=== PATIENT | female | born 1935 | race Caucasian/White ===

== ENCOUNTER 2016-12-13 07:47 | Inpatient (IN) | payer MEDICARE, BC ==
--- NOTE | 2016-12-13 08:49 | EDM.PDOC ---
ED HPI GENERAL MEDICAL PROBLEM - General Chief Complaint: General Stated Complaint: SOB Time Seen by Provider: 12/13/16 07:47 Source of Information: Reports: Patient, EMS History Limitations: Reports: No Limitations - History of Present Illness INITIAL COMMENTS - FREE TEXT/NARRATIVE: 81 years old w f came by EMS, from a [place], to the ed due to of and on left sided arm numbness and gen weakness. Pt is on coumadin and has a pacemeker placed. She has SOB off and on as swell. Right now she is feeling fine. No Family is present. No N/V/D, no CP, no other acute medical issues at this time BP 147/57 pulse 74 PO2 98 RR 18 Temp 37.4 Onset: Unknown/Unsure Onset Date: 12/12/16 Onset Time: 07:00 Duration: Hour(s):, Day(s):, Intermittent Location: Reports: Chest (sob sometimes), Upper Extremity, Left (numbness off and on for some time, sera lower leg weakness), Generalized Quality: Reports: Dull, Same as Previous Episode Severity: Moderate Improves with: Reports: Rest Worsens with: Reports: Movement Context: Reports: Other (CAD, Obesity) Associated Symptoms: Reports: Loss of Appetite Middle Back Pain Score (Numeric/FACES): 4 - Related Data Allergies Allergy/AdvReac Type Severity Reaction Status Date / Time adhesive Allergy Other Verified 12/13/16 08:09 grass pollen Allergy Sneezing Verified 12/13/16 08:09 Penicillins Allergy Hives Verified 12/13/16 08:09 Sulfa (Sulfonamide Allergy Rash Verified 12/13/16 08:09 Antibiotics) Home Meds: Home Meds Budesonide/Formoterol [Symbicort 160-4.5 MCG] 2 puff INH BID 03/30/13 [History] Cholecalciferol (Vitamin D3) [Vitamin D3] 2,000 unit PO DAILY 03/30/13 [History] Ferrous Sulfate 325 tab PO TIDMEALS 03/30/13 [History] Potassium Chloride 10 meq PO DAILY 03/30/13 [History] Omeprazole 40 mg PO ACBREAKFAST 12/28/14 [History] .Calcium Citrate 600 mg PO BIDMEALS 09/29/15 [History] Albuterol Sulfate [Proair Hfa] 2 puff IH Q6H PRN 02/13/16 [History] Aspirin [Halfprin] 81 mg PO DAILY 02/13/16 [History] Cyanocobalamin (Vitamin B-12) [B-12] 1,000 mcg PO DAILY 02/13/16 [History] Docusate Sodium [Colace] 100 mg PO DAILY 02/13/16 [History] Furosemide 80 mg PO BID 02/13/16 [History] Hydrocodone/Acetaminophen [Hydrocodon-Acetaminophen 5-325] 1 each PO Q4H PRN [History] Lisinopril 5 mg PO DAILY 02/13/16 [History] Nystatin [Nystatin Crm] 1 applic TOP BID PRN 02/13/16 [History] Umeclidinium Monroe [Incruse Ellipta] 62.5 mcg IH DAILY 02/13/16 [History] metFORMIN [Glucophage] 250 mg PO BIDMEALS #30 tab 02/27/16 [Rx] Acetaminophen [Tylenol Extra Strength] 1,000 mg PO BID PRN 12/13/16 [History] Gabapentin [Neurontin] 100 mg PO TID 12/13/16 [History] Insulin Aspart [NovoLOG] 12 - 20 units SUBCUT TIDMEALS 12/13/16 [History] Insulin Detemir [Levemir] 44 units SUBCUT BEDTIME 12/13/16 [History] Multivitamin [Daily Kristin] 1 tab PO DAILY 12/13/16 [History] Warfarin [Coumadin] 5 mg PO MOWEFR 12/13/16 [History] Warfarin [Coumadin] 7.5 mg PO SUTUTHSA 12/13/16 [History] traMADol [Ultram] 50 mg PO TID PRN 12/13/16 [History] Past Medical History HEENT History: Reports: Cataract, Hard of Hearing, Other (See Below) Other HEENT History: Congenital hearing loss Cardiovascular History: Reports: Hypertension, Pacemaker, PVD, Other (See Below) Other Cardiovascular History: 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 Other Genitourinary History: PT VOICED THAT SHE PASTED A KIDNEY SSTONE ABOUT 60 YEARS AGO. Other OB/BYN History: PT VOICED NEVER BEEN Musculoskeletal History: Reports: Osteoarthritis Other Musculoskeletal History: knee replacements Endocrine/Metabolic History: Reports: Diabetes, Type II, Other (See Below) Other Endocrine/Metabolic History: insulin dependent Oncologic (Cancer) History: Reports: Colon, Uterine, Other (See Below) Other Oncologic History: Endometrial CA Other Dermatologic History: RAASH UNDERNEATH SERA. BREASTS AND BELLY FOLDS AT TIMES. CURRENTLY HAS TO BREAST AND BELLY FOLDS - Past Surgical History HEENT Surgical History: Reports: Cataract Surgery Cardiovascular Surgical History: Reports: Other (See Below) GI Surgical History: Reports: Cholecystectomy, Other (See Below) Female Surgical History: Reports: Hysterectomy, Other (See Below) Musculoskeletal Surgical History: Reports: Hip Replacement, ORIF, Other (See Below) Social & Family History - Family History Cardiac: Reports: CAD, Other (See Below) Other Cardiac Family History: father and mother Respiratory: Reports: Asthma Other Respiratory Family Hisory: sister Neurological: Reports: Dementia, Other (See Below) Other Neurological Family History: mother Oncologic: Reports: Breast, Skin Other Oncologic Family History: mother-breast. brother-skin - Tobacco Use Smoking Status *Q: Former Smoker Years of Tobacco use: 20 Used Tobacco, but Quit: Yes Month Tobacco Last Used: 20 years ago Second Hand Smoke Exposure: No - Caffeine Use Caffeine Use: Reports: Coffee Other Caffeine Use: 2 cups of coffee and 1 cup of tea in a day - Alcohol Use Days Per Week of Alcohol Use: 0 - Recreational Drug Use Recreational Drug Use: No ED ROS GENERAL - Review of Systems Review Of Systems: See Below Constitutional: Reports: Weakness HEENT: Reports: No Symptoms Respiratory: Reports: Shortness of Breath (occ) Cardiovascular: Reports: Dyspnea on Exertion Endocrine: Reports: No Symptoms GI/Abdominal: Reports: No Symptoms : Reports: No Symptoms Musculoskeletal: Reports: No Symptoms Skin: Reports: No Symptoms Neurological: Reports: Numbness (left arm, off and on, gone now) Psychiatric: Reports: No Symptoms Hematologic/Lymphatic: Reports: No Symptoms Immunologic: Reports: No Symptoms ED EXAM, GENERAL - Physical Exam Exam: See Below Exam Limited By: Physical Impairment General Appearance: Alert, WD/WN, Mild Distress Eye Exam: Bilateral Eye: Normal Inspection Ears: Normal External Exam Ear Exam: Bilateral Ear: Auricle Normal Nose: Normal Inspection, Normal Mucosa Throat/Mouth: Normal Inspection, Normal Lips Head: Atraumatic, Normocephalic Neck: Normal Inspection, Supple, Non-Tender, Full Range of Motion Respiratory/Chest: No Respiratory Distress, Decreased Breath Sounds (left lung) Cardiovascular: Normal Peripheral Pulses, Regular Rate, Rhythm, No Edema, No JVD Peripheral Pulses: 1+: Femoral (L), Femoral (R) GI/Abdominal: Normal Bowel Sounds, Soft, Non-Tender (Female) Exam: Deferred Rectal (Female) Exam: Deferred Back Exam: Normal Inspection, Full Range of Motion Extremities: Normal Inspection, Normal Range of Motion, Non-Tender Neurological: Alert, Oriented, CN II-XII Intact, Normal Cognition Psychiatric: Normal Affect, Normal Mood Skin Exam: Warm, Dry, Intact, Pallor Lymphatic: No Adenopathy EKG INTERPRETATION EKG Date: 12/13/16 Time: 08:25 Rhythm: NSR Rate (Beats/Min): 82 [place]: LAD-Left [place] Deviation P-Wave: Present QRS: Normal ST-T: Normal QT: Prolonged Comparison: NA - No Prior EKG Course - Vital Signs Text/Narrative:: 81 years old w f came by EMS, from a [place], to the ed due to of and on left sided arm numbness and gen weakness. Pt is on coumadin and has a pacemeker placed. She has SOB off and on as swell. Right now she is feeling fine. No Family is present. No N/V/D, no CP, no other acute medical issues at this time BP 147/57 pulse 74 PO2 98 RR 18 Temp 37.4, No blood in stool PE: Weak, pale obes 81 y.o. w f with gen weakness Labs: WBC 6.9 HGB 6.9 INTR 3.9 Na 131 Cr 1.1 BUN 22 Mg 1.9 BNP 354 Troponin 0.01 Imaging: CXE pleural effusion left lung Impression:Weakness, H/O CAD Hypertherapeutic INR (3.9, pt is on coumadine), Anemia (6.9) Left pleural effusion, Hyponatremia. Tx: T&C 2 units of blood, Transfuse 2 units of PRBC Plan: Admit to [facility],. Dr. Bartlett accepted the pt for admission Last Recorded V/S: Last Vital Signs Temp 36.7 C 12/13/16 14:54 Pulse 86 12/13/16 14:54 Resp 18 12/13/16 14:54 BP 132/69 12/13/16 14:54 Pulse Ox 98 12/13/16 12:13 - Orders/Labs/Meds Orders: Active Orders 24 hr Category Date Time Status RED BLOOD CELLS LP [BBK] Stat Lab 12/13/16 08:40 Results TYPE AND SCREEN [BBK] Stat Lab 12/13/16 08:40 Results Sodium Chloride 0.9% [Normal Saline] 250 ml Med 12/13/16 09:15 Active IV ASDIRECTED Sodium Chloride 0.9% [Normal Saline] 250 ml Med 12/13/16 09:30 Active IV ASDIRECTED Transfuse Red Blood Cells [COMM] Stat Oth 12/13/16 09:01 Ordered Transfuse Red Blood Cells [COMM] Stat Oth 12/13/16 09:29 Ordered EKG 12 Lead [EK] Routine Ther 12/13/16 08:24 Ordered Medication Orders Acetaminophen (Tylenol) 650 mg PO Q6H PRN PRN Reason: Pain (mild 1-3) Albuterol/Ipratropium (Duoneb 3.0-0.5 Mg/3 Ml) 3 ml NEB QIDRT [facility] Last Admin: 12/13/16 12:00 Dose: 3 ml Calcium Carbonate (Calcium Carbonate/Vitamin D 1250 Mg-200 Unit) 1 tab PO BIDMEALS [facility] Carbamide Perox/Anhydrous Glycerin (Debrox 6.5% Otic Soln) 0 ml EARLF TID [facility] Last Admin: 12/13/16 14:34 Dose: Not Given Cholecalciferol (Vitamin D3) 2,000 units PO DAILY [facility] Cyanocobalamin (Vitamin B12) 1,000 mcg PO DAILY [facility] Docusate Sodium (Colace) 100 mg PO DAILY [facility] Ferrous Sulfate (Ferrous Sulfate) 325 mg PO TIDMEALS [facility] Last Admin: 12/13/16 14:31 Dose: 325 mg Gabapentin (Neurontin) 100 mg PO TID [facility] Last Admin: 12/13/16 14:31 Dose: 100 mg Sodium Chloride (Normal Saline) 250 mls @ 100 mls/hr IV ASDIRECTED [facility] Sodium Chloride (Normal Saline) 250 mls @ 100 mls/hr IV ASDIRECTED [facility] Insulin Aspart (Novolog) 0 unit SUBCUT TIDMEALS [facility] PRN Reason: Protocol Last Admin: 12/13/16 14:28 Dose: Admin: 12/13/16 14:27 Dose: 4 units Insulin Detemir (Levemir) 35 unit SUBCUT BEDTIME [facility] Lisinopril (Prinivil) 5 mg PO DAILY [facility] Metformin HCl (Glucophage) 250 mg PO BIDMEALS [facility] Mometasone Furoate/Formoterol Fumar (Dulera 200-5 Mcg) 2 puff IH BID [facility] Morphine Sulfate (Morphine) 2 mg IVPUSH Q2H PRN PRN Reason: Pain (severe 7-10) Nystatin (Nystatin Crm) 0 gm TOP BID PRN PRN Reason: Rash Pantoprazole Sodium (Protonix) 40 mg PO DAILY@0600 [facility] Potassium Chloride (Klor-Con 10) 10 meq PO DAILY [facility] Tiotropium Monroe (Spiriva Handihaler) 18 mcg INH DAILY [facility] Tramadol HCl (Ultram) 50 mg PO QID PRN PRN Reason: Pain Labs: Laboratory Tests 12/13/16 12/13/16 12/13/16 Range/Units 08:40 08:40 08:40 WBC 6.9 (4.5-12.0) X10-3/uL RBC 3.27 (3.23-5.20) x10(6)uL Hgb 6.9 L* D (11.5-15.5) g/dL Hct 23.6 L D (30.0-51.3) % MCV 72.1 L (80-96) fL MCH 21.1 L (27.7-33.6) pg MCHC 29.3 L (32.2-35.4) g/dL RDW 17.1 H (11.5-15.5) % Plt Count 305 (125-369) X10(3)uL MPV 7.7 (7.4-10.4) fL Neut % (Auto) 79.7 (46-82) % Lymph % (Auto) 10.2 L (13-37) % [place] % (Auto) 7.7 (4-12) % Eos % (Auto) 2 (1.0-5.0) % Baso % (Auto) 1 (0-2) % Neut # (Auto) 5.5 (1.6-8.3) # Lymph # (Auto) 0.7 (0.6-5.0) # [place] # (Auto) 0.5 (0.0-1.3) # Eos # (Auto) 0.1 (0.0-0.8) # Baso # (Auto) 0.1 (0.0-0.2) # PT 41.3 H* (8.7-11.1) INR 3.98 H (0.89-1.13) Sodium 131 L (135-145) mmol/L Potassium 4.4 (3.5-5.3) mmol/L Chloride 92 L D (100-110) mmol/L Carbon Dioxide 31 H (23-29) mmol/L BUN 23 (8-23) mg/dL Creatinine 0.7 (0.6-1.3) mg/dL Est Cr Clr Drug Dosing 59.01 mL/min Estimated GFR (MDRD) > 60 (>60) BUN/Creatinine Ratio 32.9 H (9-20) Glucose 141 H (80-116) mg/dL Calcium 8.2 L (8.6-10.2) mg/dL Magnesium (1.8-2.5) mg/dL Troponin I (0.02-0.06) NG/ML NT-Pro-B Natriuret Pep (5-450) pg/mL Blood Type Gel Antibody Screen Crossmatch 12/13/16 12/13/16 12/13/16 Range/Units 08:40 08:40 08:40 WBC (4.5-12.0) X10-3/uL RBC (3.23-5.20) x10(6)uL Hgb (11.5-15.5) g/dL Hct (30.0-51.3) % MCV (80-96) fL MCH (27.7-33.6) pg MCHC (32.2-35.4) g/dL RDW (11.5-15.5) % Plt Count (125-369) X10(3)uL MPV (7.4-10.4) fL Neut % (Auto) (46-82) % Lymph % (Auto) (13-37) % [place] % (Auto) (4-12) % Eos % (Auto) (1.0-5.0) % Baso % (Auto) (0-2) % Neut # (Auto) (1.6-8.3) # Lymph # (Auto) (0.6-5.0) # [place] # (Auto) (0.0-1.3) # Eos # (Auto) (0.0-0.8) # Baso # (Auto) (0.0-0.2) # PT (8.7-11.1) INR (0.89-1.13) Sodium (135-145) mmol/L Potassium (3.5-5.3) mmol/L Chloride (100-110) mmol/L Carbon Dioxide (23-29) mmol/L BUN (8-23) mg/dL Creatinine (0.6-1.3) mg/dL Est Cr Clr Drug Dosing mL/min Estimated GFR (MDRD) (>60) BUN/Creatinine Ratio (9-20) Glucose (80-116) mg/dL Calcium (8.6-10.2) mg/dL Magnesium 1.9 (1.8-2.5) mg/dL Troponin I < 0.01 L (0.02-0.06) NG/ML NT-Pro-B Natriuret Pep (5-450) pg/mL Blood Type B POSITIVE Gel Antibody Screen Negative Crossmatch See Detail 12/13/16 Range/Units 08:40 WBC (4.5-12.0) X10-3/uL RBC (3.23-5.20) x10(6)uL Hgb (11.5-15.5) g/dL Hct (30.0-51.3) % MCV (80-96) fL MCH (27.7-33.6) pg MCHC (32.2-35.4) g/dL RDW (11.5-15.5) % Plt Count (125-369) X10(3)uL MPV (7.4-10.4) fL Neut % (Auto) (46-82) % Lymph % (Auto) (13-37) % [place] % (Auto) (4-12) % Eos % (Auto) (1.0-5.0) % Baso % (Auto) (0-2) % Neut # (Auto) (1.6-8.3) # Lymph # (Auto) (0.6-5.0) # [place] # (Auto) (0.0-1.3) # Eos # (Auto) (0.0-0.8) # Baso # (Auto) (0.0-0.2) # PT (8.7-11.1) INR (0.89-1.13) Sodium (135-145) mmol/L Potassium (3.5-5.3) mmol/L Chloride (100-110) mmol/L Carbon Dioxide (23-29) mmol/L BUN (8-23) mg/dL Creatinine (0.6-1.3) mg/dL Est Cr Clr Drug Dosing mL/min Estimated GFR (MDRD) (>60) BUN/Creatinine Ratio (9-20) Glucose (80-116) mg/dL Calcium (8.6-10.2) mg/dL Magnesium (1.8-2.5) mg/dL Troponin I (0.02-0.06) NG/ML NT-Pro-B Natriuret Pep 368 (5-450) pg/mL Blood Type Gel Antibody Screen Crossmatch Meds: Medications Generic Name Dose Route Start Last Admin Trade Name Freq PRN Reason Stop Dose Admin Acetaminophen 650 mg 12/13/16 10:18 Tylenol PO Q6H PRN Pain (mild 1-3) Albuterol/Ipratropium 3 ml 12/13/16 11:00 12/13/16 12:00 Duoneb 3.0-0.5 Mg/3 Ml NEB 3 ml QIDRT [facility] Administration Calcium Carbonate 1 tab 12/13/16 18:00 Calcium Carbonate/Vitamin D 1250 Mg-200 Unit PO BIDMEALS [facility] Carbamide Perox/Anhydrous Glycerin 0 ml 12/13/16 14:00 12/13/16 14:34 Debrox 6.5% Otic Soln EARLF Not Given TID [facility] Cholecalciferol 2,000 units 12/14/16 09:00 Vitamin D3 PO DAILY [facility] Cyanocobalamin 1,000 mcg 12/14/16 09:00 Vitamin B12 PO DAILY [facility] Docusate Sodium 100 mg 12/14/16 09:00 Colace PO DAILY [facility] Ferrous Sulfate 325 mg 12/13/16 12:00 12/13/16 14:31 Ferrous Sulfate PO 325 mg TIDMEALS [facility] Administration Gabapentin 100 mg 12/13/16 14:00 12/13/16 14:31 Neurontin PO 100 mg TID [facility] Administration Sodium Chloride 250 mls @ 100 mls/hr 12/13/16 09:15 Normal Saline IV ASDIRECTED [facility] Sodium Chloride 250 mls @ 100 mls/hr 12/13/16 09:30 Normal Saline IV ASDIRECTED [facility] Insulin Aspart 0 unit 12/13/16 10:30 12/13/16 14:28 Novolog SUBCUT Not Given TIDMEALS [facility] Protocol Insulin Detemir 35 unit 12/13/16 21:00 Levemir SUBCUT BEDTIME [facility] Lisinopril 5 mg 12/14/16 09:00 Prinivil PO DAILY [facility] Metformin HCl 250 mg 12/13/16 18:00 Glucophage PO BIDMEALS [facility] Mometasone Furoate/Formoterol Fumar 2 puff 12/13/16 21:00 Dulera 200-5 Mcg IH BID [facility] Morphine Sulfate 2 mg 12/13/16 10:13 Morphine IVPUSH Q2H PRN Pain (severe 7-10) Nystatin 0 gm 12/13/16 10:18 Nystatin Crm TOP BID PRN Rash Pantoprazole Sodium 40 mg 12/14/16 06:00 Protonix PO DAILY@0600 [facility] Potassium Chloride 10 meq 12/14/16 09:00 Klor-Con 10 PO DAILY [facility] Tiotropium [place] 18 mcg 12/14/16 09:00 Spiriva Handihaler INH DAILY [facility] Tramadol HCl 50 mg 12/13/16 10:18 Ultram PO QID PRN Pain Discontinued Medications Generic Name Dose Route Start Last Admin Trade Name Freq PRN Reason Stop Dose Admin Furosemide 20 mg 12/13/16 15:00 Lasix IVPUSH 12/13/16 15:01 ONETIME ONE Insulin Aspart 20 unit 12/13/16 12:00 Novolog SUBCUT TIDMEALS [facility] Departure - Departure Time of Disposition: 09:00 Disposition: Admitted As Inpatient 66 Condition: Fair Clinical Impression: Pleural effusion Anemia Qualifiers: Anemia type: iron deficiency Iron deficiency anemia type: unspecified iron deficiency Qualified Code(s): D50.9 - Iron deficiency anemia, unspecified CAD (coronary artery disease) Qualifiers: Coronary Disease-Associated Artery/Lesion type: bypass graft [place] vs. transplanted heart: [place] heart Associated angina: without angina Qualified Code(s): I25.810 - Atherosclerosis of coronary artery bypass graft(s) without angina pectoris - Discharge Information - My Orders Last 24 Hours: My Active Orders 12/13/16 08:24 EKG 12 Lead [EK] Routine 12/13/16 08:40 RED BLOOD CELLS LP [BBK] Stat TYPE AND SCREEN [BBK] Stat 12/13/16 09:01 Transfuse Red Blood Cells [COMM] Stat 12/13/16 09:15 Sodium Chloride 0.9% [Normal Saline] 250 ml IV ASDIRECTED 12/13/16 09:29 Transfuse Red Blood Cells [COMM] Stat 12/13/16 09:30 Sodium Chloride 0.9% [Normal Saline] 250 ml IV ASDIRECTED - Assessment/Plan Last 24 Hours: My Active Orders 12/13/16 08:24 EKG 12 Lead [EK] Routine 12/13/16 08:40 RED BLOOD CELLS LP [BBK] Stat TYPE AND SCREEN [BBK] Stat 12/13/16 09:01 Transfuse Red Blood Cells [COMM] Stat 12/13/16 09:15 Sodium Chloride 0.9% [Normal Saline] 250 ml IV ASDIRECTED 12/13/16 09:29 Transfuse Red Blood Cells [COMM] Stat 12/13/16 09:30 Sodium Chloride 0.9% [Normal Saline] 250 ml IV ASDIRECTED
[2016-12-13] MEDS ORDERED: Sodium Chloride 0.9% 250 ML IV SCH ×2 (09:15→09:30)
[2016-12-13] MEDS ORDERED: Morphine 2 MG/ML Syringe IVPUSH PRN (10:13)
[2016-12-13] MEDS ORDERED: Nystatin Crm 15 GM Tube TOP PRN (10:18)
[2016-12-13] MEDS ORDERED: Acetaminophen 325 MG Tab PO PRN (10:18)
--- NOTE | 2016-12-13 10:53 | PCM.HP ---
H&P History of Present Illness - General Date of Service: 12/13/16 Admit Problem/Dx: Admission Diagnosis/Problem Admission Diagnosis/Problem Anemia Source of Information: Patient, Family History Limitations: Reports: No Limitations - History of Present Illness Initial Comments - Free Text/Narative: 81-year-old female who presented with numbness of the arms. This has been going for a day or two. It is associated with shortness of breath as well, but no chest pain. She further feels numb in the legs and weak. She has a history of chronic iron deficiency anemia, and had a recent Lower GI endoscopy that revealed a polyp. her hgb a month agao was 8.1 g/dl.She also has a history of type 2 diabetes is well controlled, obesity that stable chronic back pain due to sciatica. She was seen Friday started on Neurontin which made her dizzy and confused she stopped. Middle Back Pain Score (Numeric/FACES): 4 - Related Data Allergies/Adverse Reactions: Allergies Allergy/AdvReac Type Severity Reaction Status Date / Time adhesive Allergy Other Verified 12/13/16 08:09 grass pollen Allergy Sneezing Verified 12/13/16 08:09 Penicillins Allergy Hives Verified 12/13/16 08:09 Sulfa (Sulfonamide Allergy Rash Verified 12/13/16 08:09 Antibiotics) Home Medications: Home Meds Budesonide/Formoterol [Symbicort 160-4.5 MCG] 2 puff INH BID 03/30/13 [History] Cholecalciferol (Vitamin D3) [Vitamin D3] 2,000 unit PO DAILY 03/30/13 [History] Ferrous Sulfate 325 tab PO TIDMEALS 03/30/13 [History] Potassium Chloride 10 meq PO DAILY 03/30/13 [History] Omeprazole 40 mg PO ACBREAKFAST 12/28/14 [History] .Calcium Citrate 600 mg PO BIDMEALS 09/29/15 [History] Albuterol Sulfate [Proair Hfa] 2 puff IH Q6H PRN 02/13/16 [History] Aspirin [Halfprin] 81 mg PO DAILY 02/13/16 [History] Cyanocobalamin (Vitamin B-12) [B-12] 1,000 mcg PO DAILY 02/13/16 [History] Docusate Sodium [Colace] 100 mg PO DAILY 02/13/16 [History] Furosemide 80 mg PO BID 02/13/16 [History] Hydrocodone/Acetaminophen [Hydrocodon-Acetaminophen 5-325] 1 each PO Q4H PRN [History] Lisinopril 5 mg PO DAILY 02/13/16 [History] Nystatin [Nystatin Crm] 1 applic TOP BID PRN 02/13/16 [History] Umeclidinium [place] [Incruse Ellipta] 62.5 mcg IH DAILY 02/13/16 [History] metFORMIN [Glucophage] 250 mg PO BIDMEALS #30 tab 02/27/16 [Rx] Acetaminophen [Tylenol Extra Strength] 1,000 mg PO BID PRN 12/13/16 [History] Gabapentin [Neurontin] 100 mg PO TID 12/13/16 [History] Insulin Aspart [NovoLOG] 12 - 20 units SUBCUT TIDMEALS 12/13/16 [History] Insulin Detemir [Levemir] 44 units SUBCUT BEDTIME 12/13/16 [History] Multivitamin [Daily Kristin] 1 tab PO DAILY 12/13/16 [History] Warfarin [Coumadin] 5 mg PO MOWEFR 12/13/16 [History] Warfarin [Coumadin] 7.5 mg PO SUTUTHSA 12/13/16 [History] traMADol [Ultram] 50 mg PO TID PRN 12/13/16 [History] Past Medical History HEENT History: Reports: Cataract, Hard of Hearing, Other (See Below) Other HEENT History: Congenital hearing loss Cardiovascular History: Reports: Hypertension, Pacemaker, PVD, Other (See Below) Other Cardiovascular History: 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 Other Genitourinary History: PT VOICED THAT SHE PASTED A KIDNEY SSTONE ABOUT 60 YEARS AGO. Other OB/BYN History: PT VOICED NEVER BEEN Musculoskeletal History: Reports: Osteoarthritis Other Musculoskeletal History: knee replacements Endocrine/Metabolic History: Reports: Diabetes, Type II, Other (See Below) Other Endocrine/Metabolic History: insulin dependent Oncologic (Cancer) History: Reports: Colon, Uterine, Other (See Below) Other Oncologic History: Endometrial CA Other Dermatologic History: RAASH UNDERNEATH SERA. BREASTS AND BELLY FOLDS AT TIMES. CURRENTLY HAS TO BREAST AND BELLY FOLDS - Past Surgical History HEENT Surgical History: Reports: Cataract Surgery Cardiovascular Surgical History: Reports: Other (See Below) GI Surgical History: Reports: Cholecystectomy, Other (See Below) Female Surgical History: Reports: Hysterectomy, Other (See Below) Musculoskeletal Surgical History: Reports: Hip Replacement, ORIF, Other (See Below) Social & Family History - Family History Cardiac: Reports: CAD, Other (See Below) Other Cardiac Family History: father and mother Respiratory: Reports: Asthma Other Respiratory Family Hisory: sister Neurological: Reports: Dementia, Other (See Below) Other Neurological Family History: mother Oncologic: Reports: Breast, Skin Other Oncologic Family History: mother-breast. brother-skin - Tobacco Use Smoking Status *Q: Former Smoker Years of Tobacco use: 20 Used Tobacco, but Quit: Yes Month Tobacco Last Used: 20 years ago Second Hand Smoke Exposure: No - Caffeine Use Caffeine Use: Reports: Coffee Other Caffeine Use: 2 cups of coffee and 1 cup of tea in a day - Alcohol Use Days Per Week of Alcohol Use: 0 - Recreational Drug Use Recreational Drug Use: No H&P Review of Systems - Review of Systems: Review Of Systems: ROS reveals no pertinent complaints other than HPI. Exam - Exam Exam: See Below - Vital Signs Vital Signs: Last Vital Signs Temp 97.9 F 12/13/16 07:47 Pulse 86 12/13/16 07:47 Resp 16 12/13/16 07:47 BP 139/71 12/13/16 07:47 Pulse Ox Weight: 115.411 kg - Exam Quality Assessment: Supplemental Oxygen General: Alert, Oriented, 4 HEENT: PERRLA, Hearing Intact, Mucosa Moist & [place], Nares Patent, Normal Nasal Septum, Posterior Pharynx Clear, Conjunctiva Clear, EOMI, EACs Clear, TMs Clear Neck: Supple. No: +2 Carotid Pulse wo Bruit, JVD Lungs: Clear to Auscultation Cardiovascular: Regular Rate, Regular Rhythm GI/Abdominal Exam: Normal Bowel Sounds, Soft, Non-Tender, No Organomegaly, No Distention, No Abnormal Bruit, No Mass, Pelvis Stable (Female) Exam: Deferred Rectal (Female) Exam: Deferred Extremities: Pedal Edema Skin: Warm Neurological: Cranial Nerves Intact, Reflexes Equal Bilateral Neuro Extensive - Mental Status: Alert, Oriented x3, Normal Mood/Affect, Normal Cognition Neuro Extensive - Motor, Sensory, Reflexes: CN II-XII Intact, Normal Gait, Normal Reflexes Psychiatric: Alert, Normal Affect, Normal Mood - Patient Data Result Diagrams: 12/13/16 08:40 12/13/16 08:40 EKG INTERPRETATION Rhythm: NSR *Q Meaningful Use (ADM) - VTE *Q VTE Criteria *Q: - Stroke *Q Stroke Criteria *Q: - AMI *Q AMI Criteria *Q: - Problem List (1) Anemia SNOMED Code(s): 643218708 ICD Code: D64.9 - ANEMIA, UNSPECIFIED Status: Acute Current Visit: Yes Qualifiers: Anemia type: iron deficiency Iron deficiency anemia type: unspecified iron deficiency Qualified Code(s): D50.9 - Iron deficiency anemia, unspecified (2) [facility] current use of anticoagulant SNOMED Code(s): 180302024 ICD Code: Z79.01 - CV TECH (CURRENT) USE OF ANTICOAGULANTS Status: Acute Current Visit: Yes (3) Status post biventricular cardiac pacemaker insertion SNOMED Code(s): 413407958 ICD Code: Z95.0 - PRESENCE OF CARDIAC PACEMAKER Status: Acute Priority: High Current Visit: No (4) Asthma SNOMED Code(s): 600233754 ICD Code: J45.909 - UNSPECIFIED ASTHMA, UNCOMPLICATED Status: Chronic Current Visit: No Qualifiers: Asthma complication type: uncomplicated (5) Chronic GERD SNOMED Code(s): 187117815 ICD Code: K21.9 - GASTRO-ESOPHAGEAL REFLUX DISEASE WITHOUT ESOPHAGITIS Status: Chronic Current Visit: No (6) Chronic anticoagulation SNOMED Code(s): 619836343 ICD Code: Z79.01 - SNF (CURRENT) USE OF ANTICOAGULANTS Status: Chronic Priority: High Current Visit: No (7) Obesity (BMI 30-39.9) SNOMED Code(s): 425290398 ICD Code: E66.9 - OBESITY, UNSPECIFIED Status: Chronic Current Visit: No (8) Type 2 diabetes mellitus SNOMED Code(s): 30189695 ICD Code: E11.9 - TYPE 2 DIABETES MELLITUS WITHOUT COMPLICATIONS Status: Chronic Current Visit: No Qualifiers: Diabetes mellitus complication status: without complication (9) Complaint of debility and malaise SNOMED Code(s): 238406954 ICD Code: R53.81 - OTHER MALAISE Status: Resolved Priority: High Current Visit: No (10) SOB (shortness of breath) SNOMED Code(s): 999048328 ICD Code: R06.02 - SHORTNESS OF BREATH Status: Acute Current Visit: Yes Problem List Initiated/Reviewed/Updated: Yes Orders Last 24hrs: Active Orders 24 hr Category Date Time Status Patient Status Manage Transfer [TRANSFER] Routine ADT 12/13/16 10:21 Active Blood Glucose Check, Bedside [RC] TIDMEALS Care 12/13/16 10:20 Active Consistent Carbohydrate Diet [DIET] Diet 12/13/16 Lunch Ordered Acetaminophen [Tylenol] Med 12/13/16 10:18 Active 650 mg PO Q6H PRN Calcium Carbonate/Vitamin D3 [Calcium Carbonate/Vitamin Med 12/13/16 18:00 Active D 1250 MG-200 Unit] 1 tab PO BIDMEALS Carbamide Peroxide [Debrox 6.5% Otic Soln] Med 12/13/16 14:00 Active 0 ml EARLF TID Cholecalciferol (Vitamin D3) [Vitamin D3] Med 12/14/16 09:00 Active 2,000 units PO DAILY Cyanocobalamin (Vitamin B12) [Vitamin B12] Med 12/14/16 09:00 Active 1,000 mcg PO DAILY Docusate Sodium [Colace] Med 12/14/16 09:00 Active 100 mg PO DAILY Ferrous Sulfate Med 12/13/16 12:00 Active 325 mg PO TIDMEALS Gabapentin [Neurontin] Med 12/13/16 14:00 Active 100 mg PO TID Insulin Aspart [NovoLOG] Med 12/13/16 10:30 Active See Protocol SUBCUT TIDMEALS Insulin Detemir [Levemir] Med 12/13/16 21:00 Active 35 unit SUBCUT BEDTIME Lisinopril [Prinivil] Med 12/14/16 09:00 Active 5 mg PO DAILY Mometasone/Formoterol [Dulera 200-5 MCG] Med 12/13/16 21:00 Active 2 puff IH BID Nystatin [Nystatin Crm] Med 12/13/16 10:18 Active 0 gm TOP BID PRN Pantoprazole [ProTONIX] Med 12/14/16 06:00 Active 40 mg PO DAILY@0600 Potassium Chloride [Klor-Con 10] Med 12/14/16 09:00 Active 10 meq PO DAILY Umeclidinium [place] [Incruse Ellipta] Med 12/14/16 09:00 Active 62.5 mcg IH DAILY metFORMIN [Glucophage] Med 12/13/16 18:00 Active 250 mg PO BIDMEALS traMADol [Ultram] Med 12/13/16 10:18 Active 50 mg PO QID PRN Medication Orders Acetaminophen (Tylenol) 650 mg PO Q6H PRN PRN Reason: Pain (mild 1-3) Albuterol/Ipratropium (Duoneb 3.0-0.5 Mg/3 Ml) 3 ml NEB QIDRT RUBEN Calcium Carbonate (Calcium Carbonate/Vitamin D 1250 Mg-200 Unit) 1 tab PO BIDMEALS RUBEN Carbamide Perox/Anhydrous Glycerin (Debrox 6.5% Otic Soln) 0 ml EARLF TID RUBEN Cholecalciferol (Vitamin D3) 2,000 units PO DAILY RUBEN Cyanocobalamin (Vitamin B12) 1,000 mcg PO DAILY RUBEN Docusate Sodium (Colace) 100 mg PO DAILY RUBEN Ferrous Sulfate (Ferrous Sulfate) 325 mg PO TIDMEALS RUBEN Furosemide (Lasix) 20 mg IVPUSH ONETIME ONE Stop: 12/13/16 15:01 Gabapentin (Neurontin) 100 mg PO TID RUBEN Sodium Chloride (Normal Saline) 250 mls @ 100 mls/hr IV ASDIRECTED RUBEN Sodium Chloride (Normal Saline) 250 mls @ 100 mls/hr IV ASDIRECTED RUBEN Insulin Aspart (Novolog) 0 unit SUBCUT TIDMEALS RUBEN PRN Reason: Protocol Insulin Detemir (Levemir) 35 unit SUBCUT BEDTIME [facility] Lisinopril (Prinivil) 5 mg PO DAILY [facility] Metformin HCl (Glucophage) 250 mg PO BIDMEALS [facility]1983 Mometasone Furoate/Formoterol Fumar (Dulera 200-5 Mcg) 2 puff IH BID RUBEN Morphine Sulfate (Morphine) 2 mg IVPUSH Q2H PRN PRN Reason: Pain (severe 7-10) Non-Formulary Medication (Umeclidinium [place] [Incruse Ellipta]) 62.5 mcg IH DAILY [facility] Nystatin (Nystatin Crm) 0 gm TOP BID PRN PRN Reason: Rash Pantoprazole Sodium (Protonix) 40 mg PO DAILY@0600 [facility] Potassium Chloride (Klor-Con 10) 10 meq PO DAILY RUBEN Tramadol HCl (Ultram) 50 mg PO QID PRN PRN Reason: Pain Assessment/Plan Comment:: I will transfuse her 2 units of blood.Watch for Fluid overload. Daily weight, q8V. Consult Dr Hatch for an upper GI study,possibly once INR is better..We'll continue the rest of the home medications including insulin. I'll plan to repeat a CBC and CMP in the morning. Held off Coumadin because of high INR.Repeat daily. I've also recommended physical patient therapy for rehabilitation.
--- NOTE | 2016-12-13 11:26 | CR ---
INDICATION: Short of breath. CHEST: Two AP upright views of the chest were obtained and revealed bipolar pacemaker leads in place. The study is obtained 12/13/2016. No comparisons were available. The heart appears enlarged. The aorta is calcified in the arch area. Upper lung field pulmonary vasculature may be slightly prominent. Interstitial changes are minimal, suggesting the possibility of interstitial lung edema with CHF. No gross consolidating pneumonia or definite effusion was seen. There is elevation of the right hemidiaphragm leaf, which may simply be anatomic. Subpulmonic fluid cannot be entirely excluded, however. This should be correlated clinically. If old films are available for comparison, they should be of further diagnostic benefit. An elevated right hemidiaphragm was also noted on a CT of the chest dated 2013. IMPRESSION: Cannot exclude a mild degree of CHF and interstitial lung edema, with probable cardiomegaly, bipolar pacemaker leads, and calcified aorta. MTDD
[2016-12-13] MEDS: Albuterol/Ipratropium 3.0-0.5 MG/3 ML Neb Soln NEB SCH ×3 (12:00→20:22)
[2016-12-13] MEDS ORDERED: Insulin Aspart 100 Units/ML 3 ML Pen SUBCUT SCH (12:00)
[2016-12-13] MEDS ORDERED: Carbamide Peroxide 6.5% Otic Soln 15 ML Bottle EARLF SCH (14:00)
[2016-12-13] MEDS: Insulin Aspart 100 Units/ML 3 ML Pen SUBCUT SCH ×3 (14:27→17:09)
[2016-12-13] MEDS: Gabapentin 100 MG Cap PO SCH ×2 (14:31→20:24)
[2016-12-13] MEDS: Ferrous Sulfate 325 MG Tab PO SCH ×2 (14:31→17:08)
[2016-12-13] MEDS ORDERED: Furosemide 20 MG/2 ML VIAL IVPUSH ONE (15:00)
--- NOTE | 2016-12-13 17:02 | PCM.SN ---
- Free Text/Narrative Note: Pt examined and chart reviewed. Consult dictated. would like to wait on EGD as she is a little short of breath. will reassess in the am.
[2016-12-13] MEDS: Calcium Carbonate/Vitamin D3 1250 MG-200 Unit Tab PO SCH (17:07)
[2016-12-13] MEDS: metFORMIN 500 MG Tab PO SCH (17:08)
[2016-12-13] MEDS: Formoterol/Mometasone 200-5 MCG 8.8 GM Inhaler IH SCH (20:23)
[2016-12-13] MEDS: Insulin Detemir 100 Units/ML 3 ML Pen SUBCUT SCH (20:31)
[2016-12-14] MEDS: traMADol 50 MG Tab PO PRN (01:12)
[2016-12-14] MEDS: Pantoprazole 40 MG Tab.CR PO SCH (06:29)
[2016-12-14] MEDS: Albuterol/Ipratropium 3.0-0.5 MG/3 ML Neb Soln NEB SCH ×4 (07:06→20:21)
[2016-12-14] MEDS: Ferrous Sulfate 325 MG Tab PO SCH ×3 (07:54→17:52)
[2016-12-14] MEDS: Calcium Carbonate/Vitamin D3 1250 MG-200 Unit Tab PO SCH ×2 (07:54→17:52)
[2016-12-14] MEDS: metFORMIN 500 MG Tab PO SCH ×2 (07:54→17:52)
[2016-12-14] MEDS: Insulin Aspart 100 Units/ML 3 ML Pen SUBCUT SCH ×3 (07:57→17:46)
[2016-12-14] MEDS: Potassium Chloride 10 MEQ Tab.ER PO SCH (07:59)
[2016-12-14] MEDS: Docusate Sodium 100 MG Cap PO SCH (07:59)
[2016-12-14] MEDS: Lisinopril 5 MG Tab PO SCH (07:59)
[2016-12-14] MEDS: Gabapentin 100 MG Cap PO SCH ×3 (07:59→20:20)
[2016-12-14] MEDS: Tiotropium Inhaler 18 MCG Inhalation Powder Cap Kit of 5 INH SCH (08:00)
[2016-12-14] MEDS: Cholecalciferol (Vitamin D3) 1,000 Unit Tab PO SCH (08:01)
[2016-12-14] MEDS: Cyanocobalamin (Vitamin B12) 1,000 MCG Tab PO SCH (08:01)
[2016-12-14] MEDS: Formoterol/Mometasone 200-5 MCG 8.8 GM Inhaler IH SCH ×2 (08:02→20:21)
[2016-12-14] MEDS ORDERED: Metolazone 5 MG Tab PO ONE (08:17)
--- NOTE | 2016-12-14 08:25 | PCM.PN ---
- General Info Date of Service: 12/14/16 Admission Dx/Problem (Free Text): Admission Diagnosis/Problem Admission Diagnosis/Problem Anemia Subjective Update: Patient received 2 units of PRBCs yesterday. Subsequently a hemoglobin has been up to 9.6 however, she's had problems with breathing. She's been noted wheezing and short of breath, and has had visibly swollen extremities. He denies chest pain fever or chills or cough Functional Status: Reports: Pain Controlled, New Symptoms - Review of Systems HEENT: Reports: No Symptoms Pulmonary: Reports: Shortness of Breath Cardiovascular: Reports: Dyspnea on Exertion, Orthopnea Gastrointestinal: Reports: No Symptoms Genitourinary: Reports: No Symptoms - Patient Data Vitals - Most Recent: Last Vital Signs Temp 97.8 F 12/14/16 01:00 Pulse 88 12/14/16 07:47 Resp 20 12/14/16 01:00 BP 134/66 12/14/16 07:59 Pulse Ox 93 L 12/14/16 07:47 Weight - Most Recent: 113.489 kg I&O - Last 24 Hours: Intake & Output 12/13/16 12/14/16 12/14/16 22:59 06:59 14:59 Intake Total 952 Output Total 250 Balance 702 Lab Results Last 24 Hours: Laboratory Results - last 24 hr 12/13/16 12/13/16 12/14/16 Range/Units 14:04 17:05 06:42 WBC 8.6 (4.5-12.0) X10-3/uL RBC 4.25 (3.23-5.20) x10(6)uL Hgb 9.6 L (11.5-15.5) g/dL Hct 32.4 (30.0-51.3) % MCV 76.1 L (80-96) fL MCH 22.5 L (27.7-33.6) pg MCHC 29.6 L (32.2-35.4) g/dL RDW 18.2 H (11.5-15.5) % Plt Count 313 (125-369) X10(3)uL MPV 8.0 (7.4-10.4) fL Neut % (Auto) 83.1 H (46-82) % Lymph % (Auto) 8.2 L (13-37) % Clark % (Auto) 7.6 (4-12) % Eos % (Auto) 1 (1.0-5.0) % Baso % (Auto) 1 (0-2) % Neut # (Auto) 7.1 (1.6-8.3) # Lymph # (Auto) 0.7 (0.6-5.0) # Clark # (Auto) 0.7 (0.0-1.3) # Eos # (Auto) 0.1 (0.0-0.8) # Baso # (Auto) 0.0 (0.0-0.2) # PT (8.7-11.1) INR (0.89-1.13) Sodium (135-145) mmol/L Potassium (3.5-5.3) mmol/L Chloride (100-110) mmol/L Carbon Dioxide (23-29) mmol/L BUN (8-23) mg/dL Creatinine (0.6-1.3) mg/dL Est Cr Clr Drug Dosing mL/min Estimated GFR (MDRD) (>60) BUN/Creatinine Ratio (9-20) Glucose (80-116) mg/dL POC Glucose 238 H D 209 H (80-116) mg/dL Calcium (8.6-10.2) mg/dL Total Bilirubin (0.1-1.3) mg/dL AST (5-27) IU/L ALT (14-26) IU/L Alkaline Phosphatase (56-112) IU/L Troponin I (0.02-0.06) NG/ML Total Protein (6.0-8.0) g/dL Albumin (3.2-4.6) g/dL Globulin g/dL Albumin/Globulin Ratio 12/14/16 12/14/16 12/14/16 Range/Units 06:42 06:42 06:42 WBC (4.5-12.0) X10-3/uL RBC (3.23-5.20) x10(6)uL Hgb (11.5-15.5) g/dL Hct (30.0-51.3) % MCV (80-96) fL MCH (27.7-33.6) pg MCHC (32.2-35.4) g/dL RDW (11.5-15.5) % Plt Count (125-369) X10(3)uL MPV (7.4-10.4) fL Neut % (Auto) (46-82) % Lymph % (Auto) (13-37) % Clark % (Auto) (4-12) % Eos % (Auto) (1.0-5.0) % Baso % (Auto) (0-2) % Neut # (Auto) (1.6-8.3) # Lymph # (Auto) (0.6-5.0) # Clark # (Auto) (0.0-1.3) # Eos # (Auto) (0.0-0.8) # Baso # (Auto) (0.0-0.2) # PT 22.4 H (8.7-11.1) INR 2.18 H (0.89-1.13) Sodium 131 L (135-145) mmol/L Potassium 4.4 (3.5-5.3) mmol/L Chloride 93 L (100-110) mmol/L Carbon Dioxide 30 H (23-29) mmol/L BUN 19 (8-23) mg/dL Creatinine 0.7 (0.6-1.3) mg/dL Est Cr Clr Drug Dosing 59.01 mL/min Estimated GFR (MDRD) > 60 (>60) BUN/Creatinine Ratio 27.1 H (9-20) Glucose 213 H (80-116) mg/dL POC Glucose (80-116) mg/dL Calcium 8.5 L (8.6-10.2) mg/dL Total Bilirubin 0.8 (0.1-1.3) mg/dL AST 17 D (5-27) IU/L ALT 19 D (14-26) IU/L Alkaline Phosphatase 100 (56-112) IU/L Troponin I < 0.01 L (0.02-0.06) NG/ML Total Protein 6.2 (6.0-8.0) g/dL Albumin 3.2 (3.2-4.6) g/dL Globulin 3.0 g/dL Albumin/Globulin Ratio 1.1 Med Orders - Current: Current Medications Acetaminophen (Tylenol) 650 mg PO Q6H PRN PRN Reason: Pain (mild 1-3) Albuterol/Ipratropium (Duoneb 3.0-0.5 Mg/3 Ml) 3 ml NEB QIDRT [facility] Last Admin: 12/14/16 07:06 Dose: 3 ml Calcium Carbonate (Calcium Carbonate/Vitamin D 1250 Mg-200 Unit) 1 tab PO BIDMEALS [facility] Last Admin: 12/14/16 07:54 Dose: 1 tab Cholecalciferol (Vitamin D3) 2,000 units PO DAILY [facility] Last Admin: 12/14/16 08:01 Dose: 2,000 units Cyanocobalamin (Vitamin B12) 1,000 mcg PO DAILY [facility] Last Admin: 12/14/16 08:01 Dose: 1,000 mcg Docusate Sodium (Colace) 100 mg PO DAILY [facility] Last Admin: 12/14/16 07:59 Dose: 100 mg Ferrous Sulfate (Ferrous Sulfate) 325 mg PO TIDMEALS [facility] Last Admin: 12/14/16 07:54 Dose: 325 mg Furosemide (Lasix) 80 mg IVPUSH NOW ONE Stop: 12/14/16 08:21 Furosemide (Lasix) 80 mg PO BID [facility] Gabapentin (Neurontin) 100 mg PO TID [facility] Last Admin: 12/14/16 07:59 Dose: 100 mg Sodium Chloride (Normal Saline) 250 mls @ 100 mls/hr IV ASDIRECTED RUBEN Sodium Chloride (Normal Saline) 250 mls @ 100 mls/hr IV ASDIRECTED [facility] Insulin Aspart (Novolog) 0 unit SUBCUT TIDMEALS [facility] PRN Reason: Protocol Last Admin: 12/14/16 07:57 Dose: 4 units Insulin Detemir (Levemir) 35 unit SUBCUT BEDTIME [facility] Last Admin: 12/13/16 20:31 Dose: 35 units Insulin Detemir (Levemir) 44 unit SUBCUT BEDTIME [facility] Lisinopril (Prinivil) 5 mg PO DAILY [facility] Last Admin: 12/14/16 07:59 Dose: 5 mg Metformin HCl (Glucophage) 250 mg PO BIDMEALS [facility] Last Admin: 12/14/16 07:54 Dose: 250 mg Metolazone (Zaroxolyn) 5 mg PO ONETIME ONE Stop: 12/14/16 08:18 Mometasone Furoate/Formoterol Fumar (Dulera 200-5 Mcg) 2 puff IH BID [facility] Last Admin: 12/14/16 08:02 Dose: 2 puff Morphine Sulfate (Morphine) 2 mg IVPUSH Q2H PRN PRN Reason: Pain (severe 7-10) Multivitamins/Minerals/Vitamin C (Tab-A-Kristin) 1 tab PO DAILY [facility] Nystatin (Nystatin Crm) 0 gm TOP BID PRN PRN Reason: Rash Pantoprazole Sodium (Protonix) 40 mg PO DAILY@0600 [facility] Last Admin: 12/14/16 06:29 Dose: 40 mg Potassium Chloride (Klor-Con 10) 10 meq PO DAILY [facility] Last Admin: 12/14/16 07:59 Dose: 10 meq Tiotropium [place] (Spiriva Handihaler) 18 mcg INH DAILY [facility] Last Admin: 12/14/16 08:00 Dose: 1 inhalation Tramadol HCl (Ultram) 50 mg PO QID PRN PRN Reason: Pain Last Admin: 12/14/16 01:12 Dose: 50 mg Discontinued Medications Carbamide Perox/Anhydrous Glycerin (Debrox 6.5% Otic Soln) 0 ml EARLF TID [facility] Last Admin: 12/13/16 14:34 Dose: Not Given Furosemide (Lasix) 20 mg IVPUSH ONETIME ONE Stop: 12/13/16 15:01 Last Admin: 12/13/16 15:20 Dose: 20 mg Furosemide (Lasix) 20 mg IVPUSH BID [facility] Insulin Aspart (Novolog) 20 unit SUBCUT TIDMEALS [facility] - Exam Quality Assessment: Supplemental Oxygen General: Alert, Oriented HEENT: Pupils Equal, Pupils Reactive, EOMI, Mucous Membr. Moist/[place] Neck: Supple Lungs: Crackles, Rhonchi Cardiovascular: Regular Rate, Regular Rhythm Extremities: Pedal Edema. No: No Pedal Edema Skin: Warm, Dry, Intact Neurological: No New Focal Deficit Psy/Mental Status: Alert, Normal Affect, Normal Mood - Problem List & Annotations (1) Anemia SNOMED Code(s): 149422302 Code(s): D64.9 - ANEMIA, UNSPECIFIED Status: Acute Current Visit: Yes Qualifiers: Anemia type: iron deficiency Iron deficiency anemia type: unspecified iron deficiency Qualified Code(s): D50.9 - Iron deficiency anemia, unspecified (2) shelter current use of anticoagulant SNOMED Code(s): 672321920 Code(s): Z79.01 - DETENTION (CURRENT) USE OF ANTICOAGULANTS Status: Acute Current Visit: Yes (3) Status post biventricular cardiac pacemaker insertion SNOMED Code(s): 723407177 Code(s): Z95.0 - PRESENCE OF CARDIAC PACEMAKER Status: Acute Priority: High Current Visit: No (4) Asthma SNOMED Code(s): 628157549 Code(s): J45.909 - UNSPECIFIED ASTHMA, UNCOMPLICATED Status: Chronic Current Visit: No Qualifiers: Asthma complication type: uncomplicated (5) Chronic GERD SNOMED Code(s): 119385095 Code(s): K21.9 - GASTRO-ESOPHAGEAL REFLUX DISEASE WITHOUT ESOPHAGITIS Status: Chronic Current Visit: No (6) Chronic anticoagulation SNOMED Code(s): 830344217 Code(s): Z79.01 - COMPLETION ENGINEER (CURRENT) USE OF ANTICOAGULANTS Status: Chronic Priority: High Current Visit: No (7) Obesity (BMI 30-39.9) SNOMED Code(s): 019798002 Code(s): E66.9 - OBESITY, UNSPECIFIED Status: Chronic Current Visit: No (8) Type 2 diabetes mellitus SNOMED Code(s): 29765748 Code(s): E11.9 - TYPE 2 DIABETES MELLITUS WITHOUT COMPLICATIONS Status: Chronic Current Visit: No Qualifiers: Diabetes mellitus complication status: without complication (9) Complaint of debility and malaise SNOMED Code(s): 023293681 Code(s): R53.81 - OTHER MALAISE Status: Resolved Priority: High Current Visit: No (10) SOB (shortness of breath) SNOMED Code(s): 439468331 Code(s): R06.02 - SHORTNESS OF BREATH Status: Acute Current Visit: Yes - Problem List Review Problem List Initiated/Reviewed/Updated: Yes - My Orders Last 24 Hours: My Active Orders 12/13/16 10:18 Acetaminophen [Tylenol] 650 mg PO Q6H PRN Nystatin [Nystatin Crm] 0 gm TOP BID PRN traMADol [Ultram] 50 mg PO QID PRN 12/13/16 10:20 Blood Glucose Check, Bedside [RC] TIDMEALS 12/13/16 10:30 Insulin Aspart [NovoLOG] See Protocol SUBCUT TIDMEALS 12/13/16 12:00 Ferrous Sulfate 325 mg PO TIDMEALS 12/13/16 14:00 Gabapentin [Neurontin] 100 mg PO TID 12/13/16 18:00 Calcium Carbonate/Vitamin D3 [Calcium Carbonate/Vitamin D 1250 MG-200 Unit] 1 tab PO BIDMEALS metFORMIN [Glucophage] 250 mg PO BIDMEALS 12/13/16 21:00 Insulin Detemir [Levemir] 35 unit SUBCUT BEDTIME Mometasone/Formoterol [Dulera 200-5 MCG] 2 puff IH BID 12/13/16 Lunch Consistent Carbohydrate Diet [DIET] 12/14/16 06:00 Pantoprazole [ProTONIX] 40 mg PO DAILY@0600 12/14/16 08:17 Metolazone [Zaroxolyn] 5 mg PO ONETIME ONE 12/14/16 08:20 Furosemide [Lasix] 80 mg IVPUSH NOW ONE 12/14/16 09:00 Cholecalciferol (Vitamin D3) [Vitamin D3] 2,000 units PO DAILY Cyanocobalamin (Vitamin B12) [Vitamin B12] 1,000 mcg PO DAILY Docusate Sodium [Colace] 100 mg PO DAILY Lisinopril [Prinivil] 5 mg PO DAILY Multivitamins [Tab-A-Kristin] 1 tab PO DAILY Potassium Chloride [Klor-Con 10] 10 meq PO DAILY Tiotropium [Spiriva HandiHaler] 18 mcg INH DAILY 12/14/16 17:00 Furosemide [Lasix] 80 mg PO BID 12/14/16 21:00 Insulin Detemir [Levemir] 44 unit SUBCUT BEDTIME 12/15/16 05:11 B-TYPE NATRIURETIC PEPTIDE,BNP [CHEM] AM BASIC METABOLIC PANEL,BMP [CHEM] AM CBC WITH AUTO DIFF [HEME] AM - Plan Plan:: I will restart her Lasix, after initial 80 mg IV 1 time. I also given a one- time dose of Zaroxolyn and 2 g of IV morphine. I will repeat CBC basic profile and BNP in the morning. I talked to Dr. Hatch about doing an upper GI endoscopy , because of chronic iron deficiency anemia. I will hold off on Coumadin until we decide the time for the upper GI.
[2016-12-14] MEDS ORDERED: Furosemide 100 MG/10 ML SDV IVPUSH ONE (08:45)
[2016-12-14] MEDS ORDERED: Furosemide 40 MG/4 ML VIAL IVPUSH SCH (09:00)
[2016-12-14] MEDS: Multivitamin Tab PO SCH (09:17)
--- NOTE | 2016-12-14 09:25 | PCM.SURGPN ---
- General Info Date of Service: 12/14/16 - Review of Systems Pulmonary: Reports: Wheezing Cardiovascular: Reports: No Symptoms Gastrointestinal: Reports: No Symptoms - Patient Data Vitals - Most Recent: Last Vital Signs Temp 36.6 C 12/14/16 07:45 Pulse 88 12/14/16 07:47 Resp 22 H 12/14/16 07:45 BP 134/66 12/14/16 07:59 Pulse Ox 93 L 12/14/16 07:47 Weight - Most Recent: 113.489 kg I&O - Last 24 Hours: Intake & Output 12/13/16 12/14/16 12/14/16 22:59 06:59 14:59 Intake Total 952 Output Total 250 Balance 702 Lab Results Last 24 Hrs: Laboratory Results - last 24 hr 12/13/16 12/13/16 12/14/16 Range/Units 14:04 17:05 06:42 WBC 8.6 (4.5-12.0) X10-3/uL RBC 4.25 (3.23-5.20) x10(6)uL Hgb 9.6 L (11.5-15.5) g/dL Hct 32.4 (30.0-51.3) % MCV 76.1 L (80-96) fL MCH 22.5 L (27.7-33.6) pg MCHC 29.6 L (32.2-35.4) g/dL RDW 18.2 H (11.5-15.5) % Plt Count 313 (125-369) X10(3)uL MPV 8.0 (7.4-10.4) fL Neut % (Auto) 83.1 H (46-82) % Lymph % (Auto) 8.2 L (13-37) % [place] % (Auto) 7.6 (4-12) % Eos % (Auto) 1 (1.0-5.0) % Baso % (Auto) 1 (0-2) % Neut # (Auto) 7.1 (1.6-8.3) # Lymph # (Auto) 0.7 (0.6-5.0) # [place] # (Auto) 0.7 (0.0-1.3) # Eos # (Auto) 0.1 (0.0-0.8) # Baso # (Auto) 0.0 (0.0-0.2) # PT (8.7-11.1) INR (0.89-1.13) Sodium (135-145) mmol/L Potassium (3.5-5.3) mmol/L Chloride (100-110) mmol/L Carbon Dioxide (23-29) mmol/L BUN (8-23) mg/dL Creatinine (0.6-1.3) mg/dL Est Cr Clr Drug Dosing mL/min Estimated GFR (MDRD) (>60) BUN/Creatinine Ratio (9-20) Glucose (80-116) mg/dL POC Glucose 238 H D 209 H (80-116) mg/dL Calcium (8.6-10.2) mg/dL Total Bilirubin (0.1-1.3) mg/dL AST (5-27) IU/L ALT (14-26) IU/L Alkaline Phosphatase (56-112) IU/L Troponin I (0.02-0.06) NG/ML Total Protein (6.0-8.0) g/dL Albumin (3.2-4.6) g/dL Globulin g/dL Albumin/Globulin Ratio 12/14/16 12/14/16 12/14/16 Range/Units 06:42 06:42 06:42 WBC (4.5-12.0) X10-3/uL RBC (3.23-5.20) x10(6)uL Hgb (11.5-15.5) g/dL Hct (30.0-51.3) % MCV (80-96) fL MCH (27.7-33.6) pg MCHC (32.2-35.4) g/dL RDW (11.5-15.5) % Plt Count (125-369) X10(3)uL MPV (7.4-10.4) fL Neut % (Auto) (46-82) % Lymph % (Auto) (13-37) % [place] % (Auto) (4-12) % Eos % (Auto) (1.0-5.0) % Baso % (Auto) (0-2) % Neut # (Auto) (1.6-8.3) # Lymph # (Auto) (0.6-5.0) # [place] # (Auto) (0.0-1.3) # Eos # (Auto) (0.0-0.8) # Baso # (Auto) (0.0-0.2) # PT 22.4 H (8.7-11.1) INR 2.18 H (0.89-1.13) Sodium 131 L (135-145) mmol/L Potassium 4.4 (3.5-5.3) mmol/L Chloride 93 L (100-110) mmol/L Carbon Dioxide 30 H (23-29) mmol/L BUN 19 (8-23) mg/dL Creatinine 0.7 (0.6-1.3) mg/dL Est Cr Clr Drug Dosing 59.01 mL/min Estimated GFR (MDRD) > 60 (>60) BUN/Creatinine Ratio 27.1 H (9-20) Glucose 213 H (80-116) mg/dL POC Glucose (80-116) mg/dL Calcium 8.5 L (8.6-10.2) mg/dL Total Bilirubin 0.8 (0.1-1.3) mg/dL AST 17 D (5-27) IU/L ALT 19 D (14-26) IU/L Alkaline Phosphatase 100 (56-112) IU/L Troponin I < 0.01 L (0.02-0.06) NG/ML Total Protein 6.2 (6.0-8.0) g/dL Albumin 3.2 (3.2-4.6) g/dL Globulin 3.0 g/dL Albumin/Globulin Ratio 1.1 Med Orders - Current: Current Medications Acetaminophen (Tylenol) 650 mg PO Q6H PRN PRN Reason: Pain (mild 1-3) Albuterol/Ipratropium (Duoneb 3.0-0.5 Mg/3 Ml) 3 ml NEB QIDRT [facility] Last Admin: 12/14/16 07:06 Dose: 3 ml Calcium Carbonate (Calcium Carbonate/Vitamin D 1250 Mg-200 Unit) 1 tab PO BIDMEALS [facility] Last Admin: 12/14/16 07:54 Dose: 1 tab Cholecalciferol (Vitamin D3) 2,000 units PO DAILY [facility] Last Admin: 12/14/16 08:01 Dose: 2,000 units Cyanocobalamin (Vitamin B12) 1,000 mcg PO DAILY [facility] Last Admin: 12/14/16 08:01 Dose: 1,000 mcg Docusate Sodium (Colace) 100 mg PO DAILY [facility] Last Admin: 12/14/16 07:59 Dose: 100 mg Ferrous Sulfate (Ferrous Sulfate) 325 mg PO TIDMEALS [facility] Last Admin: 12/14/16 07:54 Dose: 325 mg Furosemide (Lasix) 80 mg PO BIDDIURETIC [facility] Gabapentin (Neurontin) 100 mg PO TID [facility] Last Admin: 12/14/16 07:59 Dose: 100 mg Sodium Chloride (Normal Saline) 250 mls @ 100 mls/hr IV ASDIRECTED RUBEN Sodium Chloride (Normal Saline) 250 mls @ 100 mls/hr IV ASDIRECTED [facility] Insulin Aspart (Novolog) 0 unit SUBCUT TIDMEALS [facility] PRN Reason: Protocol Last Admin: 12/14/16 07:57 Dose: 4 units Insulin Detemir (Levemir) 35 unit SUBCUT BEDTIME [facility] Last Admin: 12/13/16 20:31 Dose: 35 units Insulin Detemir (Levemir) 44 unit SUBCUT BEDTIME [facility] Lisinopril (Prinivil) 5 mg PO DAILY [facility] Last Admin: 12/14/16 07:59 Dose: 5 mg Metformin HCl (Glucophage) 250 mg PO BIDMEALS [facility] Last Admin: 12/14/16 07:54 Dose: 250 mg Mometasone Furoate/Formoterol Fumar (Dulera 200-5 Mcg) 2 puff IH BID [facility] Last Admin: 12/14/16 08:02 Dose: 2 puff Morphine Sulfate (Morphine) 2 mg IVPUSH Q2H PRN PRN Reason: Pain (severe 7-10) Multivitamins/Minerals/Vitamin C (Tab-A-Kristin) 1 tab PO DAILY [facility] Last Admin: 12/14/16 09:17 Dose: 1 tab Nystatin (Nystatin Crm) 0 gm TOP BID PRN PRN Reason: Rash Pantoprazole Sodium (Protonix) 40 mg PO DAILY@0600 [facility] Last Admin: 12/14/16 06:29 Dose: 40 mg Potassium Chloride (Klor-Con 10) 10 meq PO DAILY [facility] Last Admin: 12/14/16 07:59 Dose: 10 meq Tiotropium [place] (Spiriva Handihaler) 18 mcg INH DAILY [facility] Last Admin: 12/14/16 08:00 Dose: 1 inhalation Tramadol HCl (Ultram) 50 mg PO QID PRN PRN Reason: Pain Last Admin: 12/14/16 01:12 Dose: 50 mg Discontinued Medications Carbamide Perox/Anhydrous Glycerin (Debrox 6.5% Otic Soln) 0 ml EARLF TID [facility] Last Admin: 12/13/16 14:34 Dose: Not Given Furosemide (Lasix) 20 mg IVPUSH ONETIME ONE Stop: 12/13/16 15:01 Last Admin: 12/13/16 15:20 Dose: 20 mg Furosemide (Lasix) 20 mg IVPUSH BID [facility] Furosemide (Lasix) 80 mg IVPUSH NOW ONE Stop: 12/14/16 08:46 Last Admin: 12/14/16 09:16 Dose: 80 mg Insulin Aspart (Novolog) 20 unit SUBCUT TIDMEALS [facility] Metolazone (Zaroxolyn) 5 mg PO ONETIME ONE Stop: 12/14/16 08:18 Last Admin: 12/14/16 09:16 Dose: 5 mg - Exam General: Alert, Oriented, Mild Distress Lungs: Wheezing Cardiovascular: Regular Rate GI/Abdominal Exam: Normal Bowel Sounds, Soft, Non-Tender - Problem List & Annotations (1) Anemia SNOMED Code(s): 846055756 Code(s): D64.9 - ANEMIA, UNSPECIFIED Status: Acute Current Visit: Yes Qualifiers: Anemia type: iron deficiency Iron deficiency anemia type: unspecified iron deficiency Qualified Code(s): D50.9 - Iron deficiency anemia, unspecified - Problem List Review Problem List Initiated/Reviewed/Updated: Yes - My Orders Last 24 Hours: Active Orders 24 hr Category Date Time Status Blood Glucose Check, Bedside [RC] TIDMEALS Care 12/13/16 10:20 Active Consistent Carbohydrate Diet [DIET] Diet 12/13/16 Lunch Ordered B-TYPE NATRIURETIC PEPTIDE,BNP [CHEM] AM Lab 12/15/16 05:11 Ordered BASIC METABOLIC PANEL,BMP [CHEM] AM Lab 12/15/16 05:11 Ordered CBC WITH AUTO DIFF [HEME] AM Lab 12/15/16 05:11 Ordered Acetaminophen [Tylenol] Med 12/13/16 10:18 Active 650 mg PO Q6H PRN Calcium Carbonate/Vitamin D3 [Calcium Carbonate/Vitamin Med 12/13/16 18:00 Active D 1250 MG-200 Unit] 1 tab PO BIDMEALS Cholecalciferol (Vitamin D3) [Vitamin D3] Med 12/14/16 09:00 Active 2,000 units PO DAILY Cyanocobalamin (Vitamin B12) [Vitamin B12] Med 12/14/16 09:00 Active 1,000 mcg PO DAILY Docusate Sodium [Colace] Med 12/14/16 09:00 Active 100 mg PO DAILY Ferrous Sulfate Med 12/13/16 12:00 Active 325 mg PO TIDMEALS Furosemide [Lasix] Med 12/14/16 17:00 Active 80 mg PO BIDDIURETIC Gabapentin [Neurontin] Med 12/13/16 14:00 Active 100 mg PO TID Insulin Aspart [NovoLOG] Med 12/13/16 10:30 Active See Protocol SUBCUT TIDMEALS Insulin Detemir [Levemir] Med 12/13/16 21:00 Active 35 unit SUBCUT BEDTIME Insulin Detemir [Levemir] Med 12/14/16 21:00 Ordered 44 unit SUBCUT BEDTIME Lisinopril [Prinivil] Med 12/14/16 09:00 Active 5 mg PO DAILY Mometasone/Formoterol [Dulera 200-5 MCG] Med 12/13/16 21:00 Active 2 puff IH BID Multivitamins [Tab-A-Kristin] Med 12/14/16 09:00 Active 1 tab PO DAILY Nystatin [Nystatin Crm] Med 12/13/16 10:18 Active 0 gm TOP BID PRN Pantoprazole [ProTONIX] Med 12/14/16 06:00 Active 40 mg PO DAILY@0600 Potassium Chloride [Klor-Con 10] Med 12/14/16 09:00 Active 10 meq PO DAILY Tiotropium [Spiriva HandiHaler] Med 12/14/16 09:00 Active 18 mcg INH DAILY metFORMIN [Glucophage] Med 12/13/16 18:00 Active 250 mg PO BIDMEALS traMADol [Ultram] Med 12/13/16 10:18 Active 50 mg PO QID PRN Medication Orders Acetaminophen (Tylenol) 650 mg PO Q6H PRN PRN Reason: Pain (mild 1-3) Albuterol/Ipratropium (Duoneb 3.0-0.5 Mg/3 Ml) 3 ml NEB QIDRT [facility] Last Admin: 12/14/16 07:06 Dose: 3 ml Admin: 12/13/16 20:22 Dose: 3 ml Admin: 12/13/16 15:38 Dose: 3 ml Admin: 12/13/16 12:00 Dose: 3 ml Calcium Carbonate (Calcium Carbonate/Vitamin D 1250 Mg-200 Unit) 1 tab PO BIDMEALS [facility] Last Admin: 12/14/16 07:54 Dose: 1 tab Admin: 12/13/16 17:07 Dose: 1 tab Cholecalciferol (Vitamin D3) 2,000 units PO DAILY [facility] Last Admin: 12/14/16 08:01 Dose: 2,000 units Cyanocobalamin (Vitamin B12) 1,000 mcg PO DAILY [facility] Last Admin: 12/14/16 08:01 Dose: 1,000 mcg Docusate Sodium (Colace) 100 mg PO DAILY [facility] Last Admin: 12/14/16 07:59 Dose: 100 mg Ferrous Sulfate (Ferrous Sulfate) 325 mg PO TIDMEALS [facility] Last Admin: 12/14/16 07:54 Dose: 325 mg Admin: 12/13/16 17:08 Dose: 325 mg Admin: 12/13/16 14:31 Dose: 325 mg Furosemide (Lasix) 80 mg PO BIDDIURETIC [facility] Gabapentin (Neurontin) 100 mg PO TID [facility] Last Admin: 12/14/16 07:59 Dose: 100 mg Admin: 12/13/16 20:24 Dose: 100 mg Admin: 12/13/16 14:31 Dose: 100 mg Sodium Chloride (Normal Saline) 250 mls @ 100 mls/hr IV ASDIRECTED [facility]UB[facility] Sodium Chloride (Normal Saline) 250 mls @ 100 mls/hr IV ASDIRECTED [facility] Insulin Aspart (Novolog) 0 unit SUBCUT TIDMEALS [facility] PRN Reason: Protocol Last Admin: 12/14/16 07:57 Dose: 4 units Admin: 12/13/16 17:09 Dose: 4 units Admin: 12/13/16 14:28 Dose: Admin: 12/13/16 14:27 Dose: 4 units Insulin Detemir (Levemir) 35 unit SUBCUT BEDTIME [facility] Last Admin: 12/13/16 20:31 Dose: 35 units Insulin Detemir (Levemir) 44 unit SUBCUT BEDTIME [facility] Lisinopril (Prinivil) 5 mg PO DAILY [facility] Last Admin: 12/14/16 07:59 Dose: 5 mg Metformin HCl (Glucophage) 250 mg PO BIDMEALS [facility] Last Admin: 12/14/16 07:54 Dose: 250 mg Admin: 12/13/16 17:08 Dose: 250 mg Mometasone Furoate/Formoterol Fumar (Dulera 200-5 Mcg) 2 puff IH BID [facility] Last Admin: 12/14/16 08:02 Dose: 2 puff Admin: 12/13/16 20:23 Dose: 2 puff Morphine Sulfate (Morphine) 2 mg IVPUSH Q2H PRN PRN Reason: Pain (severe 7-10) Multivitamins/Minerals/Vitamin C (Tab-A-Kristin) 1 tab PO DAILY [facility] Last Admin: 12/14/16 09:17 Dose: 1 tab Nystatin (Nystatin Crm) 0 gm TOP BID PRN PRN Reason: Rash Pantoprazole Sodium (Protonix) 40 mg PO DAILY@0600 [facility] Last Admin: 12/14/16 06:29 Dose: 40 mg Potassium Chloride (Klor-Con 10) 10 meq PO DAILY [facility] Last Admin: 12/14/16 07:59 Dose: 10 meq Tiotropium [place] (Spiriva Handihaler) 18 mcg INH DAILY [facility] Last Admin: 12/14/16 08:00 Dose: 1 inhalation Tramadol HCl (Ultram) 50 mg PO QID PRN PRN Reason: Pain Last Admin: 12/14/16 01:12 Dose: 50 mg - Assessment Assessment (Free Text/Narrative):: Per hospitalist in [place]F will hold off for now to upper endoscopy.
[2016-12-14] MEDS: Enoxaparin 100 MG/1 ML Syringe SUBCUT SCH ×2 (11:11→20:21)
[2016-12-14] MEDS: Furosemide 80 MG Tab PO SCH (16:49)
[2016-12-14] MEDS: Insulin Detemir 100 Units/ML 3 ML Pen SUBCUT SCH (20:26)
[2016-12-14] MEDS ORDERED: Insulin Detemir 100 Units/ML 3 ML Pen SUBCUT SCH (21:00)
[2016-12-15] MEDS: traMADol 50 MG Tab PO PRN (00:50)
[2016-12-15] MEDS: Pantoprazole 40 MG Tab.CR PO SCH (05:15)
[2016-12-15] MEDS: Albuterol/Ipratropium 3.0-0.5 MG/3 ML Neb Soln NEB SCH ×4 (07:06→20:13)
[2016-12-15] MEDS: Calcium Carbonate/Vitamin D3 1250 MG-200 Unit Tab PO SCH ×2 (08:02→17:31)
[2016-12-15] MEDS: metFORMIN 500 MG Tab PO SCH ×2 (08:02→17:32)
[2016-12-15] MEDS: Ferrous Sulfate 325 MG Tab PO SCH ×3 (08:02→17:32)
[2016-12-15] MEDS: Formoterol/Mometasone 200-5 MCG 8.8 GM Inhaler IH SCH ×2 (08:03→20:15)
[2016-12-15] MEDS: Docusate Sodium 100 MG Cap PO SCH (08:03)
[2016-12-15] MEDS: Potassium Chloride 10 MEQ Tab.ER PO SCH (08:04)
[2016-12-15] MEDS: Enoxaparin 100 MG/1 ML Syringe SUBCUT SCH ×2 (08:04→20:23)
[2016-12-15] MEDS: Gabapentin 100 MG Cap PO SCH ×3 (08:05→20:17)
[2016-12-15] MEDS: Tiotropium Inhaler 18 MCG Inhalation Powder Cap Kit of 5 INH SCH (08:05)
[2016-12-15] MEDS: Lisinopril 5 MG Tab PO SCH (08:05)
[2016-12-15] MEDS: Insulin Aspart 100 Units/ML 3 ML Pen SUBCUT SCH ×3 (08:07→17:32)
[2016-12-15] MEDS: Multivitamin Tab PO SCH (08:07)
[2016-12-15] MEDS: Cyanocobalamin (Vitamin B12) 1,000 MCG Tab PO SCH (08:07)
[2016-12-15] MEDS: Cholecalciferol (Vitamin D3) 1,000 Unit Tab PO SCH (08:07)
--- NOTE | 2016-12-15 08:20 | PCM.PN ---
- General Info Date of Service: 12/15/16 Subjective Update: Patient received 2 units of PRBCs on Friday. Subsequently a hemoglobin has been up to 9.6 however, she's had problems with breathing. She's been noted wheezing and short of breath, and has had visibly swollen extremities. He denies chest pain fever or chills or cough. These symptoms have slightly improved since yesterday. She's lost only 3 pounds. Functional Status: Reports: Pain Controlled - Review of Systems General: Reports: Weakness HEENT: Reports: No Symptoms Pulmonary: Reports: Shortness of Breath, Wheezing. Denies: Pleuritic Chest Pain , Cough, Sputum Cardiovascular: Reports: Orthopnea, Edema - Patient Data Vitals - Most Recent: Last Vital Signs Temp 98.2 F 12/15/16 01:00 Pulse 88 12/15/16 07:58 Resp 20 12/15/16 01:00 BP 127/63 12/15/16 08:05 Pulse Ox 87 L 12/15/16 07:58 Weight - Most Recent: 112.309 kg I&O - Last 24 Hours: Intake & Output 12/14/16 12/15/16 12/15/16 22:59 06:59 14:59 Intake Total 1200 Output Total 400 Balance 800 Lab Results Last 24 Hours: Laboratory Results - last 24 hr 12/14/16 12/14/16 12/15/16 Range/Units 11:09 17:14 06:05 WBC (4.5-12.0) X10-3/uL RBC (3.23-5.20) x10(6)uL Hgb (11.5-15.5) g/dL Hct (30.0-51.3) % MCV (80-96) fL MCH (27.7-33.6) pg MCHC (32.2-35.4) g/dL RDW (11.5-15.5) % Plt Count (125-369) X10(3)uL MPV (7.4-10.4) fL Neut % (Auto) (46-82) % Lymph % (Auto) (13-37) % [place] % (Auto) (4-12) % Eos % (Auto) (1.0-5.0) % Baso % (Auto) (0-2) % Neut # (Auto) (1.6-8.3) # Lymph # (Auto) (0.6-5.0) # [place] # (Auto) (0.0-1.3) # Eos # (Auto) (0.0-0.8) # Baso # (Auto) (0.0-0.2) # PT 16.4 H (8.7-11.1) INR 1.60 H (0.89-1.13) Sodium (135-145) mmol/L Potassium (3.5-5.3) mmol/L Chloride (100-110) mmol/L Carbon Dioxide (23-29) mmol/L BUN (8-23) mg/dL Creatinine (0.6-1.3) mg/dL Est Cr Clr Drug Dosing mL/min Estimated GFR (MDRD) (>60) BUN/Creatinine Ratio (9-20) Glucose (80-116) mg/dL POC Glucose 269 H 203 H (80-116) mg/dL Calcium (8.6-10.2) mg/dL NT-Pro-B Natriuret Pep (5-450) pg/mL 12/15/16 12/15/16 Range/Units 06:05 06:05 WBC 9.2 (4.5-12.0) X10-3/uL RBC 3.97 (3.23-5.20) x10(6)uL Hgb 9.0 L (11.5-15.5) g/dL Hct 29.9 L (30.0-51.3) % MCV 75.3 L (80-96) fL MCH 22.8 L (27.7-33.6) pg MCHC 30.3 L (32.2-35.4) g/dL RDW 19.0 H (11.5-15.5) % Plt Count 262 (125-369) X10(3)uL MPV 7.9 (7.4-10.4) fL Neut % (Auto) 80.7 (46-82) % Lymph % (Auto) 7.9 L (13-37) % [place] % (Auto) 8.6 (4-12) % Eos % (Auto) 2 (1.0-5.0) % Baso % (Auto) 1 (0-2) % Neut # (Auto) 7.4 (1.6-8.3) # Lymph # (Auto) 0.7 (0.6-5.0) # [place] # (Auto) 0.8 (0.0-1.3) # Eos # (Auto) 0.2 (0.0-0.8) # Baso # (Auto) 0.1 (0.0-0.2) # PT (8.7-11.1) INR (0.89-1.13) Sodium 128 L (135-145) mmol/L Potassium 3.8 (3.5-5.3) mmol/L Chloride 89 L* (100-110) mmol/L Carbon Dioxide 32 H (23-29) mmol/L BUN 21 (8-23) mg/dL Creatinine 0.8 (0.6-1.3) mg/dL Est Cr Clr Drug Dosing 51.63 mL/min Estimated GFR (MDRD) > 60 (>60) BUN/Creatinine Ratio 26.3 H (9-20) Glucose 133 H D (80-116) mg/dL POC Glucose (80-116) mg/dL Calcium 8.2 L (8.6-10.2) mg/dL NT-Pro-B Natriuret Pep 959 H (5-450) pg/mL Med Orders - Current: Current Medications Acetaminophen (Tylenol) 650 mg PO Q6H PRN PRN Reason: Pain (mild 1-3) Last Admin: 12/14/16 16:43 Dose: 650 mg Albuterol/Ipratropium (Duoneb 3.0-0.5 Mg/3 Ml) 3 ml NEB QIDRT [facility] Last Admin: 12/15/16 07:06 Dose: 3 ml Calcium Carbonate (Calcium Carbonate/Vitamin D 1250 Mg-200 Unit) 1 tab PO BIDMEALS [facility] Last Admin: 12/15/16 08:02 Dose: 1 tab Cholecalciferol (Vitamin D3) 2,000 units PO DAILY [facility] Last Admin: 12/15/16 08:07 Dose: 2,000 units Cyanocobalamin (Vitamin B12) 1,000 mcg PO DAILY [facility] Last Admin: 12/15/16 08:07 Dose: 1,000 mcg Docusate Sodium (Colace) 100 mg PO DAILY [facility] Last Admin: 12/15/16 08:03 Dose: 100 mg Enoxaparin Sodium (Lovenox) 100 mg SUBCUT BID [facility] Last Admin: 12/15/16 08:04 Dose: 100 mg Ferrous Sulfate (Ferrous Sulfate) 325 mg PO TIDMEALS [facility] Last Admin: 12/15/16 08:02 Dose: 325 mg Furosemide (Lasix) 80 mg PO BIDDIURETIC [facility] Last Admin: 12/14/16 16:49 Dose: 80 mg Gabapentin (Neurontin) 100 mg PO TID [facility] Last Admin: 12/15/16 08:05 Dose: 100 mg Sodium Chloride (Normal Saline) 250 mls @ 100 mls/hr IV ASDIRECTED [facility] Sodium Chloride (Normal Saline) 250 mls @ 100 mls/hr IV ASDIRECTED [facility] Insulin Aspart (Novolog) 0 unit SUBCUT TIDMEALS [facility] PRN Reason: Protocol Last Admin: 12/15/16 08:07 Dose: Not Given Insulin Detemir (Levemir) 35 unit SUBCUT BEDTIME [facility] Last Admin: 12/14/16 20:26 Dose: 35 units Lisinopril (Prinivil) 5 mg PO DAILY [facility] Last Admin: 12/15/16 08:05 Dose: 5 mg Metformin HCl (Glucophage) 250 mg PO BIDMEALS [facility] Last Admin: 12/15/16 08:02 Dose: 250 mg Metolazone (Zaroxolyn) 5 mg PO DAILY [facility] Mometasone Furoate/Formoterol Fumar (Dulera 200-5 Mcg) 2 puff IH BID [facility] Last Admin: 12/15/16 08:03 Dose: 2 puff Morphine Sulfate (Morphine) 2 mg IVPUSH Q2H PRN PRN Reason: Pain (severe 7-10) Multivitamins/Minerals/Vitamin C (Tab-A-Kristin) 1 tab PO DAILY [facility] Last Admin: 12/15/16 08:07 Dose: 1 tab Nystatin (Nystatin Crm) 0 gm TOP BID PRN PRN Reason: Rash Pantoprazole Sodium (Protonix) 40 mg PO DAILY@0600 [facility] Last Admin: 12/15/16 05:15 Dose: 40 mg Potassium Chloride (Klor-Con 10) 10 meq PO DAILY [facility] Last Admin: 12/15/16 08:04 Dose: 10 meq Tiotropium [place] (Spiriva Handihaler) 18 mcg INH DAILY [facility] Last Admin: 12/15/16 08:05 Dose: 1 inhalation Tramadol HCl (Ultram) 50 mg PO QID PRN PRN Reason: Pain Last Admin: 12/15/16 00:50 Dose: 50 mg Discontinued Medications Carbamide Perox/Anhydrous Glycerin (Debrox 6.5% Otic Soln) 0 ml EARLF TID [facility] Last Admin: 12/13/16 14:34 Dose: Not Given Furosemide (Lasix) 20 mg IVPUSH ONETIME ONE Stop: 12/13/16 15:01 Last Admin: 12/13/16 15:20 Dose: 20 mg Furosemide (Lasix) 20 mg IVPUSH BID [facility] Furosemide (Lasix) 80 mg IVPUSH NOW ONE Stop: 12/14/16 08:46 Last Admin: 12/14/16 09:16 Dose: 80 mg Insulin Aspart (Novolog) 20 unit SUBCUT TIDMEALS [facility] Metolazone (Zaroxolyn) 5 mg PO ONETIME ONE Stop: 12/14/16 08:18 Last Admin: 12/14/16 09:16 Dose: 5 mg - Exam Quality Assessment: Supplemental Oxygen General: Alert HEENT: Pupils Equal Neck: Supple Lungs: Rales, Rhonchi Cardiovascular: Regular Rate Skin: Warm, Dry, Intact Psy/Mental Status: Alert, Normal Affect, Normal Mood - Problem List & Annotations (1) Asthma SNOMED Code(s): 875583663 Code(s): J45.909 - UNSPECIFIED ASTHMA, UNCOMPLICATED Status: Chronic Current Visit: No Qualifiers: Asthma complication type: uncomplicated (2) Anemia SNOMED Code(s): 907385448 Code(s): D64.9 - ANEMIA, UNSPECIFIED Status: Acute Current Visit: Yes Qualifiers: Anemia type: iron deficiency Iron deficiency anemia type: unspecified iron deficiency Qualified Code(s): D50.9 - Iron deficiency anemia, unspecified (3) senior living current use of anticoagulant SNOMED Code(s): 347166987 Code(s): 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 Status: Acute Current Visit: Yes (4) Status post biventricular cardiac pacemaker insertion SNOMED Code(s): 049527964 Code(s): Z95.0 - PRESENCE OF CARDIAC PACEMAKER Status: Acute Priority: High Current Visit: No (5) Chronic GERD SNOMED Code(s): 286229029 Code(s): K21.9 - GASTRO-ESOPHAGEAL REFLUX DISEASE WITHOUT ESOPHAGITIS Status: Chronic Current Visit: No (6) Chronic anticoagulation SNOMED Code(s): 767633681 Code(s): 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 Status: Chronic Priority: High Current Visit: No (7) Obesity (BMI 30-39.9) SNOMED Code(s): 299504504 Code(s): E66.9 - OBESITY, UNSPECIFIED Status: Chronic Current Visit: No (8) Type 2 diabetes mellitus SNOMED Code(s): 53410065 Code(s): E11.9 - TYPE 2 DIABETES MELLITUS WITHOUT COMPLICATIONS Status: Chronic Current Visit: No Qualifiers: Diabetes mellitus complication status: without complication (9) Complaint of debility and malaise SNOMED Code(s): 775409863 Code(s): R53.81 - OTHER MALAISE Status: Resolved Priority: High Current Visit: No (10) SOB (shortness of breath) SNOMED Code(s): 420284123 Code(s): R06.02 - SHORTNESS OF BREATH Status: Acute Current Visit: Yes - Problem List Review Problem List Initiated/Reviewed/Updated: Yes - My Orders Last 24 Hours: My Active Orders 12/14/16 09:00 Cholecalciferol (Vitamin D3) [Vitamin D3] 2,000 units PO DAILY Cyanocobalamin (Vitamin B12) [Vitamin B12] 1,000 mcg PO DAILY Docusate Sodium [Colace] 100 mg PO DAILY Lisinopril [Prinivil] 5 mg PO DAILY Multivitamins [Tab-A-Kristin] 1 tab PO DAILY Potassium Chloride [Klor-Con 10] 10 meq PO DAILY Tiotropium [Spiriva HandiHaler] 18 mcg INH DAILY 12/14/16 11:00 Enoxaparin [Lovenox] 100 mg SUBCUT BID 12/14/16 17:00 Furosemide [Lasix] 80 mg PO BIDDIURETIC 12/15/16 08:30 Metolazone [Zaroxolyn] 5 mg PO DAILY 12/15/16 09:00 predniSONE 20 mg PO BID 12/16/16 05:11 B-TYPE NATRIURETIC PEPTIDE,BNP [CHEM] AM BASIC METABOLIC PANEL,BMP [CHEM] AM CBC WITH AUTO DIFF [HEME] AM - Plan Plan:: I I believe her shortness of breath is multifactorial, including congestive heart failure, and asthma exacerbation. I will add prednisone 10 mg twice a day for asthma exacerbation, and include Zaroxolyn 5 mg a day half an hour before the Lasix daily. Will continue the strict input and output, as well as daily weights.
[2016-12-15] MEDS ORDERED: Metolazone 5 MG Tab PO SCH (08:30)
[2016-12-15] MEDS ORDERED: Metolazone 2.5 MG Tab PO SCH ×3 (09:00→09:45)
[2016-12-15] MEDS: predniSONE 20 MG Tab PO SCH ×2 (09:34→20:24)
[2016-12-15] MEDS: Furosemide 80 MG Tab PO SCH ×2 (10:13→13:32)
[2016-12-15] MEDS: Insulin Detemir 100 Units/ML 3 ML Pen SUBCUT SCH (20:24)
[2016-12-16] MEDS: Pantoprazole 40 MG Tab.CR PO SCH (07:00)
[2016-12-16] MEDS: Albuterol/Ipratropium 3.0-0.5 MG/3 ML Neb Soln NEB SCH ×3 (07:11→16:04)
[2016-12-16] MEDS: Formoterol/Mometasone 200-5 MCG 8.8 GM Inhaler IH SCH (07:59)
[2016-12-16] MEDS: traMADol 50 MG Tab PO PRN (07:59)
[2016-12-16] MEDS: metFORMIN 500 MG Tab PO SCH (08:00)
[2016-12-16] MEDS: Gabapentin 100 MG Cap PO SCH ×2 (08:00→14:08)
[2016-12-16] MEDS: Docusate Sodium 100 MG Cap PO SCH (08:00)
[2016-12-16] MEDS: Potassium Chloride 10 MEQ Tab.ER PO SCH (08:01)
[2016-12-16] MEDS: Lisinopril 5 MG Tab PO SCH (08:01)
[2016-12-16] MEDS: Furosemide 80 MG Tab PO SCH ×2 (08:01→14:08)
[2016-12-16] MEDS: Tiotropium Inhaler 18 MCG Inhalation Powder Cap Kit of 5 INH SCH (08:01)
[2016-12-16] MEDS: Calcium Carbonate/Vitamin D3 1250 MG-200 Unit Tab PO SCH (08:01)
[2016-12-16] MEDS: Cyanocobalamin (Vitamin B12) 1,000 MCG Tab PO SCH (08:01)
[2016-12-16] MEDS: Enoxaparin 100 MG/1 ML Syringe SUBCUT SCH (08:02)
[2016-12-16] MEDS: Multivitamin Tab PO SCH (08:02)
[2016-12-16] MEDS: Insulin Aspart 100 Units/ML 3 ML Pen SUBCUT SCH ×2 (08:02→11:12)
[2016-12-16] MEDS: Ferrous Sulfate 325 MG Tab PO SCH ×2 (08:02→11:16)
[2016-12-16 08:05] VITALS: BP 125/79
--- NOTE | 2016-12-16 08:33 | CONS ---
DATE OF CONSULTATION: 12/13/2016 REASON FOR CONSULTATION: Anemia. HISTORY OF PRESENT ILLNESS: Ms. Turpin is an 81-year-old white female, who has a history of multiple medical problems. She does have a history of chronic anemia, having been running with a hemoglobin in the 8s. However, today she presented with a history of some numbness in her arms, as well as some dyspnea and some weakness, noted to have a hemoglobin of 6.9 and was admitted for further workup. She is currently receiving 2 units of packed RBCs, and I was asked to evaluate for possible upper endoscopy. She does have a history of a previous colonoscopy by Dr. Woods at [facility] in [place], and this was essentially negative, except for a small polyp, which was a serrated adenoma. ALLERGIES: Include penicillin, sulfa, and tape. PAST MEDICAL HISTORY: Significant for peripheral vascular disease, hypertension, insulin-dependent diabetes, history of gastroesophageal reflux disease, edema, thrombosis of the left subclavian vein, osteoarthritis, congenital hearing loss, history of colon cancer, peripheral neuropathy, irregular heartbeat, dyspnea, history of endometrial cancer, and complete heart block. She is a former smoker, having stopped in 2004. She does not drink. Her other medical problems include COPD, right hip fracture, subtrochanteric fracture of the left femur. She has a history of azotemia, chronic renal disease. MEDICATIONS: On her outpatient status include: 1. Glucophage 500 mg twice a day. 2. Neurontin 100 mg 3 times a day. 3. Klor-Con 10 mEq once daily. 4. Prilosec 40 mg once a day. 5. Ultram 50 mg 4 times a day as needed for pain. 6. Lasix 80 mg twice a day. 7. Symbicort inhaler 2 puffs b.i.d. 8. Coumadin 5 mg once a day. 9. Incruse Ellipta inhaler 1 puff once daily. 10.DuoNeb inhaler 4 hours as needed. 11.Ferrous sulfate 65 mg per 325 mg tablet 3 times a day. 12.NovoLog Pen 10 to 20 units subcutaneous 3 times a day with meals. 13.Lisinopril 5 mg once a day. 14.Levemir FlexTouch as needed at bedtime. 15.Albuterol 2 puffs orally q.4 hours as needed. 16.Tylenol 325 mg as needed for pain. 17.Aspirin 81 mg a day. 18.Vitamin B12 of 1000 mcg daily. 19.Colace 100 mg daily. 20.Calcium citrate 200 mg twice a day with meals. PAST SURGICAL HISTORY: Significant for right hip replacement, left total knee, hysterectomy, epigastric hernia repair, cholecystectomy, colon resection, cataract surgery, left hemicolectomy, multiple colonoscopies, IM nailing and open reduction of the right total hip, as well as colonoscopy. REVIEW OF SYSTEMS: Notable for the following: General: Weakness. HEENT: Essentially unremarkable. PULMONARY: Shortness of breath and tachypnea. Denies any chest pain. ABDOMEN: Denies any significant abdominal pain, black or bloody stools. MUSCULOSKELETAL: Has low back pain, which is chronic. She does have some peripheral edema, especially in the left upper extremity and bilateral lower extremities. NEUROLOGIC: She notes some numbness. PHYSICAL EXAMINATION: GENERAL: This is a well-developed, obese female, appearing in mild distress. VITAL SIGNS: Reviewed. Pulse rate is currently 80, blood pressure is 133/67, respiratory rate of 16. She is 99% saturated on 2 L of O2. HEENT: Grossly within normal limits. LUNGS: Clear to auscultation. HEART: Had a regular rate and rhythm. ABDOMEN: Soft and nontender. ASSESSMENT: Anemia. RECOMMENDATIONS: Upper endoscopy certainly would be an indicated workup. Next, I am going to work up for anemia, although it does appear to be a chronic condition. I have discussed possible upper endoscopy with the patient, right now she would like to hold off as she is having a little tachypnea and a little trouble breathing and certainly it is reasonable. She is getting 2 units of blood. I will reassess in the morning. /[id number] /MODL
--- NOTE | 2016-12-16 08:54 | PCM.PN ---
- General Info Date of Service: 12/16/16 Subjective Update: Patient received 2 units of PRBCs on Friday. Subsequently a hemoglobin has been up to 9.6 however, she's had problems with breathing. She's been noted wheezing and short of breath, and has had visibly swollen extremities. She denies chest pain fever or chills or cough. These symptoms have slightly improved since yesterday. She's lost only 3 or so pounds.She is still weak,but now on only 1 L by nasal canula Functional Status: Reports: Pain Controlled - Review of Systems General: Reports: Weakness, Fatigue HEENT: Reports: No Symptoms Pulmonary: Reports: Shortness of Breath Cardiovascular: Reports: Dyspnea on Exertion. Denies: No Symptoms Psychiatric: Reports: No Symptoms - Patient Data Vitals - Most Recent: Last Vital Signs Temp 97.9 F 12/16/16 00:00 Pulse 82 12/16/16 07:20 Resp 20 12/16/16 00:00 BP 125/79 12/16/16 08:01 Pulse Ox 95 12/16/16 07:16 Weight - Most Recent: 111.13 kg Lab Results Last 24 Hours: Laboratory Results - last 24 hr 12/15/16 12/15/16 12/16/16 Range/Units 11:02 16:56 06:35 WBC (4.5-12.0) X10-3/uL RBC (3.23-5.20) x10(6)uL Hgb (11.5-15.5) g/dL Hct (30.0-51.3) % MCV (80-96) fL MCH (27.7-33.6) pg MCHC (32.2-35.4) g/dL RDW (11.5-15.5) % Plt Count (125-369) X10(3)uL MPV (7.4-10.4) fL Neut % (Auto) (46-82) % Lymph % (Auto) (13-37) % Stanley % (Auto) (4-12) % Eos % (Auto) (1.0-5.0) % Baso % (Auto) (0-2) % Neut # (Auto) (1.6-8.3) # Lymph # (Auto) (0.6-5.0) # Stanley # (Auto) (0.0-1.3) # Eos # (Auto) (0.0-0.8) # Baso # (Auto) (0.0-0.2) # PT 12.1 H (8.7-11.1) INR 1.20 H (0.89-1.13) Sodium (135-145) mmol/L Potassium (3.5-5.3) mmol/L Chloride (100-110) mmol/L Carbon Dioxide (23-29) mmol/L BUN (8-23) mg/dL Creatinine (0.6-1.3) mg/dL Est Cr Clr Drug Dosing mL/min Estimated GFR (MDRD) (>60) BUN/Creatinine Ratio (9-20) Glucose (80-116) mg/dL POC Glucose 254 H 272 H (80-116) mg/dL Calcium (8.6-10.2) mg/dL NT-Pro-B Natriuret Pep (5-450) pg/mL 12/16/16 12/16/16 Range/Units 06:35 06:35 WBC 8.9 (4.5-12.0) X10-3/uL RBC 4.08 (3.23-5.20) x10(6)uL Hgb 9.3 L (11.5-15.5) g/dL Hct 30.4 (30.0-51.3) % MCV 74.6 L (80-96) fL MCH 22.7 L (27.7-33.6) pg MCHC 30.5 L (32.2-35.4) g/dL RDW 19.0 H (11.5-15.5) % Plt Count 241 (125-369) X10(3)uL MPV 7.9 (7.4-10.4) fL Neut % (Auto) 85.7 H (46-82) % Lymph % (Auto) 7.8 L (13-37) % Stanley % (Auto) 6.1 (4-12) % Eos % (Auto) 0 L (1.0-5.0) % Baso % (Auto) 0 (0-2) % Neut # (Auto) 7.7 (1.6-8.3) # Lymph # (Auto) 0.7 (0.6-5.0) # Stanley # (Auto) 0.5 (0.0-1.3) # Eos # (Auto) 0.0 (0.0-0.8) # Baso # (Auto) 0.0 (0.0-0.2) # PT (8.7-11.1) INR (0.89-1.13) Sodium 126 L (135-145) mmol/L Potassium 4.5 (3.5-5.3) mmol/L Chloride 82 L* D (100-110) mmol/L Carbon Dioxide 35 H (23-29) mmol/L BUN 24 H (8-23) mg/dL Creatinine 0.7 (0.6-1.3) mg/dL Est Cr Clr Drug Dosing 59.01 mL/min Estimated GFR (MDRD) > 60 (>60) BUN/Creatinine Ratio 34.3 H (9-20) Glucose 259 H D (80-116) mg/dL POC Glucose (80-116) mg/dL Calcium 8.8 (8.6-10.2) mg/dL NT-Pro-B Natriuret Pep 581 H (5-450) pg/mL Med Orders - Current: Current Medications Acetaminophen (Tylenol) 650 mg PO Q6H PRN PRN Reason: Pain (mild 1-3) Last Admin: 12/14/16 16:43 Dose: 650 mg Albuterol/Ipratropium (Duoneb 3.0-0.5 Mg/3 Ml) 3 ml NEB QIDRT [facility] Last Admin: 12/16/16 07:11 Dose: 3 ml Calcium Carbonate (Calcium Carbonate/Vitamin D 1250 Mg-200 Unit) 1 tab PO BIDMEALS [facility] Last Admin: 12/16/16 08:01 Dose: 1 tab Cholecalciferol (Vitamin D3) 2,000 units PO DAILY [facility] Last Admin: 12/15/16 08:07 Dose: 2,000 units Cyanocobalamin (Vitamin B12) 1,000 mcg PO DAILY [facility] Last Admin: 12/16/16 08:01 Dose: 1,000 mcg Docusate Sodium (Colace) 100 mg PO DAILY [facility] Last Admin: 12/16/16 08:00 Dose: 100 mg Enoxaparin Sodium (Lovenox) 100 mg SUBCUT BID [facility] Last Admin: 12/16/16 08:02 Dose: 100 mg Ferrous Sulfate (Ferrous Sulfate) 325 mg PO TIDMEALS [facility] Last Admin: 12/16/16 08:02 Dose: 325 mg Furosemide (Lasix) 80 mg PO BIDDIURETIC [facility] Last Admin: 12/16/16 08:01 Dose: 80 mg Gabapentin (Neurontin) 100 mg PO TID [facility] Last Admin: 12/16/16 08:00 Dose: 100 mg Sodium Chloride (Normal Saline) 250 mls @ 100 mls/hr IV ASDIRECTED [facility] Insulin Aspart (Novolog) 0 unit SUBCUT TIDMEALS [facility] PRN Reason: Protocol Last Admin: 12/16/16 08:02 Dose: 6 units Insulin Detemir (Levemir) 35 unit SUBCUT BEDTIME [facility] Last Admin: 12/15/16 20:24 Dose: 35 units Lisinopril (Prinivil) 5 mg PO DAILY [facility] Last Admin: 12/16/16 08:01 Dose: 5 mg Metformin HCl (Glucophage) 250 mg PO BIDMEALS [facility] Last Admin: 12/16/16 08:00 Dose: 250 mg Metolazone (Zaroxolyn) 5 mg PO DAILY@0730 [facility] Mometasone Furoate/Formoterol Fumar (Dulera 200-5 Mcg) 2 puff IH BID [facility] Last Admin: 12/16/16 07:59 Dose: 2 puff Morphine Sulfate (Morphine) 2 mg IVPUSH Q2H PRN PRN Reason: Pain (severe 7-10) Multivitamins/Minerals/Vitamin C (Tab-A-Kristin) 1 tab PO DAILY [facility] Last Admin: 12/16/16 08:02 Dose: 1 tab Nystatin (Nystatin Crm) 0 gm TOP BID PRN PRN Reason: Rash Pantoprazole Sodium (Protonix) 40 mg PO DAILY@0600 [facility] Last Admin: 12/16/16 07:00 Dose: 40 mg Potassium Chloride (Klor-Con 10) 10 meq PO DAILY [facility] Last Admin: 12/16/16 08:01 Dose: 10 meq Prednisone (Prednisone) 20 mg PO BID [facility] Stop: 12/19/16 23:59 Last Admin: 12/15/16 20:24 Dose: 20 mg Tiotropium Cambria (Spiriva Handihaler) 18 mcg INH DAILY [facility] Last Admin: 12/16/16 08:01 Dose: 1 inhalation Tramadol HCl (Ultram) 50 mg PO QID PRN PRN Reason: Pain Last Admin: 12/16/16 07:59 Dose: 50 mg Warfarin Sodium (Coumadin) 5 mg PO DAILY@1600 [facility] Discontinued Medications Carbamide Perox/Anhydrous Glycerin (Debrox 6.5% Otic Soln) 0 ml EARLF TID [facility] Last Admin: 12/13/16 14:34 Dose: Not Given Furosemide (Lasix) 20 mg IVPUSH ONETIME ONE Stop: 12/13/16 15:01 Last Admin: 12/13/16 15:20 Dose: 20 mg Furosemide (Lasix) 20 mg IVPUSH BID [facility] Furosemide (Lasix) 80 mg IVPUSH NOW ONE Stop: 12/14/16 08:46 Last Admin: 12/14/16 09:16 Dose: 80 mg Sodium Chloride (Normal Saline) 250 mls @ 100 mls/hr IV ASDIRECTED [facility] Insulin Aspart (Novolog) 20 unit SUBCUT TIDMEALS [facility] Metolazone (Zaroxolyn) 5 mg PO ONETIME ONE Stop: 12/14/16 08:18 Last Admin: 12/14/16 09:16 Dose: 5 mg Metolazone (Zaroxolyn) 5 mg PO DAILY [facility] Last Admin: 12/15/16 10:37 Dose: Not Given Metolazone (Zaroxolyn) 2.5 mg PO DAILY [facility] Last Admin: 12/15/16 09:34 Dose: 2.5 mg Metolazone (Zaroxolyn) 5 mg PO DAILY [facility] Metolazone (Zaroxolyn) 2.5 mg PO DAILY [facility] Stop: 12/15/16 09:46 Last Admin: 12/15/16 10:36 Dose: 2.5 mg - Exam Quality Assessment: Supplemental Oxygen General: Alert, Oriented HEENT: Pupils Equal, Pupils Reactive, EOMI, Mucous Membr. 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 SNOMED Code(s): 747966821 Code(s): Z79.01 - ANNEALING OVEN OPERATOR (CURRENT) USE OF ANTICOAGULANTS Status: Acute Current Visit: Yes (4) Status post biventricular cardiac pacemaker insertion SNOMED Code(s): 245893683 Code(s): Z95.0 - PRESENCE OF CARDIAC PACEMAKER Status: Acute Priority: High Current Visit: No (5) Chronic GERD SNOMED Code(s): 156985610 Code(s): K21.9 - GASTRO-ESOPHAGEAL REFLUX DISEASE WITHOUT ESOPHAGITIS Status: Chronic Current Visit: No (6) Chronic anticoagulation SNOMED Code(s): 321794475 Code(s): Z79.01 - ALF (CURRENT) USE OF ANTICOAGULANTS Status: Chronic Priority: High Current Visit: No (7) Obesity (BMI 30-39.9) SNOMED Code(s): 485414020 Code(s): E66.9 - OBESITY, UNSPECIFIED Status: Chronic Current Visit: No (8) Type 2 diabetes mellitus SNOMED Code(s): 05096444 Code(s): E11.9 - TYPE 2 DIABETES MELLITUS WITHOUT COMPLICATIONS Status: Chronic Current Visit: No Qualifiers: Diabetes mellitus complication status: without complication (9) Complaint of debility and malaise SNOMED Code(s): 387972869 Code(s): R53.81 - OTHER MALAISE Status: Resolved Priority: High Current Visit: No (10) SOB (shortness of breath) SNOMED Code(s): 144942107 Code(s): R06.02 - SHORTNESS OF BREATH Status: Acute Current Visit: Yes (11) Hyponatremia SNOMED Code(s): 50148040 Code(s): E87.1 - HYPO-OSMOLALITY AND HYPONATREMIA Status: Acute Current Visit: Yes - Problem List Review Problem List Initiated/Reviewed/Updated: Yes - My Orders Last 24 Hours: My Active Orders 12/15/16 09:00 predniSONE 20 mg PO BID 12/16/16 09:00 Metolazone [Zaroxolyn] 5 mg PO DAILY@0730 12/16/16 16:00 Warfarin [Coumadin] 5 mg PO DAILY@1600 12/17/16 05:11 B-TYPE NATRIURETIC PEPTIDE,BNP [CHEM] AM BASIC METABOLIC PANEL,BMP [CHEM] AM 12/17/16 08:32 Echo Comp wo Cont [US] Timed - Plan Plan:: I I have ordered for an echocardiogram to determine the ejection fraction of the heart; to see if indeed she has congestive heart failure. However continue Lasix and metolazone. We'll repeat blood work in the morning. PT and OT has been consulted as well. Her hyponatremia is likely due to fluid overload.
[2016-12-16] MEDS ORDERED: Metolazone 5 MG Tab PO SCH (09:00)
[2016-12-16] MEDS ORDERED: Warfarin Sliding Scale PO SCH (10:00)
[2016-12-16] MEDS: Cholecalciferol (Vitamin D3) 1,000 Unit Tab PO SCH (11:16)
[2016-12-16] MEDS: predniSONE 20 MG Tab PO SCH (11:16)
[2016-12-16] MEDS ORDERED: Warfarin 5 MG Tab PO SCH (16:00)
--- NOTE | 2016-12-17 02:03 | DISCH ---
DISCHARGE DATE: 12/16/2016 REASON FOR ADMISSION: 1. Anemia, iron deficiency. 2. Shortness of breath. 3. Type 2 diabetes. 4. Obesity. 5. Chronic back pain. 6. Status post cardiac pacemaker insertion. 7. Long-term current use of anticoagulant. 8. Gastroesophageal reflux disease. 9. Debility and malaise. DISCHARGE DIAGNOSES: 1. Anemia, iron deficiency. 2. Shortness of breath. 3. Type 2 diabetes. 4. Obesity. 5. Chronic back pain. 6. Status post cardiac pacemaker insertion. 7. Long-term current use of anticoagulant. 8. Gastroesophageal reflux disease. 9. Debility and malaise. PROCEDURES: Transfusion, 2 units. CONSULTATION: Dr. Hatch. BRIEF HISTORY AND HOSPITAL COURSE: This is an 81-year-old female who was brought to the ER with shortness of breath and weakness from [facility]. She was found to have a hemoglobin of 6.9, chronically about 8.1. She was given 2 units. She went into fluid overload, possibly CHF and needed diuresis aggressively. She was on oral medications the day before discharge, on 1 L of oxygenation, but she was too weak to go back to the [facility]. Decision was made to discharge her to swing bed for rehab and transition of care according to Physical and Occupational Therapy. DISCHARGE MEDICATIONS: 1. Albuterol q.i.d. p.r.n. 2. Calcium carbonate. 3. Vitamin D3. 4. Docusate. 5. Lovenox. 6. Ferrous sulfate. 7. Lasix 80 mg b.i.d. 8. Gabapentin was discontinued. 9. She will go home on insulin as previously scheduled 35 units subcutaneously at bedtime, long-acting. 10.Lisinopril. 11.Metformin. 12.Metolazone, will be discharged on 2.5 daily. 13.Dulera. 14.Prednisone 20 mg b.i.d. 15.Protonix. 16.Potassium chloride 10 mEq daily. 17.Tramadol q.i.d. p.r.n. 18.Coumadin 5 mg daily. Pharmacy will continue to dose the Coumadin. Please note that I spent more than 35 minutes on the discharge of the patient. /[id number] MELISSA/JIMIL
== END 2016-12-16 16:33 | disposition swing bed (61) | DRG 812 ==
LOC: FB.ED 07:47 → FB.MS 10:13 → UNDOADMIN 10:28 → FB.MS 10:28
PROVIDERS: ADMIT Family Medicine; ATTEND Family Medicine
PROC: 30233N1 Transfusion of Nonautologous Red Blood Cells into Peripheral Vein, Percutaneous Approach (ICD-10-PCS; principal; 2016-12-13)
DX: D50.8 Other iron deficiency anemias (principal); E87.1 Hypo-osmolality and hyponatremia; D68.9 Coagulation defect, unspecified; Z68.41 Body mass index [BMI] 40.0-44.9, adult; E11.42 Type 2 diabetes mellitus with diabetic polyneuropathy; I12.9 Hypertensive chronic kidney disease with stage 1 through stage 4 chronic kidney disease, or unspecified chronic kidney disease; N18.9 Chronic kidney disease, unspecified; E11.22 Type 2 diabetes mellitus with diabetic chronic kidney disease; Z95.0 Presence of cardiac pacemaker; Z86.718 Personal history of other venous thrombosis and embolism; Z87.891 Personal history of nicotine dependence; Z79.01 Long term (current) use of anticoagulants; R53.81 Other malaise; R53.1 Weakness; R06.02 Shortness of breath; R20.0 Anesthesia of skin; Z79.4 Long term (current) use of insulin; Z79.82 Long term (current) use of aspirin; I73.9 Peripheral vascular disease, unspecified; E66.9 Obesity, unspecified; M54.9 Dorsalgia, unspecified; G89.29 Other chronic pain; J45.909 Unspecified asthma, uncomplicated; Z85.038 Personal history of other malignant neoplasm of large intestine; Z85.42 Personal history of malignant neoplasm of other parts of uterus; M19.90 Unspecified osteoarthritis, unspecified site; K21.9 Gastro-esophageal reflux disease without esophagitis; H91.90 Unspecified hearing loss, unspecified ear; Z91.09 Other allergy status, other than to drugs and biological substances; Z88.0 Allergy status to penicillin; Z88.2 Allergy status to sulfonamides; Z96.652 Presence of left artificial knee joint; Z96.641 Presence of right artificial hip joint; I50.9 Heart failure, unspecified
CPT/HCPCS: 36415; 36430; 71010; 80048; 80053; 82962; 83735; 83880; 84484; 85025; 85610; 86850; 86900; 86901; 86920; 86922; 93005; 94640; 97161-GP; 97166-GO; 99285; A9270-GY; J1650; J1940; J7620; P9016

== ENCOUNTER 2016-12-16 16:34 | Inpatient (IN) | payer MEDICARE, BC ==
[2016-12-16] MEDS ORDERED: Nystatin Crm 15 GM Tube TOP PRN (16:54)
[2016-12-16] MEDS ORDERED: Albuterol 8 GM Inhaler INH PRN (16:54)
[2016-12-16] MEDS: Insulin Aspart 100 Units/ML 3 ML Pen SUBCUT SCH (17:44)
[2016-12-16] MEDS: Ferrous Sulfate 325 MG Tab PO SCH (17:44)
[2016-12-16] MEDS: metFORMIN 500 MG Tab PO SCH (17:45)
[2016-12-16] MEDS ORDERED: Warfarin 5 MG Tab PO SCH (21:00)
[2016-12-16] MEDS ORDERED: Furosemide 80 MG Tab PO SCH (21:00)
[2016-12-16] MEDS ORDERED: Formoterol/Mometasone 200-5 MCG 8.8 GM Inhaler IH SCH (21:00)
[2016-12-16] MEDS: Insulin Detemir 100 Units/ML 3 ML Pen SUBCUT SCH (21:10)
[2016-12-16] MEDS: Enoxaparin 100 MG/1 ML Syringe SUBCUT SCH (21:11)
[2016-12-17] MEDS ORDERED: Warfarin Sliding Scale PO SCH (08:00)
[2016-12-17] MEDS: Pantoprazole 40 MG Tab.CR PO SCH (08:17)
[2016-12-17] MEDS: Metolazone 2.5 MG Tab PO SCH (08:17)
[2016-12-17] MEDS: Ferrous Sulfate 325 MG Tab PO SCH ×3 (08:18→18:01)
[2016-12-17] MEDS: metFORMIN 500 MG Tab PO SCH ×2 (08:18→18:01)
[2016-12-17] MEDS: Furosemide 80 MG Tab PO SCH ×2 (08:20→14:23)
[2016-12-17] MEDS: Docusate Sodium 100 MG Cap PO SCH (08:21)
[2016-12-17] MEDS: Insulin Aspart 100 Units/ML 3 ML Pen SUBCUT SCH ×3 (08:21→18:02)
[2016-12-17] MEDS: Potassium Chloride 10 MEQ Tab.ER PO SCH (08:22)
[2016-12-17] MEDS: Formoterol/Mometasone 200-5 MCG 8.8 GM Inhaler IH SCH ×2 (08:22→20:14)
[2016-12-17] MEDS: Aspirin 81 MG Tab.EC PO SCH (08:22)
[2016-12-17] MEDS: Enoxaparin 100 MG/1 ML Syringe SUBCUT SCH ×2 (08:23→20:14)
[2016-12-17] MEDS: Lisinopril 5 MG Tab PO SCH (08:24)
[2016-12-17] MEDS: Tiotropium Inhaler 18 MCG Inhalation Powder Cap Kit of 5 INH SCH (08:24)
[2016-12-17] MEDS: Multivitamin Tab PO SCH (08:26)
[2016-12-17] MEDS: Cyanocobalamin (Vitamin B12) 1,000 MCG Tab PO SCH (08:26)
[2016-12-17] MEDS: Cholecalciferol (Vitamin D3) 1,000 Unit Tab PO SCH (08:26)
[2016-12-17] MEDS: Acetaminophen 500 MG Tab PO PRN (15:01)
[2016-12-17] MEDS ORDERED: Warfarin 2.5 MG, Warfarin 5 MG PO SCH ×2 (16:00)
[2016-12-17] MEDS ORDERED: Warfarin 5 MG Tab PO SCH (16:00)
[2016-12-17] MEDS: Insulin Detemir 100 Units/ML 3 ML Pen SUBCUT SCH (20:14)
[2016-12-18] MEDS: Acetaminophen 500 MG Tab PO PRN (01:42)
[2016-12-18] MEDS: Metolazone 2.5 MG Tab PO SCH (08:07)
[2016-12-18] MEDS: metFORMIN 500 MG Tab PO SCH ×2 (08:07→17:51)
[2016-12-18] MEDS: Ferrous Sulfate 325 MG Tab PO SCH ×3 (08:07→19:43)
[2016-12-18] MEDS: Pantoprazole 40 MG Tab.CR PO SCH (08:07)
[2016-12-18] MEDS: Furosemide 80 MG Tab PO SCH ×2 (08:08→14:10)
[2016-12-18] MEDS: Docusate Sodium 100 MG Cap PO SCH (08:08)
[2016-12-18] MEDS: Potassium Chloride 10 MEQ Tab.ER PO SCH (08:08)
[2016-12-18] MEDS: Aspirin 81 MG Tab.EC PO SCH (08:08)
[2016-12-18] MEDS: Multivitamin Tab PO SCH (08:09)
[2016-12-18] MEDS: Cholecalciferol (Vitamin D3) 1,000 Unit Tab PO SCH (08:09)
[2016-12-18] MEDS: Cyanocobalamin (Vitamin B12) 1,000 MCG Tab PO SCH (08:09)
[2016-12-18] MEDS: Enoxaparin 100 MG/1 ML Syringe SUBCUT SCH ×2 (08:09→20:49)
[2016-12-18] MEDS: Tiotropium Inhaler 18 MCG Inhalation Powder Cap Kit of 5 INH SCH (08:09)
[2016-12-18] MEDS: Formoterol/Mometasone 200-5 MCG 8.8 GM Inhaler IH SCH ×2 (08:09→20:50)
[2016-12-18] MEDS: Insulin Aspart 100 Units/ML 3 ML Pen SUBCUT SCH ×3 (08:10→17:15)
[2016-12-18] MEDS: Lisinopril 5 MG Tab PO SCH (08:12)
[2016-12-18] MEDS: Acetaminophen/HYDROcodone 325-5 MG Tab PO PRN (08:57)
[2016-12-18] MEDS ORDERED: Warfarin 5 MG, Warfarin 2.5 MG PO SCH ×2 (16:00)
[2016-12-18] MEDS: Insulin Detemir 100 Units/ML 3 ML Pen SUBCUT SCH (20:50)
[2016-12-19] MEDS: Acetaminophen/HYDROcodone 325-5 MG Tab PO PRN ×2 (05:02→12:52)
[2016-12-19] MEDS: Metolazone 2.5 MG Tab PO SCH (07:56)
[2016-12-19] MEDS: Pantoprazole 40 MG Tab.CR PO SCH (07:56)
[2016-12-19] MEDS: Ferrous Sulfate 325 MG Tab PO SCH ×3 (07:57→17:48)
[2016-12-19] MEDS: metFORMIN 500 MG Tab PO SCH ×2 (07:57→17:48)
[2016-12-19] MEDS: Insulin Aspart 100 Units/ML 3 ML Pen SUBCUT SCH ×3 (07:58→17:49)
[2016-12-19] MEDS: Multivitamin Tab PO SCH (08:03)
[2016-12-19] MEDS: Cholecalciferol (Vitamin D3) 1,000 Unit Tab PO SCH (08:03)
[2016-12-19] MEDS: Cyanocobalamin (Vitamin B12) 1,000 MCG Tab PO SCH (08:04)
[2016-12-19] MEDS: Lisinopril 5 MG Tab PO SCH (08:04)
[2016-12-19] MEDS: Formoterol/Mometasone 200-5 MCG 8.8 GM Inhaler IH SCH ×2 (08:05→20:36)
[2016-12-19] MEDS: Potassium Chloride 10 MEQ Tab.ER PO SCH (08:05)
[2016-12-19] MEDS: Docusate Sodium 100 MG Cap PO SCH (08:05)
[2016-12-19] MEDS: Aspirin 81 MG Tab.EC PO SCH (08:05)
[2016-12-19] MEDS: Enoxaparin 100 MG/1 ML Syringe SUBCUT SCH ×2 (08:07→20:36)
[2016-12-19] MEDS: Furosemide 80 MG Tab PO SCH ×2 (08:41→14:28)
[2016-12-19] MEDS: Tiotropium Inhaler 18 MCG Inhalation Powder Cap Kit of 5 INH SCH (08:41)
[2016-12-19] MEDS: Carbamide Peroxide 6.5% Otic Soln 15 ML Bottle EARBOTH SCH ×2 (14:26→20:35)
[2016-12-19] MEDS ORDERED: Warfarin 10 MG Tab PO SCH (16:00)
[2016-12-19] MEDS ORDERED: Warfarin 5 MG, Warfarin 2.5 MG PO SCH ×2 (16:00)
[2016-12-19] MEDS: Insulin Detemir 100 Units/ML 3 ML Pen SUBCUT SCH (20:37)
[2016-12-20] MEDS: Acetaminophen 500 MG Tab PO PRN (04:07)
[2016-12-20] MEDS: Pantoprazole 40 MG Tab.CR PO SCH (06:32)
[2016-12-20] MEDS: Metolazone 2.5 MG Tab PO SCH (06:32)
[2016-12-20] MEDS: Acetaminophen/HYDROcodone 325-5 MG Tab PO PRN (08:18)
[2016-12-20] MEDS: Ferrous Sulfate 325 MG Tab PO SCH ×3 (08:20→17:47)
[2016-12-20] MEDS: Furosemide 80 MG Tab PO SCH ×2 (08:21→14:37)
[2016-12-20] MEDS: Docusate Sodium 100 MG Cap PO SCH (08:21)
[2016-12-20] MEDS: Carbamide Peroxide 6.5% Otic Soln 15 ML Bottle EARBOTH SCH ×2 (08:22→20:34)
[2016-12-20] MEDS: Formoterol/Mometasone 200-5 MCG 8.8 GM Inhaler IH SCH ×2 (08:22→20:35)
[2016-12-20] MEDS: Aspirin 81 MG Tab.EC PO SCH (08:22)
[2016-12-20] MEDS: Lisinopril 5 MG Tab PO SCH (08:22)
[2016-12-20] MEDS: Tiotropium Inhaler 18 MCG Inhalation Powder Cap Kit of 5 INH SCH (08:23)
[2016-12-20] MEDS: Cholecalciferol (Vitamin D3) 1,000 Unit Tab PO SCH (08:24)
[2016-12-20] MEDS: Multivitamin Tab PO SCH (08:24)
[2016-12-20] MEDS: Potassium Chloride 10 MEQ Tab.ER PO SCH (08:24)
[2016-12-20] MEDS: Cyanocobalamin (Vitamin B12) 1,000 MCG Tab PO SCH (08:24)
[2016-12-20] MEDS: Insulin Aspart 100 Units/ML 3 ML Pen SUBCUT SCH ×3 (08:25→17:46)
[2016-12-20] MEDS: Enoxaparin 100 MG/1 ML Syringe SUBCUT SCH ×2 (08:27→20:41)
[2016-12-20] MEDS: metFORMIN 500 MG Tab PO SCH ×2 (08:41→17:47)
[2016-12-20] MEDS ORDERED: Warfarin 2.5 MG, Warfarin 5 MG PO SCH ×2 (16:00)
[2016-12-20] MEDS: Insulin Detemir 100 Units/ML 3 ML Pen SUBCUT SCH (20:36)
[2016-12-21] MEDS: Acetaminophen/HYDROcodone 325-5 MG Tab PO PRN ×3 (03:55→18:38)
[2016-12-21] MEDS: Metolazone 2.5 MG Tab PO SCH (06:53)
[2016-12-21] MEDS: Pantoprazole 40 MG Tab.CR PO SCH (06:53)
[2016-12-21] MEDS: Furosemide 80 MG Tab PO SCH ×2 (08:28→15:32)
[2016-12-21] MEDS: Multivitamin Tab PO SCH (08:28)
[2016-12-21] MEDS: metFORMIN 500 MG Tab PO SCH ×2 (08:28→17:58)
[2016-12-21] MEDS: Ferrous Sulfate 325 MG Tab PO SCH ×3 (08:28→17:58)
[2016-12-21] MEDS: Cyanocobalamin (Vitamin B12) 1,000 MCG Tab PO SCH (08:29)
[2016-12-21] MEDS: Aspirin 81 MG Tab.EC PO SCH (08:29)
[2016-12-21] MEDS: Formoterol/Mometasone 200-5 MCG 8.8 GM Inhaler IH SCH ×2 (08:30→20:50)
[2016-12-21] MEDS: Lisinopril 5 MG Tab PO SCH (08:30)
[2016-12-21] MEDS: Docusate Sodium 100 MG Cap PO SCH (08:31)
[2016-12-21] MEDS: Enoxaparin 100 MG/1 ML Syringe SUBCUT SCH ×2 (08:32→20:52)
[2016-12-21] MEDS: Potassium Chloride 10 MEQ Tab.ER PO SCH (08:32)
[2016-12-21] MEDS: Carbamide Peroxide 6.5% Otic Soln 15 ML Bottle EARBOTH SCH ×2 (08:32→20:50)
[2016-12-21] MEDS: Cholecalciferol (Vitamin D3) 1,000 Unit Tab PO SCH (08:33)
[2016-12-21] MEDS: Insulin Aspart 100 Units/ML 3 ML Pen SUBCUT SCH ×3 (08:34→17:59)
[2016-12-21] MEDS: Tiotropium Inhaler 18 MCG Inhalation Powder Cap Kit of 5 INH SCH (08:35)
[2016-12-21] MEDS ORDERED: Warfarin 5 MG, Warfarin 2.5 MG PO SCH ×2 (16:00)
[2016-12-21] MEDS ORDERED: Warfarin 5 MG Tab PO SCH (16:00)
--- NOTE | 2016-12-21 16:54 | PCM.PN ---
- General Info Date of Service: 12/21/16 Subjective Update: Patient is an 81-year-old female who has a history of iron deficiency anemia secondary to occult blood loss from the GI system due to her warfarin therapy for DVT/thrombosis of the left subclavian vein. Patient was hospitalized here with profound anemia with a hemoglobin of 6.9 transfused 2 units packed red blood cells and had congestive heart failure with need for IV Lasix. After all this was completed was quite weak and really not ready to go back to 20 pounds below where she lives independently. She was then referred for swing bed status for physical therapy and occupational therapy. She is actually feeling quite a bit better. She still gets very winded with exertion and requires standby assist. She is unable to transfer in and out of the bed on her own. However, she 's had no chest pain or shortness of breath at rest. She's had no nausea or vomiting. No GI complaints. No diarrhea. No zeyad blood per rectum. INR is therapeutic at 2.3. Patient has a history of a colonoscopy in September 2016 where they found a bleeding polyp which was biopsied and found to be a serrated adenoma. She has a history of colon cancer she thinks 3 or 4 years ago she was originally diagnosed. She doesn't think she's ever had a workup for hypercoagulation. She' s been having trouble with her left ear being impacted with wax. She wears hearing aids and had been using [employer] but started to noticed today when she touched the tragus she had some tenderness there. Wanted me to look at this today. On exam this is an obese female in no acute distress. She struggles with ambulation and repositioning even in bed. On exam of the left ear she has a large wax impaction which is soft and was manually disimpacted with a curette. I was able to remove most of the wax but there was still a small amount back to close to the eardrum for comfort and we will wash this out. Pupils were equally round and reactive. Lungs were clear to auscultation. Heart sounds are regular with normal rate and rhythm, no murmurs. Abdomen soft, obese, nontender, nondistended. Trace pedal edema with support hose on. Functional Status: Reports: Tolerating Diet, Ambulating, Urinating - Patient Data Vitals - Most Recent: Last Vital Signs Temp 36.6 C 12/21/16 08:25 Pulse 71 12/21/16 08:25 Resp 18 12/21/16 08:25 BP 108/57 L 12/21/16 08:30 Pulse Ox 97 12/21/16 10:00 Weight - Most Recent: 105.687 kg Lab Results Last 24 Hours: Laboratory Results - last 24 hr 12/20/16 12/21/16 12/21/16 Range/Units 17:01 06:23 06:35 PT 24.2 H (8.7-11.1) INR 2.36 H (0.89-1.13) POC Glucose 245 H 131 H D (80-116) mg/dL 12/21/16 Range/Units 11:39 PT (8.7-11.1) INR (0.89-1.13) POC Glucose 175 H (80-116) mg/dL Med Orders - Current: Current Medications Acetaminophen (Tylenol Extra Strength) 1,000 mg PO BID PRN PRN Reason: Pain Last Admin: 12/20/16 04:07 Dose: 1,000 mg Hydrocodone Bitart/Acetaminophen ([place] 325-5 Mg) 1 tab PO Q4H PRN PRN Reason: Pain (severe 7-10) Last Admin: 12/21/16 11:43 Dose: 1 tab Albuterol (Ventolin Hfa) 0 gm INH Q6H PRN PRN Reason: Shortness of Breath Aspirin (Halfprin) 81 mg PO DAILY [facility] Last Admin: 12/21/16 08:29 Dose: 81 mg Carbamide Perox/Anhydrous Glycerin (Debrox 6.5% Otic Soln) 0 ml EARBOTH BID [facility] Last Admin: 12/21/16 08:32 Dose: 5 drop Cholecalciferol (Vitamin D3) 2,000 units PO DAILY [facility] Last Admin: 12/21/16 08:33 Dose: 2,000 units Cyanocobalamin (Vitamin B12) 1,000 mcg PO DAILY [facility] Last Admin: 12/21/16 08:29 Dose: 1,000 mcg Docusate Sodium (Colace) 100 mg PO DAILY [facility] Last Admin: 12/21/16 08:31 Dose: 100 mg Enoxaparin Sodium (Lovenox) 100 mg SUBCUT BID [facility] Last Admin: 12/21/16 08:32 Dose: 100 mg Ferrous Sulfate (Ferrous Sulfate) 325 mg PO TIDMEALS [facility] Last Admin: 12/21/16 11:49 Dose: 325 mg Furosemide (Lasix) 80 mg PO BIDDIURETIC [facility] Last Admin: 12/21/16 15:32 Dose: 80 mg Insulin Aspart (Novolog) 0 unit SUBCUT TIDMEALS [facility] PRN Reason: Protocol Last Admin: 12/21/16 11:45 Dose: 2 units Insulin Detemir (Levemir) 44 unit SUBCUT BEDTIME [facility] Last Admin: 12/20/16 20:36 Dose: 44 units Lisinopril (Prinivil) 5 mg PO DAILY [facility] Last Admin: 12/21/16 08:30 Dose: 5 mg Metformin HCl (Glucophage) 250 mg PO BIDMEALS [facility] Last Admin: 12/21/16 08:28 Dose: 250 mg Metolazone (Zaroxolyn) 2.5 mg PO DAILY@0730 [facility] Last Admin: 12/21/16 06:53 Dose: 2.5 mg Mometasone Furoate/Formoterol Fumar (Dulera 200-5 Mcg) 2 puff IH BID [facility] Last Admin: 12/21/16 08:30 Dose: 2 puff Multivitamins/Minerals/Vitamin C (Tab-A-Kristin) 1 tab PO DAILY [facility] Last Admin: 12/21/16 08:28 Dose: 1 tab Nystatin (Nystatin Crm) 0 gm TOP BID PRN PRN Reason: Rash Pantoprazole Sodium (Protonix) 40 mg PO ACBREAKFAST [facility] Last Admin: 12/21/16 06:53 Dose: 40 mg Potassium Chloride (Klor-Con 10) 10 meq PO DAILY [facility] Last Admin: 12/21/16 08:32 Dose: 10 meq Tiotropium [place] (Spiriva Handihaler) 18 mcg INH DAILY [facility] Last Admin: 12/21/16 08:35 Dose: 18 mcg Warfarin Sodium (Coumadin Sliding Scale) 1 each PO ASDIRECTED [facility] Warfarin Sodium 5 mg/ Warfarin (Sodium 2.5 mg) 7.5 mg PO 1600 [facility] Stop: 12/21/16 18:00 Last Admin: 12/21/16 15:33 Dose: 7.5 mg Discontinued Medications Furosemide (Lasix) 80 mg PO BID [facility] Last Admin: 12/16/16 21:09 Dose: 80 mg Mometasone Furoate/Formoterol Fumar (Dulera 200-5 Mcg) 2 puff IH BID [facility] Last Admin: 12/16/16 21:09 Dose: 2 puff Warfarin Sodium (Coumadin) 5 mg PO MoWeFr@1600 [facility] Last Admin: 12/16/16 21:09 Dose: 5 mg Warfarin Sodium (Coumadin) 7.5 mg PO SuTuThSa@1600 [facility] Warfarin Sodium 2.5 mg/ (Warfarin Sodium 5 mg) 7.5 mg PO SuTuThSa@1600 [facility] Last Admin: 12/17/16 16:27 Dose: 7.5 mg Warfarin Sodium 5 mg/ Warfarin (Sodium 2.5 mg) 7.5 mg PO 1600 [facility] Stop: 12/18/16 18:00 Last Admin: 12/18/16 17:07 Dose: 7.5 mg Warfarin Sodium (Coumadin) 10 mg PO 1600 [facility] Stop: 12/19/16 16:01 Last Admin: 12/19/16 16:01 Dose: 10 mg Warfarin Sodium 2.5 mg/ (Warfarin Sodium 5 mg) 7.5 mg PO 1600 [facility] Stop: 12/20/16 16:01 Last Admin: 12/20/16 16:11 Dose: 7.5 mg - Problem List & Annotations (1) Anemia SNOMED Code(s): 242057200 Code(s): D64.9 - ANEMIA, UNSPECIFIED Status: Acute Current Visit: No Qualifiers: Anemia type: iron deficiency Iron deficiency anemia type: chronic blood loss Qualified Code(s): D50.0 - Iron deficiency anemia secondary to blood loss (chronic) Annotation/Comment:: Patient has ongoing need for anticoagulation. Her subclavian vein thrombosis was in March 2016. Her DVT was in 2014. I don't see that the subclavian vein thrombosis was rechecked that she saw interventional radiology. This may be something to address in the future but at this point the patient is too debilitated. She also did not have upper GI endoscopy done during her hospital stay because of debility and she declined. This is also something to consider as an outpatient. We will recheck labs at this time. (2) CAD (coronary artery disease) SNOMED Code(s): 17624521 Code(s): I25.10 - ATHSCL HEART DISEASE OF [place] CORONARY ARTERY W/O ANG PCTRS Status: Acute Current Visit: No Annotation/Comment:: History of congestive heart failure currently appears stable. Continue to monitor fluid status. 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 Continue pharmacy to dose. (4) Personal history of DVT (deep vein thrombosis) SNOMED Code(s): 311720112 Code(s): Z86.718 - PERSONAL HISTORY OF OTHER VENOUS THROMBOSIS AND EMBOLISM Status: Chronic Priority: High Current Visit: No Annotation/Comment:: As above. (5) Type 2 diabetes mellitus SNOMED Code(s): 92892180 Code(s): E11.9 - TYPE 2 DIABETES MELLITUS WITHOUT COMPLICATIONS Status: Chronic Current Visit: No Annotation/Comment:: Blood sugars are marginal but at this time I think given the fact that the patient is still recovering will tolerate a little higher sugar. Goal is to keep blood sugars under 200 while hospitalized. - Problem List Review Problem List Initiated/Reviewed/Updated: Yes - My Orders Last 24 Hours: My Active Orders 12/21/16 14:29 Resuscitation Status Routine 12/22/16 05:11 CBC WITH AUTO DIFF [HEME] AM COMPREHENSIVE METABOLIC PN,CMP [CHEM] AM - Plan Plan:: In reviewing the patient's previous records I saw that she had previously been a DNR/DNI. Reviewed this with the patient and she indeed does not want resuscitation if she were to stop breathing worse have her heart started beating and would not want to be put on a ventilator. Thus she is a DNR/DNI. Orders were changed to reflect this.
[2016-12-21] MEDS: Insulin Detemir 100 Units/ML 3 ML Pen SUBCUT SCH (20:52)
[2016-12-22] MEDS: Acetaminophen 500 MG Tab PO PRN ×3 (01:06→14:29)
[2016-12-22] MEDS: Metolazone 2.5 MG Tab PO SCH (06:31)
[2016-12-22] MEDS: Pantoprazole 40 MG Tab.CR PO SCH (06:31)
[2016-12-22] MEDS: Tiotropium Inhaler 18 MCG Inhalation Powder Cap Kit of 5 INH SCH (08:16)
[2016-12-22] MEDS: Formoterol/Mometasone 200-5 MCG 8.8 GM Inhaler IH SCH ×2 (08:17→20:49)
[2016-12-22] MEDS: Cyanocobalamin (Vitamin B12) 1,000 MCG Tab PO SCH (08:18)
[2016-12-22] MEDS: Multivitamin Tab PO SCH (08:18)
[2016-12-22] MEDS: Cholecalciferol (Vitamin D3) 1,000 Unit Tab PO SCH (08:18)
[2016-12-22] MEDS: Docusate Sodium 100 MG Cap PO SCH (08:18)
[2016-12-22] MEDS: Lisinopril 5 MG Tab PO SCH (08:18)
[2016-12-22] MEDS: Furosemide 80 MG Tab PO SCH (08:18)
[2016-12-22] MEDS: Potassium Chloride 10 MEQ Tab.ER PO SCH (08:18)
[2016-12-22] MEDS: Ferrous Sulfate 325 MG Tab PO SCH ×3 (08:19→17:54)
[2016-12-22] MEDS: Aspirin 81 MG Tab.EC PO SCH (08:19)
[2016-12-22] MEDS: metFORMIN 500 MG Tab PO SCH ×2 (08:19→17:54)
[2016-12-22] MEDS: Enoxaparin 100 MG/1 ML Syringe SUBCUT SCH (08:20)
[2016-12-22] MEDS: Carbamide Peroxide 6.5% Otic Soln 15 ML Bottle EARBOTH SCH ×2 (08:20→20:49)
[2016-12-22] MEDS: Insulin Aspart 100 Units/ML 3 ML Pen SUBCUT SCH ×3 (08:21→18:02)
[2016-12-22] MEDS: Furosemide 40 MG Tab PO SCH (14:29)
--- NOTE | 2016-12-22 15:18 | PCM.PN ---
- General Info Date of Service: 12/22/16 Subjective Update: Patient is doing fair today. Still very weak and fatigued. Labs came back this morning showing a mild hypokalemia at 3.4 and a moderate hyponatremia with a sodium of 123. She was started on metolazone this hospitalization. She also had an increased BUN/creatinine ratio with ratio 50-1. She's had no chest pain. She is very short of breath with walking. Hemoglobin was stable at 9.5. INR is now 2.6. Blood sugar 176 this morning. She has pain in her legs bilaterally with just tenderness throughout from the knees down which is chronic. She has pain in her right back and hip which makes it difficult for her to get in and out of a chair or in and out of bed. This is also chronic. Ears feel fine today. Continues with debrox. - Patient Data Vitals - Most Recent: Last Vital Signs Temp 36.7 C 12/22/16 08:00 Pulse 63 12/22/16 08:00 Resp 18 12/22/16 08:00 BP 112/61 12/22/16 08:18 Pulse Ox 93 L 12/22/16 08:00 Weight - Most Recent: 105.404 kg Lab Results Last 24 Hours: Laboratory Results - last 24 hr 12/21/16 12/22/16 12/22/16 Range/Units 17:55 05:40 05:40 WBC 6.4 (4.5-12.0) X10-3/uL RBC 4.26 (3.23-5.20) x10(6)uL Hgb 9.5 L (11.5-15.5) g/dL Hct 30.9 (30.0-51.3) % MCV 72.6 L (80-96) fL MCH 22.3 L (27.7-33.6) pg MCHC 30.7 L (32.2-35.4) g/dL RDW 17.9 H (11.5-15.5) % Plt Count 235 (125-369) X10(3)uL MPV 8.2 (7.4-10.4) fL Neut % (Auto) 73.2 (46-82) % Lymph % (Auto) 13.0 (13-37) % [place] % (Auto) 10.9 (4-12) % Eos % (Auto) 2 (1.0-5.0) % Baso % (Auto) 1 (0-2) % Neut # (Auto) 4.7 (1.6-8.3) # Lymph # (Auto) 0.8 (0.6-5.0) # [place] # (Auto) 0.7 (0.0-1.3) # Eos # (Auto) 0.1 (0.0-0.8) # Baso # (Auto) 0.1 (0.0-0.2) # PT 27.0 H (8.7-11.1) INR 2.62 H (0.89-1.13) Sodium (135-145) mmol/L Potassium (3.5-5.3) mmol/L Chloride (100-110) mmol/L Carbon Dioxide (23-29) mmol/L BUN (8-23) mg/dL Creatinine (0.6-1.3) mg/dL Est Cr Clr Drug Dosing mL/min Estimated GFR (MDRD) (>60) BUN/Creatinine Ratio (9-20) Glucose (80-116) mg/dL POC Glucose 240 H (80-116) mg/dL Calcium (8.6-10.2) mg/dL Total Bilirubin (0.1-1.3) mg/dL AST (5-27) IU/L ALT (14-26) IU/L Alkaline Phosphatase (56-112) IU/L Total Protein (6.0-8.0) g/dL Albumin (3.2-4.6) g/dL Globulin g/dL Albumin/Globulin Ratio 12/22/16 12/22/16 12/22/16 Range/Units 05:40 07:31 12:59 WBC (4.5-12.0) X10-3/uL RBC (3.23-5.20) x10(6)uL Hgb (11.5-15.5) g/dL Hct (30.0-51.3) % MCV (80-96) fL MCH (27.7-33.6) pg MCHC (32.2-35.4) g/dL RDW (11.5-15.5) % Plt Count (125-369) X10(3)uL MPV (7.4-10.4) fL Neut % (Auto) (46-82) % Lymph % (Auto) (13-37) % [place] % (Auto) (4-12) % Eos % (Auto) (1.0-5.0) % Baso % (Auto) (0-2) % Neut # (Auto) (1.6-8.3) # Lymph # (Auto) (0.6-5.0) # [place] # (Auto) (0.0-1.3) # Eos # (Auto) (0.0-0.8) # Baso # (Auto) (0.0-0.2) # PT (8.7-11.1) INR (0.89-1.13) Sodium 123 L (135-145) mmol/L Potassium 3.6 (3.5-5.3) mmol/L Chloride 85 L* (100-110) mmol/L Carbon Dioxide 28 (23-29) mmol/L BUN 37 H D (8-23) mg/dL Creatinine 0.7 (0.6-1.3) mg/dL Est Cr Clr Drug Dosing 59.01 mL/min Estimated GFR (MDRD) > 60 (>60) BUN/Creatinine Ratio 52.9 H (9-20) Glucose 176 H D (80-116) mg/dL POC Glucose 181 H 202 H (80-116) mg/dL Calcium 8.2 L (8.6-10.2) mg/dL Total Bilirubin 0.5 (0.1-1.3) mg/dL AST 23 D (5-27) IU/L ALT 25 D (14-26) IU/L Alkaline Phosphatase 85 (56-112) IU/L Total Protein 5.8 L (6.0-8.0) g/dL Albumin 3.2 (3.2-4.6) g/dL Globulin 2.6 g/dL Albumin/Globulin Ratio 1.2 Med Orders - Current: Current Medications Acetaminophen (Tylenol Extra Strength) 1,000 mg PO BID PRN PRN Reason: Pain Last Admin: 12/22/16 14:29 Dose: 1,000 mg Hydrocodone Bitart/Acetaminophen ([place] 325-5 Mg) 1 tab PO Q4H PRN PRN Reason: Pain (severe 7-10) Last Admin: 12/21/16 18:38 Dose: 1 tab Albuterol (Ventolin Hfa) 0 gm INH Q6H PRN PRN Reason: Shortness of Breath Aspirin (Halfprin) 81 mg PO DAILY [facility] Last Admin: 12/22/16 08:19 Dose: 81 mg Carbamide Perox/Anhydrous Glycerin (Debrox 6.5% Otic Soln) 0 ml EARBOTH BID [facility] Last Admin: 12/22/16 08:20 Dose: 5 drop Cholecalciferol (Vitamin D3) 2,000 units PO DAILY [facility] Last Admin: 12/22/16 08:18 Dose: 2,000 units Cyanocobalamin (Vitamin B12) 1,000 mcg PO DAILY [facility] Last Admin: 12/22/16 08:18 Dose: 1,000 mcg Docusate Sodium (Colace) 100 mg PO DAILY [facility] Last Admin: 12/22/16 08:18 Dose: 100 mg Ferrous Sulfate (Ferrous Sulfate) 325 mg PO TIDMEALS [facility] Last Admin: 12/22/16 12:42 Dose: 325 mg Furosemide (Lasix) 40 mg PO BIDDIURETIC [facility] Last Admin: 12/22/16 14:29 Dose: 40 mg Insulin Aspart (Novolog) 0 unit SUBCUT TIDMEALS [facility] PRN Reason: Protocol Last Admin: 12/22/16 12:42 Dose: 4 units Insulin Detemir (Levemir) 44 unit SUBCUT BEDTIME [facility] Last Admin: 12/21/16 20:52 Dose: 44 units Lisinopril (Prinivil) 5 mg PO DAILY [facility] Last Admin: 12/22/16 08:18 Dose: 5 mg Metformin HCl (Glucophage) 250 mg PO BIDMEALS [facility] Last Admin: 12/22/16 08:19 Dose: 250 mg Mometasone Furoate/Formoterol Fumar (Dulera 200-5 Mcg) 2 puff IH BID [facility] Last Admin: 12/22/16 08:17 Dose: 2 puff Multivitamins/Minerals/Vitamin C (Tab-A-Kristin) 1 tab PO DAILY [facility] Last Admin: 12/22/16 08:18 Dose: 1 tab Nystatin (Nystatin Crm) 0 gm TOP BID PRN PRN Reason: Rash Pantoprazole Sodium (Protonix) 40 mg PO ACBREAKFAST [facility] Last Admin: 12/22/16 06:31 Dose: 40 mg Potassium Chloride (Klor-Con 10) 10 meq PO DAILY [facility] Last Admin: 12/22/16 08:18 Dose: 10 meq Tiotropium [place] (Spiriva Handihaler) 18 mcg INH DAILY [facility] Last Admin: 12/22/16 08:16 Dose: 18 mcg Warfarin Sodium (Coumadin Sliding Scale) 1 each PO ASDIRECTED [facility] Warfarin Sodium 5 mg/ Warfarin (Sodium 2.5 mg) 7.5 mg PO 1600 [facility] Stop: 12/22/16 16:01 Discontinued Medications Enoxaparin Sodium (Lovenox) 100 mg SUBCUT BID [facility] Last Admin: 12/22/16 08:20 Dose: 100 mg Furosemide (Lasix) 80 mg PO BID [facility] Last Admin: 12/16/16 21:09 Dose: 80 mg Furosemide (Lasix) 80 mg PO BIDDIURETIC [facility] Last Admin: 12/22/16 08:18 Dose: 80 mg Metolazone (Zaroxolyn) 2.5 mg PO DAILY@0730 [facility] Last Admin: 12/22/16 06:31 Dose: 2.5 mg Mometasone Furoate/Formoterol Fumar (Dulera 200-5 Mcg) 2 puff IH BID [facility] Last Admin: 12/16/16 21:09 Dose: 2 puff Warfarin Sodium (Coumadin) 5 mg PO MoWeFr@1600 [facility] Last Admin: 12/16/16 21:09 Dose: 5 mg Warfarin Sodium (Coumadin) 7.5 mg PO SuTuThSa@1600 [facility] Warfarin Sodium 2.5 mg/ (Warfarin Sodium 5 mg) 7.5 mg PO SuTuThSa@1600 [facility] Last Admin: 12/17/16 16:27 Dose: 7.5 mg Warfarin Sodium 5 mg/ Warfarin (Sodium 2.5 mg) 7.5 mg PO 1600 [facility] Stop: 12/18/16 18:00 Last Admin: 12/18/16 17:07 Dose: 7.5 mg Warfarin Sodium (Coumadin) 10 mg PO 1600 [facility] Stop: 12/19/16 16:01 Last Admin: 12/19/16 16:01 Dose: 10 mg Warfarin Sodium 2.5 mg/ (Warfarin Sodium 5 mg) 7.5 mg PO 1600 [facility] Stop: 12/20/16 16:01 Last Admin: 12/20/16 16:11 Dose: 7.5 mg Warfarin Sodium 5 mg/ Warfarin (Sodium 2.5 mg) 7.5 mg PO 1600 [facility] Stop: 12/21/16 18:00 Last Admin: 12/21/16 15:33 Dose: 7.5 mg - Exam General: Alert, Oriented, Cooperative HEENT: Pupils Equal, Pupils Reactive Neck: Supple Lungs: Clear to Auscultation, Normal Respiratory Effort Cardiovascular: Regular Rate, Regular Rhythm, No Murmurs Extremities: No Pedal Edema (CHU hose in place.) - Problem List & Annotations (1) Anemia SNOMED Code(s): 437298743 Code(s): D64.9 - ANEMIA, UNSPECIFIED Status: Acute Current Visit: No Qualifiers: Anemia type: iron deficiency Iron deficiency anemia type: chronic blood loss Qualified Code(s): D50.0 - Iron deficiency anemia secondary to blood loss (chronic) Annotation/Comment:: Discussed again with the patient getting that upper GI endoscopy done while she is here. I don't think she is ready for discharge as she is too weak and requiring too much assistance. She just isn't sure she wants to go that route. She continues to take by mouth iron without difficulty. Recent transfusion also gave her significant iron load. Long-term, however, the patient will continue to have ongoing blood losses and require recurrent transfusions unless we can find the source of her bleeding and stop it. (2) CAD (coronary artery disease) SNOMED Code(s): 93078953 Code(s): I25.10 - ATHSCL HEART DISEASE OF [place] CORONARY ARTERY W/O ANG PCTRS Status: Acute Current Visit: No Annotation/Comment:: Patient's BUN/ creatinine ratio was increasing and I'm going to discontinue her metolazone today and cut her Lasix in half to 40 mg twice a day. This will need to be increased again. She normally is on 80 twice a day at home. (3) detention current use of anticoagulant SNOMED Code(s): 195347127 Code(s): Z79.01 - CARE HOME (CURRENT) USE OF ANTICOAGULANTS Status: Acute Current Visit: No Annotation/Comment:: Therapeutic today at 2.6. Continue pharmacy to dose. 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 (5) Type 2 diabetes mellitus SNOMED Code(s): 12588544 Code(s): E11.9 - TYPE 2 DIABETES MELLITUS WITHOUT COMPLICATIONS Status: Chronic Current Visit: No Annotation/Comment:: Blood sugars are marginal but at this time I think given the fact that the patient is still recovering will tolerate a little higher sugar. Goal is to keep blood sugars under 200 while hospitalized. (6) Hyponatremia SNOMED Code(s): 64030320 Code(s): E87.1 - HYPO-OSMOLALITY AND HYPONATREMIA Status: Acute Current Visit: No Annotation/Comment:: Patient has baseline mild hyponatremia and over the last year has drifted down from 134 year ago to the high 120s. However today she is at 123. I suspect this is secondary to metolazone. Will discontinue that at this time. - Problem List Review Problem List Initiated/Reviewed/Updated: Yes - My Orders Last 24 Hours: My Active Orders 12/22/16 09:32 Furosemide [Lasix] 40 mg PO BIDDIURETIC 12/23/16 05:11 BASIC METABOLIC PANEL,BMP [CHEM] AM - Plan Plan:: Code status: discussed with the patient on 12/21/16 and she indeed does not want resuscitation if she were to stop breathing or if her heart stopped beating and would not want to be put on a ventilator. Thus she is a DNR/DNI. Orders were changed to reflect this.
[2016-12-22] MEDS ORDERED: Warfarin 5 MG, Warfarin 2.5 MG PO SCH ×2 (16:00)
[2016-12-22] MEDS: Insulin Detemir 100 Units/ML 3 ML Pen SUBCUT SCH (20:50)
[2016-12-23] MEDS: Pantoprazole 40 MG Tab.CR PO SCH (06:31)
[2016-12-23] MEDS: metFORMIN 500 MG Tab PO SCH ×2 (07:48→18:05)
[2016-12-23] MEDS: Ferrous Sulfate 325 MG Tab PO SCH ×3 (07:48→18:06)
[2016-12-23] MEDS: Insulin Aspart 100 Units/ML 3 ML Pen SUBCUT SCH ×3 (07:48→18:05)
[2016-12-23] MEDS: Furosemide 40 MG Tab PO SCH ×2 (09:07→13:49)
[2016-12-23] MEDS: Docusate Sodium 100 MG Cap PO SCH (09:07)
[2016-12-23] MEDS: Carbamide Peroxide 6.5% Otic Soln 15 ML Bottle EARBOTH SCH ×2 (09:08→20:32)
[2016-12-23] MEDS: Formoterol/Mometasone 200-5 MCG 8.8 GM Inhaler IH SCH ×2 (09:08→20:32)
[2016-12-23] MEDS: Potassium Chloride 10 MEQ Tab.ER PO SCH (09:09)
[2016-12-23] MEDS: Tiotropium Inhaler 18 MCG Inhalation Powder Cap Kit of 5 INH SCH (09:09)
[2016-12-23] MEDS: Lisinopril 5 MG Tab PO SCH (09:09)
[2016-12-23] MEDS: Aspirin 81 MG Tab.EC PO SCH (09:09)
[2016-12-23] MEDS: Multivitamin Tab PO SCH (09:10)
[2016-12-23] MEDS: Cholecalciferol (Vitamin D3) 1,000 Unit Tab PO SCH (09:10)
[2016-12-23] MEDS: Cyanocobalamin (Vitamin B12) 1,000 MCG Tab PO SCH (09:10)
[2016-12-23] MEDS: Acetaminophen 500 MG Tab PO PRN (09:11)
--- NOTE | 2016-12-23 15:50 | PCM.PN ---
- General Info Date of Service: 12/23/16 Subjective Update: Patient continues to feel stronger. She is walking better. She has had no nausea , no vomiting, no diarrhea. She is having no chest pain or shortness of breath. She did decide to go ahead and have her EGD done if she can here before she leaves which I think is a good idea. I talked with Dr. Hatch and he is going to visit with the patient later today about having that scheduled tomorrow. Stopping metolazone unfortunately did not raise the patient's sodium. It did however improve her BUN/creatinine ratio. She overall feels like she is improving. Blood sugars have still been high and I adjusted her insulin today ( see below). Met with her friend, Aminata, and discussed plan of care with Daly and her together. Functional Status: Reports: Pain Controlled (Does have some pain the right hip which is worse since she used an exercise bike with therapy.), Tolerating Diet, Ambulating, Urinating - Patient Data Vitals - Most Recent: Last Vital Signs Temp 36.3 C 12/23/16 08:00 Pulse 84 12/23/16 08:00 Resp 18 12/23/16 08:00 BP 147/74 H 12/23/16 08:00 Pulse Ox 97 12/23/16 08:00 Weight - Most Recent: 105.715 kg Lab Results Last 24 Hours: Laboratory Results - last 24 hr 12/22/16 12/23/16 12/23/16 Range/Units 18:06 06:35 06:35 PT 24.6 H (8.7-11.1) INR 2.40 H (0.89-1.13) Sodium 121 L (135-145) mmol/L Potassium 4.0 (3.5-5.3) mmol/L Chloride 82 L* (100-110) mmol/L Carbon Dioxide 32 H (23-29) mmol/L BUN 32 H (8-23) mg/dL Creatinine 0.8 (0.6-1.3) mg/dL Est Cr Clr Drug Dosing 51.63 mL/min Estimated GFR (MDRD) > 60 (>60) BUN/Creatinine Ratio 40.0 H (9-20) Glucose 202 H (80-116) mg/dL POC Glucose 273 H (80-116) mg/dL Calcium 8.6 (8.6-10.2) mg/dL 12/23/16 12/23/16 Range/Units 06:50 12:28 PT (8.7-11.1) INR (0.89-1.13) Sodium (135-145) mmol/L Potassium (3.5-5.3) mmol/L Chloride (100-110) mmol/L Carbon Dioxide (23-29) mmol/L BUN (8-23) mg/dL Creatinine (0.6-1.3) mg/dL Est Cr Clr Drug Dosing mL/min Estimated GFR (MDRD) (>60) BUN/Creatinine Ratio (9-20) Glucose (80-116) mg/dL POC Glucose 186 H D 248 H (80-116) mg/dL Calcium (8.6-10.2) mg/dL Med Orders - Current: Current Medications Acetaminophen (Tylenol Extra Strength) 1,000 mg PO BID PRN PRN Reason: Pain Last Admin: 12/23/16 09:11 Dose: 1,000 mg Hydrocodone Bitart/Acetaminophen ([place] 325-5 Mg) 1 tab PO Q4H PRN PRN Reason: Pain (severe 7-10) Last Admin: 12/21/16 18:38 Dose: 1 tab Albuterol (Ventolin Hfa) 0 gm INH Q6H PRN PRN Reason: Shortness of Breath Aspirin (Halfprin) 81 mg PO DAILY [facility] Last Admin: 12/23/16 09:09 Dose: 81 mg Carbamide Perox/Anhydrous Glycerin (Debrox 6.5% Otic Soln) 0 ml EARBOTH BID [facility] Last Admin: 12/23/16 09:08 Dose: 5 drop Cholecalciferol (Vitamin D3) 2,000 units PO DAILY [facility] Last Admin: 12/23/16 09:10 Dose: 2,000 units Cyanocobalamin (Vitamin B12) 1,000 mcg PO DAILY [facility] Last Admin: 12/23/16 09:10 Dose: 1,000 mcg Docusate Sodium (Colace) 100 mg PO DAILY [facility] Last Admin: 12/23/16 09:07 Dose: 100 mg Ferrous Sulfate (Ferrous Sulfate) 325 mg PO TIDMEALS [facility] Last Admin: 12/23/16 12:48 Dose: 325 mg Furosemide (Lasix) 80 mg PO BIDDIURETIC [facility] Insulin Aspart (Novolog) 0 unit SUBCUT TIDMEALS [facility] PRN Reason: Protocol Last Admin: 12/23/16 12:48 Dose: 4 units Insulin Detemir (Levemir) 44 unit SUBCUT BEDTIME [facility] Last Admin: 12/22/16 20:50 Dose: 44 units Lisinopril (Prinivil) 5 mg PO DAILY [facility] Last Admin: 12/23/16 09:09 Dose: 5 mg Metformin HCl (Glucophage) 250 mg PO BIDMEALS [facility] Last Admin: 12/23/16 07:48 Dose: 250 mg Mometasone Furoate/Formoterol Fumar (Dulera 200-5 Mcg) 2 puff IH BID [facility] Last Admin: 12/23/16 09:08 Dose: 2 puff Multivitamins/Minerals/Vitamin C (Tab-A-Kristin) 1 tab PO DAILY [facility] Last Admin: 12/23/16 09:10 Dose: 1 tab Nystatin (Nystatin Crm) 0 gm TOP BID PRN PRN Reason: Rash Pantoprazole Sodium (Protonix) 40 mg PO ACBREAKFAST [facility] Last Admin: 12/23/16 06:31 Dose: 40 mg Potassium Chloride (Klor-Con 10) 10 meq PO DAILY [facility] Last Admin: 12/23/16 09:09 Dose: 10 meq Tiotropium [place] (Spiriva Handihaler) 18 mcg INH DAILY [facility] Last Admin: 12/23/16 09:09 Dose: 18 mcg Warfarin Sodium (Coumadin Sliding Scale) 1 each PO ASDIRECTED [facility] Warfarin Sodium (Coumadin) 10 mg PO 1600 [facility] Stop: 12/23/16 16:01 Last Admin: 12/23/16 15:40 Dose: 10 mg Discontinued Medications Enoxaparin Sodium (Lovenox) 100 mg SUBCUT BID [facility] Last Admin: 12/22/16 08:20 Dose: 100 mg Furosemide (Lasix) 80 mg PO BID [facility] Last Admin: 12/16/16 21:09 Dose: 80 mg Furosemide (Lasix) 80 mg PO BIDDIURETIC [facility] Last Admin: 12/22/16 08:18 Dose: 80 mg Furosemide (Lasix) 40 mg PO BIDDIURETIC [facility] Last Admin: 12/23/16 13:49 Dose: 40 mg Metolazone (Zaroxolyn) 2.5 mg PO DAILY@0730 [facility] Last Admin: 12/22/16 06:31 Dose: 2.5 mg Mometasone Furoate/Formoterol Fumar (Dulera 200-5 Mcg) 2 puff IH BID [facility] Last Admin: 12/16/16 21:09 Dose: 2 puff Warfarin Sodium (Coumadin) 5 mg PO MoWeFr@1600 [facility] Last Admin: 12/16/16 21:09 Dose: 5 mg Warfarin Sodium (Coumadin) 7.5 mg PO SuTuThSa@1600 [facility] Warfarin Sodium 2.5 mg/ (Warfarin Sodium 5 mg) 7.5 mg PO SuTuThSa@1600 [facility] Last Admin: 12/17/16 16:27 Dose: 7.5 mg Warfarin Sodium 5 mg/ Warfarin (Sodium 2.5 mg) 7.5 mg PO 1600 [facility] Stop: 12/18/16 18:00 Last Admin: 12/18/16 17:07 Dose: 7.5 mg Warfarin Sodium (Coumadin) 10 mg PO 1600 [facility] Stop: 12/19/16 16:01 Last Admin: 12/19/16 16:01 Dose: 10 mg Warfarin Sodium 2.5 mg/ (Warfarin Sodium 5 mg) 7.5 mg PO 1600 [facility] Stop: 12/20/16 16:01 Last Admin: 12/20/16 16:11 Dose: 7.5 mg Warfarin Sodium 5 mg/ Warfarin (Sodium 2.5 mg) 7.5 mg PO 1600 [facility] Stop: 12/21/16 18:00 Last Admin: 12/21/16 15:33 Dose: 7.5 mg Warfarin Sodium 5 mg/ Warfarin (Sodium 2.5 mg) 7.5 mg PO 1600 [facility] Stop: 12/22/16 16:01 Last Admin: 12/22/16 16:30 Dose: 7.5 mg - Exam General: Alert, Oriented, Cooperative, No Acute Distress HEENT: Pupils Equal, Pupils Reactive Neck: Supple Lungs: Clear to Auscultation, Normal Respiratory Effort Cardiovascular: Regular Rate, Regular Rhythm, No Murmurs GI/Abdominal Exam: Normal Bowel Sounds, Soft, Non-Tender, No Distention Extremities: Pedal Edema (diann socks in place, edema mild and better than yesterday.) Skin: Warm, Dry Psy/Mental Status: Alert, Normal Affect, Normal Mood - Problem List & Annotations (1) Anemia SNOMED Code(s): 041147766 Code(s): D64.9 - ANEMIA, UNSPECIFIED Status: Acute Current Visit: No Qualifiers: Anemia type: iron deficiency Iron deficiency anemia type: chronic blood loss Qualified Code(s): D50.0 - Iron deficiency anemia secondary to blood loss (chronic) Annotation/Comment:: Patient decided to go ahead with upper GI endoscopy. Discussed with Dr. Hatch and he will see if he can schedule her for tomorrow. Continue by mouth iron indefinitely. (2) CAD (coronary artery disease) SNOMED Code(s): 08171314 Code(s): I25.10 - ATHSCL HEART DISEASE OF [place] CORONARY ARTERY W/O ANG PCTRS Status: Acute Current Visit: No Annotation/Comment:: Increase Lasix back to 80 mg twice a day today. 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 Continue pharmacy to dose. 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 Today I discovered her range is set at 2.5-3.5. I recommend we lower that back down to 2-3 because she is at high risk of bleeding and is > 6 months out from her previous clot. (5) Type 2 diabetes mellitus SNOMED Code(s): 83466599 Code(s): E11.9 - TYPE 2 DIABETES MELLITUS WITHOUT COMPLICATIONS Status: Acute Current Visit: No Annotation/Comment:: Patient's sugars staying above 200. Goal is to keep blood sugars under 200 while hospitalized. Discussed with patient and at home her actual novolog system is to take 12 units with meals if BS < 140 and 20 units with meals if > 140. I changed her orders to reflect this. (6) Hyponatremia SNOMED Code(s): 67136385 Code(s): E87.1 - HYPO-OSMOLALITY AND HYPONATREMIA Status: Acute Current Visit: No Annotation/Comment:: Sodium 121 today. Increase lasix back to previous dose. Ordered serum and urine osmolality, random urine sodium and an AM cortisol to rule out adrenal insufficiency, TSH to rule out occult hypothyroidism. - Problem List Review Problem List Initiated/Reviewed/Updated: Yes - My Orders Last 24 Hours: My Active Orders 12/23/16 14:22 OSMOLALITY,URINE RANDOM [REF] Routine SODIUM,URINE RANDOM [URCHEM] Routine 12/23/16 15:05 OSMOLALITY [REF] Routine 12/23/16 15:42 Furosemide [Lasix] 80 mg PO BIDDIURETIC 12/23/16 16:00 Warfarin [Coumadin] 10 mg PO 1600 12/24/16 06:00 CORTISOL,AM [REF] Routine 12/24/16 15:23 BASIC METABOLIC PANEL,BMP [CHEM] DAILY 12/25/16 15:23 BASIC METABOLIC PANEL,BMP [CHEM] DAILY 12/26/16 15:23 BASIC METABOLIC PANEL,BMP [CHEM] DAILY 12/27/16 05:00 HGB [HEMOGLOBIN] [HEME] Timed 01/03/17 05:05 HGB [HEMOGLOBIN] [HEME] Routine - Plan Plan:: Code status: discussed with the patient on 12/21/16 and she indeed does not want resuscitation if she were to stop breathing or if her heart stopped beating and would not want to be put on a ventilator. Thus she is a DNR/DNI. Orders were changed to reflect this.
[2016-12-23] MEDS ORDERED: Warfarin 10 MG Tab PO SCH (16:00)
[2016-12-23] MEDS: Furosemide 80 MG Tab PO SCH (16:07)
--- NOTE | 2016-12-23 17:33 | PCM.SN ---
- Free Text/Narrative Note: For egd in am if Na is okay. will only be able to scope and not bx due to INR. Pt is okay with this. procedure and risks explained to the pt. she expressed understanding and asks us to proceed.
[2016-12-23] MEDS: Insulin Detemir 100 Units/ML 3 ML Pen SUBCUT SCH (20:33)
[2016-12-24] MEDS: Pantoprazole 40 MG Tab.CR PO SCH ×2 (06:48→16:28)
[2016-12-24] MEDS: Insulin Aspart 100 Units/ML 3 ML Pen SUBCUT SCH ×3 (08:00→18:33)
[2016-12-24] MEDS ORDERED: Lidocaine 4% 5 ML Amp TOP ONE (09:20)
[2016-12-24] MEDS ORDERED: Propofol 200 MG/20 ML SDV IV ONE (09:20)
[2016-12-24] MEDS ORDERED: Lactated Ringers 1,000 ML IV ONE (09:20)
--- NOTE | 2016-12-24 09:51 | PCM.OPNOTE ---
- General Post-Op/Procedure Note Date of Surgery/Procedure: 12/24/16 Operative Procedure(s): egd Findings: gastritis Pre Op Diagnosis: chronic anemia Post-Op Diagnosis: gastritis Anesthesia Technique: MAC Primary Surgeon: Rafy Hatch Anesthesia Provider: Dana Coffman Pathology: none due to inr Complications: None Condition: Good Free Text/Narrative:: see dictation
[2016-12-24] MEDS ORDERED: Warfarin Sliding Scale PO SCH (10:00)
[2016-12-24] MEDS: Docusate Sodium 100 MG Cap PO SCH (10:30)
[2016-12-24] MEDS: Potassium Chloride 10 MEQ Tab.ER PO SCH (10:30)
[2016-12-24] MEDS: metFORMIN 500 MG Tab PO SCH ×2 (10:30→18:32)
[2016-12-24] MEDS: Formoterol/Mometasone 200-5 MCG 8.8 GM Inhaler IH SCH ×2 (10:30→20:59)
[2016-12-24] MEDS: Lisinopril 5 MG Tab PO SCH (10:30)
[2016-12-24] MEDS: Multivitamin Tab PO SCH (10:30)
[2016-12-24] MEDS: Ferrous Sulfate 325 MG Tab PO SCH ×3 (10:30→18:32)
[2016-12-24] MEDS: Cyanocobalamin (Vitamin B12) 1,000 MCG Tab PO SCH (10:30)
[2016-12-24] MEDS: Aspirin 81 MG Tab.EC PO SCH (10:32)
[2016-12-24] MEDS: Cholecalciferol (Vitamin D3) 1,000 Unit Tab PO SCH (10:33)
[2016-12-24] MEDS: Furosemide 80 MG Tab PO SCH ×2 (10:33→13:37)
[2016-12-24] MEDS: Carbamide Peroxide 6.5% Otic Soln 15 ML Bottle EARBOTH SCH ×2 (10:53→20:59)
[2016-12-24] MEDS: Tiotropium Inhaler 18 MCG Inhalation Powder Cap Kit of 5 INH SCH (11:30)
--- NOTE | 2016-12-24 14:18 | OR ---
DATE OF OPERATION: 12/24/2016 SURGEON: Rafy Hatch MD PROCEDURE PERFORMED: Esophagogastroduodenoscopy. PREOPERATIVE DIAGNOSIS: Chronic anemia. POSTOPERATIVE DIAGNOSIS: Gastritis. INDICATIONS FOR PROCEDURE: This is an 81-year-old white female, who has asked to perform an upper endoscopy. She has a history of chronic anemia. Her most recent colonoscopy was normal and I was asked to perform an upper endoscopy to look for upper GI source. DESCRIPTION OF OPERATION: After an excellent IV sedation and topical anesthetic was administered, bite block was inserted and the flexible endoscope was passed without difficulty down the patient's esophagus into the stomach. The stomach was insufflated. The scope was passed through the pylorus to the second portion of the duodenum and then slowly withdrawn. The following findings were noted. The duodenum was unremarkable. Stomach demonstrated some diffuse gastritis as well as a raised area of inflammation in the area of the antrum just before the pylorus. Careful inspection did not reveal any evidence of an ulceration, but just appeared to be an inflammatory process and along the main body of the stomach there was an inflammation as well. Biopsies were not obtained due to the patient being hypercoagulated. The esophagus was unremarkable. Stomach was deflated. Scope was removed. RECOMMENDATIONS: Test for Helicobacter pylori and Protonix with a repeat upper endoscopy in 3 months. /[id number] 1409 /MODL
--- NOTE | 2016-12-24 15:23 | PCM.PN ---
- General Info Date of Service: 12/24/16 Subjective Update: Patient doing well this morning. Sodium is up to 125. TSH and a.m. cortisol are still pending. Her urine random sodium was 62. She is well. No chest pain, no shortness of breath, no nausea, no vomiting. Nothing to eat this morning because she is going to be having GI endoscopy later today. Functional Status: Reports: Pain Controlled, Tolerating Diet, Ambulating, Urinating - Patient Data Vitals - Most Recent: Last Vital Signs Temp 36.1 C 12/24/16 08:00 Pulse 62 12/24/16 08:00 Resp 19 12/24/16 08:00 BP 124/57 L 12/24/16 10:30 Pulse Ox 95 12/24/16 08:00 Weight - Most Recent: 105.29 kg I&O - Last 24 Hours: Intake & Output 12/24/16 12/24/16 12/24/16 06:59 14:59 22:59 Output Total 500 Balance -500 Lab Results Last 24 Hours: Laboratory Results - last 24 hr 12/23/16 12/23/16 12/24/16 Range/Units 16:13 18:10 06:40 PT (8.7-11.1) INR (0.89-1.13) Sodium 125 L (135-145) mmol/L Potassium 4.3 (3.5-5.3) mmol/L Chloride 85 L* (100-110) mmol/L Carbon Dioxide 30 H (23-29) mmol/L BUN 29 H (8-23) mg/dL Creatinine 0.8 (0.6-1.3) mg/dL Est Cr Clr Drug Dosing 51.63 mL/min Estimated GFR (MDRD) > 60 (>60) BUN/Creatinine Ratio 36.3 H (9-20) Glucose 149 H (80-116) mg/dL POC Glucose 201 H (80-116) mg/dL Calcium 8.3 L (8.6-10.2) mg/dL TSH, Ultra Sensitive (0.4-5.5) nlU/mL Ur Random Sodium 62 mmol/L 12/24/16 12/24/16 12/24/16 Range/Units 06:40 07:48 07:55 PT 27.3 H (8.7-11.1) INR 2.65 H (0.89-1.13) Sodium (135-145) mmol/L Potassium (3.5-5.3) mmol/L Chloride (100-110) mmol/L Carbon Dioxide (23-29) mmol/L BUN (8-23) mg/dL Creatinine (0.6-1.3) mg/dL Est Cr Clr Drug Dosing mL/min Estimated GFR (MDRD) (>60) BUN/Creatinine Ratio (9-20) Glucose (80-116) mg/dL POC Glucose 148 H (80-116) mg/dL Calcium (8.6-10.2) mg/dL TSH, Ultra Sensitive 2.79 (0.4-5.5) nlU/mL Ur Random Sodium mmol/L 12/24/16 Range/Units 12:59 PT (8.7-11.1) INR (0.89-1.13) Sodium (135-145) mmol/L Potassium (3.5-5.3) mmol/L Chloride (100-110) mmol/L Carbon Dioxide (23-29) mmol/L BUN (8-23) mg/dL Creatinine (0.6-1.3) mg/dL Est Cr Clr Drug Dosing mL/min Estimated GFR (MDRD) (>60) BUN/Creatinine Ratio (9-20) Glucose (80-116) mg/dL POC Glucose 158 H (80-116) mg/dL Calcium (8.6-10.2) mg/dL TSH, Ultra Sensitive (0.4-5.5) nlU/mL Ur Random Sodium mmol/L Med Orders - Current: Current Medications Acetaminophen (Tylenol) 650 mg PO Q6H PRN PRN Reason: Pain Albuterol (Ventolin Hfa) 0 gm INH Q6H PRN PRN Reason: Shortness of Breath Aspirin (Halfprin) 81 mg PO DAILY [facility] Last Admin: 12/24/16 10:32 Dose: 81 mg Carbamide Perox/Anhydrous Glycerin (Debrox 6.5% Otic Soln) 0 ml EARBOTH BID [facility] Last Admin: 12/24/16 10:53 Dose: 5 drop Cholecalciferol (Vitamin D3) 2,000 units PO DAILY [facility] Last Admin: 12/24/16 10:33 Dose: 2,000 units Cyanocobalamin (Vitamin B12) 1,000 mcg PO DAILY [facility] Last Admin: 12/24/16 10:30 Dose: 1,000 mcg Docusate Sodium (Colace) 100 mg PO DAILY [facility] Last Admin: 12/24/16 10:30 Dose: 100 mg Ferrous Sulfate (Ferrous Sulfate) 325 mg PO TIDMEALS [facility] Last Admin: 12/24/16 13:37 Dose: 325 mg Furosemide (Lasix) 80 mg PO BIDDIURETIC [facility] Last Admin: 12/24/16 13:37 Dose: 80 mg Insulin Aspart (Novolog) 0 unit SUBCUT TIDMEALS [facility] PRN Reason: Protocol Last Admin: 12/24/16 12:01 Dose: 20 units Insulin Detemir (Levemir) 44 unit SUBCUT BEDTIME [facility] Last Admin: 12/23/16 20:33 Dose: 44 units Lisinopril (Prinivil) 5 mg PO DAILY [facility] Last Admin: 12/24/16 10:30 Dose: 5 mg Metformin HCl (Glucophage) 250 mg PO BIDMEALS [facility] Last Admin: 12/24/16 10:30 Dose: 250 mg Mometasone Furoate/Formoterol Fumar (Dulera 200-5 Mcg) 2 puff IH BID [facility] Last Admin: 12/24/16 10:30 Dose: 2 puff Multivitamins/Minerals/Vitamin C (Tab-A-Kristin) 1 tab PO DAILY [facility] Last Admin: 12/24/16 10:30 Dose: 1 tab Nystatin (Nystatin Crm) 0 gm TOP BID PRN PRN Reason: Rash Pantoprazole Sodium (Protonix) 40 mg PO ACBREAKFAST [facility] Last Admin: 12/24/16 06:48 Dose: Not Given Potassium Chloride (Klor-Con 10) 10 meq PO DAILY [facility] Last Admin: 12/24/16 10:30 Dose: 10 meq Tiotropium [place] (Spiriva Handihaler) 18 mcg INH DAILY [facility] Last Admin: 12/24/16 11:30 Dose: 18 mcg Warfarin Sodium (Coumadin Sliding Scale) 1 each PO ASDIRECTED [facility] Warfarin Sodium 2.5 mg/ (Warfarin Sodium 5 mg) 7.5 mg PO 1600 [facility] Stop: 12/24/16 16:01 Discontinued Medications Acetaminophen (Tylenol Extra Strength) 1,000 mg PO BID PRN PRN Reason: Pain Last Admin: 12/23/16 09:11 Dose: 1,000 mg Hydrocodone Bitart/Acetaminophen ([place] 325-5 Mg) 1 tab PO Q4H PRN PRN Reason: Pain (severe 7-10) Last Admin: 12/21/16 18:38 Dose: 1 tab Enoxaparin Sodium (Lovenox) 100 mg SUBCUT BID [facility] Last Admin: 12/22/16 08:20 Dose: 100 mg Furosemide (Lasix) 80 mg PO BID [facility] Last Admin: 12/16/16 21:09 Dose: 80 mg Furosemide (Lasix) 80 mg PO BIDDIURETIC [facility] Last Admin: 12/22/16 08:18 Dose: 80 mg Furosemide (Lasix) 40 mg PO BIDDIURETIC [facility] Last Admin: 12/23/16 13:49 Dose: 40 mg Metolazone (Zaroxolyn) 2.5 mg PO DAILY@0730 [facility] Last Admin: 12/22/16 06:31 Dose: 2.5 mg Mometasone Furoate/Formoterol Fumar (Dulera 200-5 Mcg) 2 puff IH BID [facility] Last Admin: 12/16/16 21:09 Dose: 2 puff Warfarin Sodium (Coumadin) 5 mg PO MoWeFr@1600 [facility] Last Admin: 12/16/16 21:09 Dose: 5 mg Warfarin Sodium (Coumadin) 7.5 mg PO SuTuThSa@1600 [facility] Warfarin Sodium 2.5 mg/ (Warfarin Sodium 5 mg) 7.5 mg PO SuTuThSa@1600 [facility] Last Admin: 12/17/16 16:27 Dose: 7.5 mg Warfarin Sodium 5 mg/ Warfarin (Sodium 2.5 mg) 7.5 mg PO 1600 [facility] Stop: 12/18/16 18:00 Last Admin: 12/18/16 17:07 Dose: 7.5 mg Warfarin Sodium (Coumadin) 10 mg PO 1600 [facility] Stop: 12/19/16 16:01 Last Admin: 12/19/16 16:01 Dose: 10 mg Warfarin Sodium 2.5 mg/ (Warfarin Sodium 5 mg) 7.5 mg PO 1600 [facility] Stop: 12/20/16 16:01 Last Admin: 12/20/16 16:11 Dose: 7.5 mg Warfarin Sodium 5 mg/ Warfarin (Sodium 2.5 mg) 7.5 mg PO 1600 [facility] Stop: 12/21/16 18:00 Last Admin: 12/21/16 15:33 Dose: 7.5 mg Warfarin Sodium 5 mg/ Warfarin (Sodium 2.5 mg) 7.5 mg PO 1600 [facility] Stop: 12/22/16 16:01 Last Admin: 12/22/16 16:30 Dose: 7.5 mg Warfarin Sodium (Coumadin) 10 mg PO 1600 [facility] Stop: 12/23/16 16:01 Last Admin: 12/23/16 15:40 Dose: 10 mg - Exam General: Alert, Oriented, Cooperative, No Acute Distress HEENT: Pupils Equal, Pupils Reactive Neck: Supple Lungs: Clear to Auscultation, Normal Respiratory Effort Cardiovascular: Regular Rate, Regular Rhythm, No Murmurs GI/Abdominal Exam: Normal Bowel Sounds, Soft, Non-Tender, No Distention Extremities: Pedal Edema (trace without support hose.) - Problem List & Annotations (1) Anemia SNOMED Code(s): 247299963 Code(s): D64.9 - ANEMIA, UNSPECIFIED Status: Acute Current Visit: No Qualifiers: Anemia type: iron deficiency Iron deficiency anemia type: chronic blood loss Qualified Code(s): D50.0 - Iron deficiency anemia secondary to blood loss (chronic) Annotation/Comment:: Patient had EGD today. Showed acute gastritis, no bleeding. Recommended repeat in 3 months. Will start high dose PPI and carafate therapy. (2) CAD (coronary artery disease) SNOMED Code(s): 39266564 Code(s): I25.10 - ATHSCL HEART DISEASE OF [place] CORONARY ARTERY W/O ANG PCTRS Status: Acute Current Visit: No Annotation/Comment:: Tolerating lasix 80 mg twice a day. (3) custodial current use of anticoagulant SNOMED Code(s): 043397948 Code(s): Z79.01 - CUSTODIAL (CURRENT) USE OF ANTICOAGULANTS Status: Acute Current Visit: No Annotation/Comment:: Therapeutic. Continue pharmacy to dose. 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 Decreased goal down to 2-3 because she is at high risk of bleeding and is > 6 months out from her previous clot. However, question if her clots have both been provoked, if she may not be a candidate for stopping warfarin. After discharge, may benefit from Hematology consult re: clotting versus bleeding risk. (5) Type 2 diabetes mellitus SNOMED Code(s): 08603109 Code(s): E11.9 - TYPE 2 DIABETES MELLITUS WITHOUT COMPLICATIONS Status: Acute Current Visit: No Annotation/Comment:: Sugars < 200 with return to home insulin regimen. Continue monitoring. (6) Hyponatremia SNOMED Code(s): 20282580 Code(s): E87.1 - HYPO-OSMOLALITY AND HYPONATREMIA Status: Acute Current Visit: No Annotation/Comment:: Sodium 125 today. osmolalities still pending. Am cortisol pending. TSH WNL at 2.79. - Problem List Review Problem List Initiated/Reviewed/Updated: Yes - My Orders Last 24 Hours: My Active Orders 12/23/16 15:05 OSMOLALITY [REF] Routine 12/23/16 15:53 Communication Order [RC] STAT 12/23/16 16:00 Furosemide [Lasix] 80 mg PO BIDDIURETIC 12/23/16 16:13 OSMOLALITY,URINE RANDOM [REF] Routine 12/23/16 17:05 Acetaminophen [Tylenol] 650 mg PO Q6H PRN 12/24/16 06:40 CORTISOL,AM [REF] Routine 12/24/16 10:00 Warfarin Sliding Scale [Coumadin Sliding Scale] 1 each PO ASDIRECTED 12/24/16 16:00 Warfarin [Coumadin] 7.5 mg PO 1600 12/25/16 07:41 INR,PT,PROTHROMBIN TIME [COAG] DAILY 12/25/16 15:23 BASIC METABOLIC PANEL,BMP [CHEM] DAILY 12/26/16 07:41 INR,PT,PROTHROMBIN TIME [COAG] DAILY 12/26/16 15:23 BASIC METABOLIC PANEL,BMP [CHEM] DAILY 12/27/16 05:00 HGB [HEMOGLOBIN] [HEME] Timed 12/27/16 07:41 INR,PT,PROTHROMBIN TIME [COAG] DAILY 12/28/16 07:41 INR,PT,PROTHROMBIN TIME [COAG] DAILY 12/29/16 07:41 INR,PT,PROTHROMBIN TIME [COAG] DAILY 12/30/16 07:41 INR,PT,PROTHROMBIN TIME [COAG] DAILY 01/03/17 05:05 HGB [HEMOGLOBIN] [HEME] Routine - Plan Plan:: Code status: discussed with the patient on 12/21/16 and she indeed does not want resuscitation if she were to stop breathing or if her heart stopped beating and would not want to be put on a ventilator. Thus she is a DNR/DNI. Orders were changed to reflect this.
[2016-12-24] MEDS ORDERED: Warfarin 2.5 MG, Warfarin 5 MG PO SCH ×2 (16:00)
[2016-12-24] MEDS: Sucralfate 1 GM Tab PO SCH ×2 (16:28→20:58)
[2016-12-24] MEDS: Insulin Detemir 100 Units/ML 3 ML Pen SUBCUT SCH (21:07)
[2016-12-25] MEDS: Pantoprazole 40 MG Tab.CR PO SCH ×2 (05:59→17:00)
[2016-12-25] MEDS: Sucralfate 1 GM Tab PO SCH ×4 (07:41→20:13)
[2016-12-25] MEDS: Formoterol/Mometasone 200-5 MCG 8.8 GM Inhaler IH SCH ×2 (08:09→20:13)
[2016-12-25] MEDS: Carbamide Peroxide 6.5% Otic Soln 15 ML Bottle EARBOTH SCH ×2 (08:09→20:13)
[2016-12-25] MEDS: Tiotropium Inhaler 18 MCG Inhalation Powder Cap Kit of 5 INH SCH (08:10)
[2016-12-25] MEDS: Ferrous Sulfate 325 MG Tab PO SCH ×3 (08:13→17:22)
[2016-12-25] MEDS: Lisinopril 5 MG Tab PO SCH (08:14)
[2016-12-25] MEDS: Potassium Chloride 10 MEQ Tab.ER PO SCH (08:14)
[2016-12-25] MEDS: metFORMIN 500 MG Tab PO SCH ×2 (08:14→17:22)
[2016-12-25] MEDS: Docusate Sodium 100 MG Cap PO SCH (08:14)
[2016-12-25] MEDS: Multivitamin Tab PO SCH (08:14)
[2016-12-25] MEDS: Cyanocobalamin (Vitamin B12) 1,000 MCG Tab PO SCH (08:15)
[2016-12-25] MEDS: Insulin Aspart 100 Units/ML 3 ML Pen SUBCUT SCH ×3 (08:15→17:22)
[2016-12-25] MEDS: Cholecalciferol (Vitamin D3) 1,000 Unit Tab PO SCH (08:15)
[2016-12-25] MEDS: Acetaminophen 325 MG Tab PO PRN ×2 (09:18→16:01)
[2016-12-25] MEDS: Furosemide 80 MG Tab PO SCH ×2 (09:18→14:36)
[2016-12-25] MEDS ORDERED: Warfarin 2.5 MG, Warfarin 5 MG PO SCH ×2 (16:00)
--- NOTE | 2016-12-25 19:30 | PCM.PN ---
- General Info Date of Service: 12/25/16 Subjective Update: Doing well today. Feels ready for discharge tomorrow. No chest pain, no shortness of breath, no nausea, no vomiting, no abdominal pain. Transferring independently well. Tolerating new medications for gastritis treatment well. Functional Status: Reports: Tolerating Diet, Ambulating, Urinating - Patient Data Vitals - Most Recent: Last Vital Signs Temp 36.4 C 12/25/16 08:00 Pulse 64 12/25/16 08:00 Resp 20 12/25/16 08:00 BP 113/67 12/25/16 08:14 Pulse Ox 0 L 12/25/16 08:00 Weight - Most Recent: 106.685 kg Lab Results Last 24 Hours: Laboratory Results - last 24 hr 12/23/16 12/24/16 12/24/16 Range/Units 16:13 17:34 21:07 PT (8.7-11.1) INR (0.89-1.13) Sodium (135-145) mmol/L Potassium (3.5-5.3) mmol/L Chloride (100-110) mmol/L Carbon Dioxide (23-29) mmol/L BUN (8-23) mg/dL Creatinine (0.6-1.3) mg/dL Est Cr Clr Drug Dosing mL/min Estimated GFR (MDRD) (>60) BUN/Creatinine Ratio (9-20) Glucose (80-116) mg/dL POC Glucose 83 222 H D (80-116) mg/dL Calcium (8.6-10.2) mg/dL Ur Random Osmolality 285 (50-1200) mOsm/kg 12/25/16 12/25/16 12/25/16 Range/Units 05:59 06:45 06:45 PT 28.5 H (8.7-11.1) INR 2.76 H (0.89-1.13) Sodium 125 L (135-145) mmol/L Potassium 4.2 (3.5-5.3) mmol/L Chloride 88 L* (100-110) mmol/L Carbon Dioxide 30 H (23-29) mmol/L BUN 26 H (8-23) mg/dL Creatinine 0.7 (0.6-1.3) mg/dL Est Cr Clr Drug Dosing 59.01 mL/min Estimated GFR (MDRD) > 60 (>60) BUN/Creatinine Ratio 37.1 H (9-20) Glucose 156 H (80-116) mg/dL POC Glucose 120 H D (80-116) mg/dL Calcium 8.0 L (8.6-10.2) mg/dL Ur Random Osmolality (50-1200) mOsm/kg 12/25/16 12/25/16 Range/Units 12:16 17:58 PT (8.7-11.1) INR (0.89-1.13) Sodium (135-145) mmol/L Potassium (3.5-5.3) mmol/L Chloride (100-110) mmol/L Carbon Dioxide (23-29) mmol/L BUN (8-23) mg/dL Creatinine (0.6-1.3) mg/dL Est Cr Clr Drug Dosing mL/min Estimated GFR (MDRD) (>60) BUN/Creatinine Ratio (9-20) Glucose (80-116) mg/dL POC Glucose 150 H 118 H (80-116) mg/dL Calcium (8.6-10.2) mg/dL Ur Random Osmolality (50-1200) mOsm/kg Med Orders - Current: Current Medications Acetaminophen (Tylenol) 650 mg PO Q6H PRN PRN Reason: Pain Last Admin: 12/25/16 16:01 Dose: 650 mg Albuterol (Ventolin Hfa) 0 gm INH Q6H PRN PRN Reason: Shortness of Breath Carbamide Perox/Anhydrous Glycerin (Debrox 6.5% Otic Soln) 0 ml EARBOTH BID [facility] Last Admin: 12/25/16 08:09 Dose: 1 drop Cholecalciferol (Vitamin D3) 2,000 units PO DAILY [facility] Last Admin: 12/25/16 08:15 Dose: 2,000 units Cyanocobalamin (Vitamin B12) 1,000 mcg PO DAILY [facility] Last Admin: 12/25/16 08:15 Dose: 1,000 mcg Docusate Sodium (Colace) 100 mg PO DAILY [facility] Last Admin: 12/25/16 08:14 Dose: 100 mg Ferrous Sulfate (Ferrous Sulfate) 325 mg PO TIDMEALS [facility] Last Admin: 12/25/16 17:22 Dose: 325 mg Furosemide (Lasix) 80 mg PO 0930,1430 [facility] Last Admin: 12/25/16 14:36 Dose: 80 mg Insulin Aspart (Novolog) 0 unit SUBCUT TIDMEALS [facility] PRN Reason: Protocol Last Admin: 12/25/16 17:22 Dose: 12 units Insulin Detemir (Levemir) 44 unit SUBCUT BEDTIME [facility] Last Admin: 12/24/16 21:07 Dose: 44 units Lisinopril (Prinivil) 5 mg PO DAILY [facility] Last Admin: 12/25/16 08:14 Dose: 5 mg Metformin HCl (Glucophage) 250 mg PO BIDMEALS [facility] Last Admin: 12/25/16 17:22 Dose: 250 mg Mometasone Furoate/Formoterol Fumar (Dulera 200-5 Mcg) 2 puff IH BID [facility] Last Admin: 12/25/16 08:09 Dose: 2 puff Multivitamins/Minerals/Vitamin C (Tab-A-Kristin) 1 tab PO DAILY [facility] Last Admin: 12/25/16 08:14 Dose: 1 tab Nystatin (Nystatin Crm) 0 gm TOP BID PRN PRN Reason: Rash Pantoprazole Sodium (Protonix) 40 mg PO 0700,1700 [facility] Last Admin: 12/25/16 17:00 Dose: 40 mg Potassium Chloride (Klor-Con 10) 10 meq PO DAILY [facility] Last Admin: 12/25/16 08:14 Dose: 10 meq Sucralfate (Carafate) 1 gm PO QIDACANDBED [facility] Last Admin: 12/25/16 17:00 Dose: 1 gm Tiotropium [place] (Spiriva Handihaler) 18 mcg INH DAILY [facility] Last Admin: 12/25/16 08:10 Dose: 18 mcg Warfarin Sodium (Coumadin Sliding Scale) 1 each PO ASDIRECTED [facility] Discontinued Medications Acetaminophen (Tylenol Extra Strength) 1,000 mg PO BID PRN PRN Reason: Pain Last Admin: 12/23/16 09:11 Dose: 1,000 mg Hydrocodone Bitart/Acetaminophen ([place] 325-5 Mg) 1 tab PO Q4H PRN PRN Reason: Pain (severe 7-10) Last Admin: 12/21/16 18:38 Dose: 1 tab Aspirin (Halfprin) 81 mg PO DAILY [facility] Last Admin: 12/24/16 10:32 Dose: 81 mg Enoxaparin Sodium (Lovenox) 100 mg SUBCUT BID [facility] Last Admin: 12/22/16 08:20 Dose: 100 mg Furosemide (Lasix) 80 mg PO BID [facility] Last Admin: 12/16/16 21:09 Dose: 80 mg Furosemide (Lasix) 80 mg PO BIDDIURETIC [facility] Last Admin: 12/22/16 08:18 Dose: 80 mg Furosemide (Lasix) 40 mg PO BIDDIURETIC [facility] Last Admin: 12/23/16 13:49 Dose: 40 mg Furosemide (Lasix) 80 mg PO BIDDIURETIC [facility] Last Admin: 12/24/16 13:37 Dose: 80 mg Lactated Ringer's (Ringers, Lactated) 1,000 mls @ as directed IV .STK-MED ONE Stop: 12/24/16 09:21 Lidocaine HCl (Xylocaine-Mpf 4%) 5 ml TOP .STK-MED ONE Stop: 12/24/16 09:21 Metolazone (Zaroxolyn) 2.5 mg PO DAILY@0730 [facility] Last Admin: 12/22/16 06:31 Dose: 2.5 mg Mometasone Furoate/Formoterol Fumar (Dulera 200-5 Mcg) 2 puff IH BID [facility] Last Admin: 12/16/16 21:09 Dose: 2 puff Pantoprazole Sodium (Protonix) 40 mg PO ACBREAKFAST [facility] Last Admin: 12/24/16 06:48 Dose: Not Given Propofol (Diprivan 20 Ml) 80 mg IV .STK-MED ONE Stop: 12/24/16 09:21 Warfarin Sodium (Coumadin) 5 mg PO MoWeFr@1600 [facility] Last Admin: 12/16/16 21:09 Dose: 5 mg Warfarin Sodium (Coumadin) 7.5 mg PO SuTuThSa@1600 [facility] Warfarin Sodium 2.5 mg/ (Warfarin Sodium 5 mg) 7.5 mg PO SuTuThSa@1600 [facility] Last Admin: 12/17/16 16:27 Dose: 7.5 mg Warfarin Sodium 5 mg/ Warfarin (Sodium 2.5 mg) 7.5 mg PO 1600 [facility] Stop: 12/18/16 18:00 Last Admin: 12/18/16 17:07 Dose: 7.5 mg Warfarin Sodium (Coumadin) 10 mg PO 1600 [facility] Stop: 12/19/16 16:01 Last Admin: 12/19/16 16:01 Dose: 10 mg Warfarin Sodium 2.5 mg/ (Warfarin Sodium 5 mg) 7.5 mg PO 1600 [facility] Stop: 12/20/16 16:01 Last Admin: 12/20/16 16:11 Dose: 7.5 mg Warfarin Sodium 5 mg/ Warfarin (Sodium 2.5 mg) 7.5 mg PO 1600 [facility] Stop: 12/21/16 18:00 Last Admin: 12/21/16 15:33 Dose: 7.5 mg Warfarin Sodium 5 mg/ Warfarin (Sodium 2.5 mg) 7.5 mg PO 1600 [facility] Stop: 12/22/16 16:01 Last Admin: 12/22/16 16:30 Dose: 7.5 mg Warfarin Sodium (Coumadin) 10 mg PO 1600 [facility] Stop: 12/23/16 16:01 Last Admin: 12/23/16 15:40 Dose: 10 mg Warfarin Sodium 2.5 mg/ (Warfarin Sodium 5 mg) 7.5 mg PO 1600 [facility] Stop: 12/24/16 16:01 Last Admin: 12/24/16 16:28 Dose: 7.5 mg Warfarin Sodium 2.5 mg/ (Warfarin Sodium 5 mg) 7.5 mg PO 1600 [facility] Stop: 12/25/16 16:01 Last Admin: 12/25/16 16:00 Dose: 7.5 mg - Exam General: Alert, Oriented, Cooperative HEENT: Pupils Equal, Pupils Reactive Neck: Supple Lungs: Clear to Auscultation, Normal Respiratory Effort Cardiovascular: Regular Rate, Regular Rhythm, No Murmurs Extremities: Normal Inspection, Pedal Edema (trace) - Problem List & Annotations (1) Anemia SNOMED Code(s): 882936251 Code(s): D64.9 - ANEMIA, UNSPECIFIED Status: Acute Current Visit: No Qualifiers: Anemia type: iron deficiency Iron deficiency anemia type: chronic blood loss Qualified Code(s): D50.0 - Iron deficiency anemia secondary to blood loss (chronic) Annotation/Comment:: Likely secondary to gastritis. High dose PPI and carafate therapy. (2) CAD (coronary artery disease) SNOMED Code(s): 68136960 Code(s): I25.10 - ATHSCL HEART DISEASE OF [place] CORONARY ARTERY W/O ANG PCTRS Status: Acute Current Visit: No Annotation/Comment:: Tolerating lasix 80 mg twice a day. 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 Continue pharmacy to dose. 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 Decreased goal down to 2-3 because she is at high risk of bleeding and is > 6 months out from her previous clot. However, question if her clots have both been provoked, if she may not be a candidate for stopping warfarin. After discharge, may benefit from Hematology consult re: clotting versus bleeding risk. (5) Type 2 diabetes mellitus SNOMED Code(s): 19934159 Code(s): E11.9 - TYPE 2 DIABETES MELLITUS WITHOUT COMPLICATIONS Status: Acute Current Visit: No Annotation/Comment:: Sugars < 200 with return to home insulin regimen. Continue monitoring. (6) Hyponatremia SNOMED Code(s): 87853100 Code(s): E87.1 - HYPO-OSMOLALITY AND HYPONATREMIA Status: Acute Current Visit: No Annotation/Comment:: Sodium again 125 today. Osmolalities still pending. Am cortisol pending. TSH WNL at 2.79. - Problem List Review Problem List Initiated/Reviewed/Updated: Yes - My Orders Last 24 Hours: My Active Orders 12/25/16 09:30 Furosemide [Lasix] 80 mg PO 0930,1430 12/26/16 05:11 CBC WITH AUTO DIFF [HEME] AM COMPREHENSIVE METABOLIC PN,CMP [CHEM] AM 12/26/16 07:41 INR,PT,PROTHROMBIN TIME [COAG] DAILY 12/26/16 15:23 BASIC METABOLIC PANEL,BMP [CHEM] DAILY 12/27/16 05:00 HGB [HEMOGLOBIN] [HEME] Timed 12/27/16 07:41 INR,PT,PROTHROMBIN TIME [COAG] DAILY 12/28/16 07:41 INR,PT,PROTHROMBIN TIME [COAG] DAILY 12/29/16 07:41 INR,PT,PROTHROMBIN TIME [COAG] DAILY 12/30/16 07:41 INR,PT,PROTHROMBIN TIME [COAG] DAILY 01/03/17 05:05 HGB [HEMOGLOBIN] [HEME] Routine - Plan Plan:: Code status: discussed with the patient on 12/21/16 and she indeed does not want resuscitation if she were to stop breathing or if her heart stopped beating and would not want to be put on a ventilator. Thus she is a DNR/DNI. Orders were changed to reflect this. Spoke with patient's PCP today about her hospital course. Reviewed problem addressed and recommendations and discussed at length the issue of anticoagulation.
[2016-12-25] MEDS: Insulin Detemir 100 Units/ML 3 ML Pen SUBCUT SCH (20:14)
[2016-12-26] MEDS: Pantoprazole 40 MG Tab.CR PO SCH (07:12)
[2016-12-26] MEDS: Tiotropium Inhaler 18 MCG Inhalation Powder Cap Kit of 5 INH SCH (08:18)
[2016-12-26] MEDS: Formoterol/Mometasone 200-5 MCG 8.8 GM Inhaler IH SCH (08:18)
[2016-12-26] MEDS: Carbamide Peroxide 6.5% Otic Soln 15 ML Bottle EARBOTH SCH ×2 (08:18→08:25)
[2016-12-26] MEDS: Ferrous Sulfate 325 MG Tab PO SCH ×2 (08:19→11:14)
[2016-12-26] MEDS: Sucralfate 1 GM Tab PO SCH ×2 (08:19→11:14)
[2016-12-26] MEDS: Cholecalciferol (Vitamin D3) 1,000 Unit Tab PO SCH (08:20)
[2016-12-26] MEDS: Potassium Chloride 10 MEQ Tab.ER PO SCH (08:20)
[2016-12-26] MEDS: Docusate Sodium 100 MG Cap PO SCH (08:20)
[2016-12-26] MEDS: Cyanocobalamin (Vitamin B12) 1,000 MCG Tab PO SCH (08:20)
[2016-12-26] MEDS: Lisinopril 5 MG Tab PO SCH (08:20)
[2016-12-26] MEDS: metFORMIN 500 MG Tab PO SCH (08:20)
[2016-12-26] MEDS: Multivitamin Tab PO SCH (08:21)
[2016-12-26] MEDS: Insulin Aspart 100 Units/ML 3 ML Pen SUBCUT SCH ×2 (08:21→11:46)
[2016-12-26 08:24] VITALS: BP 113/64
[2016-12-26] MEDS: Furosemide 80 MG Tab PO SCH (09:47)
--- NOTE | 2016-12-26 11:41 | PCM.DCSUM1 ---
Discharge Summary - Hospital Course Free Text/Narrative:: Date of admission: 12/16/16 Date of discharge: 12/26/2016 Admission diagnosis: Debility, weakness after acute hospitalization for severe iron deficiency anemia. Discharge diagnosis: #1. Iron deficiency anemia. Patient's hemoglobin was 6.9 on her initial admission to the hospital inpatient. Hemoglobin was 9.5 on 12/22 and 9.5 on discharge. Patient continues on iron supplementation and is tolerating it well. #2. Congestive heart failure, with acute pulmonary edema after transfusion. Patient was started on metolazone and this was continued until the patient developed severe hyponatremia (see below) and when this was stopped her sodium rebounded well. She tolerated Lasix 80 mg twice a day without any evidence of heart failure. #3. Chronic anticoagulation. Indication is a DVT in November 2013 in the lower extremity when patient was on chemotherapy for colon cancer. 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 As these were both provoked events, and the patient is having severe complications from her anticoagulation, we did discuss the pros and cons of being anticoagulated with warfarin. She had been at 2.5-3.5 and this was decreased for a range of 2-3. However, I would question whether or not the patient would benefit from being just on aspirin, on Plavix, on aspirin plus Plavix, or on Eliquis 2.5 mg twice a day which would be more stable and less likely to cause bleeding. Discussed with Dr. Wills and he'll review this with the patient and make recommendations based on his better knowledge of her. #4. Diabetes mellitus type 2. Patient did well on her home insulin regimen. I was concerned about blood sugars in the 80s in the morning. I told her with meals, if her blood sugar is lower than she feels comfortable taking insulin, she should decrease her NovoLog to 6 units. #5. Hyponatremia. Likely secondary to metolazone treatment. Patient's sodium has been gradually drifting down over the last year and I suspect this is a result of her chronic congestive heart failure and her overall heart failure worsening. Lasix is good treatment for this but would avoid any thiazide diuretics if at all possible. ANNALISE inhibitors and ARBs seem to improve serum sodium concentration in patients with heart failure and the patient's lisinopril could certainly be titrated. However, unless the sodium goes below 120 and patient has neurologic symptoms associated with that, it may not need to be treated if due to heart failure. For lab workup, see below. #6. Acute gastritis with EGD done 2 days prior to discharge. This was treated with Protonix and Carafate. I have recommended Protonix twice a day but insurance would not cover so she'll just take this daily. H. pylori stool still pending. #7. Patient complained of ear wax impaction during hospital stay. Was treated with Debrox. Left ear had a couple of washes. Recommended continued Debrox until seen again in the clinic for ear wash on the left only. Consults: Gen. surgery, Dr. Hatch for EGD. Procedures: EGD done on 12/24. Showed gastritis and inflammation. Question of a potential healing ulcer. No biopsies done. Brief History: The patient was seen on 12/26/16 for debility and anemia. This is the reason for her home care services. She will need continued physical therapy , occupational therapy, and disease teaching. The fluid restriction of 1500 mL is new for the patient and was discussed with her in the hospital. She will need continued teaching on that and careful monitoring to see if her diuretics might need adjusted when she is on a more stringent fluid status restriction. Anticipate she will need home health services indefinitely as her heart failure is a chronic illness and likely to worsen over time. Patient is homebound. - Discharge Data Discharge Date: 12/26/16 Discharge Disposition: Home, W Home Health Agency 06 Condition: Good - Discharge Diagnosis/Problem(s) (1) Anemia SNOMED Code(s): 269174649 ICD Code: D64.9 - ANEMIA, UNSPECIFIED Status: Acute Current Visit: No Problem Details: Likely secondary to gastritis. High dose PPI and carafate therapy. Hgb 9.5 at discharge. Follow up in one week with recheck. Qualifiers: Anemia type: iron deficiency Iron deficiency anemia type: chronic blood loss Qualified Code(s): D50.0 - Iron deficiency anemia secondary to blood loss (chronic) (2) CAD (coronary artery disease) SNOMED Code(s): 88017403 ICD Code: I25.10 - ATHSCL HEART DISEASE OF [place] CORONARY ARTERY W/O ANG PCTRS Status: Acute Current Visit: No Problem Details: Tolerating lasix 80 mg twice a day. Monitor, recheck BMP in 1 week. (3) [facility] current use of anticoagulant SNOMED Code(s): 474566251 ICD Code: Z79.01 - PENITENTIARY (CURRENT) USE OF ANTICOAGULANTS Status: Acute Current Visit: No Problem Details: Therapeutic at discharge. 2.96. New goal 2-3, discussed with PCP options for decreasing anticoagulation, considering two provoked DVTs if she could stop anticoagulation. They will continue dialog in outpatient setting. (4) Personal history of DVT (deep vein thrombosis) SNOMED Code(s): 500588682 ICD Code: Z86.718 - PERSONAL HISTORY OF OTHER VENOUS THROMBOSIS AND EMBOLISM Status: Chronic Priority: High Current Visit: No Problem Details: After discharge, may benefit from Hematology consult re: clotting versus bleeding risk. (5) Type 2 diabetes mellitus SNOMED Code(s): 06985616 ICD Code: E11.9 - TYPE 2 DIABETES MELLITUS WITHOUT COMPLICATIONS Status: Acute Current Visit: No Problem Details: Sugars < 200 with return to home insulin regimen. Recommended if sugar < 80 at home, she can cut the 12 units in half with meals. (6) Hyponatremia SNOMED Code(s): 36933991 ICD Code: E87.1 - HYPO-OSMOLALITY AND HYPONATREMIA Status: Acute Current Visit: No Problem Details: Sodium 127 at discharge. Osmolalities 285 urine, 273 serum. Random urine Na 62. TSH 2.79. Am cortisol normal at 17.1. I suspect the patient's low sodium is caused by heart failure worsening over time , possibly due to anemia, and acutely worsened by the addition of metolazone. Now has improved dramatically. Would suggest monitoring, and only treating if continuing to worsen. - Patient Summary/Data Operative Procedure(s) Performed: egd Consults: Consultations 12/16/16 16:52 OT Evaluation and Treatment [CONS] Routine Please Evaluate and Treat. OT Reason for Consult: ADL's This query below is only for informational purposes and is not editable. PT Evaluation and Treatment [CONS] Routine Please Evaluate and Treat. PT Reason for Consult: Ambulation This query below is only for informational purposes and is not editable. - Patient Instructions Diet: Heart Healthy Diet, Low Sodium, Diabetic Diet Fluid Restriction: 1500 mL Activity: Cough & Deep Breathe Other/Special Instructions: Follow-up with your primary care provider in 7-10 days. Warfarin dosing as per pharmacy and follow up with the Coumadin clinic. CBC and BMP at follow-up visit. - Discharge Plan Prescriptions/Med Rec: Carbamide Peroxide [Debrox 6.5% Otic Soln] 1 ml EARBOTH BID 7 Days #1 bottle Sucralfate [Carafate] 1 gm PO QIDACANDBED 30 Days #120 tablet Home Medications: Home Meds Budesonide/Formoterol [Symbicort 160-4.5 MCG] 2 puff INH BID 03/30/13 [History] Cholecalciferol (Vitamin D3) [Vitamin D3] 2,000 unit PO DAILY 03/30/13 [History] Ferrous Sulfate 325 tab PO TIDMEALS 03/30/13 [History] Potassium Chloride 10 meq PO DAILY 03/30/13 [History] Omeprazole 40 mg PO ACBREAKFAST 12/28/14 [History] .Calcium Citrate 600 mg PO BIDMEALS 09/29/15 [History] Albuterol Sulfate [Proair Hfa] 2 puff IH Q6H PRN 02/13/16 [History] Cyanocobalamin (Vitamin B-12) [B-12] 1,000 mcg PO DAILY 02/13/16 [History] Docusate Sodium [Colace] 100 mg PO DAILY 02/13/16 [History] Furosemide 80 mg PO BID 02/13/16 [History] Lisinopril 5 mg PO DAILY 02/13/16 [History] Nystatin [Nystatin Crm] 1 applic TOP BID PRN 02/13/16 [History] Umeclidinium [place] [Incruse Ellipta] 62.5 mcg IH DAILY 02/13/16 [History] metFORMIN [Glucophage] 250 mg PO BIDMEALS #30 tab 02/27/16 [Rx] Acetaminophen [Tylenol Extra Strength] 1,000 mg PO BID PRN 12/13/16 [History] Insulin Aspart [NovoLOG] 12 - 20 units SUBCUT TIDMEALS 12/13/16 [History] Insulin Detemir [Levemir] 44 units SUBCUT BEDTIME 12/13/16 [History] Multivitamin [Daily Kristin] 1 tab PO DAILY 12/13/16 [History] Carbamide Peroxide [Debrox 6.5% Otic Soln] 1 ml EARBOTH BID 7 Days #1 bottle 11/03 [Rx] Pantoprazole Sodium [Protonix] 40 mg PO DAILY 12/26/16 [History] Sucralfate [Carafate] 1 gm PO QIDACANDBED 30 Days #120 tablet 12/26/16 [Rx] Warfarin Sliding Scale [Coumadin Sliding Scale] 1 each PO ASDIRECTED tablet 11/03 [Rx] Warfarin [Coumadin] 7.5 mg PO 1600 tablet 12/26/16 [Rx] Warfarin [Coumadin] 7.5 mg PO 1600 tablet 12/26/16 [Rx] - Discharge Summary/Plan Comment DC Time >30 min.: Yes - General Info Date of Service: 12/26/16 Subjective Update: On the day of discharge, patient was feeling well. No nausea, no vomiting, no diarrhea, no chest pain, no shortness of breath. Still weak but able to do her activities without assist. Safe for discharge. - Patient Data Vitals - Most Recent: Last Vital Signs Temp 36.6 C 12/26/16 07:45 Pulse 66 12/26/16 07:45 Resp 20 12/26/16 07:45 BP 113/64 12/26/16 08:20 Pulse Ox 94 L 12/26/16 07:45 Weight - Most Recent: 107.048 kg Lab Results - Last 24 hrs: Laboratory Results - last 24 hr 12/24/16 12/25/16 12/25/16 Range/Units 06:40 12:16 17:58 WBC (4.5-12.0) X10-3/uL RBC (3.23-5.20) x10(6)uL Hgb (11.5-15.5) g/dL Hct (30.0-51.3) % MCV (80-96) fL MCH (27.7-33.6) pg MCHC (32.2-35.4) g/dL RDW (11.5-15.5) % Plt Count (125-369) X10(3)uL MPV (7.4-10.4) fL Neut % (Auto) (46-82) % Lymph % (Auto) (13-37) % [place] % (Auto) (4-12) % Eos % (Auto) (1.0-5.0) % Baso % (Auto) (0-2) % Neut # (Auto) (1.6-8.3) # Lymph # (Auto) (0.6-5.0) # [place] # (Auto) (0.0-1.3) # Eos # (Auto) (0.0-0.8) # Baso # (Auto) (0.0-0.2) # PT (8.7-11.1) INR (0.89-1.13) Sodium (135-145) mmol/L Potassium (3.5-5.3) mmol/L Chloride (100-110) mmol/L Carbon Dioxide (23-29) mmol/L BUN (8-23) mg/dL Creatinine (0.6-1.3) mg/dL Est Cr Clr Drug Dosing mL/min Estimated GFR (MDRD) (>60) BUN/Creatinine Ratio (9-20) Glucose (80-116) mg/dL POC Glucose 150 H 118 H (80-116) mg/dL Calcium (8.6-10.2) mg/dL Total Bilirubin (0.1-1.3) mg/dL AST (5-27) IU/L ALT (14-26) IU/L Alkaline Phosphatase (56-112) IU/L Total Protein (6.0-8.0) g/dL Albumin (3.2-4.6) g/dL Globulin g/dL Albumin/Globulin Ratio Cortisol Baseline AM 17.1 (6.0-18.4) ug/dL 12/26/16 12/26/16 12/26/16 Range/Units 06:30 06:30 06:30 WBC 6.8 (4.5-12.0) X10-3/uL RBC 4.17 (3.23-5.20) x10(6)uL Hgb 9.5 L (11.5-15.5) g/dL Hct 30.7 (30.0-51.3) % MCV 73.6 L (80-96) fL MCH 22.8 L (27.7-33.6) pg MCHC 31.0 L (32.2-35.4) g/dL RDW 17.6 H (11.5-15.5) % Plt Count 323 (125-369) X10(3)uL MPV 8.3 (7.4-10.4) fL Neut % (Auto) 74.7 (46-82) % Lymph % (Auto) 13.5 (13-37) % [place] % (Auto) 9.4 (4-12) % Eos % (Auto) 1 (1.0-5.0) % Baso % (Auto) 1 (0-2) % Neut # (Auto) 5.1 (1.6-8.3) # Lymph # (Auto) 0.9 (0.6-5.0) # [place] # (Auto) 0.6 (0.0-1.3) # Eos # (Auto) 0.1 (0.0-0.8) # Baso # (Auto) 0.1 (0.0-0.2) # PT 30.6 H (8.7-11.1) INR 2.96 H (0.89-1.13) Sodium 127 L (135-145) mmol/L Potassium 3.7 (3.5-5.3) mmol/L Chloride 91 L (100-110) mmol/L Carbon Dioxide 28 (23-29) mmol/L BUN 23 (8-23) mg/dL Creatinine 0.7 (0.6-1.3) mg/dL Est Cr Clr Drug Dosing 59.01 mL/min Estimated GFR (MDRD) > 60 (>60) BUN/Creatinine Ratio 32.9 H (9-20) Glucose 96 (80-116) mg/dL POC Glucose (80-116) mg/dL Calcium 8.2 L (8.6-10.2) mg/dL Total Bilirubin 0.3 (0.1-1.3) mg/dL AST 19 D (5-27) IU/L ALT 23 (14-26) IU/L Alkaline Phosphatase 79 (56-112) IU/L Total Protein 5.0 L (6.0-8.0) g/dL Albumin 3.1 L (3.2-4.6) g/dL Globulin 1.9 g/dL Albumin/Globulin Ratio 1.6 Cortisol Baseline AM (6.0-18.4) ug/dL 12/26/16 12/26/16 Range/Units 07:31 12:05 WBC (4.5-12.0) X10-3/uL RBC (3.23-5.20) x10(6)uL Hgb (11.5-15.5) g/dL Hct (30.0-51.3) % MCV (80-96) fL MCH (27.7-33.6) pg MCHC (32.2-35.4) g/dL RDW (11.5-15.5) % Plt Count (125-369) X10(3)uL MPV (7.4-10.4) fL Neut % (Auto) (46-82) % Lymph % (Auto) (13-37) % [place] % (Auto) (4-12) % Eos % (Auto) (1.0-5.0) % Baso % (Auto) (0-2) % Neut # (Auto) (1.6-8.3) # Lymph # (Auto) (0.6-5.0) # [place] # (Auto) (0.0-1.3) # Eos # (Auto) (0.0-0.8) # Baso # (Auto) (0.0-0.2) # PT (8.7-11.1) INR (0.89-1.13) Sodium (135-145) mmol/L Potassium (3.5-5.3) mmol/L Chloride (100-110) mmol/L Carbon Dioxide (23-29) mmol/L BUN (8-23) mg/dL Creatinine (0.6-1.3) mg/dL Est Cr Clr Drug Dosing mL/min Estimated GFR (MDRD) (>60) BUN/Creatinine Ratio (9-20) Glucose (80-116) mg/dL POC Glucose 97 141 H (80-116) mg/dL Calcium (8.6-10.2) mg/dL Total Bilirubin (0.1-1.3) mg/dL AST (5-27) IU/L ALT (14-26) IU/L Alkaline Phosphatase (56-112) IU/L Total Protein (6.0-8.0) g/dL Albumin (3.2-4.6) g/dL Globulin g/dL Albumin/Globulin Ratio Cortisol Baseline AM (6.0-18.4) ug/dL Med Orders - Current: Current Medications Acetaminophen (Tylenol) 650 mg PO Q6H PRN PRN Reason: Pain Last Admin: 12/25/16 16:01 Dose: 650 mg Albuterol (Ventolin Hfa) 0 gm INH Q6H PRN PRN Reason: Shortness of Breath Carbamide Perox/Anhydrous Glycerin (Debrox 6.5% Otic Soln) 0 ml EARBOTH BID [facility] Last Admin: 12/26/16 08:25 Dose: Not Given Cholecalciferol (Vitamin D3) 2,000 units PO DAILY [facility] Last Admin: 12/26/16 08:20 Dose: 2,000 units Cyanocobalamin (Vitamin B12) 1,000 mcg PO DAILY [facility] Last Admin: 12/26/16 08:20 Dose: 1,000 mcg Docusate Sodium (Colace) 100 mg PO DAILY [facility] Last Admin: 12/26/16 08:20 Dose: 100 mg Ferrous Sulfate (Ferrous Sulfate) 325 mg PO TIDMEALS [facility] Last Admin: 12/26/16 11:14 Dose: 325 mg Furosemide (Lasix) 80 mg PO 0930,1430 [facility] Last Admin: 12/26/16 09:47 Dose: 80 mg Insulin Aspart (Novolog) 0 unit SUBCUT TIDMEALS [facility] PRN Reason: Protocol Last Admin: 12/26/16 08:21 Dose: 12 units Insulin Detemir (Levemir) 44 unit SUBCUT BEDTIME [facility] Last Admin: 12/25/16 20:14 Dose: 44 units Lisinopril (Prinivil) 5 mg PO DAILY [facility] Last Admin: 12/26/16 08:20 Dose: 5 mg Metformin HCl (Glucophage) 250 mg PO BIDMEALS [facility] Last Admin: 12/26/16 08:20 Dose: 250 mg Mometasone Furoate/Formoterol Fumar (Dulera 200-5 Mcg) 2 puff IH BID [facility] Last Admin: 12/26/16 08:18 Dose: 2 puff Multivitamins/Minerals/Vitamin C (Tab-A-Kristin) 1 tab PO DAILY [facility] Last Admin: 12/26/16 08:21 Dose: 1 tab Nystatin (Nystatin Crm) 0 gm TOP BID PRN PRN Reason: Rash Pantoprazole Sodium (Protonix) 40 mg PO 0700,1700 [facility] Last Admin: 12/26/16 07:12 Dose: 40 mg Potassium Chloride (Klor-Con 10) 10 meq PO DAILY [facility] Last Admin: 12/26/16 08:20 Dose: 10 meq Sucralfate (Carafate) 1 gm PO QIDACANDBED [facility] Last Admin: 12/26/16 11:14 Dose: 1 gm Tiotropium [place] (Spiriva Handihaler) 18 mcg INH DAILY [facility] Last Admin: 12/26/16 08:18 Dose: 18 mcg Warfarin Sodium (Coumadin Sliding Scale) 1 each PO ASDIRECTED [facility] Warfarin Sodium 2.5 mg/ (Warfarin Sodium 5 mg) 7.5 mg PO 1600 [facility] Discontinued Medications Acetaminophen (Tylenol Extra Strength) 1,000 mg PO BID PRN PRN Reason: Pain Last Admin: 12/23/16 09:11 Dose: 1,000 mg Hydrocodone Bitart/Acetaminophen ([place] 325-5 Mg) 1 tab PO Q4H PRN PRN Reason: Pain (severe 7-10) Last Admin: 12/21/16 18:38 Dose: 1 tab Aspirin (Halfprin) 81 mg PO DAILY [facility] Last Admin: 12/24/16 10:32 Dose: 81 mg Enoxaparin Sodium (Lovenox) 100 mg SUBCUT BID [facility] Last Admin: 12/22/16 08:20 Dose: 100 mg Furosemide (Lasix) 80 mg PO BID [facility] Last Admin: 12/16/16 21:09 Dose: 80 mg Furosemide (Lasix) 80 mg PO BIDDIURETIC [facility] Last Admin: 12/22/16 08:18 Dose: 80 mg Furosemide (Lasix) 40 mg PO BIDDIURETIC [facility] Last Admin: 12/23/16 13:49 Dose: 40 mg Furosemide (Lasix) 80 mg PO BIDDIURETIC [facility] Last Admin: 12/24/16 13:37 Dose: 80 mg Lactated Ringer's (Ringers, Lactated) 1,000 mls @ as directed IV .STK-MED ONE Stop: 12/24/16 09:21 Lidocaine HCl (Xylocaine-Mpf 4%) 5 ml TOP .STK-MED ONE Stop: 12/24/16 09:21 Metolazone (Zaroxolyn) 2.5 mg PO DAILY@0730 [facility] Last Admin: 12/22/16 06:31 Dose: 2.5 mg Mometasone Furoate/Formoterol Fumar (Dulera 200-5 Mcg) 2 puff IH BID [facility] Last Admin: 12/16/16 21:09 Dose: 2 puff Pantoprazole Sodium (Protonix) 40 mg PO ACBREAKFAST [facility] Last Admin: 12/24/16 06:48 Dose: Not Given Propofol (Diprivan 20 Ml) 80 mg IV .STK-MED ONE Stop: 12/24/16 09:21 Warfarin Sodium (Coumadin) 5 mg PO MoWeFr@1600 [facility] Last Admin: 12/16/16 21:09 Dose: 5 mg Warfarin Sodium (Coumadin) 7.5 mg PO SuTuThSa@1600 [facility] Warfarin Sodium 2.5 mg/ (Warfarin Sodium 5 mg) 7.5 mg PO SuTuThSa@1600 [facility] Last Admin: 12/17/16 16:27 Dose: 7.5 mg Warfarin Sodium 5 mg/ Warfarin (Sodium 2.5 mg) 7.5 mg PO 1600 [facility] Stop: 12/18/16 18:00 Last Admin: 12/18/16 17:07 Dose: 7.5 mg Warfarin Sodium (Coumadin) 10 mg PO 1600 [facility] Stop: 12/19/16 16:01 Last Admin: 12/19/16 16:01 Dose: 10 mg Warfarin Sodium 2.5 mg/ (Warfarin Sodium 5 mg) 7.5 mg PO 1600 [facility] Stop: 12/20/16 16:01 Last Admin: 12/20/16 16:11 Dose: 7.5 mg Warfarin Sodium 5 mg/ Warfarin (Sodium 2.5 mg) 7.5 mg PO 1600 [facility] Stop: 12/21/16 18:00 Last Admin: 12/21/16 15:33 Dose: 7.5 mg Warfarin Sodium 5 mg/ Warfarin (Sodium 2.5 mg) 7.5 mg PO 1600 [facility] Stop: 12/22/16 16:01 Last Admin: 12/22/16 16:30 Dose: 7.5 mg Warfarin Sodium (Coumadin) 10 mg PO 1600 [facility] Stop: 12/23/16 16:01 Last Admin: 12/23/16 15:40 Dose: 10 mg Warfarin Sodium 2.5 mg/ (Warfarin Sodium 5 mg) 7.5 mg PO 1600 [facility] Stop: 12/24/16 16:01 Last Admin: 12/24/16 16:28 Dose: 7.5 mg Warfarin Sodium 2.5 mg/ (Warfarin Sodium 5 mg) 7.5 mg PO 1600 [facility] Stop: 12/25/16 16:01 Last Admin: 12/25/16 16:00 Dose: 7.5 mg - Exam General: Reports: Alert, Oriented, Cooperative, No Acute Distress HEENT: Reports: Pupils Equal, Pupils Reactive, Other (Tympanic membrane on the right was clear. The left still had some soft and hard wax present. Recommended continuing ear drops in the left ear until seen next week.) Neck: Reports: Supple Lungs: Reports: Clear to Auscultation, Normal Respiratory Effort Cardiovascular: Reports: Regular Rate, Regular Rhythm, Murmurs (Soft systolic ejection murmur heard best at the left sternal border.) GI/Abdominal Exam: Normal Bowel Sounds, Soft, Non-Tender, No Distention Extremities: Pedal Edema (unchanged.) Skin: Reports: Warm, Dry, Intact *Q Meaningful Use (DIS) - VTE *Q VTE Criteria *Q: - Stroke *Q Stroke Criteria *Q: - AMI *Q AMI Criteria *Q:
[2016-12-26] MEDS ORDERED: Warfarin 2.5 MG, Warfarin 5 MG PO SCH ×2 (16:00)
== END 2016-12-26 13:15 | disposition home health service (06) | DRG 948 ==
LOC: FB.MS 16:34
PROVIDERS: ADMIT Family Medicine; ATTEND Family Medicine
PROC: 0DJ08ZZ Inspection of Upper Intestinal Tract, Via Natural or Artificial Opening Endoscopic (ICD-10-PCS; principal; 2016-12-24)
DX: R53.1 Weakness (principal); E87.1 Hypo-osmolality and hyponatremia; D50.9 Iron deficiency anemia, unspecified; E11.9 Type 2 diabetes mellitus without complications; M66.9 Spontaneous rupture of unspecified tendon; G89.29 Other chronic pain; M54.9 Dorsalgia, unspecified; Z95.0 Presence of cardiac pacemaker; K21.9 Gastro-esophageal reflux disease without esophagitis; Z79.01 Long term (current) use of anticoagulants; Z79.84 Long term (current) use of oral hypoglycemic drugs; Z79.899 Other long term (current) drug therapy; Z88.0 Allergy status to penicillin; Z88.2 Allergy status to sulfonamides; Z91.09 Other allergy status, other than to drugs and biological substances; Z79.4 Long term (current) use of insulin; H91.90 Unspecified hearing loss, unspecified ear; I73.9 Peripheral vascular disease, unspecified; M19.90 Unspecified osteoarthritis, unspecified site; Z96.659 Presence of unspecified artificial knee joint; Z87.891 Personal history of nicotine dependence; K29.00 Acute gastritis without bleeding; I25.10 Atherosclerotic heart disease of native coronary artery without angina pectoris; Z86.718 Personal history of other venous thrombosis and embolism; Z66 Do not resuscitate; I11.0 Hypertensive heart disease with heart failure; I50.9 Heart failure, unspecified; H61.22 Impacted cerumen, left ear
CPT/HCPCS: 36415; 80048; 80053; 82533; 82962; 83930; 83935; 84300; 84443; 85025; 85610; 87338; 93306; 97110-GO; 97116-GP; 97530-GO; 97530-GO-KX; 97535-GO; A9270-GY; J1650; J2704; J7120

== ENCOUNTER 2017-03-18 15:33 | Emergency (ER) | payer MEDICARE, BC ==
[2017-03-18] MEDS ORDERED: Albuterol/Ipratropium 3.0-0.5 MG/3 ML Neb Soln NEB ONE (15:44)
[2017-03-18] MEDS ORDERED: Ibuprofen 600 MG Tab PO ONE (18:07)
--- NOTE | 2017-03-18 18:38 | EDM.PDOC ---
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 BP 137/78 Puls 87 RR 18 Temp 36.7 Onset Date: 03/18/17 Onset Time: 08:00 Duration: Hour(s):, Intermittent Location: Reports: Upper Extremity, Left Quality: Reports: Ache Severity: Mild Improves with: Reports: Rest Worsens with: Reports: Movement Context: Reports: Other (H/O Arthitis) Associated Symptoms: Reports: No Other Symptoms right wrist and thumb Pain Score (Numeric/FACES): 3 - Related Data Allergies Allergy/AdvReac Type Severity Reaction Status Date / Time adhesive Allergy Other Verified 12/17/16 10:32 grass pollen Allergy Sneezing Verified 12/17/16 10:32 Penicillins Allergy Hives Verified 12/17/16 10:32 Sulfa (Sulfonamide Allergy Rash Verified 12/17/16 10:32 Antibiotics) Home Meds: Home Meds Budesonide/Formoterol [Symbicort 160-4.5 MCG] 2 puff INH BID 03/30/13 [History] Cholecalciferol (Vitamin D3) [Vitamin D3] 2,000 unit PO DAILY 03/30/13 [History] Ferrous Sulfate 325 tab PO TIDMEALS 03/30/13 [History] Potassium Chloride 10 meq PO DAILY 03/30/13 [History] .Calcium Citrate 600 mg PO BIDMEALS 09/29/15 [History] Albuterol Sulfate [Proair Hfa] 2 puff IH Q6H PRN 02/13/16 [History] Cyanocobalamin (Vitamin B-12) [B-12] 1,000 mcg PO DAILY 02/13/16 [History] Docusate Sodium [Colace] 100 mg PO DAILY 02/13/16 [History] Furosemide 80 mg PO BID 02/13/16 [History] Lisinopril 5 mg PO DAILY 02/13/16 [History] Nystatin [Nystatin Crm] 1 applic TOP BID PRN 02/13/16 [History] Umeclidinium [place] [Incruse Ellipta] 62.5 mcg IH DAILY 02/13/16 [History] metFORMIN [Glucophage] 250 mg PO BIDMEALS #30 tab 02/27/16 [Rx] Acetaminophen [Tylenol Extra Strength] 1,000 mg PO BID PRN 12/13/16 [History] Insulin Aspart [NovoLOG] 12 - 20 units SUBCUT TIDMEALS 12/13/16 [History] Insulin Detemir [Levemir] 44 units SUBCUT BEDTIME 12/13/16 [History] Multivitamin [Daily Kristin] 1 tab PO DAILY 12/13/16 [History] Carbamide Peroxide [Debrox 6.5% Otic Soln] 1 ml EARBOTH BID 7 Days #1 bottle 11/03 [Rx] Pantoprazole Sodium [Protonix] 40 mg PO DAILY 12/26/16 [History] Sucralfate [Carafate] 1 gm PO QIDACANDBED 30 Days #120 tablet 12/26/16 [Rx] Warfarin Sliding Scale [Coumadin Sliding Scale] 1 each PO ASDIRECTED tablet 11/03 [Rx] Warfarin [Coumadin] 7.5 mg PO 1600 tablet 12/26/16 [Rx] Warfarin [Coumadin] 7.5 mg PO 1600 tablet 12/26/16 [Rx] Past Medical History HEENT History: Reports: Cataract, Hard of Hearing, Other (See Below) Other HEENT History: Congenital hearing loss Cardiovascular History: Reports: Hypertension, Pacemaker, PVD, Other (See Below) Other Cardiovascular History: 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 Genitourinary History: Reports: Urinary Incontinence Other Genitourinary History: PT VOICED THAT SHE PASTED A KIDNEY SSTONE ABOUT 60 YEARS AGO. Other OB/BYN History: PT VOICED NEVER BEEN Musculoskeletal History: Reports: Back Pain, Chronic, Osteoarthritis Other Musculoskeletal History: knee replacements Endocrine/Metabolic History: Reports: Diabetes, Type II, Other (See Below) Other Endocrine/Metabolic History: insulin dependent Hematologic History: Reports: B12 Deficiency, Blood Transfusion(s), Iron Deficiency Other Hematologic History: Prior surgeries. Oncologic (Cancer) History: Reports: Colon, Uterine, Other (See Below) Other Oncologic History: Endometrial CA Other Dermatologic History: RAASH UNDERNEATH SERA. BREASTS AND BELLY FOLDS AT TIMES. CURRENTLY HAS TO BREAST AND BELLY FOLDS - Infectious Disease History Infectious Disease History: Reports: Chicken Pox, Influenza - Past Surgical History HEENT Surgical History: Reports: Cataract Surgery Cardiovascular Surgical History: Reports: Other (See Below) GI Surgical History: Reports: Cholecystectomy, Colonoscopy, EGD, Other (See Below) Female Surgical History: Reports: Hysterectomy Musculoskeletal Surgical History: Reports: Hip Replacement, ORIF, Other (See Below) Oncologic Surgical History: Reports: None Social & Family History - Family History Family Medical History: Unobtainable Cardiac: Reports: CAD, Other (See Below) Other Cardiac Family History: father and mother Respiratory: Reports: Asthma Other Respiratory Family Hisory: sister : Reports: Renal Disease/Insufficiency Other Family History: Nephew at age 5 Neurological: Reports: Dementia, Other (See Below) Other Neurological Family History: mother Immunologic: Reports: None Oncologic: Reports: Breast, Skin Other Oncologic Family History: mother-breast. brother-skin - Tobacco Use Smoking Status *Q: Former Smoker Years of Tobacco use: 20 Used Tobacco, but Quit: No Month Tobacco Last Used: 20 years ago Second Hand Smoke Exposure: No - Caffeine Use Caffeine Use: Reports: Coffee Other Caffeine Use: 2 cups of coffee and 1 cup of tea in a day - Alcohol Use Days Per Week of Alcohol Use: 0 - Recreational Drug Use Recreational Drug Use: No Review of Systems - Review of Systems Review Of Systems: See Below Constitutional: Reports: No Symptoms Eyes: Reports: No Symptoms Ears: Reports: No Symptoms Nose: Reports: No Symptoms Mouth/Throat: Reports: No Symptoms Respiratory: Reports: No Symptoms Cardiovascular: Reports: No Symptoms GI/Abdominal: Reports: No Symptoms Genitourinary: Reports: No Symptoms Musculoskeletal: Reports: No Symptoms, Other (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, 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) Skin: Reports: No Symptoms Neurological: Reports: No Symptoms Psychiatric: Reports: No Symptoms ED EXAM, GENERAL - Physical Exam Exam: See Below Exam Limited By: Physical Impairment General Appearance: Alert, WD/WN, Obese (morbid) Eye Exam: Bilateral Eye: Normal Inspection Ears: Normal External Exam Ear Exam: Bilateral Ear: Auricle Normal Nose: Normal Inspection, Normal Mucosa, No Blood Throat/Mouth: Normal Inspection, Normal Lips Head: Atraumatic, Normocephalic Neck: Normal Inspection, Supple, Non-Tender, Full Range of Motion Respiratory/Chest: No Respiratory Distress, Lungs Clear, Normal Breath Sounds Cardiovascular: Normal Peripheral Pulses Peripheral Pulses: 1+: Radial (L) GI/Abdominal: Normal Bowel Sounds, Soft, Non-Tender, No Organomegaly, No Distention, No Abnormal Bruit, No Mass, Pelvis Stable (Female) Exam: Deferred Rectal (Female) Exam: Deferred Back Exam: Normal Inspection, Full Range of Motion Extremities: Normal Inspection, Normal Range of Motion, Non-Tender, No Pedal Edema, Normal Capillary Refill Neurological: Alert, Oriented, CN II-XII Intact, Normal Cognition, Abnormal Gait (obesity) Psychiatric: Normal Affect, Normal Mood Skin Exam: Warm, Dry, Intact, Normal Color, No Rash Lymphatic: No Adenopathy Course - Vital Signs Text/Narrative:: 81 y.o.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 BP 137/78 Puls 87 RR 18 Temp 36.7 PE: Morbid obese, left wrist pain off/on at rest Impression: Left wrist pain Tx: Motrin, ICE Reexam: Improved Plan: D/C with instructions Last Recorded V/S: Last Vital Signs Temp 36.6 C 03/18/17 15:49 Pulse 98 03/18/17 15:49 Resp 20 03/18/17 15:49 BP 139/77 03/18/17 15:49 Pulse Ox 94 L 03/18/17 15:49 - Orders/Labs/Meds Orders: Active Orders 24 hr Category Date Time Status RT Aerosol Therapy [RC] ASDIRECTED Care 03/18/17 15:45 Active Chest 1V Frontal [CR] Stat Exams 03/18/17 15:44 Taken Labs: Laboratory Tests 03/18/17 03/18/17 03/18/17 Range/Units 15:50 15:50 15:50 WBC 7.6 (4.5-12.0) X10-3/uL RBC 4.80 (3.23-5.20) x10(6)uL Hgb 11.8 (11.5-15.5) g/dL Hct 36.8 (30.0-51.3) % MCV 76.7 L (80-96) fL MCH 24.5 L (27.7-33.6) pg MCHC 31.9 L (32.2-35.4) g/dL RDW 17.4 H (11.5-15.5) % Plt Count 303 (125-369) X10(3)uL MPV 7.2 L (7.4-10.4) fL Neut % (Auto) 78.9 (46-82) % Lymph % (Auto) 12.0 L (13-37) % [place] % (Auto) 7.6 (4-12) % Eos % (Auto) 1 (1.0-5.0) % Baso % (Auto) 1 (0-2) % Neut # (Auto) 6.0 (1.6-8.3) # Lymph # (Auto) 0.9 (0.6-5.0) # [place] # (Auto) 0.6 (0.0-1.3) # Eos # (Auto) 0.1 (0.0-0.8) # Baso # (Auto) 0.0 (0.0-0.2) # Sodium 133 L (135-145) mmol/L Potassium 3.9 (3.5-5.3) mmol/L Chloride 91 L (100-110) mmol/L Carbon Dioxide 35 H (21-32) mmol/L BUN 22 H (7-18) mg/dL Creatinine 1.0 (0.55-1.02) mg/dL Est Cr Clr Drug Dosing 41.30 mL/min Estimated GFR (MDRD) 53 L (>60) BUN/Creatinine Ratio 22.0 H (9-20) Glucose 108 (80-116) mg/dL Calcium 9.2 (8.6-10.2) mg/dL NT-Pro-B Natriuret Pep 194 (<=450) pg/mL Meds: Medications Discontinued Medications Generic Name Dose Route Start Last Admin Trade Name Brandanq PRN Reason Stop Dose Admin Albuterol/Ipratropium 3 ml 03/18/17 15:44 03/18/17 16:35 Duoneb 3.0-0.5 Mg/3 Ml NEB 03/18/17 15:45 3 ml ONETIME ONE Administration Ibuprofen 600 mg 03/18/17 18:07 03/18/17 18:14 Motrin PO 03/18/17 18:08 600 mg ONETIME ONE Administration Departure - Departure Time of Disposition: 18:34 Disposition: Home, Self-Care 01 Condition: Good Clinical Impression: Left wrist sprain - Discharge Information Referrals: Hunter Wills MD [Primary Care Provider] - Forms: ED Department Discharge Additional Instructions: Please take Motrin for pain, apply ICE to left wrist, please f/u, come back if your symptoms get worse acutely - My Orders Last 24 Hours: My Active Orders 03/18/17 15:44 Chest 1V Frontal [CR] Stat 03/18/17 15:45 RT Aerosol Therapy [RC] ASDIRECTED - Assessment/Plan Last 24 Hours: My Active Orders 03/18/17 15:44 Chest 1V Frontal [CR] Stat 03/18/17 15:45 RT Aerosol Therapy [RC] ASDIRECTED
[2017-03-18 21:56] VITALS: BP 129/71
--- NOTE | 2017-03-19 11:36 | CR ---
INDICATION: Short of breath. CHEST: Two AP upright views of the chest were obtained 03/18/2017 and compared with 12/13/2016, again revealing what appears to be a relatively poor inspiration. The heart appeared enlarged. Pulmonary vasculature is prominent in the upper lung lr, compatible with CHF. The aorta is tortuous and calcified in the arch. Bipolar pacemaker leads are noted and appear unchanged in position. A consolidating pneumonia or effusion was not identified. IMPRESSION: 1. Findings are compatible with CHF of mild degree. 2. ASHD with cardiomegaly. 3. Exogenous obesity. MTDD
== END 2017-03-18 19:00 | disposition home or self-care (01) ==
LOC: FB.ED 15:33
DX: S63.502A Unspecified sprain of left wrist, initial encounter (principal); I10 Essential (primary) hypertension; E11.9 Type 2 diabetes mellitus without complications; Z88.0 Allergy status to penicillin; Z88.2 Allergy status to sulfonamides; Z91.048 Other nonmedicinal substance allergy status; Z79.84 Long term (current) use of oral hypoglycemic drugs; Z79.01 Long term (current) use of anticoagulants; Z79.899 Other long term (current) drug therapy; Z95.0 Presence of cardiac pacemaker; Z87.891 Personal history of nicotine dependence; X58.XXXA Exposure to other specified factors, initial encounter
CPT/HCPCS: 36415; 71045; 80048; 83880; 85025; 94640; 99284; A9270; J7620; 99283

== ENCOUNTER 2017-09-26 12:21 | Observation (INO) | payer MEDICARE, BC ==
[2017-09-26] MEDS ORDERED: Sodium Chloride 0.9% 10 ML Syringe FLUSH PRN (13:02)
[2017-09-26] MEDS ORDERED: Ketorolac 30 MG/ML SDV IVPUSH ONE (13:03)
--- NOTE | 2017-09-26 13:09 | EDM.PDOC ---
ED HPI GENERAL MEDICAL PROBLEM - General Chief Complaint: Neuro Symptoms/Deficits Stated Complaint: LEFT ARM TINGLING Time Seen by Provider: 09/26/17 13:04 Source of Information: Reports: Patient History Limitations: Reports: No Limitations - History of Present Illness INITIAL COMMENTS - FREE TEXT/NARRATIVE: Presents with pain and tingling (described as "pins and needles") to left forearm and hand upon awakening at 0230 this morning, last known well 2300 last night. Now radiating to left upper arm. States she is also having some posterior neck pain. Denies injury, chest pain or weakness. Onset: Today Onset Date: 09/26/17 Onset Time: 02:30 Location: Reports: Upper Extremity, Left Quality: Reports: Other (tingling, pain) Severity: Moderate Improves with: Reports: None Worsens with: Reports: None Associated Symptoms: Reports: No Other Symptoms L upper arm Pain Score (Numeric/FACES): 4 - Related Data Allergies Allergy/AdvReac Type Severity Reaction Status Date / Time adhesive Allergy Other Verified 09/26/17 12:33 grass pollen Allergy Sneezing Verified 09/26/17 12:33 Penicillins Allergy Hives Verified 09/26/17 12:33 Sulfa (Sulfonamide Allergy Rash Verified 09/26/17 12:33 Antibiotics) Home Meds: Home Meds Budesonide/Formoterol [Symbicort 160-4.5 MCG] 2 puff INH BID 03/30/13 [History] Cholecalciferol (Vitamin D3) [Vitamin D3] 2,000 unit PO DAILY 03/30/13 [History] Ferrous Sulfate 325 tab PO TIDMEALS 03/30/13 [History] Potassium Chloride 10 meq PO DAILY 03/30/13 [History] .Calcium Citrate 600 mg PO BIDMEALS 09/29/15 [History] Albuterol Sulfate [Proair Hfa] 2 puff IH Q6H PRN 02/13/16 [History] Cyanocobalamin (Vitamin B-12) [B-12] 1,000 mcg PO DAILY 02/13/16 [History] Docusate Sodium [Colace] 100 mg PO DAILY 02/13/16 [History] Furosemide 80 mg PO BID 02/13/16 [History] Lisinopril 5 mg PO DAILY 02/13/16 [History] Nystatin [Nystatin Crm] 1 applic TOP BID PRN 02/13/16 [History] Umeclidinium [place] [Incruse Ellipta] 62.5 mcg IH DAILY 02/13/16 [History] metFORMIN [Glucophage] 250 mg PO BIDMEALS #30 tab 02/27/16 [Rx] Acetaminophen [Tylenol Extra Strength] 1,000 mg PO BID PRN 12/13/16 [History] Insulin Aspart [NovoLOG] 10 - 15 units SUBCUT TIDMEALS 12/13/16 [History] Insulin Detemir [Levemir] 44 units SUBCUT BEDTIME 12/13/16 [History] Multivitamin [Daily Kristin] 1 tab PO DAILY 12/13/16 [History] Allopurinol [Zyloprim] 300 mg PO DAILY 09/26/17 [History] Nabumetone [Relafen] 500 mg PO BID 09/26/17 [History] Omeprazole/Sodium Bicarbonate [[place]meppi 40 mg-1,100 mg Capsule] 40 mg DAILY [History] Warfarin [Coumadin] 2.5 mg PO MO 09/26/17 [History] Warfarin [Coumadin] 5 mg PO SUTUWETHFRSA 09/26/17 [History] metOLazone [Zaroxolyn] 2.5 mg PO BID 09/26/17 [History] traMADol [Ultram] 50 mg PO QID PRN 09/26/17 [History] Past Medical History HEENT History: Reports: Cataract, Hard of Hearing, Other (See Below) Other HEENT History: Congenital hearing loss Cardiovascular History: Reports: Arrhythmia, Blood Clots/VTE/DVT, Heart Murmur, Hypertension, Pacemaker, PVD, Other (See Below) Other Cardiovascular History: 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 Oncologic (Cancer) History: Reports: Colon, Uterine, Other (See Below) Other Oncologic History: Endometrial CA Dermatologic History: Reports: Other (See Below) Other Dermatologic History: RASH UNDERNEATH SERA. BREASTS AND BELLY FOLDS AT TIMES. - Infectious Disease History Infectious Disease History: Reports: Chicken Pox, Influenza, Measles - Past Surgical History HEENT Surgical History: Reports: Cataract Surgery Other HEENT Surgeries/Procedures: Bilat cataract surgery. Cardiovascular Surgical History: Reports: Pacer, Other (See Below) GI Surgical History: Reports: Cholecystectomy, Colon, Colonoscopy, EGD, Hernia Repair/Other Female Surgical History: Reports: Hysterectomy, Salpingo-Oophorectomy Other Female Surgeries/Procedures: total hyst Musculoskeletal Surgical History: Reports: Hip Replacement, ORIF, Other (See Below) Other Musculoskeletal Surgeries/Procedures:: bilat knee replacement, R hip replacement Oncologic Surgical History: Reports: None Dermatological Surgical History: Reports: None Social & Family History - Family History Family Medical History: Noncontributory Cardiac: Reports: CAD, Other (See Below) Other Cardiac Family History: father and mother Respiratory: Reports: Asthma Other Respiratory Family Hisory: sister : Reports: Renal Disease/Insufficiency Other Family History: Nephew at age 5 Neurological: Reports: Dementia, Other (See Below) Other Neurological Family History: mother Immunologic: Reports: None Oncologic: Reports: Breast, Skin Other Oncologic Family History: mother-breast. brother-skin - Tobacco Use Smoking Status *Q: Former Smoker Years of Tobacco use: 15 Used Tobacco, but Quit: Yes Month/Year Tobacco Last Used: feb - Caffeine Use Caffeine Use: Reports: Coffee, Soda, Tea Other Caffeine Use: 2 cups of coffee and 1 cup of tea in a day - Recreational Drug Use Recreational Drug Use: No Review of Systems - Review of Systems Review Of Systems: ROS reveals no pertinent complaints other than HPI. ED EXAM, GENERAL - Physical Exam Exam: See Below Exam Limited By: No Limitations General Appearance: Alert, WD/WN, No Apparent Distress Ears: Normal External Exam Nose: Normal Inspection Throat/Mouth: No Airway Compromise Head: Atraumatic, Normocephalic Neck: Other (left posterior neck tenderness) Respiratory/Chest: No Respiratory Distress, Lungs Clear, Normal Breath Sounds Cardiovascular: Regular Rate, Rhythm, No Murmur Peripheral Pulses: 2+: Radial (L) Extremities: Normal Inspection, Normal Range of Motion, Non-Tender, Normal Capillary Refill Neurological: Alert, Oriented, CN II-XII Intact, No Motor/Sensory Deficits, Other (NIHSS score = 0) Psychiatric: Normal Affect Skin Exam: Warm, Dry, Intact EKG INTERPRETATION EKG Date: 09/26/17 Time: 12:36 Rhythm: NSR Rate (Beats/Min): 91 Comparison: No Change (12/13/16) Course - Vital Signs Last Recorded V/S: Last Vital Signs Temp 36.4 C 09/26/17 12:23 Pulse 97 09/26/17 12:23 Resp 20 09/26/17 14:15 BP 140/64 09/26/17 14:15 Pulse Ox 97 09/26/17 14:15 - Orders/Labs/Meds Orders: Active Orders 24 hr Category Date Time Status Admission Status [Patient Status] [ADT] Routine ADT 09/26/17 15:17 Active EKG Documentation Completion [RC] ASDIRECTED Care 09/26/17 13:02 Inactive C-Spine [Cervical Spine wo Cont] [CT] Stat Exams 09/26/17 14:16 Taken UA W/MICROSCOPIC [URIN] Stat Lab 09/26/17 14:02 Ordered Sodium Chloride 0.9% [Saline Flush] Med 09/26/17 13:02 Active 10 ml FLUSH ASDIRECTED PRN Saline Lock Insert [OM.PC] Routine Oth 09/26/17 13:02 Ordered EKG 12 Lead [EK] Routine Ther 09/26/17 12:41 Ordered EKG 12 Lead [EK] Stat Ther 09/26/17 13:02 Stop Req Medication Orders Sodium Chloride (Saline Flush) 10 ml FLUSH ASDIRECTED PRN PRN Reason: Keep Vein Open Last Admin: 09/26/17 13:28 Dose: 10 ml Labs: Laboratory Tests 09/26/17 09/26/17 09/26/17 Range/Units 13:10 13:10 13:10 WBC 7.8 (4.5-12.0) X10-3/uL RBC 4.02 (3.23-5.20) x10(6)uL Hgb 12.0 (11.5-15.5) g/dL Hct 35.8 (30.0-51.3) % MCV 89.2 (80-96) fL MCH 29.8 (27.7-33.6) pg MCHC 33.4 (32.2-35.4) g/dL RDW 14.8 (11.5-15.5) % Plt Count 269 (125-369) X10(3)uL MPV 7.2 L (7.4-10.4) fL Neut % (Auto) 80.1 (46-82) % Lymph % (Auto) 10.0 L (13-37) % [place] % (Auto) 7.3 (4-12) % Eos % (Auto) 1 (1.0-5.0) % Baso % (Auto) 2 (0-2) % Neut # (Auto) 6.1 (1.6-8.3) # Lymph # (Auto) 0.8 (0.6-5.0) # [place] # (Auto) 0.6 (0.0-1.3) # Eos # (Auto) 0.1 (0.0-0.8) # Baso # (Auto) 0.1 (0.0-0.2) # PT 25.9 H (8.7-11.1) INR 2.70 H (0.89-1.13) Sodium 133 L (135-145) mmol/L Potassium 4.1 (3.5-5.3) mmol/L Chloride 93 L (100-110) mmol/L Carbon Dioxide 38 H (21-32) mmol/L BUN 26 H (7-18) mg/dL Creatinine 0.9 (0.55-1.02) mg/dL Est Cr Clr Drug Dosing 45.12 mL/min Estimated GFR (MDRD) 60 (>60) BUN/Creatinine Ratio 28.9 H (9-20) Glucose 104 (80-116) mg/dL Calcium 8.7 (8.6-10.2) mg/dL Total Bilirubin 0.4 (0.1-1.3) mg/dL AST 27 H (5-25) IU/L ALT 46 H (12-36) U/L Alkaline Phosphatase 115 H (56-112) IU/L Troponin I (<0.017-0.056) ng/mL Total Protein 6.6 (6.0-8.0) g/dL Albumin 2.9 L (3.2-4.6) g/dL Globulin 3.7 g/dL Albumin/Globulin Ratio 0.8 Urine Color (YELLOW) Urine Appearance (CLEAR) Urine pH (5.0-6.5) Ur Specific [place] (1.010-1.025) Urine Protein (NEGATIVE) mg/dL Urine Glucose (UA) (NEGATIVE) mg/dL Urine Ketones (NEGATIVE) mg/dL Urine Occult Blood (NEGATIVE) Urine Nitrite (NEGATIVE) Urine Bilirubin (NEGATIVE) Urine Urobilinogen (NEGATIVE) mg/dL Ur Leukocyte Esterase (NEGATIVE) Urine RBC (0) Urine WBC (0) Ur Squamous Epith Cells (NS,R,O) Urine Bacteria (NS) 09/26/17 09/26/17 Range/Units 13:10 14:02 WBC (4.5-12.0) X10-3/uL RBC (3.23-5.20) x10(6)uL Hgb (11.5-15.5) g/dL Hct (30.0-51.3) % MCV (80-96) fL MCH (27.7-33.6) pg MCHC (32.2-35.4) g/dL RDW (11.5-15.5) % Plt Count (125-369) X10(3)uL MPV (7.4-10.4) fL Neut % (Auto) (46-82) % Lymph % (Auto) (13-37) % [place] % (Auto) (4-12) % Eos % (Auto) (1.0-5.0) % Baso % (Auto) (0-2) % Neut # (Auto) (1.6-8.3) # Lymph # (Auto) (0.6-5.0) # [place] # (Auto) (0.0-1.3) # Eos # (Auto) (0.0-0.8) # Baso # (Auto) (0.0-0.2) # PT (8.7-11.1) INR (0.89-1.13) Sodium (135-145) mmol/L Potassium (3.5-5.3) mmol/L Chloride (100-110) mmol/L Carbon Dioxide (21-32) mmol/L BUN (7-18) mg/dL Creatinine (0.55-1.02) mg/dL Est Cr Clr Drug Dosing mL/min Estimated GFR (MDRD) (>60) BUN/Creatinine Ratio (9-20) Glucose (80-116) mg/dL Calcium (8.6-10.2) mg/dL Total Bilirubin (0.1-1.3) mg/dL AST (5-25) IU/L ALT (12-36) U/L Alkaline Phosphatase (56-112) IU/L Troponin I < 0.017 L (<0.017-0.056) ng/mL Total Protein (6.0-8.0) g/dL Albumin (3.2-4.6) g/dL Globulin g/dL Albumin/Globulin Ratio Urine Color Yellow (YELLOW) Urine Appearance Clear (CLEAR) Urine pH 7.0 H (5.0-6.5) Ur Specific [place] 1.005 L (1.010-1.025) Urine Protein Negative (NEGATIVE) mg/dL Urine Glucose (UA) Normal (NEGATIVE) mg/dL Urine Ketones Negative (NEGATIVE) mg/dL Urine Occult Blood Negative (NEGATIVE) Urine Nitrite Negative (NEGATIVE) Urine Bilirubin Negative (NEGATIVE) Urine Urobilinogen Normal (NEGATIVE) mg/dL Ur Leukocyte Esterase Negative (NEGATIVE) Urine RBC 0-5 (0) Urine WBC 0-5 (0) Ur Squamous Epith Cells Rare (NS,R,O) Urine Bacteria Not seen (NS) Meds: Medications Generic Name Dose Route Start Last Admin Trade Name Freq PRN Reason Stop Dose Admin Sodium Chloride 10 ml 09/26/17 13:02 09/26/17 13:28 Saline Flush FLUSH 10 ml ASDIRECTED PRN Administration Keep Vein Open Discontinued Medications Generic Name Dose Route Start Last Admin Trade Name Freq PRN Reason Stop Dose Admin Ketorolac Tromethamine 15 mg 09/26/17 13:03 09/26/17 13:27 Toradol IVPUSH 09/26/17 13:04 15 mg ONETIME ONE Administration - Radiology Interpretation Free Text/Narrative:: CXR: NAD CT Head: New area of decreased density in the frontal white matter in the right frontal area which may represent an evolving thrombotic CVA or possibly interval microvascular disease in that area. (per Dr. Campuzano) CT C-spine: Grade 2 anterolithiasis of C6/C7 with narrowing of the left neuroforamen. Diffuse degenerative disc disease. (per Dr. Campuzano) CT Results Date: 09/26/17 - Re-Assessments/Exams Free Text/Narrative Re-Assessment/Exam: 09/26/17 15:01 Minimal improvement of symptoms after Toradol 15mg IV. 09/26/17 15:21 Dr. Smith agreed to accept patient for observation to [facility]. Departure - Departure Time of Disposition: 15:20 Disposition: Refer to Observation Condition: Fair Clinical Impression: Paresthesia and pain of left extremity - Discharge Information *PRESCRIPTION DRUG MONITORING PROGRAM REVIEWED*: No *COPY OF PRESCRIPTION DRUG MONITORING REPORT IN PATIENT [place]: Not Applicable Referrals: Hunter Wills MD [Primary Care Provider] - Forms: ED Department Discharge - My Orders Last 24 Hours: My Active Orders 09/26/17 12:41 EKG 12 Lead [EK] Routine 09/26/17 13:02 EKG Documentation Completion [RC] ASDIRECTED Sodium Chloride 0.9% [Saline Flush] 10 ml FLUSH ASDIRECTED PRN Saline Lock Insert [OM.PC] Routine EKG 12 Lead [EK] Stat 09/26/17 14:02 UA W/MICROSCOPIC [URIN] Stat 09/26/17 14:16 C-Spine [Cervical Spine wo Cont] [CT] Stat 09/26/17 15:17 Admission Status [Patient Status] [ADT] Routine - Assessment/Plan Last 24 Hours: My Active Orders 09/26/17 12:41 EKG 12 Lead [EK] Routine 09/26/17 13:02 EKG Documentation Completion [RC] ASDIRECTED Sodium Chloride 0.9% [Saline Flush] 10 ml FLUSH ASDIRECTED PRN Saline Lock Insert [OM.PC] Routine EKG 12 Lead [EK] Stat 09/26/17 14:02 UA W/MICROSCOPIC [URIN] Stat 09/26/17 14:16 C-Spine [Cervical Spine wo Cont] [CT] Stat 09/26/17 15:17 Admission Status [Patient Status] [ADT] Routine
--- NOTE | 2017-09-26 13:50 | CR ---
INDICATION: Left arm pain. CHEST: PA and lateral views of the chest were obtained 09/26/2017 and compared with 03/18/2017 and 12/13/2016. The heart did not appear grossly enlarged. Bipolar pacemaker leads appear unchanged in position. The aorta is calcified in the arch area and slightly tortuous. Calcifications are also noted in the descending aorta. Accentuated dorsal kyphosis is noted at the lower thoracic spine. A definite active infiltrate or effusion was not identified. There are some interstitial changes, which may be fibrotic in nature but should be correlate clinically, as unusual pneumonia could also be present. IMPRESSION: Little change from the previous study. No definite acute process. No definite CHF is seen at this time, however. MTDD
--- NOTE | 2017-09-26 15:22 | CT ---
INDICATION: Left upper extremity paresthesia. CT HEAD WITHOUT CONTRAST: Serial contiguous 2.5 and 5 mm sections were obtained through the brain without contrast, 09/26/2017, and compared with 03/05. Total exam DLP = 950.31 mGy-cm. The left mastoid air cells were unremarkable. The right were relatively minimal in number but aerated. Paranasal sinuses were well-aerated, except to note some minimal thickening of the linings of a few of the ethmoidal air cells. No definite cranial abnormality was seen. Left vertebral and bilateral internal carotid artery calcifications are noted. The orbits appear to be grossly intact. A calcified mass is a new finding along the greater sphenoid, measuring approximately 8.9 x 5.8 mm and most likely represents an incidental meningioma. No shift of midline structures was identified. The ventricles are slightly prominent, compatible with mild degree of central atrophy. There is suggested a new finding of patchy decreased density in the white matter right frontal area, which may be on the basis of an evolving thrombotic CVA or possibly interval microvascular disease type changes. Followup study with either MRI or followup CT may be helpful for further evaluation. No other significant abnormal area of density was identified - no bleeding site or hematoma was seen. IMPRESSION: 1. There appears to be an area of decreased density in the frontal white matter on the right, which is new and may represent an evolving thrombotic CVA or possibly interval microvascular disease in that area. No bleeding site was seen, however. 2. Mild central atrophy. 3. Cerebrovascular disease with mostly internal carotid artery calcifications. Report was called to Dr. Guzman at 1500 hours on 09/26/2017. MARIEL
--- NOTE | 2017-09-26 15:30 | CT ---
INDICATION: Left upper extremity paresthesia, no history of injury. CT CERVICAL SPINE WITHOUT CONTRAST: Spiral 2.5 mm axial sections were obtained through the cervical spine with sagittal and coronal reconstructions, 2017. No comparison studies were available. Total exam DLP = 449.25 mGy-cm. Hypertrophic degenerative changes of moderate degree are noted at the lateral masses of C1-2, left much greater than right with subchondral cystic changes and sclerosis and hypertrophic degenerative changes on the left. Mild to moderate degenerative changes are noted at the atlantoodontoid joint. Decreased disk space is noted with varying degrees of sclerosis and subchondral cystic change at the C3-4, C4-5, C5-6, and C6-7 levels with a grade 2 anterolisthesis at C6-7. Prevertebral space appeared to be normal. Hypertrophic changes bridging the disk spaces are seen at most levels. The hypertrophic degenerative changes are noted anteriorly and posteriorly off vertebral bodies. The neural foramen on the left at C6-7 is somewhat narrowed. Degenerative changes are noted at the lateral masses. Hypertrophic degenerative changes are noted at the uncinate joints of C3-4 through C6-7 and to varying degrees at the lateral masses at those levels, perhaps appearing most severe at the lower two levels. A definite acute fracture or dislocation was not identified. IMPRESSION: Degenerative changes and especially disk disease with grade 2 anterolisthesis at C6-7. Neural foramen at C6-7 on the left appears narrowed. Report was called to Dr. Guzman at 1500 hours on 09/26/2017. [facility]
[2017-09-26] MEDS ORDERED: Acetaminophen 500 MG Tab *PTOM PO PRN (15:37)
[2017-09-26] MEDS ORDERED: traMADol 50 MG Tab PO PRN (15:37)
[2017-09-26] MEDS ORDERED: Albuterol 0.083% 2.5 MG/3 ML Neb Soln NEB PRN (15:42)
[2017-09-26] MEDS ORDERED: Warfarin 5 MG Tab *PTOM PO SCH (16:00)
[2017-09-26] MEDS: Metolazone 2.5 MG Tab *PTOM PO SCH (16:56)
[2017-09-26] MEDS: Furosemide 80 MG Tab *PTOM PO SCH (16:57)
[2017-09-26] MEDS: metFORMIN 500 MG Tab *PTOM PO SCH (17:01)
[2017-09-26] MEDS: NOVOLOG SUBCUT SCH ×2 (18:18→21:14)
[2017-09-26] MEDS ORDERED: INSULIN DETEMIR 44 UNIT SUBCUT SCH (21:00)
[2017-09-26] MEDS: NABUMETONE 500 MG PO SCH (21:07)
[2017-09-27] MEDS: NOVOLOG SUBCUT SCH ×2 (08:16→11:38)
[2017-09-27] MEDS: metFORMIN 500 MG Tab *PTOM PO SCH (08:19)
[2017-09-27] MEDS: Metolazone 2.5 MG Tab *PTOM PO SCH (08:19)
[2017-09-27] MEDS: Furosemide 80 MG Tab *PTOM PO SCH (08:21)
[2017-09-27] MEDS: NABUMETONE 500 MG PO SCH (08:23)
[2017-09-27 08:52] VITALS: BP 120/69
[2017-09-27] MEDS ORDERED: Allopurinol 300 MG Tab *PTOM PO SCH (09:00)
[2017-09-27] MEDS ORDERED: Potassium Chloride 10 MEQ Tab.ER *PTOM PO SCH (09:00)
[2017-09-27] MEDS ORDERED: OMEPRAZOLE 40 MG PO SCH (09:00)
[2017-09-27] MEDS ORDERED: Non-Formulary Medication 1 Each (Umeclidinium Bromide [Incruse Ellipta] 62.5 MCG) IH SCH (09:00)
[2017-09-27] MEDS ORDERED: Lisinopril 5 MG Tab *PTOM PO SCH (09:00)
--- NOTE | 2017-09-27 12:50 | HP ---
ADMISSION DATE: 09/26/2017 REASON FOR VISIT: Complicated pain of left arm, wrist, and shoulder. 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 She had been awakened at about 0230 hours in the morning of admission and had some peculiar tingling pins and needles in arms, left forearm, and hand radiating up into her upper arm. No provoking injury, no provoking events. She was able to fall back asleep. Now, the pain is in left upper arm. She has some posterior neck pain. She denies recent or remote injury. No history of TIAs or CVA in the past. On Coumadin therapy for DVT therapy. When seen in the emergency room, she was found to be neurologically intact. Chest x-ray, unremarkable. CT of head revealed frontal white matter right-sided new evolving issue, new or otherwise uncertain, again not related to present symptomatology. Cervical spine film revealed significant changes at C5-C6, C6-C7 with left neuroforaminal narrowing. MEDICATIONS: Please see med recon list. ALLERGIES: Some seasonal allergies. No medication, environmental, or latex allergies. PAST MEDICAL HISTORY: Significant for surgical procedures to include total knee arthroplasty, right hip fracture with recent intervention, cholecystectomy, bowel resection for colon cancer, and hysterectomy for uterine cancer. Chronic illnesses include diabetes mellitus, DVT with Coumadin therapy, hyperuricemia, and reactive airway disease. Pacemaker 2 years ago. 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 Not , no children. Smoked remotely in the past. No alcohol consumption. No illicit drug use. REVIEW OF SYSTEMS: GENERAL: Feeling well. EYES: Sees reasonably well. EARS: Difficulty in crowds. OROPHARYNX: Upper and lower dentures. CHEST: Mild intermittent cough without hemoptysis. Left upper chest wall pacemaker palpated. CARDIOVASCULAR: Denies chest pain. Some shortness of breath with exertion. GI: Regular predictable stools, occasional constipation. : Bladder control in question. No blood in urine. No blood in stool. SKIN: No new lesions, eruptions, or moles. ENDOCRINE: No excessive thirst or urination. ALLERGY: No chronic cough. PSYCHIATRIC: Mood is stable. LABORATORY STUDIES: White count 7800, hemoglobin 12.0, normal indices. INR therapeutic at 2.70. Sodium 133, chloride 93, BUN 26, and GFR of 60. Liver enzymes slightly elevated but not problematic. Troponin negative x2. Urinalysis clear. ASSESSMENT: Neuropathic pain, left upper extremity. Probably cervical disk disease. PLAN: Pain being present, stroke unlikely, presently on Coumadin, pacemaker in place. Complementary care and well being. We will observe overnight and symptomatic treatment. /[id number] JOSE/VINOD
--- NOTE | 2017-09-29 09:04 | DISCH ---
DISCHARGE DATE: 09/27/2017 HOSPITAL COURSE: Daly Turpin is an 82-year-old female admitted with peculiar left arm numbness, tingling, and hyperesthesias. Pain primary presenting issue began in the forearm upward. Hypesthesias have persisted, pain is resolved. Neurologically, no other complaints. Denies headache, blurred vision, weakness, difficulty with speech, or upper extremity weakness. PHYSICAL EXAMINATION: GENERAL: The patient is oriented to time, place, and person. CHEST: Clear. HEART: Regular. Pacemaker left upper chest in place. ABDOMEN: Benign. EXTREMITIES: Upper extremity reveals reflexes 2+/4+. Sensation intact. Reduced range of motion, but intact hypesthesias. ASSESSMENT: Probable cervical disk disease. PLAN: Nothing urgent. Upcoming visit with Dr. Wills. Plan, PT under consideration. Medications reviewed. Timing appropriate. No changes. Coumadin INR therapeutic. /[id number] JOSE/VINOD
[2017-09-29] MEDS ORDERED: Warfarin 5 MG Tab *PTOM PO SCH (16:00)
== END 2017-09-27 12:35 | disposition home or self-care (01) ==
LOC: FB.ED 12:21 → FB.MS 15:17
PROVIDERS: ADMIT Family Medicine; ATTEND Family Medicine
DX: M43.12 Spondylolisthesis, cervical region (principal); M50.323 Other cervical disc degeneration at C6-C7 level; I65.29 Occlusion and stenosis of unspecified carotid artery; I67.9 Cerebrovascular disease, unspecified; I10 Essential (primary) hypertension; E11.40 Type 2 diabetes mellitus with diabetic neuropathy, unspecified; J45.909 Unspecified asthma, uncomplicated; H90.5 Unspecified sensorineural hearing loss; E66.9 Obesity, unspecified; Z68.38 Body mass index [BMI] 38.0-38.9, adult; I82.409 Acute embolism and thrombosis of unspecified deep veins of unspecified lower extremity; K21.9 Gastro-esophageal reflux disease without esophagitis; Z87.891 Personal history of nicotine dependence; Z79.01 Long term (current) use of anticoagulants; Z79.4 Long term (current) use of insulin; Z79.899 Other long term (current) drug therapy; Z95.0 Presence of cardiac pacemaker
CPT/HCPCS: 36415; 70450; 71046; 72125; 80053; 81001; 82962; 84484; 85025; 85610; 93005; 96374; 99284; 99285; A9270; G0378; J1885; J7050

== ENCOUNTER 2018-11-28 10:50 | Emergency (ER) | payer MEDICARE, BC ==
[2018-11-28] MEDS ORDERED: Sodium Chloride 0.9% 10 ML Syringe FLUSH PRN (11:12)
--- NOTE | 2018-11-28 11:21 | EDM.PDOC ---
ED HPI GENERAL MEDICAL PROBLEM - General Stated Complaint: Right-sided weakness Time Seen by Provider: 11/28/18 11:08 Source of Information: Reports: Patient History Limitations: Reports: No Limitations - History of Present Illness INITIAL COMMENTS - FREE TEXT/NARRATIVE: 83-year-old female who reports that she was feeling fine until approximately 10 AM when she was about to get off the toilet being a bowel movement and she noted that her right leg just wasn't working and she tried to stand and almost fell. She also noted that she had some numbness in her right hand and it seemed to work a little less well than normally. She had no headache. She had no abdominal pain. She did have some mild nausea. There was no chest pain. There is no shortness of breath. She has never had symptoms like this before. She has had no urinary symptoms. She had no blood in her stool. The bowel movement was a normal bowel movement. She has no pain. She rates her pain as a 0/10. She presents to us via ambulance after she called 911 by pushing her alert button secondary to the right-sided leg weakness. She is chronically anticoagulated with Coumadin secondary to previous DVTs. There are no other associated signs or symptoms. There are no other modifying factors. 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: Other (see below) (Nothing) - Related Data Allergies Allergy/AdvReac Type Severity Reaction Status Date / Time adhesive Allergy Other Verified 11/28/18 12:26 grass pollen Allergy Sneezing Verified 11/28/18 12:26 Penicillins Allergy Hives Verified 11/28/18 12:26 Sulfa (Sulfonamide Allergy Rash Verified 11/28/18 12:26 Antibiotics) Home Meds: Home Meds Budesonide/Formoterol [Symbicort 160-4.5 MCG] 2 puff INH BID 03/30/13 [History] Ferrous Sulfate 325 tab PO TIDMEALS 03/30/13 [History] Potassium Chloride 10 meq PO DAILY 03/30/13 [History] Albuterol Sulfate [Proair Hfa] 2 puff IH Q6H PRN 02/13/16 [History] Cyanocobalamin (Vitamin B-12) [B-12] 1,000 mcg PO DAILY 02/13/16 [History] Docusate Sodium [Colace] 100 mg PO DAILY 02/13/16 [History] Furosemide 80 mg PO DAILY 02/13/16 [History] Lisinopril 5 mg PO DAILY 02/13/16 [History] Insulin Aspart [NovoLOG] 5 - 7 units SUBCUT TIDMEALS 12/13/16 [History] Insulin Detemir [Levemir] 44 units SUBCUT BEDTIME 12/13/16 [History] Allopurinol [Zyloprim] 300 mg PO DAILY 09/26/17 [History] Omeprazole/Sodium Bicarbonate [Omeppi 40 mg-1,100 mg Capsule] 40 mg PO DAILY 12/04 [History] Warfarin [Coumadin] 5 mg PO DAILY 09/26/17 [History] metOLazone [Zaroxolyn] 2.5 mg PO BID 09/26/17 [History] traMADol [Ultram] 50 mg PO QID PRN 09/26/17 [History] metFORMIN [Glucophage] 500 mg PO BIDMEALS 11/28/18 [History] Past Medical History HEENT History: Reports: Cataract, Hard of Hearing, Other (See Below) Other HEENT History: Congenital hearing loss Cardiovascular History: Reports: Arrhythmia, Blood Clots/VTE/DVT, Heart Murmur, Hypertension, Pacemaker, PVD, Other (See Below) Other Cardiovascular History: 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 Oncologic (Cancer) History: Reports: Colon, Uterine, Other (See Below) Other Oncologic History: Endometrial CA - Infectious Disease History Infectious Disease History: Reports: Chicken Pox, Influenza, Measles - Past Surgical History HEENT Surgical History: Reports: Adenoidectomy, Cataract Surgery, Tonsillectomy Other HEENT Surgeries/Procedures: Bilat cataract surgery. Cardiovascular Surgical History: Reports: Pacer GI Surgical History: Reports: Cholecystectomy, Colon, Colonoscopy, EGD, Hernia Repair/Other Female Surgical History: Reports: Hysterectomy, Salpingo-Oophorectomy Other Female Surgeries/Procedures: total hyst Musculoskeletal Surgical History: Reports: Hip Replacement, ORIF, Other (See Below) Other Musculoskeletal Surgeries/Procedures:: bilat knee replacement, R hip replacement Social & Family History - Family History Family Medical History: Noncontributory Cardiac: Reports: CAD, Other (See Below) Other Cardiac Family History: father and mother Respiratory: Reports: Asthma Other Respiratory Family Hisory: sister : Reports: Renal Disease/Insufficiency Other Family History: Nephew at age 5 Neurological: Reports: Dementia, Other (See Below) Other Neurological Family History: mother Immunologic: Reports: None Oncologic: Reports: Breast, Skin Other Oncologic Family History: mother-breast. 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 Denies: Vomiting : Reports: No Symptoms Musculoskeletal: Reports: No Symptoms Skin: Reports: No Symptoms Neurological: Reports: Numbness (Right hand), Tingling (Right hand), Weakness ( Right lower extremity and mild in right upper extremity) Hematologic/Lymphatic: Reports: Other (Patient chronically anticoagulated with Coumadin) Immunologic: Reports: No Symptoms ED EXAM, NEURO - Physical Exam Exam: See Below Exam Limited By: No Limitations General Appearance: Alert, Mild Distress, Obese Eye Exam: Bilateral Eye: EOMI, Normal Inspection, PERRL Ears: Normal External Exam, Hearing Loss (Chronic) Nose: Normal Inspection, Normal Mucosa Throat/Mouth: Normal Voice, No Airway Compromise, Other (Mildly dry mucous membranes) Neck: Normal Inspection, Supple, Non-Tender, Full Range of Motion Respiratory/Chest: No Respiratory Distress, Lungs Clear, Normal Breath Sounds, No Accessory Muscle Use, Chest Non-Tender Cardiovascular: Normal Peripheral Pulses, Regular Rate, Rhythm, No Murmur GI/Abdominal: Normal Bowel Sounds, Soft, Non-Tender, No Mass, Other (Protuberant ) Neurological: Alert, Normal Dorsiflexion, CN II-XII Intact, Normal Plantar Flexion, Oriented x 3, Other (Weakness and right lower extremity, about 3/5, more proximal and distal. Apparent full function in the right upper extremity with no pronator drift) Back Exam: Normal Inspection Extremities: Normal Range of Motion, Non-Tender, Normal Capillary Refill, Pedal Edema (Mild bilaterally) Skin Exam: Warm, Dry, Intact, Normal Color, No Rash EKG INTERPRETATION EKG Date: 11/28/18 Time: 11:27 Rhythm: Other (Ventricular paced rhythm) Rate (Beats/Min): 93 Comparison: Change From Previous EKG (EKG on 09/26/2017 had a sinus rhythm.) EKG Interpretation Comments: No other determination possible secondary to paced rhythm Course - Orders/Labs/Meds Orders: Active Orders 24 hr Category Date Time Status EKG Documentation Completion [RC] ASDIRECTED Care 11/28/18 11:13 Active CXR [Chest 1V Frontal] [CR] Stat Exams 11/28/18 12:03 Taken Head wo Cont [CT] Stat Exams 11/28/18 09:31 Taken Sodium Chloride 0.9% [Saline Flush] Med 11/28/18 11:12 Active 10 ml FLUSH ASDIRECTED PRN Peripheral IV Insertion Adult [OM.PC] Routine Oth 11/28/18 11:12 Ordered EKG 12 Lead [EK] Routine Ther 11/28/18 11:12 Ordered Medication Orders Sodium Chloride (Saline Flush) 10 ml FLUSH ASDIRECTED PRN PRN Reason: Keep Vein Open Last Admin: 11/28/18 12:40 Dose: 10 ml Labs: Laboratory Tests 11/28/18 11/28/18 11/28/18 Range/Units 11:22 11:22 11:22 WBC 8.4 (4.5-12.0) X10-3/uL RBC 4.72 (3.23-5.20) x10(6)uL Hgb 13.7 (11.5-15.5) g/dL Hct 41.7 (30.0-51.3) % MCV 88.4 (80-96) fL MCH 28.9 (27.7-33.6) pg MCHC 32.7 (32.2-35.4) g/dL RDW 15.1 (11.5-15.5) % Plt Count 249 (125-369) X10(3)uL MPV 8.1 (7.4-10.4) fL Neut % (Auto) 81.8 (46-82) % Lymph % (Auto) 9.9 L (13-37) % Eddy % (Auto) 6.2 (4-12) % Eos % (Auto) 2 (1.0-5.0) % Baso % (Auto) 1 (0-2) % Neut # (Auto) 7.0 (1.6-8.3) # Lymph # (Auto) 0.8 (0.6-5.0) # Eddy # (Auto) 0.5 (0.0-1.3) # Eos # (Auto) 0.1 (0.0-0.8) # Baso # (Auto) 0.0 (0.0-0.2) # PT 19.5 H (8.7-11.1) INR 2.02 H (0.89-1.13) Sodium 133 L (135-145) mmol/L Potassium 4.2 (3.5-5.3) mmol/L Chloride 94 L (100-110) mmol/L Carbon Dioxide 35 H (21-32) mmol/L BUN 30 H (7-18) mg/dL Creatinine 0.9 (0.55-1.02) mg/dL Est Cr Clr Drug Dosing TNP Estimated GFR (MDRD) 60 (>60) BUN/Creatinine Ratio 33.3 H (9-20) Glucose 123 H (80-116) mg/dL Calcium 9.2 (8.6-10.2) mg/dL Magnesium 1.6 L (1.8-2.5) mg/dL Total Bilirubin 0.5 (0.1-1.3) mg/dL AST 26 H (5-25) IU/L ALT 33 D (12-36) U/L Alkaline Phosphatase 122 H (56-112) IU/L Troponin I (<0.017-0.056) ng/mL Total Protein 7.0 (6.0-8.0) g/dL Albumin 3.1 L (3.2-4.6) g/dL Globulin 3.9 g/dL Albumin/Globulin Ratio 0.8 Urine Color (YELLOW) Urine Appearance (CLEAR) Urine pH (5.0-6.5) Ur Specific [place] (1.010-1.025) Urine Protein (NEGATIVE) mg/dL Urine Glucose (UA) (NORMAL) mg/dL Urine Ketones (NEGATIVE) mg/dL Urine Occult Blood (NEGATIVE) Urine Nitrite (NEGATIVE) Urine Bilirubin (NEGATIVE) Urine Urobilinogen (NEGATIVE) mg/dL Ur Leukocyte Esterase (NEGATIVE) Urine RBC (0-5) Urine WBC (0-5) Ur Squamous Epith Cells (NS,R,O) Urine Bacteria (NS) 11/28/18 11/28/18 Range/Units 11:22 11:45 WBC (4.5-12.0) X10-3/uL RBC (3.23-5.20) x10(6)uL Hgb (11.5-15.5) g/dL Hct (30.0-51.3) % MCV (80-96) fL MCH (27.7-33.6) pg MCHC (32.2-35.4) g/dL RDW (11.5-15.5) % Plt Count (125-369) X10(3)uL MPV (7.4-10.4) fL Neut % (Auto) (46-82) % Lymph % (Auto) (13-37) % Eddy % (Auto) (4-12) % Eos % (Auto) (1.0-5.0) % Baso % (Auto) (0-2) % Neut # (Auto) (1.6-8.3) # Lymph # (Auto) (0.6-5.0) # Eddy # (Auto) (0.0-1.3) # Eos # (Auto) (0.0-0.8) # Baso # (Auto) (0.0-0.2) # PT (8.7-11.1) INR (0.89-1.13) Sodium (135-145) mmol/L Potassium (3.5-5.3) mmol/L Chloride (100-110) mmol/L Carbon Dioxide (21-32) mmol/L BUN (7-18) mg/dL Creatinine (0.55-1.02) mg/dL Est Cr Clr Drug Dosing Estimated GFR (MDRD) (>60) BUN/Creatinine Ratio (9-20) Glucose (80-116) mg/dL Calcium (8.6-10.2) mg/dL Magnesium (1.8-2.5) mg/dL Total Bilirubin (0.1-1.3) mg/dL AST (5-25) IU/L ALT (12-36) U/L Alkaline Phosphatase (56-112) IU/L Troponin I < 0.017 L (<0.017-0.056) ng/mL Total Protein (6.0-8.0) g/dL Albumin (3.2-4.6) g/dL Globulin g/dL Albumin/Globulin Ratio Urine Color Yellow (YELLOW) Urine Appearance Clear (CLEAR) Urine pH 7.0 H (5.0-6.5) Ur Specific [place] 1.005 L (1.010-1.025) Urine Protein Negative (NEGATIVE) mg/dL Urine Glucose (UA) Normal (NORMAL) mg/dL Urine Ketones Negative (NEGATIVE) mg/dL Urine Occult Blood Negative (NEGATIVE) Urine Nitrite Negative (NEGATIVE) Urine Bilirubin Negative (NEGATIVE) Urine Urobilinogen Normal (NEGATIVE) mg/dL Ur Leukocyte Esterase Negative (NEGATIVE) Urine RBC Not seen (0-5) Urine WBC 0-5 (0-5) Ur Squamous Epith Cells Few H (NS,R,O) Urine Bacteria Few H (NS) Meds: Medications Generic Name Dose Route Start Last Admin Trade Name Freq PRN Reason Stop Dose Admin Sodium Chloride 10 ml 11/28/18 11:12 11/28/18 12:40 Saline Flush FLUSH 10 ml ASDIRECTED PRN Administration Keep Vein Open - Radiology Interpretation Free Text/Narrative:: CT scan of the patient's head without contrast showed no acute intracranial disease per the [facility] radiologist. - Re-Assessments/Exams Free Text/Narrative Re-Assessment/Exam: 11/28/18 12:20: The patient remains awake, alert and appropriate. She has been neurologically stable with continued right leg weakness. She has no upper extremity discoordination but she does have some mild right hand weakness with decreased air export agent. The patient's NIH stroke scale score is 3-4. The patient has remained hemodynamically stable as well. The CT scan of her head showed no acute abnormality. Her blood tests are reassuring. Her INR is 2.05. Her urinalysis was clear. Her EKG shows a paced rhythm. I will call and discuss the patient's case with the stroke neurologist at [facility]. I discussed this with the patient and she is in agreement with this plan. 11/28/18 12:30: I discussed the patient's case with Dr. Tran, stroke neurologist at [facility] in [place], and she feels that the patient should be sent directly to [facility] in [place] as a stroke code. The patient does not meet criteria for thrombolytics (the patient is chronically anticoagulated with Coumadin). However, the patient potentially would be amenable to intervention. Therefore, the patient will need to be transported to [facility] in [place]. We will check to see if air ambulance is available. 11/28/18 12:43: Air ambulance is not available and therefore ground ambulance with ALS has been called and is en route to transfer patient to [facility] in [place]. The patient is in agreement with the plans for transfer. Departure - Departure Time of Disposition: 13:00 Disposition: DC/Tfer to Acute Hospital 02 Condition: Critical Clinical Impression: Acute ischemic stroke, Chronic anticoagulation - Discharge Information Referrals: Hunter Wills MD [Primary Care Provider] - Critical Care Note - Critical Care Note Total Time (mins): 95 Comments: Total critical care time spent with patient was 95 minutes. - My Orders Last 24 Hours: My Active Orders 11/28/18 09:31 Head wo Cont [CT] Stat 11/28/18 11:12 Sodium Chloride 0.9% [Saline Flush] 10 ml FLUSH ASDIRECTED PRN Peripheral IV Insertion Adult [OM.PC] Routine EKG 12 Lead [EK] Routine 11/28/18 11:13 EKG Documentation Completion [RC] ASDIRECTED 11/28/18 12:03 CXR [Chest 1V Frontal] [CR] Stat - Assessment/Plan Last 24 Hours: My Active Orders 11/28/18 09:31 Head wo Cont [CT] Stat 11/28/18 11:12 Sodium Chloride 0.9% [Saline Flush] 10 ml FLUSH ASDIRECTED PRN Peripheral IV Insertion Adult [OM.PC] Routine EKG 12 Lead [EK] Routine 11/28/18 11:13 EKG Documentation Completion [RC] ASDIRECTED 11/28/18 12:03 CXR [Chest 1V Frontal] [CR] Stat
[2018-11-28 15:16] VITALS: PULSE 90
[2018-11-28 15:30] VITALS: BP 131/90
== END 2018-11-28 13:05 ==
LOC: FB.ED 11:05
DX: I63.9 Cerebral infarction, unspecified (principal); I10 Essential (primary) hypertension; J45.909 Unspecified asthma, uncomplicated; E66.9 Obesity, unspecified; E11.40 Type 2 diabetes mellitus with diabetic neuropathy, unspecified; K21.9 Gastro-esophageal reflux disease without esophagitis; M19.90 Unspecified osteoarthritis, unspecified site; Z86.718 Personal history of other venous thrombosis and embolism; Z95.0 Presence of cardiac pacemaker; Z87.891 Personal history of nicotine dependence; Z79.4 Long term (current) use of insulin; Z79.899 Other long term (current) drug therapy; Z88.0 Allergy status to penicillin; Z88.2 Allergy status to sulfonamides; Z79.01 Long term (current) use of anticoagulants; Z91.048 Other nonmedicinal substance allergy status
CPT/HCPCS: 36415; 70450; 71045; 80053; 81001; 83735; 84484; 85025; 85610; 93005; 99281; 99282; 99285-25

== ENCOUNTER 2018-12-02 09:38 | Inpatient (IN) | payer MEDICARE, BC ==
--- NOTE | 2018-12-02 14:13 | PCM.HP.2 ---
H&P History of Present Illness - General Date of Service: 12/02/18 Admit Problem/Dx: Admission Diagnosis/Problem Admission Diagnosis/Problem Weakness of right lower extremity Source of Information: Patient, Provider ([facility]) History Limitations: Reports: Other (Hard of Hearing) - History of Present Illness Initial Comments - Free Text/Narative: Patient was seen in ER on Friday for right leg weakness, on Coumadin; she was transferred to [place] had CT/MRI which ruled out a stroke. No follow up with Neurology required. She had further workup for leg weakness including MRI lumbar spine which showed degenerative changes but nothing acute. Had overnight oximetry which showed over 400 events, started on oxygen 2L at night, ordered send to [facility] and referral to Sleep clinic made for Jan 20. She does have COPD, responding to neb treatments. INR was low yesterday at 1.5, recheck ordered for 12/03. Normally sleeps in recliner at home due to her chronic back pain. Normally wears hearing aids and dentures but these were lost while in [place], came with a portable listening aid given at [place]. She is still having weakness in right lower leg, no complaints of sinus congestion, cough, shortness of breath, abdominal pain. Eats a regular diet at home though Diabetic. Back Pain Score (Numeric/FACES): 5 - Related Data Allergies/Adverse Reactions: Allergies Allergy/AdvReac Type Severity Reaction Status Date / Time adhesive Allergy Other Verified 11/28/18 12:26 grass pollen Allergy Sneezing Verified 11/28/18 12:26 Penicillins Allergy Hives Verified 11/28/18 12:26 Sulfa (Sulfonamide Allergy Rash Verified 11/28/18 12:26 Antibiotics) Home Medications: Home Meds Budesonide/Formoterol [Symbicort 160-4.5 MCG] 2 puff INH BID 03/30/13 [History] Ferrous Sulfate 325 tab PO TIDMEALS 03/30/13 [History] Potassium Chloride 10 meq PO DAILY 03/30/13 [History] Albuterol Sulfate [Proair Hfa] 2 puff IH Q6H PRN 02/13/16 [History] Cyanocobalamin (Vitamin B-12) [B-12] 1,000 mcg PO DAILY 02/13/16 [History] Docusate Sodium [Colace] 100 mg PO DAILY 02/13/16 [History] Furosemide 80 mg PO DAILY 02/13/16 [History] Lisinopril 5 mg PO DAILY 02/13/16 [History] Insulin Aspart [NovoLOG] 5 - 7 units SUBCUT TIDMEALS 12/13/16 [History] Insulin Detemir [Levemir] 44 units SUBCUT BEDTIME 12/13/16 [History] Allopurinol [Zyloprim] 300 mg PO DAILY 09/26/17 [History] Omeprazole/Sodium Bicarbonate [Omeppi 40 mg-1,100 mg Capsule] 40 mg PO DAILY 12/04 [History] Warfarin [Coumadin] 5 mg PO DAILY 09/26/17 [History] metOLazone [Zaroxolyn] 2.5 mg PO BID 09/26/17 [History] traMADol [Ultram] 50 mg PO QID PRN 09/26/17 [History] metFORMIN [Glucophage] 500 mg PO BIDMEALS 11/28/18 [History] Past Medical History HEENT History: Reports: Cataract, Hard of Hearing, Other (See Below) Other HEENT History: Congenital hearing loss Cardiovascular History: Reports: Arrhythmia, Blood Clots/VTE/DVT, Heart Murmur, Hypertension, Pacemaker, PVD, Other (See Below) Other Cardiovascular History: 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 Other OB/BYN History: PT VOICED NEVER BEEN , G0 Musculoskeletal History: Reports: Arthritis, Back Pain, Chronic, Gout, Osteoarthritis Other Musculoskeletal History: knee replacements Neurological History: Reports: Neuropathy, Diabetic Psychiatric History: Reports: Anxiety, Depression Endocrine/Metabolic History: Reports: Diabetes, Type II, Obesity/BMI 30+, Other (See Below) Other Endocrine/Metabolic History: insulin dependent Hematologic History: Reports: Anemia, B12 Deficiency, Blood Transfusion(s), Iron Deficiency Other Hematologic History: Prior surgeries. Oncologic (Cancer) History: Reports: Colon, Uterine, Other (See Below) Other Oncologic History: Endometrial CA Dermatologic History: Reports: Other (See Below) Other Dermatologic History: RASH UNDERNEATH SERA. BREASTS AND BELLY FOLDS AT TIMES. - Infectious Disease History Infectious Disease History: Reports: Chicken Pox, Influenza, Measles - Past Surgical History HEENT Surgical History: Reports: Adenoidectomy, Cataract Surgery, Tonsillectomy Other HEENT Surgeries/Procedures: Bilat cataract surgery. Cardiovascular Surgical History: Reports: Pacer GI Surgical History: Reports: Cholecystectomy, Colon, Colonoscopy, EGD, Hernia Repair/Other Female Surgical History: Reports: Hysterectomy, Salpingo-Oophorectomy Other Female Surgeries/Procedures: total hyst Musculoskeletal Surgical History: Reports: Hip Replacement, ORIF, Other (See Below) Other Musculoskeletal Surgeries/Procedures:: bilat knee replacement, R hip replacement Dermatological Surgical History: Reports: None Social & Family History - Family History Family Medical History: Noncontributory Cardiac: Reports: CAD, Other (See Below) Other Cardiac Family History: father and mother Respiratory: Reports: Asthma Other Respiratory Family Hisory: sister : Reports: Renal Disease/Insufficiency Other Family History: Nephew at age 5 Neurological: Reports: Dementia, Other (See Below) Other Neurological Family History: mother Immunologic: Reports: None Oncologic: Reports: Breast, Skin Other Oncologic Family History: mother-breast. 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 Denies: Fever, Chills, Decreased Appetite HEENT: Reports: No Symptoms Pulmonary: Reports: No Symptoms Cardiovascular: Reports: No Symptoms Gastrointestinal: Reports: Black Stool (take iron supplements). Denies: Abdominal Pain, Bloody Stool, Constipation, Diarrhea, Decreased Appetite, Nausea , Vomiting Genitourinary: Denies: Dysuria, Frequency, Burning, Urgency Musculoskeletal: Reports: Back Pain. Denies: Leg Pain Skin: Reports: No Symptoms Psychiatric: Reports: No Symptoms Neurological: Reports: Difficulty Walking, Weakness (RLL) Exam - Exam Exam: See Below - Exam General: Alert, Oriented, Cooperative HEENT: Other (Hearing loss, listening aid with headphones) Neck: Supple, Trachea Midline, 2 Lungs: Clear to Auscultation, Normal Respiratory Effort, Decreased Breath Sounds. No: Crackles, Wheezing Cardiovascular: Regular Rate, Irregular Rhythm, Systolic Murmur GI/Abdominal Exam: Normal Bowel Sounds, Soft, Non-Tender, No Distention. No: Guarding (Female) Exam: Deferred Rectal (Female) Exam: Deferred Extremities: Pedal Edema (trace) Peripheral Pulses: 2+: Radial (L), Radial (R) Skin: Warm, Dry Neurological: Cranial Nerves Intact, Sensation Intact. No: Strength Equal Bilateral (Right LE 4/5 dorisflexion 4/5; Left LE 4+/5 dorsiflexion 4+/5) - Problem List (1) Right leg weakness SNOMED Code(s): 819595451 ICD Code: R29.898 - OT SYMPTOMS AND SIGNS INVOLVING THE MUSCULOSKELETAL SYSTEM Status: Acute Current Visit: Yes (2) COPD (chronic obstructive pulmonary disease) SNOMED Code(s): 48831660 ICD Code: J44.9 - CHRONIC OBSTRUCTIVE PULMONARY DISEASE, UNSPECIFIED Status : Chronic Current Visit: Yes (3) Nocturnal dyspnea SNOMED Code(s): 560694726 ICD Code: R06.00 - DYSPNEA, UNSPECIFIED Status: Acute Current Visit: Yes (4) CAD (coronary artery disease) SNOMED Code(s): 32853837 ICD Code: I25.10 - ATHSCL HEART DISEASE OF [place] CORONARY ARTERY W/O ANG PCTRS Status: Chronic Current Visit: No (5) [facility] current use of anticoagulant SNOMED Code(s): 164888329 ICD Code: Z79.01 - ENVIRONMENTAL STUDIES FACULTY MEMBER (CURRENT) USE OF ANTICOAGULANTS Status: Chronic Current Visit: No (6) Status post biventricular cardiac pacemaker insertion SNOMED Code(s): 905007300, 120796997, 670183295 ICD Code: Z95.0 - PRESENCE OF CARDIAC PACEMAKER Status: Chronic Priority : High Current Visit: No (7) Type 2 diabetes mellitus SNOMED Code(s): 64529775 ICD Code: E11.9 - TYPE 2 DIABETES MELLITUS WITHOUT COMPLICATIONS Status: Chronic Current Visit: No (8) Chronic GERD SNOMED Code(s): 994288509, 096710487 ICD Code: K21.9 - GASTRO-ESOPHAGEAL REFLUX DISEASE WITHOUT ESOPHAGITIS Status: Chronic Current Visit: No (9) DNR (do not resuscitate) Status: Chronic Current Visit: No (10) Personal history of DVT (deep vein thrombosis) SNOMED Code(s): 840468145 ICD Code: Z86.718 - PERSONAL HISTORY OF OTHER VENOUS THROMBOSIS AND EMBOLISM Status: Chronic Priority: High Current Visit: No Problem Details: Problem List Initiated/Reviewed/Updated: Yes Orders Last 24hrs: Active Orders 24 hr Category Date Time Status Patient Status [ADT] Routine ADT 12/02/18 13:58 Ordered Anticoag Warfarin Education *Q [RC] DAILY Care 12/02/18 13:58 Ordered Antiembolic Devices [RC] .Routine Care 12/02/18 13:58 Ordered Blood Glucose Check, Bedside [RC] BIDMEALS Care 12/02/18 13:58 Ordered Dietary Supplements [RC] BIDMEALS Care 12/02/18 13:58 Ordered Height and Weight [RC] WEEKLY Care 12/02/18 13:58 Ordered Influenza Vaccine Charge [RC] .DISCHARGE Care 12/02/18 14:04 Ordered Oxygen Therapy [RC] PRN Care 12/02/18 13:58 Ordered Up With Assistance [RC] ASDIRECTED Care 12/02/18 13:58 Ordered VTE/DVT Education [RC] Per Unit Routine Care 12/02/18 13:58 Ordered Vaccines to be Administered [RC] PER UNIT ROUTINE Care 12/02/18 13:58 Ordered Vital Signs [RC] PER UNIT ROUTINE Care 12/02/18 13:58 Ordered Consult to Music Therapist [CONS] Routine Cons 12/02/18 13:58 Ordered OT Evaluation and Treatment [CONS] Routine Cons 12/02/18 13:58 Ordered PT Evaluation and Treatment [CONS] Routine Cons 12/02/18 13:58 Ordered Regular Diet [DIET] Diet 12/02/18 Dinner Ordered INR,PT,PROTHROMBIN TIME [COAG] Routine Lab 12/03/18 06:00 Ordered Pharmacy to Dose - InFluenza V [Pharmacy to Dose - Med 12/02/18 13:58 Once InFluenza Vaccine] 1 each IM ONETIME ONE Antiembolic Hose [OM.PC] Per Unit Routine Oth 12/02/18 14:00 Ordered Patient May [OM.PC] Click to Edit Oth 12/02/18 13:58 Ordered Resuscitation Status Routine Resus Stat 12/02/18 13:58 Ordered Medication Orders Influenza Virus Vaccine (Pharmacy To Dose - Influenza Vaccine) 1 each IM ONETIME ONE Stop: 12/02/18 13:59 Assessment/Plan Comment:: 1. Admit to swing bed for rehab services: PT/OT for strengthening. Had negative stroke and Lumbar spine workup in [place]. 2. Repeat INR tomorrow, pharmacy to dose Coumadin. 3. Regular diet but have accuchecks BID, if greater than 150 then will start sliding scale. 4. Continue home medications. 5. Oxygen 2 liters at night, sleep clinic referral on Jan 20. [facility] given order for home oxygen on her acute discharge for home concentrator and portable oxygen system. Nebs as needed. 6. DNR/DNI - Mortality Measure Prognosis:: Good
[2018-12-02] MEDS ORDERED: FLU Vacc QS2019-20(6MOS+)/PF 60 MCG/0.5 ML SYRINGE IM ONE (15:00)
[2018-12-02] MEDS ORDERED: Warfarin Sliding Scale PO SCH (16:00)
[2018-12-02] MEDS ORDERED: [UNRECOGNIZED DRUG - OTHER] TOP PRN (16:09)
[2018-12-02] MEDS ORDERED: MENTHOL TOP PRN (16:09)
[2018-12-02] MEDS ORDERED: METHYL SALICYLATE TOP PRN (16:09)
[2018-12-02] MEDS ORDERED: Albuterol 8 GM Inhaler INH PRN (16:09)
[2018-12-02] MEDS ORDERED: CAMPHOR TOP PRN (16:09)
[2018-12-02] MEDS ORDERED: Albuterol/Ipratropium 3.0-0.5 MG/3 ML Neb Soln NEB PRN (16:09)
[2018-12-02] MEDS ORDERED: Warfarin 5 MG Tab PO SCH (16:15)
[2018-12-02] MEDS: traMADol 50 MG Tab PO PRN ×2 (16:44→23:25)
[2018-12-02] MEDS: Insulin Lispro 100 Unit/ML 3 ML KwikPen SUBCUT SCH (17:06)
[2018-12-02] MEDS: metFORMIN 500 MG Tab PO SCH (17:08)
[2018-12-02] MEDS: Calcium Carbonate 500 MG Tablet PO SCH (17:08)
[2018-12-02] MEDS: Ferrous Sulfate 325 MG Tab PO SCH (17:08)
[2018-12-02] MEDS: Formoterol/Mometasone 200-5 MCG 8.8 GM Inhaler IH SCH (20:30)
[2018-12-02] MEDS: Acetaminophen 500 MG Tab PO PRN (20:30)
[2018-12-02] MEDS: atorvaSTATin 40 MG Tab PO SCH (20:32)
[2018-12-03] MEDS: Pantoprazole 40 MG Tab.CR PO SCH ×2 (03:59→07:41)
[2018-12-03] MEDS: Insulin Lispro 100 Unit/ML 3 ML KwikPen SUBCUT SCH ×3 (08:43→17:04)
[2018-12-03] MEDS: Calcium Carbonate 500 MG Tablet PO SCH ×2 (08:45→17:03)
[2018-12-03] MEDS: Allopurinol 300 MG Tab PO SCH (08:45)
[2018-12-03] MEDS: metFORMIN 500 MG Tab PO SCH ×2 (08:45→17:03)
[2018-12-03] MEDS: Multivitamins,Therapeutic Tab PO SCH (08:45)
[2018-12-03] MEDS: Potassium Chloride 10 MEQ Tab.ER PO SCH (08:45)
[2018-12-03] MEDS: Lisinopril 5 MG Tab PO SCH (08:45)
[2018-12-03] MEDS: Metolazone 2.5 MG Tab PO SCH (08:45)
[2018-12-03] MEDS: Docusate Sodium 100 MG Cap PO SCH (08:45)
[2018-12-03] MEDS: Cholecalciferol (Vitamin D3) 25 MCG Tab PO SCH (08:45)
[2018-12-03] MEDS: Ferrous Sulfate 325 MG Tab PO SCH ×3 (08:45→17:03)
[2018-12-03] MEDS: Lidocaine 5% 700 MG Patch TOP SCH (08:46)
[2018-12-03] MEDS: Furosemide 40 MG Tab PO SCH ×2 (08:46→13:56)
[2018-12-03] MEDS: Tiotropium Inhaler 18 MCG Inhalation Powder Cap Kit of 5 INH SCH (08:46)
[2018-12-03] MEDS: Formoterol/Mometasone 200-5 MCG 8.8 GM Inhaler IH SCH ×2 (08:46→21:06)
[2018-12-03] MEDS: Acetaminophen 500 MG Tab PO PRN (08:46)
[2018-12-03] MEDS: Cyanocobalamin (Vitamin B12) 1,000 MCG Tab PO SCH (08:46)
[2018-12-03] MEDS: Insulin Glargine,Human Rec. Analog 100 Units/ML 3 ML Pen SUBCUT SCH (08:51)
[2018-12-03] MEDS: traMADol 50 MG Tab PO PRN (13:56)
[2018-12-03] MEDS ORDERED: Warfarin 2.5 MG Tab PO SCH (16:00)
[2018-12-03] MEDS: atorvaSTATin 40 MG Tab PO SCH (21:03)
[2018-12-04] MEDS: Pantoprazole 40 MG Tab.CR PO SCH ×2 (04:50→06:35)
[2018-12-04] MEDS: Ferrous Sulfate 325 MG Tab PO SCH ×3 (07:54→17:37)
[2018-12-04] MEDS: metFORMIN 500 MG Tab PO SCH ×2 (07:55→17:37)
[2018-12-04] MEDS: Calcium Carbonate 500 MG Tablet PO SCH ×2 (07:56→17:37)
[2018-12-04] MEDS: Furosemide 40 MG Tab PO SCH ×2 (07:56→14:34)
[2018-12-04] MEDS: Docusate Sodium 100 MG Cap PO SCH (08:23)
[2018-12-04] MEDS: Potassium Chloride 10 MEQ Tab.ER PO SCH (08:23)
[2018-12-04] MEDS: Formoterol/Mometasone 200-5 MCG 8.8 GM Inhaler IH SCH ×2 (08:23→20:38)
[2018-12-04] MEDS: Insulin Lispro 100 Unit/ML 3 ML KwikPen SUBCUT SCH ×3 (08:24→18:58)
[2018-12-04] MEDS: Insulin Glargine,Human Rec. Analog 100 Units/ML 3 ML Pen SUBCUT SCH (08:26)
[2018-12-04] MEDS: Cholecalciferol (Vitamin D3) 25 MCG Tab PO SCH (08:39)
[2018-12-04] MEDS: Multivitamins,Therapeutic Tab PO SCH (08:40)
[2018-12-04] MEDS: Allopurinol 300 MG Tab PO SCH (08:40)
[2018-12-04] MEDS: Lisinopril 5 MG Tab PO SCH (08:41)
[2018-12-04] MEDS: Cyanocobalamin (Vitamin B12) 1,000 MCG Tab PO SCH (08:41)
[2018-12-04] MEDS: Tiotropium Inhaler 18 MCG Inhalation Powder Cap Kit of 5 INH SCH (08:42)
[2018-12-04] MEDS: Lidocaine 5% 700 MG Patch TOP SCH (11:41)
--- NOTE | 2018-12-04 11:45 | PN ---
DATE SEEN: 12/04/2018 SUBJECTIVE: Daly Turpin is an 83-year-old female, seen today for review. Had an acute care stay in [place]. Transferred from [facility] to [place], rule out stroke. CT of MRI ruled out. MRI of the lumbar spine revealed degenerative changes. Has a history of complicated sleep apnea, supplemental long-term OT, sleep clinic visit plan contrary. Under rehab therapy. Her hearing aids and dentures lost while in [place], had a portable listening unit provided. Had some cough, cold, and congestion. LABORATORY STUDIES: INR 2.16, 2.20, glucose is 57, 170, 174, 182, and 114. Insulin on board. MEDICATIONS: Reviewed. OBJECTIVE: VITAL SIGNS: 108/64, 36.2, 91% on 0 L. GENERAL: An elderly female, cooperative, conversant, sitting in supine position. Markedly obese. HEENT: Mouth and oropharynx clear. NECK: Benign. Thyroid small. CHEST: Decreased breath sounds, both lung bases. HEART: No ectopy or murmur. ABDOMEN: Benign. ASSESSMENT: Complicated general weakness. PLAN: Medications, care and treatment appropriate, discharge planning in order, supplemental O2. We will do sleep study here. /[id number] 1131 JOSE/VINOD
[2018-12-04] MEDS ORDERED: Warfarin 2.5 MG Tab PO SCH (16:00)
[2018-12-04] MEDS: atorvaSTATin 40 MG Tab PO SCH (20:38)
[2018-12-05] MEDS: traMADol 50 MG Tab PO PRN (01:42)
[2018-12-05] MEDS: Pantoprazole 40 MG Tab.CR PO SCH (05:04)
[2018-12-05] MEDS: Acetaminophen 500 MG Tab PO PRN ×2 (05:12→21:05)
[2018-12-05] MEDS: Allopurinol 300 MG Tab PO SCH (08:05)
[2018-12-05] MEDS: Docusate Sodium 100 MG Cap PO SCH (08:05)
[2018-12-05] MEDS: Potassium Chloride 10 MEQ Tab.ER PO SCH (08:05)
[2018-12-05] MEDS: Ferrous Sulfate 325 MG Tab PO SCH ×3 (08:05→18:06)
[2018-12-05] MEDS: Furosemide 40 MG Tab PO SCH ×2 (08:05→14:15)
[2018-12-05] MEDS: metFORMIN 500 MG Tab PO SCH ×2 (08:05→18:06)
[2018-12-05] MEDS: Calcium Carbonate 500 MG Tablet PO SCH ×2 (08:05→18:06)
[2018-12-05] MEDS: Cholecalciferol (Vitamin D3) 25 MCG Tab PO SCH (08:06)
[2018-12-05] MEDS: Lisinopril 5 MG Tab PO SCH (08:06)
[2018-12-05] MEDS: Multivitamins,Therapeutic Tab PO SCH (08:06)
[2018-12-05] MEDS: Cyanocobalamin (Vitamin B12) 1,000 MCG Tab PO SCH (08:06)
[2018-12-05] MEDS: Insulin Lispro 100 Unit/ML 3 ML KwikPen SUBCUT SCH ×3 (08:17→18:00)
[2018-12-05] MEDS: Insulin Glargine,Human Rec. Analog 100 Units/ML 3 ML Pen SUBCUT SCH (08:18)
[2018-12-05] MEDS: Tiotropium Inhaler 18 MCG Inhalation Powder Cap Kit of 5 INH SCH (08:52)
[2018-12-05] MEDS: Formoterol/Mometasone 200-5 MCG 8.8 GM Inhaler IH SCH ×2 (08:52→21:00)
[2018-12-05] MEDS: Lidocaine 5% 700 MG Patch TOP SCH (08:53)
--- NOTE | 2018-12-05 12:24 | PN ---
DATE SEEN: 12/05/2018 SUBJECTIVE: Daly Turpin is an 83-year-old female, in swing bed. Apparently some burning and discomfort of her lower legs. Stockings would be cut off. Sugars have been reviewed. Workup revealed clinical concerns of no stroke. Does have underlying COPD, sleep apnea. Sleep study to be planned. Resided previously at [facility]. Laboratory studies; sugars most recent of 147, 250, and 165. OBJECTIVE: VITAL SIGNS: 36.1, pulse 71, 126/74, 16, and 96. GENERAL: Appears comfortable, sitting in a recliner. Markedly obese. NECK: Benign. Thyroid small. CHEST: Clear in all lung lr. HEART: Distant heart sounds. Occasional ectopy. EXTREMITIES: Minimal edema of lower extremity. ASSESSMENT: Complicated general weakness and malaise. PLAN: Sleep study to be performed. Off O2, use O2 only nightly. DNR status was noted. /[id number] 1212 /VINOD
[2018-12-05] MEDS ORDERED: Warfarin 2 MG Tab PO SCH (16:00)
[2018-12-05] MEDS: atorvaSTATin 40 MG Tab PO SCH (21:00)
[2018-12-06] MEDS: Pantoprazole 40 MG Tab.CR PO SCH (06:36)
[2018-12-06] MEDS: Furosemide 40 MG Tab PO SCH ×2 (08:28→13:52)
[2018-12-06] MEDS: metFORMIN 500 MG Tab PO SCH ×2 (08:28→17:58)
[2018-12-06] MEDS: Calcium Carbonate 500 MG Tablet PO SCH ×2 (08:28→17:58)
[2018-12-06] MEDS: Ferrous Sulfate 325 MG Tab PO SCH ×3 (08:28→17:58)
[2018-12-06] MEDS: Insulin Lispro 100 Unit/ML 3 ML KwikPen SUBCUT SCH ×3 (08:29→17:54)
[2018-12-06] MEDS: Insulin Glargine,Human Rec. Analog 100 Units/ML 3 ML Pen SUBCUT SCH (08:35)
[2018-12-06] MEDS: Cholecalciferol (Vitamin D3) 25 MCG Tab PO SCH (09:06)
[2018-12-06] MEDS: Lisinopril 5 MG Tab PO SCH (09:06)
[2018-12-06] MEDS: Potassium Chloride 10 MEQ Tab.ER PO SCH (09:06)
[2018-12-06] MEDS: Allopurinol 300 MG Tab PO SCH (09:06)
[2018-12-06] MEDS: Docusate Sodium 100 MG Cap PO SCH (09:06)
[2018-12-06] MEDS: Lidocaine 5% 700 MG Patch TOP SCH (09:06)
[2018-12-06] MEDS: Cyanocobalamin (Vitamin B12) 1,000 MCG Tab PO SCH (09:06)
[2018-12-06] MEDS: Multivitamins,Therapeutic Tab PO SCH (09:06)
[2018-12-06] MEDS: Formoterol/Mometasone 200-5 MCG 8.8 GM Inhaler IH SCH ×2 (09:07→21:15)
[2018-12-06] MEDS: Tiotropium Inhaler 18 MCG Inhalation Powder Cap Kit of 5 INH SCH (09:08)
--- NOTE | 2018-12-06 12:04 | PN ---
DATE SEEN: 12/06/2018 SUBJECTIVE: Daly Turpin is an 83-year-old female in swing bed for general malaise and weakness. Progress has been minimal. LABORATORY STUDIES: INR 1.91. Sugars last 24 hours are 165, 145, 109, and 103. MEDICATIONS: Reviewed and appropriate. PHYSICAL EXAMINATION: VITAL SIGNS: Stable. 36.2, 105/63, 16, and 96. GENERAL: Soft spoken, appropriate, in good spirits. NECK: Benign. Thyroid small. CHEST: Clear in all lung lr. HEART: Occasional ectopy. Soft murmur. ABDOMEN: Benign. ASSESSMENT: General disability. PLAN: PT/OT therapy in place. /[id number] 1158 JOSE/VINOD
[2018-12-06] MEDS: Acetaminophen 500 MG Tab PO PRN (16:23)
[2018-12-06] MEDS: atorvaSTATin 40 MG Tab PO SCH (21:15)
[2018-12-06] MEDS: traMADol 50 MG Tab PO PRN (22:50)
[2018-12-07] MEDS: Pantoprazole 40 MG Tab.CR PO SCH (06:22)
[2018-12-07] MEDS: Metolazone 2.5 MG Tab PO SCH (07:34)
[2018-12-07] MEDS: Insulin Lispro 100 Unit/ML 3 ML KwikPen SUBCUT SCH ×3 (08:04→17:50)
[2018-12-07] MEDS: Insulin Glargine,Human Rec. Analog 100 Units/ML 3 ML Pen SUBCUT SCH (08:04)
[2018-12-07] MEDS: Ferrous Sulfate 325 MG Tab PO SCH ×3 (08:08→17:48)
[2018-12-07] MEDS: metFORMIN 500 MG Tab PO SCH ×2 (08:09→17:49)
[2018-12-07] MEDS: Furosemide 40 MG Tab PO SCH ×2 (08:09→14:07)
[2018-12-07] MEDS: Calcium Carbonate 500 MG Tablet PO SCH ×2 (08:09→17:49)
[2018-12-07] MEDS: Docusate Sodium 100 MG Cap PO SCH (08:10)
[2018-12-07] MEDS: Potassium Chloride 10 MEQ Tab.ER PO SCH (08:10)
[2018-12-07] MEDS: Formoterol/Mometasone 200-5 MCG 8.8 GM Inhaler IH SCH ×2 (08:10→20:49)
[2018-12-07] MEDS: Lidocaine 5% 700 MG Patch TOP SCH (08:12)
[2018-12-07] MEDS: Tiotropium Inhaler 18 MCG Inhalation Powder Cap Kit of 5 INH SCH (08:12)
[2018-12-07] MEDS: Cyanocobalamin (Vitamin B12) 1,000 MCG Tab PO SCH (08:12)
[2018-12-07] MEDS: Cholecalciferol (Vitamin D3) 25 MCG Tab PO SCH (08:12)
[2018-12-07] MEDS: Multivitamins,Therapeutic Tab PO SCH (08:12)
[2018-12-07] MEDS: Allopurinol 300 MG Tab PO SCH (08:13)
[2018-12-07] MEDS: Lisinopril 5 MG Tab PO SCH (08:13)
--- NOTE | 2018-12-07 12:53 | PN ---
DATE SEEN: 12/07/2018 REASON FOR VISIT: Daly Turpin is an 83-year-old female in today for rehab purposes. Please see admission history and physical, transfer. She complains of moderate posterior calf pain, troublesome tingling, burning, and discomfort. History of DVT after a previous knee surgery. LABORATORY REPORTS: INR 1.68. Glucose 147, 244, 199. PHYSICAL EXAMINATION: VITAL SIGNS: 120/76, pulse 79, respirations 18, O2 saturation 98%, 36.4 degrees Fahrenheit. GENERAL: Appears comfortable. NECK: Benign. Thyroid small. CHEST: Clear in all lung lr. HEART: Distant heart sounds. Occasional ectopy. Soft murmur. ABDOMEN: Rotund. EXTREMITIES: Minimal posterior calf tenderness. ASSESSMENT: 1. Rehab in progress. 2. Left calf pain. PLAN: D-dimer and ultrasound will be performed, results to follow accordingly. /[id number] 1226 JOSE/VINOD
[2018-12-07] MEDS ORDERED: Warfarin 5 MG Tab PO ONE (16:00)
--- NOTE | 2018-12-07 16:17 | US ---
INDICATION: Left calf pain, question DVT. DUPLEX ULTRASOUND, LEFT LOWER EXTREMITY VEINS: Utilizing 2-D real time, duplex Doppler spectral analysis and color flow imaging, examination of the left lower extremity veins was obtained, including the common femoral vein, deep femoral vein, proximal femoral vein was not seen, proximal greater saphenous vein, proximal and mid femoral deep vein with the distal femoral vein, popliteal vein , posterior tibial vein, and peroneal vein not visualized. As partly visualized on this limited examination, there was no evidence of deep venous thrombosis. IMPRESSION: Limited study due to patients severe pain and inability to cooperate with the examination. The vessels visualized showed no evidence of deep venous thrombosis. MTDD
[2018-12-07] MEDS: traMADol 50 MG Tab PO PRN (16:24)
[2018-12-07] MEDS: atorvaSTATin 40 MG Tab PO SCH (20:51)
[2018-12-08] MEDS: Pantoprazole 40 MG Tab.CR PO SCH (05:25)
[2018-12-08] MEDS: Calcium Carbonate 500 MG Tablet PO SCH ×2 (08:17→17:57)
[2018-12-08] MEDS: metFORMIN 500 MG Tab PO SCH ×2 (08:17→17:57)
[2018-12-08] MEDS: Furosemide 40 MG Tab PO SCH ×2 (08:17→13:59)
[2018-12-08] MEDS: Ferrous Sulfate 325 MG Tab PO SCH ×3 (08:17→17:57)
[2018-12-08] MEDS: Multivitamins,Therapeutic Tab PO SCH (08:18)
[2018-12-08] MEDS: Cyanocobalamin (Vitamin B12) 1,000 MCG Tab PO SCH (08:18)
[2018-12-08] MEDS: Allopurinol 300 MG Tab PO SCH (08:18)
[2018-12-08] MEDS: Cholecalciferol (Vitamin D3) 25 MCG Tab PO SCH (08:18)
[2018-12-08] MEDS: Lisinopril 5 MG Tab PO SCH (08:18)
[2018-12-08] MEDS: Potassium Chloride 10 MEQ Tab.ER PO SCH (08:18)
[2018-12-08] MEDS: Insulin Lispro 100 Unit/ML 3 ML KwikPen SUBCUT SCH ×3 (08:21→17:54)
[2018-12-08] MEDS: Insulin Glargine,Human Rec. Analog 100 Units/ML 3 ML Pen SUBCUT SCH (08:24)
[2018-12-08] MEDS: Docusate Sodium 100 MG Cap PO SCH (08:27)
[2018-12-08] MEDS: Formoterol/Mometasone 200-5 MCG 8.8 GM Inhaler IH SCH ×2 (08:28→20:55)
[2018-12-08] MEDS: Lidocaine 5% 700 MG Patch TOP SCH (08:28)
[2018-12-08] MEDS: Tiotropium Inhaler 18 MCG Inhalation Powder Cap Kit of 5 INH SCH (09:29)
--- NOTE | 2018-12-08 10:51 | PN ---
DATE SEEN: 12/08/2018 SUBJECTIVE: Daly Turpin is an 83-year-old female, in today for swing bed. Complicated back episode last evening. We will do some radiographs of her back today. Pain appears to be controlled, troublesome at night. LABORATORY STUDIES: Glucose is noted. MEDICATIONS: Reviewed and appropriate. No signs of blood clot were present on her ultrasound. D-dimer returned moderately elevated at 0.69, normal 0 to 0.59. No signs of DVT. OBJECTIVE: VITAL SIGNS: 108/62, 18, 95%. 120/67. GENERAL: Appears comfortable, sitting at her breakfast chair. NECK: Benign. Thyroid small. CHEST: Clear. HEART: Regular. BACK: Diffusely tender. Complicated back pain. PLAN: Comfort measures therapy and need treatment in place. /[id number] 1044 JOSE/VINOD
[2018-12-08] MEDS: Warfarin 5 MG Tab PO SCH (15:32)
[2018-12-08] MEDS: traMADol 50 MG Tab PO PRN (15:49)
[2018-12-08] MEDS: atorvaSTATin 40 MG Tab PO SCH (20:56)
[2018-12-09] MEDS: Pantoprazole 40 MG Tab.CR PO SCH (05:13)
[2018-12-09] MEDS: metFORMIN 500 MG Tab PO SCH ×2 (08:15→17:09)
[2018-12-09] MEDS: Ferrous Sulfate 325 MG Tab PO SCH ×3 (08:15→17:09)
[2018-12-09] MEDS: Calcium Carbonate 500 MG Tablet PO SCH ×2 (08:16→17:09)
[2018-12-09] MEDS: Docusate Sodium 100 MG Cap PO SCH (08:16)
[2018-12-09] MEDS: Formoterol/Mometasone 200-5 MCG 8.8 GM Inhaler IH SCH ×2 (08:16→21:49)
[2018-12-09] MEDS: Potassium Chloride 10 MEQ Tab.ER PO SCH (08:17)
[2018-12-09] MEDS: Lidocaine 5% 700 MG Patch TOP SCH (08:18)
[2018-12-09] MEDS: Cholecalciferol (Vitamin D3) 25 MCG Tab PO SCH (08:18)
[2018-12-09] MEDS: Multivitamins,Therapeutic Tab PO SCH (08:18)
[2018-12-09] MEDS: Allopurinol 300 MG Tab PO SCH (08:18)
[2018-12-09] MEDS: Insulin Lispro 100 Unit/ML 3 ML KwikPen SUBCUT SCH ×3 (08:20→17:09)
[2018-12-09] MEDS: Insulin Glargine,Human Rec. Analog 100 Units/ML 3 ML Pen SUBCUT SCH (08:21)
[2018-12-09] MEDS: Lisinopril 5 MG Tab PO SCH (08:34)
[2018-12-09] MEDS: Tiotropium Inhaler 18 MCG Inhalation Powder Cap Kit of 5 INH SCH (08:34)
[2018-12-09] MEDS: Furosemide 40 MG Tab PO SCH ×2 (08:35→16:27)
[2018-12-09] MEDS: Cyanocobalamin (Vitamin B12) 1,000 MCG Tab PO SCH (08:35)
[2018-12-09] MEDS ORDERED: Sodium Chloride 0.9% 250 ML IV SCH ×2 (09:30)
[2018-12-09] MEDS: traMADol 50 MG Tab PO PRN ×2 (12:41→22:17)
[2018-12-09] MEDS: Warfarin 2.5 MG Tab PO SCH (16:28)
[2018-12-09] MEDS: atorvaSTATin 40 MG Tab PO SCH (21:50)
[2018-12-10] MEDS: Metolazone 2.5 MG Tab PO SCH (06:30)
[2018-12-10] MEDS: Pantoprazole 40 MG Tab.CR PO SCH (06:30)
[2018-12-10] MEDS: Furosemide 40 MG Tab PO SCH ×2 (08:14→14:35)
[2018-12-10] MEDS: Ferrous Sulfate 325 MG Tab PO SCH ×3 (08:14→17:48)
[2018-12-10] MEDS: Calcium Carbonate 500 MG Tablet PO SCH ×2 (08:14→17:47)
[2018-12-10] MEDS: metFORMIN 500 MG Tab PO SCH ×2 (08:14→17:47)
[2018-12-10] MEDS: Formoterol/Mometasone 200-5 MCG 8.8 GM Inhaler IH SCH ×2 (08:20→21:06)
[2018-12-10] MEDS: Docusate Sodium 100 MG Cap PO SCH (08:20)
[2018-12-10] MEDS: Potassium Chloride 10 MEQ Tab.ER PO SCH (08:20)
[2018-12-10] MEDS: Tiotropium Inhaler 18 MCG Inhalation Powder Cap Kit of 5 INH SCH (08:21)
[2018-12-10] MEDS: Lidocaine 5% 700 MG Patch TOP SCH (08:21)
[2018-12-10] MEDS: Multivitamins,Therapeutic Tab PO SCH (08:22)
[2018-12-10] MEDS: Cholecalciferol (Vitamin D3) 25 MCG Tab PO SCH (08:22)
[2018-12-10] MEDS: Cyanocobalamin (Vitamin B12) 1,000 MCG Tab PO SCH (08:23)
[2018-12-10] MEDS: Allopurinol 300 MG Tab PO SCH (08:23)
--- NOTE | 2018-12-10 08:25 | PN ---
DATE SEEN: 12/09/2018 SUBJECTIVE: Daly Turpin is an 83-year-old female, admitted with complicated back and general weakness. PT and OT are better. Troublesome heel pain, adjusted with daily shoes. Pain appears to be controlled otherwise. Has upcoming visit for hearing aid replacement and upper denture replacement. Both were lost during her hospital stay at [facility]. OBJECTIVE: VITAL SIGNS: 99.1 kg, 113/63, 16, 93%. GENERAL: Appears comfortable. NECK: Benign. CHEST: Clear in all lung lr. HEART: No ectopy or murmur. ABDOMEN: Benign. Definable tenderness over the lower back with pain. ASSESSMENT: Complicated general pain disorder. PLAN: Therapy in place. Recommendations on board. Discharge planning in place. /[id number] 1148 /VINOD
[2018-12-10] MEDS: Lisinopril 5 MG Tab PO SCH (08:28)
[2018-12-10] MEDS: Insulin Lispro 100 Unit/ML 3 ML KwikPen SUBCUT SCH ×3 (08:31→17:46)
[2018-12-10] MEDS: Insulin Glargine,Human Rec. Analog 100 Units/ML 3 ML Pen SUBCUT SCH (08:32)
--- NOTE | 2018-12-10 10:59 | PN ---
DATE SEEN: 12/10/2018 SUBJECTIVE: Daly Turpin is an 83-year-old female, in swing bed. Complicated back and lower extremity pain. Got her hearing aid fixed at [facility] yesterday. Pain appears to be controlled. OBJECTIVE: MUSCULOSKELETAL: A bit of an antalgic gait. Balance was moderated. NECK: Benign. CHEST: Clear. HEART: Regular. IMPRESSION: Complicated chronic pain issue. PLAN: Therapy in place. /[id number] [id number] /JIMIL
[2018-12-10] MEDS: Acetaminophen 500 MG Tab PO PRN ×2 (11:42→17:48)
[2018-12-10] MEDS: Warfarin 2.5 MG Tab PO SCH (17:45)
[2018-12-10] MEDS: atorvaSTATin 40 MG Tab PO SCH (21:06)
[2018-12-11] MEDS: traMADol 50 MG Tab PO PRN ×2 (02:49→23:39)
[2018-12-11] MEDS: Pantoprazole 40 MG Tab.CR PO SCH (05:04)
[2018-12-11] MEDS: Insulin Lispro 100 Unit/ML 3 ML KwikPen SUBCUT SCH ×3 (07:42→17:03)
[2018-12-11] MEDS: metFORMIN 500 MG Tab PO SCH ×2 (07:45→17:02)
[2018-12-11] MEDS: Furosemide 40 MG Tab PO SCH ×2 (07:45→14:15)
[2018-12-11] MEDS: Ferrous Sulfate 325 MG Tab PO SCH ×3 (07:45→17:01)
[2018-12-11] MEDS: Calcium Carbonate 500 MG Tablet PO SCH ×2 (07:46→18:53)
[2018-12-11] MEDS: Insulin Glargine,Human Rec. Analog 100 Units/ML 3 ML Pen SUBCUT SCH (08:05)
[2018-12-11] MEDS: Potassium Chloride 10 MEQ Tab.ER PO SCH (08:06)
[2018-12-11] MEDS: Formoterol/Mometasone 200-5 MCG 8.8 GM Inhaler IH SCH ×2 (08:06→20:08)
[2018-12-11] MEDS: Docusate Sodium 100 MG Cap PO SCH (08:07)
[2018-12-11] MEDS: Lisinopril 5 MG Tab PO SCH (08:08)
[2018-12-11] MEDS: Lidocaine 5% 700 MG Patch TOP SCH (08:08)
[2018-12-11] MEDS: Multivitamins,Therapeutic Tab PO SCH (08:08)
[2018-12-11] MEDS: Cholecalciferol (Vitamin D3) 25 MCG Tab PO SCH (08:09)
[2018-12-11] MEDS: Cyanocobalamin (Vitamin B12) 1,000 MCG Tab PO SCH (08:09)
[2018-12-11] MEDS: Tiotropium Inhaler 18 MCG Inhalation Powder Cap Kit of 5 INH SCH (08:09)
[2018-12-11] MEDS: Allopurinol 300 MG Tab PO SCH (08:09)
[2018-12-11] MEDS: Warfarin 5 MG Tab PO SCH (17:00)
[2018-12-11] MEDS: atorvaSTATin 40 MG Tab PO SCH (20:09)
[2018-12-12] MEDS: Pantoprazole 40 MG Tab.CR PO SCH (06:02)
[2018-12-12] MEDS: Ferrous Sulfate 325 MG Tab PO SCH ×3 (07:50→17:25)
[2018-12-12] MEDS: metFORMIN 500 MG Tab PO SCH ×2 (07:50→17:25)
[2018-12-12] MEDS: Furosemide 40 MG Tab PO SCH ×2 (07:50→14:39)
[2018-12-12] MEDS: Calcium Carbonate 500 MG Tablet PO SCH ×2 (07:51→17:25)
[2018-12-12] MEDS: Insulin Lispro 100 Unit/ML 3 ML KwikPen SUBCUT SCH ×3 (07:59→17:27)
[2018-12-12] MEDS: Cyanocobalamin (Vitamin B12) 1,000 MCG Tab PO SCH (08:08)
[2018-12-12] MEDS: Multivitamins,Therapeutic Tab PO SCH (08:08)
[2018-12-12] MEDS: Cholecalciferol (Vitamin D3) 25 MCG Tab PO SCH (08:08)
[2018-12-12] MEDS: Lisinopril 5 MG Tab PO SCH (08:08)
[2018-12-12] MEDS: Allopurinol 300 MG Tab PO SCH (08:08)
[2018-12-12] MEDS: Tiotropium Inhaler 18 MCG Inhalation Powder Cap Kit of 5 INH SCH (08:09)
[2018-12-12] MEDS: Potassium Chloride 10 MEQ Tab.ER PO SCH (08:09)
[2018-12-12] MEDS: Formoterol/Mometasone 200-5 MCG 8.8 GM Inhaler IH SCH ×2 (08:09→20:23)
[2018-12-12] MEDS: Lidocaine 5% 700 MG Patch TOP SCH (08:10)
[2018-12-12] MEDS: Insulin Glargine,Human Rec. Analog 100 Units/ML 3 ML Pen SUBCUT SCH (10:11)
[2018-12-12] MEDS: Warfarin 2.5 MG Tab PO SCH (15:10)
[2018-12-12] MEDS: Acetaminophen 500 MG Tab PO PRN (15:12)
[2018-12-12] MEDS: atorvaSTATin 40 MG Tab PO SCH (20:23)
[2018-12-13] MEDS: Pantoprazole 40 MG Tab.CR PO SCH (05:49)
[2018-12-13 06:56] LABS: HEMOGLOBIN A1C 7.2 % (4.5-6.2)
[2018-12-13] MEDS: Calcium Carbonate 500 MG Tablet PO SCH ×2 (07:31→17:17)
[2018-12-13] MEDS: Furosemide 40 MG Tab PO SCH ×2 (07:31→14:34)
[2018-12-13] MEDS: metFORMIN 500 MG Tab PO SCH ×2 (07:31→17:17)
[2018-12-13] MEDS: Ferrous Sulfate 325 MG Tab PO SCH ×3 (07:32→17:17)
[2018-12-13] MEDS: Formoterol/Mometasone 200-5 MCG 8.8 GM Inhaler IH SCH ×2 (08:01→20:19)
[2018-12-13] MEDS: Cyanocobalamin (Vitamin B12) 1,000 MCG Tab PO SCH (08:01)
[2018-12-13] MEDS: Cholecalciferol (Vitamin D3) 25 MCG Tab PO SCH (08:01)
[2018-12-13] MEDS: Lisinopril 5 MG Tab PO SCH (08:02)
[2018-12-13] MEDS: Allopurinol 300 MG Tab PO SCH (08:02)
[2018-12-13] MEDS: Multivitamins,Therapeutic Tab PO SCH (08:02)
[2018-12-13] MEDS: Potassium Chloride 10 MEQ Tab.ER PO SCH (08:02)
[2018-12-13] MEDS: Lidocaine 5% 700 MG Patch TOP SCH (08:03)
[2018-12-13] MEDS: Tiotropium Inhaler 18 MCG Inhalation Powder Cap Kit of 5 INH SCH (08:04)
[2018-12-13] MEDS: Insulin Lispro 100 Unit/ML 3 ML KwikPen SUBCUT SCH ×3 (10:12→18:35)
[2018-12-13] MEDS: Insulin Glargine,Human Rec. Analog 100 Units/ML 3 ML Pen SUBCUT SCH (10:13)
[2018-12-13] MEDS: Warfarin 2.5 MG Tab PO SCH ×2 (14:34→17:10)
[2018-12-13] MEDS: atorvaSTATin 40 MG Tab PO SCH (20:19)
[2018-12-13] MEDS: traMADol 50 MG Tab PO PRN (23:24)
[2018-12-14] MEDS: Pantoprazole 40 MG Tab.CR PO SCH (05:59)
[2018-12-14] MEDS: Furosemide 40 MG Tab PO SCH ×2 (07:42→13:51)
[2018-12-14] MEDS: Metolazone 2.5 MG Tab PO SCH (07:42)
[2018-12-14] MEDS: Ferrous Sulfate 325 MG Tab PO SCH ×3 (07:42→17:46)
[2018-12-14] MEDS: Calcium Carbonate 500 MG Tablet PO SCH ×2 (07:43→17:46)
[2018-12-14] MEDS: metFORMIN 500 MG Tab PO SCH ×2 (07:43→17:46)
[2018-12-14] MEDS: Insulin Lispro 100 Unit/ML 3 ML KwikPen SUBCUT SCH ×3 (07:59→17:49)
[2018-12-14] MEDS: Insulin Glargine,Human Rec. Analog 100 Units/ML 3 ML Pen SUBCUT SCH (08:01)
[2018-12-14] MEDS: Potassium Chloride 10 MEQ Tab.ER PO SCH (08:01)
[2018-12-14] MEDS: Formoterol/Mometasone 200-5 MCG 8.8 GM Inhaler IH SCH ×2 (08:01→22:04)
[2018-12-14] MEDS: Lidocaine 5% 700 MG Patch TOP SCH (08:03)
[2018-12-14] MEDS: Lisinopril 5 MG Tab PO SCH (08:03)
[2018-12-14] MEDS: Tiotropium Inhaler 18 MCG Inhalation Powder Cap Kit of 5 INH SCH (08:04)
[2018-12-14] MEDS: Cholecalciferol (Vitamin D3) 25 MCG Tab PO SCH (08:05)
[2018-12-14] MEDS: Multivitamins,Therapeutic Tab PO SCH (08:05)
[2018-12-14] MEDS: Cyanocobalamin (Vitamin B12) 1,000 MCG Tab PO SCH (08:05)
[2018-12-14] MEDS: Allopurinol 300 MG Tab PO SCH (09:30)
--- NOTE | 2018-12-14 15:07 | PN ---
DATE SEEN: 12/12/2018 HISTORY: Daly is an 83-year-old woman with a history of severe osteoarthritis with multiple orthopedic surgeries, back pain, diabetes, and congestive heart failure. She was admitted to [facility] in [place] on 11/28/2018, because of weakness of the right lower extremity. Neurologic workup was negative for stroke or acute lumbar spine compressions. She was started on therapy and was discharged to [facility], where she was admitted to swing bed on 12/02/2018. She has been getting physical therapy and making slow improvement in her leg strength. She is up walking 75 to 150 feet now. Of note, she complains of pain in the left arch and a soreness in the back of her heel for the past couple of days. Diabetes has been treated with insulin and blood sugars are running satisfactorily and she is tolerating her other medications without difficulty. PHYSICAL EXAMINATION: GENERAL: She is alert and comfortable. She is somewhat hard of hearing, but communicates well with her hearing aids in place. LUNGS: Clear. HEART: Regular with 3 to 4/6 systolic murmur over the aortic area. ABDOMEN: Soft. EXTREMITIES: Show no significant ankle edema. There is a dried abrasion overlying the Achilles tendon, left foot. There is tenderness to palpation at the mid arch of her left foot. ASSESSMENT: 1. 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 2. Generalized muscle weakness post multiple orthopedic procedures and general deconditioning. 3. Type 2 diabetes, stable. 4. Chronic congestive heart failure. 5. History of atrial fibrillation with anticoagulation. 6. History of osteoarthritis of her cervical spine. 7. History of colon cancer. PLAN: We will continue physical therapies for balance and gait strengthening with a goal of return to her home. We will continue to treat her underlying medical problems and provide palliative care measures for her chronic low back pain, generalized debilitation. I anticipate the abrasion overlying her left Achilles and her left foot arch discomfort will improve with time. Anticipate another 1 to 2 weeks of therapy. /[id number] 1109 HANNAH/JIMIL
[2018-12-14] MEDS: Warfarin 2.5 MG Tab PO SCH (15:21)
[2018-12-14] MEDS: atorvaSTATin 40 MG Tab PO SCH (22:04)
[2018-12-15] MEDS: Pantoprazole 40 MG Tab.CR PO SCH (05:00)
[2018-12-15] MEDS: metFORMIN 500 MG Tab PO SCH ×2 (07:41→17:32)
[2018-12-15] MEDS: Ferrous Sulfate 325 MG Tab PO SCH ×3 (07:41→17:32)
[2018-12-15] MEDS: Calcium Carbonate 500 MG Tablet PO SCH ×2 (07:41→17:32)
[2018-12-15] MEDS: Furosemide 40 MG Tab PO SCH ×2 (07:41→14:15)
[2018-12-15] MEDS: Insulin Lispro 100 Unit/ML 3 ML KwikPen SUBCUT SCH ×3 (07:47→17:32)
[2018-12-15] MEDS: Formoterol/Mometasone 200-5 MCG 8.8 GM Inhaler IH SCH ×2 (08:21→20:49)
[2018-12-15] MEDS: Cholecalciferol (Vitamin D3) 25 MCG Tab PO SCH (08:23)
[2018-12-15] MEDS: Allopurinol 300 MG Tab PO SCH (08:23)
[2018-12-15] MEDS: Multivitamins,Therapeutic Tab PO SCH (08:24)
[2018-12-15] MEDS: Cyanocobalamin (Vitamin B12) 1,000 MCG Tab PO SCH (08:24)
[2018-12-15] MEDS: Lisinopril 5 MG Tab PO SCH (08:24)
[2018-12-15] MEDS: Potassium Chloride 10 MEQ Tab.ER PO SCH (08:24)
[2018-12-15] MEDS: Tiotropium Inhaler 18 MCG Inhalation Powder Cap Kit of 5 INH SCH (08:25)
[2018-12-15] MEDS: Lidocaine 5% 700 MG Patch TOP SCH (08:25)
[2018-12-15] MEDS: Insulin Glargine,Human Rec. Analog 100 Units/ML 3 ML Pen SUBCUT SCH (08:29)
[2018-12-15] MEDS: Warfarin 5 MG Tab PO SCH (17:28)
[2018-12-15] MEDS: Acetaminophen 500 MG Tab PO PRN (18:44)
[2018-12-15] MEDS: atorvaSTATin 40 MG Tab PO SCH (20:49)
[2018-12-16] MEDS: Pantoprazole 40 MG Tab.CR PO SCH (05:56)
[2018-12-16] MEDS: Insulin Lispro 100 Unit/ML 3 ML KwikPen SUBCUT SCH ×3 (08:11→17:23)
[2018-12-16] MEDS: Insulin Glargine,Human Rec. Analog 100 Units/ML 3 ML Pen SUBCUT SCH (08:18)
[2018-12-16] MEDS: Tiotropium Inhaler 18 MCG Inhalation Powder Cap Kit of 5 INH SCH (08:22)
[2018-12-16] MEDS: Formoterol/Mometasone 200-5 MCG 8.8 GM Inhaler IH SCH ×2 (08:23→20:02)
[2018-12-16] MEDS: Lidocaine 5% 700 MG Patch TOP SCH (08:25)
[2018-12-16] MEDS: Allopurinol 300 MG Tab PO SCH (08:26)
[2018-12-16] MEDS: Cyanocobalamin (Vitamin B12) 1,000 MCG Tab PO SCH (08:27)
[2018-12-16] MEDS: Calcium Carbonate 500 MG Tablet PO SCH ×2 (08:27→17:22)
[2018-12-16] MEDS: Potassium Chloride 10 MEQ Tab.ER PO SCH (08:27)
[2018-12-16] MEDS: Multivitamins,Therapeutic Tab PO SCH (08:27)
[2018-12-16] MEDS: Cholecalciferol (Vitamin D3) 25 MCG Tab PO SCH (08:27)
[2018-12-16] MEDS: metFORMIN 500 MG Tab PO SCH ×2 (08:28→17:22)
[2018-12-16] MEDS: Ferrous Sulfate 325 MG Tab PO SCH ×3 (08:28→17:22)
[2018-12-16] MEDS: Lisinopril 5 MG Tab PO SCH (08:29)
[2018-12-16] MEDS: Furosemide 40 MG Tab PO SCH ×2 (08:29→13:20)
--- NOTE | 2018-12-16 13:36 | PN ---
DATE SEEN: 12/16/2018 HISTORY: Daly is an 83-year-old woman admitted to swing bed for recuperation following an acute care admission for lower extremity weakness. She was not shown to have any CVA or new lumbar compression neuropathy. She has been getting physical therapy daily. She is examined sitting in her chair today. She just finished a full breakfast. Other diagnoses include type 2 diabetes, chronic atrial fibrillation, history of colon cancer, severe osteoarthritis. PHYSICAL EXAMINATION: GENERAL: She is alert, comfortable, and a good historian. VITAL SIGNS: Blood pressure 108/65, pulse 76 and slightly irregular, respirations normal, O2 saturation 96% on room air, temperature 98. SKIN: Shows no rash. Mouth is dry. LUNGS: Clear with distant breath sounds. HEART: Slightly irregular. No murmurs heard. ABDOMEN: Normal bowel sounds. Soft and nontender. EXTREMITIES: Show no edema. She had good dorsiflexion of both feet. ASSESSMENT: 1. Lower extremity weakness, multifactorial, including lumbar spine disease, osteoarthritis, and generalized muscle weakness. 2. Type 2 diabetes, blood sugars are fairly well controlled. 3. Chronic atrial fibrillation, on anticoagulation. PLAN: We will continue physical therapy. Anticipate discharge to home from swing bed within approximately 1 week. We will continue to provide palliative care measures here for her underlying osteoarthritis and other debility of aging. /[id number] [id number] HANNAH/VINOD
[2018-12-16] MEDS: Warfarin 2.5 MG Tab PO SCH (16:08)
[2018-12-16] MEDS: atorvaSTATin 40 MG Tab PO SCH (20:03)
[2018-12-17] MEDS: Pantoprazole 40 MG Tab.CR PO SCH (06:16)
[2018-12-17] MEDS: Metolazone 2.5 MG Tab PO SCH (07:33)
[2018-12-17] MEDS: Ferrous Sulfate 325 MG Tab PO SCH ×3 (07:34→17:13)
[2018-12-17] MEDS: Furosemide 40 MG Tab PO SCH ×2 (07:35→13:37)
[2018-12-17] MEDS: Calcium Carbonate 500 MG Tablet PO SCH ×2 (07:36→17:13)
[2018-12-17] MEDS: metFORMIN 500 MG Tab PO SCH ×2 (07:54→17:13)
[2018-12-17] MEDS: Insulin Lispro 100 Unit/ML 3 ML KwikPen SUBCUT SCH ×3 (07:55→17:14)
[2018-12-17] MEDS: Formoterol/Mometasone 200-5 MCG 8.8 GM Inhaler IH SCH ×2 (08:05→20:15)
[2018-12-17] MEDS: Potassium Chloride 10 MEQ Tab.ER PO SCH (08:06)
[2018-12-17] MEDS: Lidocaine 5% 700 MG Patch TOP SCH (08:06)
[2018-12-17] MEDS: Lisinopril 5 MG Tab PO SCH (08:07)
[2018-12-17] MEDS: Multivitamins,Therapeutic Tab PO SCH (08:08)
[2018-12-17] MEDS: Cyanocobalamin (Vitamin B12) 1,000 MCG Tab PO SCH (08:09)
[2018-12-17] MEDS: Cholecalciferol (Vitamin D3) 25 MCG Tab PO SCH (08:09)
[2018-12-17] MEDS: Allopurinol 300 MG Tab PO SCH (08:10)
[2018-12-17] MEDS: Tiotropium Inhaler 18 MCG Inhalation Powder Cap Kit of 5 INH SCH (08:12)
[2018-12-17] MEDS: Insulin Glargine,Human Rec. Analog 100 Units/ML 3 ML Pen SUBCUT SCH (09:16)
[2018-12-17] MEDS: Warfarin 2.5 MG Tab PO SCH (15:40)
[2018-12-17] MEDS: atorvaSTATin 40 MG Tab PO SCH (20:15)
[2018-12-18] MEDS: Pantoprazole 40 MG Tab.CR PO SCH (05:09)
[2018-12-18] MEDS: Ferrous Sulfate 325 MG Tab PO SCH ×3 (08:05→17:17)
[2018-12-18] MEDS: metFORMIN 500 MG Tab PO SCH ×2 (08:05→17:18)
[2018-12-18] MEDS: Furosemide 40 MG Tab PO SCH ×2 (08:06→14:30)
[2018-12-18] MEDS: Calcium Carbonate 500 MG Tablet PO SCH ×2 (08:06→17:19)
[2018-12-18] MEDS: Insulin Lispro 100 Unit/ML 3 ML KwikPen SUBCUT SCH ×3 (08:11→17:22)
[2018-12-18] MEDS: Potassium Chloride 10 MEQ Tab.ER PO SCH (09:06)
[2018-12-18] MEDS: Formoterol/Mometasone 200-5 MCG 8.8 GM Inhaler IH SCH ×2 (09:06→21:04)
[2018-12-18] MEDS: Lidocaine 5% 700 MG Patch TOP SCH (09:07)
[2018-12-18] MEDS: Tiotropium Inhaler 18 MCG Inhalation Powder Cap Kit of 5 INH SCH (09:07)
[2018-12-18] MEDS: Multivitamins,Therapeutic Tab PO SCH (09:08)
[2018-12-18] MEDS: Cyanocobalamin (Vitamin B12) 1,000 MCG Tab PO SCH (09:08)
[2018-12-18] MEDS: Cholecalciferol (Vitamin D3) 25 MCG Tab PO SCH (09:08)
[2018-12-18] MEDS: Allopurinol 300 MG Tab PO SCH (09:09)
[2018-12-18] MEDS: Insulin Glargine,Human Rec. Analog 100 Units/ML 3 ML Pen SUBCUT SCH (09:11)
[2018-12-18] MEDS: Lisinopril 5 MG Tab PO SCH (09:13)
[2018-12-18] MEDS: Warfarin 5 MG Tab PO SCH (17:16)
[2018-12-18] MEDS: atorvaSTATin 40 MG Tab PO SCH (21:05)
[2018-12-18] MEDS: Acetaminophen 500 MG Tab PO PRN (23:19)
[2018-12-19] MEDS: Pantoprazole 40 MG Tab.CR PO SCH (05:09)
[2018-12-19] MEDS: Ferrous Sulfate 325 MG Tab PO SCH ×3 (07:47→17:05)
[2018-12-19] MEDS: metFORMIN 500 MG Tab PO SCH ×2 (07:48→17:05)
[2018-12-19] MEDS: Furosemide 40 MG Tab PO SCH ×2 (07:49→13:55)
[2018-12-19] MEDS: Calcium Carbonate 500 MG Tablet PO SCH ×2 (07:50→17:05)
[2018-12-19] MEDS: Insulin Lispro 100 Unit/ML 3 ML KwikPen SUBCUT SCH ×3 (07:51→17:53)
[2018-12-19] MEDS: Formoterol/Mometasone 200-5 MCG 8.8 GM Inhaler IH SCH ×2 (09:10→20:56)
[2018-12-19] MEDS: Lidocaine 5% 700 MG Patch TOP SCH (09:11)
[2018-12-19] MEDS: Potassium Chloride 10 MEQ Tab.ER PO SCH (09:11)
[2018-12-19] MEDS: Lisinopril 5 MG Tab PO SCH (09:13)
[2018-12-19] MEDS: Multivitamins,Therapeutic Tab PO SCH (09:14)
[2018-12-19] MEDS: Cholecalciferol (Vitamin D3) 25 MCG Tab PO SCH (09:15)
[2018-12-19] MEDS: Cyanocobalamin (Vitamin B12) 1,000 MCG Tab PO SCH (09:15)
[2018-12-19] MEDS: Allopurinol 300 MG Tab PO SCH (09:15)
[2018-12-19] MEDS: Insulin Glargine,Human Rec. Analog 100 Units/ML 3 ML Pen SUBCUT SCH (09:25)
[2018-12-19] MEDS: Tiotropium Inhaler 18 MCG Inhalation Powder Cap Kit of 5 INH SCH (09:27)
[2018-12-19] MEDS: Acetaminophen 500 MG Tab PO PRN ×2 (13:55→21:26)
[2018-12-19] MEDS: Warfarin 2.5 MG Tab PO SCH (17:04)
[2018-12-19] MEDS: atorvaSTATin 40 MG Tab PO SCH (20:56)
[2018-12-20] MEDS: Pantoprazole 40 MG Tab.CR PO SCH (05:23)
[2018-12-20] MEDS: Insulin Lispro 100 Unit/ML 3 ML KwikPen SUBCUT SCH ×3 (08:13→17:42)
[2018-12-20] MEDS: Insulin Glargine,Human Rec. Analog 100 Units/ML 3 ML Pen SUBCUT SCH (08:14)
[2018-12-20] MEDS: Furosemide 40 MG Tab PO SCH ×2 (08:17→14:28)
[2018-12-20] MEDS: metFORMIN 500 MG Tab PO SCH ×2 (08:17→17:01)
[2018-12-20] MEDS: Ferrous Sulfate 325 MG Tab PO SCH ×3 (08:17→17:01)
[2018-12-20] MEDS: Calcium Carbonate 500 MG Tablet PO SCH ×2 (08:18→17:03)
[2018-12-20] MEDS: Potassium Chloride 10 MEQ Tab.ER PO SCH (08:21)
[2018-12-20] MEDS: Formoterol/Mometasone 200-5 MCG 8.8 GM Inhaler IH SCH ×2 (08:21→20:42)
[2018-12-20] MEDS: Lidocaine 5% 700 MG Patch TOP SCH (08:22)
[2018-12-20] MEDS: Lisinopril 5 MG Tab PO SCH (08:23)
[2018-12-20] MEDS: Allopurinol 300 MG Tab PO SCH (08:24)
[2018-12-20] MEDS: Multivitamins,Therapeutic Tab PO SCH (08:24)
[2018-12-20] MEDS: Cyanocobalamin (Vitamin B12) 1,000 MCG Tab PO SCH (08:24)
[2018-12-20] MEDS: Cholecalciferol (Vitamin D3) 25 MCG Tab PO SCH (08:24)
[2018-12-20] MEDS: Tiotropium Inhaler 18 MCG Inhalation Powder Cap Kit of 5 INH SCH (09:14)
[2018-12-20] MEDS: Warfarin 2.5 MG Tab PO SCH (16:57)
[2018-12-20] MEDS: Acetaminophen 500 MG Tab PO PRN (17:01)
[2018-12-20] MEDS: atorvaSTATin 40 MG Tab PO SCH (20:42)
[2018-12-21] MEDS: Acetaminophen 500 MG Tab PO PRN (00:24)
[2018-12-21] MEDS: Pantoprazole 40 MG Tab.CR PO SCH (05:58)
[2018-12-21] MEDS: Metolazone 2.5 MG Tab PO SCH (07:16)
[2018-12-21] MEDS: Ferrous Sulfate 325 MG Tab PO SCH ×3 (08:13→17:33)
[2018-12-21] MEDS: metFORMIN 500 MG Tab PO SCH ×2 (08:13→17:34)
[2018-12-21] MEDS: Furosemide 40 MG Tab PO SCH ×2 (08:14→14:21)
[2018-12-21] MEDS: Formoterol/Mometasone 200-5 MCG 8.8 GM Inhaler IH SCH ×2 (08:14→20:40)
[2018-12-21] MEDS: Calcium Carbonate 500 MG Tablet PO SCH ×2 (08:14→17:35)
[2018-12-21] MEDS: Potassium Chloride 10 MEQ Tab.ER PO SCH (08:15)
[2018-12-21] MEDS: Insulin Lispro 100 Unit/ML 3 ML KwikPen SUBCUT SCH ×3 (08:15→17:36)
[2018-12-21] MEDS: Insulin Glargine,Human Rec. Analog 100 Units/ML 3 ML Pen SUBCUT SCH (08:15)
[2018-12-21] MEDS: Lisinopril 5 MG Tab PO SCH (08:16)
[2018-12-21] MEDS: Cholecalciferol (Vitamin D3) 25 MCG Tab PO SCH (08:17)
[2018-12-21] MEDS: Multivitamins,Therapeutic Tab PO SCH (08:17)
[2018-12-21] MEDS: Cyanocobalamin (Vitamin B12) 1,000 MCG Tab PO SCH (08:17)
[2018-12-21] MEDS: Allopurinol 300 MG Tab PO SCH (08:17)
[2018-12-21] MEDS: Tiotropium Inhaler 18 MCG Inhalation Powder Cap Kit of 5 INH SCH (08:18)
[2018-12-21] MEDS: Lidocaine 5% 700 MG Patch TOP SCH (08:18)
--- NOTE | 2018-12-21 08:23 | PCM.PN ---
- General Info Date of Service: 12/21/18 Admission Dx/Problem (Free Text): Patient says she's feeling well. She says she still has some weakness in her legs but it's improving. She denies chest pain, fevers, chills or she says she is always a little short of breath unless change. The nurses are concerned that she has some erythema in the lower legs and ankles bilateral. Patient states is always like this. - Patient Data Vitals - Most Recent: Last Vital Signs Temp 97.7 F 12/20/18 08:00 Pulse 90 12/20/18 08:00 Resp 16 12/20/18 08:00 BP 120/62 12/20/18 08:23 Pulse Ox 96 12/20/18 08:00 Weight - Most Recent: 218 lb 8 oz Lab Results Last 24 Hours: Laboratory Results - last 24 hr 12/20/18 12/20/18 12/20/18 Range/Units 11:41 17:41 20:36 PT (8.7-11.1) INR (0.89-1.13) POC Glucose 143 H 175 H 280 H D (80-116) mg/dL 12/21/18 12/21/18 Range/Units 05:53 06:40 PT 18.5 H (8.7-11.1) INR 1.92 H (0.89-1.13) POC Glucose 177 H D (80-116) mg/dL Med Orders - Current: Current Medications Acetaminophen (Tylenol Extra Strength) 500 mg PO Q6H PRN PRN Reason: MILD PAIN Last Admin: 12/21/18 00:24 Dose: 500 mg Albuterol (Ventolin Hfa) 0 gm INH Q4H PRN PRN Reason: Shortness of Breath Albuterol/Ipratropium (Duoneb 3.0-0.5 Mg/3 Ml) 3 ml NEB Q6H PRN PRN Reason: Shortness of Breath Allopurinol (Zyloprim) 300 mg PO DAILY [facility] Last Admin: 12/20/18 08:24 Dose: 300 mg Atorvastatin Calcium (Lipitor) 40 mg PO BEDTIME [facility] Last Admin: 12/20/18 20:42 Dose: 40 mg Calcium Carbonate/Glycine (Oyster Shell Calcium) 500 mg PO BIDMEALS [facility] Last Admin: 11/03/19 17:03 Dose: 500 mg Cholecalciferol (Vitamin D3) 50 mcg PO DAILY [facility] Last Admin: 12/20/18 08:24 Dose: 50 mcg Cyanocobalamin (Vitamin B12) 1,000 mcg PO DAILY [facility] Last Admin: 12/20/18 08:24 Dose: 1,000 mcg Ferrous Sulfate (Ferrous Sulfate) 325 mg PO TIDMEALS [facility] Last Admin: 12/20/18 17:01 Dose: 325 mg Furosemide (Lasix) 40 mg PO BIDDIURETIC [facility] Last Admin: 12/20/18 14:28 Dose: 40 mg Insulin Glargine (Lantus Solostar) 44 units SUBCUT DAILY [facility] Last Admin: 12/20/18 08:14 Dose: 44 units Insulin Human Lispro (Humalog) 5 unit SUBCUT 0800,1800 [facility] Last Admin: 12/20/18 17:42 Dose: 5 unit Insulin Human Lispro (Humalog) 7 unit SUBCUT WITHLUNCH [facility] Last Admin: 12/20/18 12:05 Dose: 7 unit Lidocaine (Lidoderm 5%) 700 mg TOP DAILY [facility] Last Admin: 12/20/18 08:22 Dose: 700 mg Lisinopril (Prinivil) 5 mg PO DAILY [facility] Last Admin: 12/20/18 08:23 Dose: 5 mg Metformin HCl (Glucophage) 250 mg PO BIDMEALS [facility] Last Admin: 12/20/18 17:01 Dose: 250 mg Metolazone (Zaroxolyn) 2.5 mg PO MoTh@0730 [facility] Last Admin: 12/21/18 07:16 Dose: 2.5 mg Miscellaneous Information (Remove Patch) 1 ea TOP BEDTIME [facility] Last Admin: 12/20/18 20:42 Dose: 1 ea Mometasone Furoate/Formoterol Fumar (Dulera 200-5 Mcg) 2 puff IH BID [facility] Last Admin: 12/20/18 20:42 Dose: 2 puff Multivitamins (Thera) 1 each PO DAILY [facility] Last Admin: 12/20/18 08:24 Dose: 1 each Non-Formulary Medication (Methyl Salicylate/Menth/Camph [[place] Muscle Rub] ) 1 applic TOP TID PRN PRN Reason: Pain Pantoprazole Sodium (Protonix) 40 mg PO DAILY@0600 [facility] Last Admin: 12/21/18 05:58 Dose: 40 mg Potassium Chloride (Klor-Con 10) 10 meq PO DAILY [facility] Last Admin: 12/20/18 08:21 Dose: 10 meq Senna/Docusate Sodium (Senna Plus) 1 tab PO DAILY [facility] Last Admin: 12/20/18 08:23 Dose: Not Given Tiotropium [place] (Spiriva Handihaler) 18 mcg INH DAILY [facility] Last Admin: 12/20/18 09:14 Dose: 1 cap Tramadol HCl (Ultram) 100 mg PO Q6H PRN PRN Reason: MODERATE PAIN Last Admin: 12/13/18 23:24 Dose: 100 mg Warfarin Sodium (Coumadin Sliding Scale) 0 each PO ASDIRECTED [facility] Warfarin Sodium (Coumadin) 5 mg PO TuFr@1600 [facility] Last Admin: 12/18/18 17:16 Dose: 5 mg Warfarin Sodium (Coumadin) 2.5 mg PO SuMoWeThSa@1600 [facility] Last Admin: 12/20/18 16:57 Dose: 2.5 mg Discontinued Medications Docusate Sodium (Colace) 100 mg PO DAILY [facility] Last Admin: 12/11/18 08:07 Dose: Not Given Sodium Chloride (Normal Saline) 250 mls @ 100 mls/hr IV ASDIRECTED [facility] Influenza Virus Vaccine (Fluzone Quad Syringe) 60 mcg IM .ONCE ONE Stop: 12/02/18 15:01 Last Admin: 12/03/18 00:50 Dose: Not Given Warfarin Sodium (Coumadin) 2.5 mg PO 12/03/18@1600 [facility] Stop: 12/03/18 16:30 Last Admin: 12/03/18 16:07 Dose: 2.5 mg Warfarin Sodium (Coumadin) 1.25 mg PO 1600 [facility] Stop: 12/04/18 16:01 Last Admin: 12/04/18 16:39 Dose: 1.25 mg Warfarin Sodium (Coumadin) 2 mg PO 1600 [facility] Stop: 12/05/18 16:01 Last Admin: 12/05/18 16:32 Dose: Not Given Warfarin Sodium (Coumadin) Confirm Administered Dose 2 mg .ROUTE .STK-MED ONE Stop: 12/05/18 16:14 Last Admin: 12/05/18 16:35 Dose: Not Given Warfarin Sodium (Coumadin) 2 mg PO ONETIME ONE Stop: 12/05/18 16:17 Last Admin: 12/05/18 16:32 Dose: 2 mg Warfarin Sodium (Coumadin) 2 mg PO ONETIME ONE Stop: 12/06/18 16:01 Last Admin: 12/06/18 15:53 Dose: 2 mg Warfarin Sodium (Coumadin) 5 mg PO ONETIME ONE Stop: 12/07/18 16:01 Last Admin: 12/07/18 16:24 Dose: 5 mg - Exam General: Alert, Oriented Lungs: Clear to Auscultation, Normal Respiratory Effort Cardiovascular: Regular Rate, Irregular Rhythm Peripheral Pulses: 0: Posterior Tibial (L), Posterior Tibial (R), Dorsalis Pedis (L), Dorsalis Pedis (R) Skin: Other (Mild erythema and darkish skin lower ankles and feet bilateral) Psy/Mental Status: Alert, Normal Affect, Normal Mood - Problem List & Annotations (1) Weakness of lower extremity SNOMED Code(s): 628965760 Code(s): R29.898 - OTH SYMPTOMS AND SIGNS INVOLVING THE MUSCULOSKELETAL SYSTEM Status: Acute Current Visit: Yes (2) Atrial fibrillation SNOMED Code(s): 64947347 Code(s): I48.91 - UNSPECIFIED ATRIAL FIBRILLATION Status: Acute Current Visit: Yes (3) PVD (peripheral vascular disease) SNOMED Code(s): 818079724 Code(s): I73.9 - PERIPHERAL VASCULAR DISEASE, UNSPECIFIED Status: Acute Current Visit: Yes (4) Type 2 diabetes mellitus SNOMED Code(s): 96039258 Code(s): E11.9 - TYPE 2 DIABETES MELLITUS WITHOUT COMPLICATIONS Status: Chronic Current Visit: No - Problem List Review Problem List Initiated/Reviewed/Updated: Yes - Plan Plan:: 1. Continue current care. 2. Patient needs ABIs in the future. That should be done outpatient.
[2018-12-21] MEDS: Warfarin 2.5 MG Tab PO SCH (17:32)
[2018-12-21] MEDS: atorvaSTATin 40 MG Tab PO SCH (20:40)
[2018-12-22] MEDS: Pantoprazole 40 MG Tab.CR PO SCH (06:04)
[2018-12-22] MEDS: Ferrous Sulfate 325 MG Tab PO SCH ×3 (08:01→18:07)
[2018-12-22] MEDS: Insulin Lispro 100 Unit/ML 3 ML KwikPen SUBCUT SCH ×3 (08:01→18:07)
[2018-12-22] MEDS: metFORMIN 500 MG Tab PO SCH ×2 (08:01→18:07)
[2018-12-22] MEDS: Formoterol/Mometasone 200-5 MCG 8.8 GM Inhaler IH SCH ×2 (08:02→21:19)
[2018-12-22] MEDS: Furosemide 40 MG Tab PO SCH ×2 (08:02→14:43)
[2018-12-22] MEDS: Potassium Chloride 10 MEQ Tab.ER PO SCH (08:02)
[2018-12-22] MEDS: Calcium Carbonate 500 MG Tablet PO SCH ×2 (08:02→18:07)
[2018-12-22] MEDS: Insulin Glargine,Human Rec. Analog 100 Units/ML 3 ML Pen SUBCUT SCH (08:03)
[2018-12-22] MEDS: Lidocaine 5% 700 MG Patch TOP SCH (08:03)
[2018-12-22] MEDS: Cyanocobalamin (Vitamin B12) 1,000 MCG Tab PO SCH (08:04)
[2018-12-22] MEDS: Lisinopril 5 MG Tab PO SCH (08:04)
[2018-12-22] MEDS: Multivitamins,Therapeutic Tab PO SCH (08:04)
[2018-12-22] MEDS: Tiotropium Inhaler 18 MCG Inhalation Powder Cap Kit of 5 INH SCH (08:04)
[2018-12-22] MEDS: Cholecalciferol (Vitamin D3) 25 MCG Tab PO SCH (08:05)
[2018-12-22] MEDS: Allopurinol 300 MG Tab PO SCH (08:05)
[2018-12-22 10:30] VITALS: PULSE 90
[2018-12-22] MEDS: Warfarin 5 MG Tab PO SCH (16:21)
[2018-12-22] MEDS: atorvaSTATin 40 MG Tab PO SCH (21:18)
[2018-12-22] MEDS: traMADol 50 MG Tab PO PRN (21:19)
[2018-12-23] MEDS: Pantoprazole 40 MG Tab.CR PO SCH (06:59)
--- NOTE | 2018-12-23 07:47 | PCM.PN ---
- General Info Date of Service: 12/23/18 Admission Dx/Problem (Free Text): Patient states she has no concerns today. No chest pain, shortness of breath or leg swelling. Strength is getting stronger. - Patient Data Vitals - Most Recent: Last Vital Signs Temp 97.7 F 12/22/18 08:00 Pulse 90 12/22/18 08:00 Resp 18 12/22/18 08:00 BP 132/65 12/22/18 08:04 Pulse Ox 96 12/22/18 08:00 Weight - Most Recent: 218 lb 8 oz Lab Results Last 24 Hours: Laboratory Results - last 24 hr 12/22/18 12/22/18 12/22/18 Range/Units 11:37 17:11 21:17 POC Glucose 246 H 172 H 204 H (80-116) mg/dL 12/23/18 Range/Units 07:00 POC Glucose 199 H (80-116) mg/dL Med Orders - Current: Current Medications Acetaminophen (Tylenol Extra Strength) 500 mg PO Q6H PRN PRN Reason: MILD PAIN Last Admin: 12/21/18 00:24 Dose: 500 mg Albuterol (Ventolin Hfa) 0 gm INH Q4H PRN PRN Reason: Shortness of Breath Albuterol/Ipratropium (Duoneb 3.0-0.5 Mg/3 Ml) 3 ml NEB Q6H PRN PRN Reason: Shortness of Breath Allopurinol (Zyloprim) 300 mg PO DAILY [facility] Last Admin: 12/22/18 08:05 Dose: 300 mg Atorvastatin Calcium (Lipitor) 40 mg PO BEDTIME [facility] Last Admin: 12/22/18 21:18 Dose: 40 mg Calcium Carbonate/Glycine (Oyster Shell Calcium) 500 mg PO BIDMEALS [facility] Last Admin: 12/22/18 18:07 Dose: 500 mg Cholecalciferol (Vitamin D3) 50 mcg PO DAILY [facility] Last Admin: 12/22/18 08:05 Dose: 50 mcg Cyanocobalamin (Vitamin B12) 1,000 mcg PO DAILY [facility] Last Admin: 12/22/18 08:04 Dose: 1,000 mcg Ferrous Sulfate (Ferrous Sulfate) 325 mg PO TIDMEALS [facility] Last Admin: 12/22/18 18:07 Dose: 325 mg Furosemide (Lasix) 40 mg PO BIDDIURETIC [facility] Last Admin: 12/22/18 14:43 Dose: 40 mg Insulin Glargine (Lantus Solostar) 44 units SUBCUT DAILY [facility] Last Admin: 12/22/18 08:03 Dose: 44 units Insulin Human Lispro (Humalog) 5 unit SUBCUT 0800,1800 [facility] Last Admin: 12/22/18 18:07 Dose: 5 unit Insulin Human Lispro (Humalog) 7 unit SUBCUT WITHLUNCH [facility] Last Admin: 12/22/18 12:44 Dose: 7 unit Lidocaine (Lidoderm 5%) 700 mg TOP DAILY [facility] Last Admin: 12/22/18 08:03 Dose: 700 mg Lisinopril (Prinivil) 5 mg PO DAILY [facility] Last Admin: 12/22/18 08:04 Dose: 5 mg Metformin HCl (Glucophage) 250 mg PO BIDMEALS [facility] Last Admin: 12/22/18 18:07 Dose: 250 mg Metolazone (Zaroxolyn) 2.5 mg PO MoTh@0730 [facility] Last Admin: 12/21/18 07:16 Dose: 2.5 mg Miscellaneous Information (Remove Patch) 1 ea TOP BEDTIME [facility] Last Admin: 12/22/18 21:20 Dose: 1 ea Mometasone Furoate/Formoterol Fumar (Dulera 200-5 Mcg) 2 puff IH BID [facility] Last Admin: 12/22/18 21:19 Dose: 2 puff Multivitamins (Thera) 1 each PO DAILY [facility] Last Admin: 12/22/18 08:04 Dose: 1 each Non-Formulary Medication (Methyl Salicylate/Menth/Camph [[place] Muscle Rub] ) 1 applic TOP TID PRN PRN Reason: Pain Pantoprazole Sodium (Protonix) 40 mg PO DAILY@0600 [facility] Last Admin: 12/23/18 06:59 Dose: 40 mg Potassium Chloride (Klor-Con 10) 10 meq PO DAILY [facility] Last Admin: 12/22/18 08:02 Dose: 10 meq Senna/Docusate Sodium (Senna Plus) 1 tab PO DAILY [facility] Last Admin: 12/22/18 08:04 Dose: Not Given Tiotropium [place] (Spiriva Handihaler) 18 mcg INH DAILY [facility] Last Admin: 12/22/18 08:04 Dose: 1 cap Tramadol HCl (Ultram) 100 mg PO Q6H PRN PRN Reason: MODERATE PAIN Last Admin: 12/22/18 21:19 Dose: 100 mg Warfarin Sodium (Coumadin Sliding Scale) 0 each PO ASDIRECTED [facility] Warfarin Sodium (Coumadin) 5 mg PO TuFr@1600 [facility] Last Admin: 12/22/18 16:21 Dose: 5 mg Warfarin Sodium (Coumadin) 2.5 mg PO SuMoWeThSa@1600 [facility] Last Admin: 12/21/18 17:32 Dose: 2.5 mg Discontinued Medications Docusate Sodium (Colace) 100 mg PO DAILY [facility] Last Admin: 12/11/18 08:07 Dose: Not Given Sodium Chloride (Normal Saline) 250 mls @ 100 mls/hr IV ASDIRECTED [facility] Influenza Virus Vaccine (Fluzone Quad Syringe) 60 mcg IM .ONCE ONE Stop: 12/02/18 15:01 Last Admin: 12/03/18 00:50 Dose: Not Given Warfarin Sodium (Coumadin) 2.5 mg PO 12/03/18@1600 [facility] Stop: 12/03/18 16:30 Last Admin: 12/03/18 16:07 Dose: 2.5 mg Warfarin Sodium (Coumadin) 1.25 mg PO 1600 [facility] Stop: 12/04/18 16:01 Last Admin: 12/04/18 16:39 Dose: 1.25 mg Warfarin Sodium (Coumadin) 2 mg PO 1600 [facility] Stop: 12/05/18 16:01 Last Admin: 12/05/18 16:32 Dose: Not Given Warfarin Sodium (Coumadin) Confirm Administered Dose 2 mg .ROUTE .STK-MED ONE Stop: 12/05/18 16:14 Last Admin: 12/05/18 16:35 Dose: Not Given Warfarin Sodium (Coumadin) 2 mg PO ONETIME ONE Stop: 12/05/18 16:17 Last Admin: 12/05/18 16:32 Dose: 2 mg Warfarin Sodium (Coumadin) 2 mg PO ONETIME ONE Stop: 12/06/18 16:01 Last Admin: 12/06/18 15:53 Dose: 2 mg Warfarin Sodium (Coumadin) 5 mg PO ONETIME ONE Stop: 12/07/18 16:01 Last Admin: 12/07/18 16:24 Dose: 5 mg - Exam General: Alert, Oriented, Cooperative Neck: Supple Lungs: Clear to Auscultation, Normal Respiratory Effort Cardiovascular: Regular Rate, Regular Rhythm, No Murmurs Extremities: No Pedal Edema - Problem List & Annotations (1) Weakness of lower extremity SNOMED Code(s): 904015100 Code(s): R29.898 - [facility] SYMPTOMS AND SIGNS INVOLVING THE MUSCULOSKELETAL SYSTEM Status: Acute Current Visit: Yes (2) Atrial fibrillation SNOMED Code(s): 74990301 Code(s): I48.91 - UNSPECIFIED ATRIAL FIBRILLATION Status: Acute Current Visit: Yes (3) PVD (peripheral vascular disease) SNOMED Code(s): 715073373 Code(s): I73.9 - PERIPHERAL VASCULAR DISEASE, UNSPECIFIED Status: Acute Current Visit: Yes (4) Type 2 diabetes mellitus SNOMED Code(s): 16905708 Code(s): E11.9 - TYPE 2 DIABETES MELLITUS WITHOUT COMPLICATIONS Status: Chronic Current Visit: No - Problem List Review Problem List Initiated/Reviewed/Updated: Yes - Plan Plan:: 1. Discharge to [facility] where she lives with PT/OT and home health.
--- NOTE | 2018-12-23 07:52 | PCM.DCSUM1 ---
Discharge Summary - Hospital Course Free Text/Narrative:: Swing bed course-[facility] jail. She had a relatively uneventful stay getting stronger everyday with PT/OT to the point where she could go home and continue her therapy at assisted living at [facility]. Brief History: Patient was seen in ER on Friday for right leg weakness, on Coumadin; she was transferred to [place] had CT/MRI which ruled out a stroke. No follow up with Neurology required. She had further workup for leg weakness including MRI lumbar spine which showed degenerative changes but nothing acute. Had overnight oximetry which showed over 400 events, started on oxygen 2L at night, ordered send to [facility] and referral to Sleep clinic made for Jan 20. She does have COPD, responding to neb treatments. INR was low yesterday at 1.5, recheck ordered for 12/03. Normally sleeps in recliner at home due to her chronic back pain. Normally wears hearing aids and dentures but these were lost while in [place], came with a portable listening aid given at [place]. She is still having weakness in right lower leg, no complaints of sinus congestion, cough, shortness of breath, abdominal pain. Eats a regular diet at home though Diabetic. Diagnosis: Stroke: No - Discharge Data Discharge Date: 12/23/18 Discharge Disposition: Home, W Home Health Agency Condition: Good - Referral to Home Health Date of Face to Face Encounter: 12/23/18 Reason for Homebound Status: Weakness, needed PT for strengthening and ambulation. Primary Care Physician: Hunter Wills MD Skilled Need: PT/OT/jail for medication management and teaching. Disease teaching. - Discharge Diagnosis/Problem(s) (1) Weakness of lower extremity SNOMED Code(s): 716519742 ICD Code: R29.898 - [facility] SYMPTOMS AND SIGNS INVOLVING THE MUSCULOSKELETAL SYSTEM Status: Acute Current Visit: Yes (2) Atrial fibrillation SNOMED Code(s): 32036486 ICD Code: I48.91 - UNSPECIFIED ATRIAL FIBRILLATION Status: Acute Current Visit: Yes (3) PVD (peripheral vascular disease) SNOMED Code(s): 133065756 ICD Code: I73.9 - PERIPHERAL VASCULAR DISEASE, UNSPECIFIED Status: Acute Current Visit: Yes (4) Type 2 diabetes mellitus SNOMED Code(s): 94638031 ICD Code: E11.9 - TYPE 2 DIABETES MELLITUS WITHOUT COMPLICATIONS Status: Chronic Current Visit: No - Patient Summary/Data Consults: Consultations 12/02/18 13:58 Consult to Fish Inspector [CONS] Routine Comment: Physician Instructions: Quantity: OT Evaluation and Treatment [CONS] Routine Please Evaluate and Treat. OT Reason for Consult: Strengthening This query below is only for informational purposes and is not editable. PT Evaluation and Treatment [CONS] Routine Please Evaluate and Treat. PT Reason for Consult: Strengthening This query below is only for informational purposes and is not editable. - Patient Instructions Diet: Diabetic Diet Activity: As Tolerated Driving: Do Not Drive Showering/Bathing: May Shower Other/Special Instructions: 1. Recheck with Dr. Wills in 1 week. 2. PT/OT/home health. - Discharge Plan Home Medications: Home Meds Budesonide/Formoterol [Symbicort 160-4.5 MCG] 2 puff INH BID 03/30/13 [History] Ferrous Sulfate 325 tab PO TIDMEALS 03/30/13 [History] Potassium Chloride 10 meq PO DAILY 03/30/13 [History] Albuterol Sulfate [Proair Hfa] 2 puff IH Q4H PRN 02/13/16 [History] Cyanocobalamin (Vitamin B-12) [B-12] 1,000 mcg PO DAILY 02/13/16 [History] Docusate Sodium [Colace] 100 mg PO DAILY 02/13/16 [History] Insulin Aspart [NovoLOG] 5 units SUBCUT 12/13/16 [History] Insulin Detemir [Levemir] 44 units SUBCUT DAILY 12/13/16 [History] Allopurinol [Zyloprim] 300 mg PO DAILY 09/26/17 [History] metOLazone [Zaroxolyn] 2.5 mg PO BID@0730,1330 09/26/17 [History] traMADol [Ultram] 100 mg PO Q6H PRN 09/26/17 [History] metFORMIN [Glucophage] 250 mg PO BIDMEALS 11/28/18 [History] Acetaminophen [Tylenol] 487.5 mg PO Q6H PRN 12/02/18 [History] Albuterol/Ipratropium [DuoNeb 3.0-0.5 MG/3 ML] 3 ml IH Q6H PRN 12/02/18 [History ] Calcium Citrate 200 mg PO BIDMEALS 12/02/18 [History] Cholecalciferol (Vitamin D3) [Vitamin D3] 2,000 unit PO DAILY 12/02/18 [History] Furosemide [Lasix] 40 mg PO BID@08,14 12/02/18 [History] Incruse 62.5 mcg IH DAILY 12/02/18 [History] Insulin Aspart [NovoLOG] 7 units SUBCUT WITHLUNCH 12/02/18 [History] Lidocaine 5% [Lidoderm 5%] 700 mg TOP DAILY 12/02/18 [History] Lisinopril 5 mg PO DAILY 12/02/18 [History] Methyl Salicylate/Menth/Camph [[place] Muscle Rub] 1 applic TOP TID PRN 12/02 [History] Multivitamin with Minerals [Multivitamins with Minerals] 1 tab PO DAILY [History] Omeprazole 40 mg PO DAILY 12/02/18 [History] Remove Patch 1 patch TOP BEDTIME 12/02/18 [History] atorvaSTATin Calcium [Lipitor] 40 mg PO BEDTIME 12/02/18 [History] Warfarin [Coumadin] 2.5 mg PO SuMoWeThSa@1600 tablet 12/23/18 [Rx] Warfarin [Coumadin] 5 mg PO TuFr@1600 tablet 12/23/18 [Rx] Patient Handouts: Chronic Pain, Adult, Fall Prevention in Hospitals, Adult, Venous Thromboembolism Prevention - Discharge Summary/Plan Comment DC Time >30 min.: No - Patient Data Vitals - Most Recent: Last Vital Signs Temp 97.7 F 12/22/18 08:00 Pulse 90 12/22/18 08:00 Resp 18 12/22/18 08:00 BP 132/65 12/22/18 08:04 Pulse Ox 96 12/22/18 08:00 Weight - Most Recent: 218 lb 8 oz Lab Results - Last 24 hrs: Laboratory Results - last 24 hr 12/22/18 12/22/18 12/22/18 Range/Units 11:37 17:11 21:17 POC Glucose 246 H 172 H 204 H (80-116) mg/dL 12/23/18 Range/Units 07:00 POC Glucose 199 H (80-116) mg/dL Med Orders - Current: Current Medications Acetaminophen (Tylenol Extra Strength) 500 mg PO Q6H PRN PRN Reason: MILD PAIN Last Admin: 12/21/18 00:24 Dose: 500 mg Albuterol (Ventolin Hfa) 0 gm INH Q4H PRN PRN Reason: Shortness of Breath Albuterol/Ipratropium (Duoneb 3.0-0.5 Mg/3 Ml) 3 ml NEB Q6H PRN PRN Reason: Shortness of Breath Allopurinol (Zyloprim) 300 mg PO DAILY [facility] Last Admin: 12/22/18 08:05 Dose: 300 mg Atorvastatin Calcium (Lipitor) 40 mg PO BEDTIME [facility] Last Admin: 12/22/18 21:18 Dose: 40 mg Calcium Carbonate/Glycine (Oyster Shell Calcium) 500 mg PO BIDMEALS [facility] Last Admin: 12/22/18 18:07 Dose: 500 mg Cholecalciferol (Vitamin D3) 50 mcg PO DAILY [facility] Last Admin: 12/22/18 08:05 Dose: 50 mcg Cyanocobalamin (Vitamin B12) 1,000 mcg PO DAILY [facility] Last Admin: 12/22/18 08:04 Dose: 1,000 mcg Ferrous Sulfate (Ferrous Sulfate) 325 mg PO TIDMEALS [facility] Last Admin: 12/22/18 18:07 Dose: 325 mg Furosemide (Lasix) 40 mg PO BIDDIURETIC [facility] Last Admin: 12/22/18 14:43 Dose: 40 mg Insulin Glargine (Lantus Solostar) 44 units SUBCUT DAILY [facility] Last Admin: 12/22/18 08:03 Dose: 44 units Insulin Human Lispro (Humalog) 5 unit SUBCUT 0800,1800 [facility] Last Admin: 12/22/18 18:07 Dose: 5 unit Insulin Human Lispro (Humalog) 7 unit SUBCUT WITHLUNCH [facility] Last Admin: 12/22/18 12:44 Dose: 7 unit Lidocaine (Lidoderm 5%) 700 mg TOP DAILY [facility] Last Admin: 12/22/18 08:03 Dose: 700 mg Lisinopril (Prinivil) 5 mg PO DAILY [facility] Last Admin: 12/22/18 08:04 Dose: 5 mg Metformin HCl (Glucophage) 250 mg PO BIDMEALS [facility] Last Admin: 12/22/18 18:07 Dose: 250 mg Metolazone (Zaroxolyn) 2.5 mg PO MoTh@0730 [facility] Last Admin: 12/21/18 07:16 Dose: 2.5 mg Miscellaneous Information (Remove Patch) 1 ea TOP BEDTIME [facility] Last Admin: 12/22/18 21:20 Dose: 1 ea Mometasone Furoate/Formoterol Fumar (Dulera 200-5 Mcg) 2 puff IH BID [facility] Last Admin: 12/22/18 21:19 Dose: 2 puff Multivitamins (Thera) 1 each PO DAILY [facility] Last Admin: 12/22/18 08:04 Dose: 1 each Non-Formulary Medication (Methyl Salicylate/Menth/Camph [[place] Muscle Rub] ) 1 applic TOP TID PRN PRN Reason: Pain Pantoprazole Sodium (Protonix) 40 mg PO DAILY@0600 [facility] Last Admin: 12/23/18 06:59 Dose: 40 mg Potassium Chloride (Klor-Con 10) 10 meq PO DAILY [facility] Last Admin: 12/22/18 08:02 Dose: 10 meq Senna/Docusate Sodium (Senna Plus) 1 tab PO DAILY [facility] Last Admin: 12/22/18 08:04 Dose: Not Given Tiotropium [place] (Spiriva Handihaler) 18 mcg INH DAILY [facility] Last Admin: 12/22/18 08:04 Dose: 1 cap Tramadol HCl (Ultram) 100 mg PO Q6H PRN PRN Reason: MODERATE PAIN Last Admin: 12/22/18 21:19 Dose: 100 mg Warfarin Sodium (Coumadin Sliding Scale) 0 each PO ASDIRECTED [facility] Warfarin Sodium (Coumadin) 5 mg PO TuFr@1600 [facility] Last Admin: 12/22/18 16:21 Dose: 5 mg Warfarin Sodium (Coumadin) 2.5 mg PO SuMoWeThSa@1600 [facility] Last Admin: 12/21/18 17:32 Dose: 2.5 mg Discontinued Medications Docusate Sodium (Colace) 100 mg PO DAILY [facility] Last Admin: 12/11/18 08:07 Dose: Not Given Sodium Chloride (Normal Saline) 250 mls @ 100 mls/hr IV ASDIRECTED [facility] Influenza Virus Vaccine (Fluzone Quad Syringe) 60 mcg IM .ONCE ONE Stop: 12/02/18 15:01 Last Admin: 12/03/18 00:50 Dose: Not Given Warfarin Sodium (Coumadin) 2.5 mg PO 12/03/18@1600 [facility] Stop: 12/03/18 16:30 Last Admin: 12/03/18 16:07 Dose: 2.5 mg Warfarin Sodium (Coumadin) 1.25 mg PO 1600 [facility] Stop: 12/04/18 16:01 Last Admin: 12/04/18 16:39 Dose: 1.25 mg Warfarin Sodium (Coumadin) 2 mg PO 1600 [facility] Stop: 12/05/18 16:01 Last Admin: 12/05/18 16:32 Dose: Not Given Warfarin Sodium (Coumadin) Confirm Administered Dose 2 mg .ROUTE .STK-MED ONE Stop: 12/05/18 16:14 Last Admin: 12/05/18 16:35 Dose: Not Given Warfarin Sodium (Coumadin) 2 mg PO ONETIME ONE Stop: 12/05/18 16:17 Last Admin: 12/05/18 16:32 Dose: 2 mg Warfarin Sodium (Coumadin) 2 mg PO ONETIME ONE Stop: 12/06/18 16:01 Last Admin: 12/06/18 15:53 Dose: 2 mg Warfarin Sodium (Coumadin) 5 mg PO ONETIME ONE Stop: 12/07/18 16:01 Last Admin: 12/07/18 16:24 Dose: 5 mg
[2018-12-23] MEDS: Ferrous Sulfate 325 MG Tab PO SCH (08:18)
[2018-12-23] MEDS: Insulin Lispro 100 Unit/ML 3 ML KwikPen SUBCUT SCH (08:18)
[2018-12-23] MEDS: metFORMIN 500 MG Tab PO SCH (08:18)
[2018-12-23] MEDS: Furosemide 40 MG Tab PO SCH (08:19)
[2018-12-23] MEDS: Potassium Chloride 10 MEQ Tab.ER PO SCH (08:19)
[2018-12-23] MEDS: Insulin Glargine,Human Rec. Analog 100 Units/ML 3 ML Pen SUBCUT SCH (08:19)
[2018-12-23] MEDS: Calcium Carbonate 500 MG Tablet PO SCH (08:19)
[2018-12-23] MEDS: Formoterol/Mometasone 200-5 MCG 8.8 GM Inhaler IH SCH (08:19)
[2018-12-23] MEDS: Lidocaine 5% 700 MG Patch TOP SCH (08:20)
[2018-12-23] MEDS: Lisinopril 5 MG Tab PO SCH (08:20)
[2018-12-23] MEDS: Allopurinol 300 MG Tab PO SCH (08:21)
[2018-12-23] MEDS: Tiotropium Inhaler 18 MCG Inhalation Powder Cap Kit of 5 INH SCH (08:21)
[2018-12-23] MEDS: Cholecalciferol (Vitamin D3) 25 MCG Tab PO SCH (08:21)
[2018-12-23] MEDS: Cyanocobalamin (Vitamin B12) 1,000 MCG Tab PO SCH (08:21)
[2018-12-23] MEDS: Multivitamins,Therapeutic Tab PO SCH (08:21)
[2018-12-23 08:29] VITALS: BP 100/61
== END 2018-12-23 10:50 | disposition home health service (06) | DRG 556 ==
LOC: FB.MS 12:28
PROVIDERS: ADMIT Family Medicine; ATTEND Family Medicine
DX: R29.898 Other symptoms and signs involving the musculoskeletal system (principal); I50.32 Chronic diastolic (congestive) heart failure; I48.20 Chronic atrial fibrillation, unspecified; I73.9 Peripheral vascular disease, unspecified; H91.90 Unspecified hearing loss, unspecified ear; J44.9 Chronic obstructive pulmonary disease, unspecified; I25.10 Atherosclerotic heart disease of native coronary artery without angina pectoris; Z66 Do not resuscitate; E83.42 Hypomagnesemia; I11.0 Hypertensive heart disease with heart failure; Z96.653 Presence of artificial knee joint, bilateral; Z96.641 Presence of right artificial hip joint; K21.9 Gastro-esophageal reflux disease without esophagitis; G89.29 Other chronic pain; M54.9 Dorsalgia, unspecified; M10.9 Gout, unspecified; M19.90 Unspecified osteoarthritis, unspecified site; M54.2 Cervicalgia; R53.1 Weakness; E11.40 Type 2 diabetes mellitus with diabetic neuropathy, unspecified; E66.9 Obesity, unspecified; F41.9 Anxiety disorder, unspecified; F32.9 Major depressive disorder, single episode, unspecified; I49.9 Cardiac arrhythmia, unspecified; E53.8 Deficiency of other specified B group vitamins; M47.812 Spondylosis without myelopathy or radiculopathy, cervical region; D50.9 Iron deficiency anemia, unspecified; Z86.718 Personal history of other venous thrombosis and embolism; Z85.038 Personal history of other malignant neoplasm of large intestine; Z85.42 Personal history of malignant neoplasm of other parts of uterus; Z90.89 Acquired absence of other organs; Z98.41 Cataract extraction status, right eye; Z79.4 Long term (current) use of insulin; Z98.42 Cataract extraction status, left eye; Z90.49 Acquired absence of other specified parts of digestive tract; Z90.710 Acquired absence of both cervix and uterus; Z95.0 Presence of cardiac pacemaker; Z87.891 Personal history of nicotine dependence; Z79.01 Long term (current) use of anticoagulants; Z79.899 Other long term (current) drug therapy; Z91.048 Other nonmedicinal substance allergy status; Z88.8 Allergy status to other drugs, medicaments and biological substances; Z88.2 Allergy status to sulfonamides; Z88.0 Allergy status to penicillin; Z87.442 Personal history of urinary calculi; Z68.36 Body mass index [BMI] 36.0-36.9, adult
CPT/HCPCS: 36415; 73502-RT; 80053; 82962; 83036; 85025; 85379; 85610; 93971-LT; 94760; 97110-GO; 97110-GP; 97116-GP; 97140-GP; 97161-GP; 97165-GO; 97530-GO; 97530-GP; 97535-GO; 97542-GO; A9270-GY; J1815; J1815-GY

== ENCOUNTER 2019-03-30 23:08 | Inpatient (IN) | payer MEDICARE, BC ==
[2019-03-30] MEDS ORDERED: Albuterol/Ipratropium 3.0-0.5 MG/3 ML Neb Soln NEB ONE (23:14)
[2019-03-30] MEDS ORDERED: Furosemide 40 MG/4 ML VIAL IVPUSH ONE (23:16)
[2019-03-30] MEDS: Sodium Chloride 0.9% 10 ML Syringe FLUSH PRN (23:30)
[2019-03-31] MEDS ORDERED: Albuterol/Ipratropium 3.0-0.5 MG/3 ML Neb Soln NEB ONE (00:12)
[2019-03-31] MEDS ORDERED: methylPREDNISolone Sodium Succinate 125 MG/2 ML SDV IVPUSH ONE (00:26)
--- NOTE | 2019-03-31 00:35 | EDM.PDOC ---
ED HPI GENERAL MEDICAL PROBLEM - General Chief Complaint: Respiratory Problem Stated Complaint: Shortness of Breath Time Seen by Provider: 03/30/19 23:15 Source of Information: Reports: Patient, EMS, Custodial Records History Limitations: Reports: No Limitations - History of Present Illness INITIAL COMMENTS - FREE TEXT/NARRATIVE: pt sent in from SNF . staff noted patient getting more short of breath, cough worsening after 3-4 days of URI symptoms patient denies any chest pain , no fever or chills Leg swelling noted to be worse and may have gained weight shortness of breath noted at rest . Pt uses 2 liters of oxygen usually Onset Date: 03/30/19 Location: Reports: Chest Associated Symptoms: Reports: Cough, Shortness of Breath, Weakness - Related Data Allergies Allergy/AdvReac Type Severity Reaction Status Date / Time adhesive Allergy Other Verified 03/31/19 01:53 grass pollen Allergy Sneezing Verified 03/31/19 01:53 Penicillins Allergy Hives Verified 03/31/19 01:53 Sulfa (Sulfonamide Allergy Rash Verified 03/31/19 01:53 Antibiotics) Home Meds: Home Meds Budesonide/Formoterol [Symbicort 160-4.5 MCG] 2 puff INH BID 03/30/13 [History] Potassium Chloride 10 meq PO DAILY 03/30/13 [History] Albuterol Sulfate [Proair Hfa] 2 puff IH Q4H PRN 02/13/16 [History] Cyanocobalamin (Vitamin B-12) [B-12] 1,000 mcg PO DAILY 02/13/16 [History] Insulin Aspart [NovoLOG] 5 - 7 units SUBCUT TIDMEALS 12/13/16 [History] Insulin Detemir [Levemir] 44 units SUBCUT BEDTIME 12/13/16 [History] allopurinoL [Zyloprim] 300 mg PO DAILY 09/26/17 [History] metOLazone [Zaroxolyn] 2.5 mg PO BID 09/26/17 [History] traMADol [Ultram] 50 mg PO QID PRN 09/26/17 [History] metFORMIN [Glucophage] 500 mg PO BIDMEALS 11/28/18 [History] Calcium Citrate 600 mg PO BIDMEALS 12/02/18 [History] Cholecalciferol (Vitamin D3) [Vitamin D3] 2,000 unit PO DAILY 12/02/18 [History] Furosemide [Lasix] 80 mg PO DAILY 12/02/18 [History] Methyl Salicylate/Menth/Camph [[place] Muscle Rub] 1 applic TOP TID PRN 12/02 [History] Omeprazole 40 mg PO DAILY 12/02/18 [History] lisinopriL [Lisinopril] 5 mg PO DAILY 12/02/18 [History] Acetaminophen 325 mg PO Q4H PRN 03/31/19 [History] Azithromycin 250 mg PO 1800 03/31/19 [History] Diclofenac Sodium [Voltaren 1% Gel] 1 applic TOP BID 03/31/19 [History] Docusate Sodium [Colace] 100 mg PO DAILY 03/31/19 [History] Ferrous Sulfate 325 mg PO TID 03/31/19 [History] Menthol [Biofreeze] 1 applic TOP TID PRN 03/31/19 [History] Morphine Sulfate 15 mg PO BID 03/31/19 [History] Ondansetron [Zofran] 8 mg PO BID PRN 03/31/19 [History] Prochlorperazine Maleate [Compazine] 10 mg PO Q6H PRN 03/31/19 [History] Warfarin [Coumadin] 5 mg PO DAILY 03/31/19 [History] hydrOXYzine pamoate [Vistaril] 50 mg PO Q6H PRN 03/31/19 [History] Past Medical History HEENT History: Reports: Cataract, Hard of Hearing, Other (See Below) Other HEENT History: Congenital hearing loss Cardiovascular History: Reports: Arrhythmia, Blood Clots/VTE/DVT, Heart Murmur, Hypertension, Pacemaker, PVD, Other (See Below) Other Cardiovascular History: 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 Other UX ENGINEER History: PT VOICED NEVER BEEN , G0 Musculoskeletal History: Reports: Arthritis, Back Pain, Chronic, Gout, Osteoarthritis Other Musculoskeletal History: knee replacements Neurological History: Reports: Neuropathy, Diabetic Psychiatric History: Reports: Anxiety, Depression Endocrine/Metabolic History: Reports: Diabetes, Type II, Obesity/BMI 30+, Other (See Below) Other Endocrine/Metabolic History: insulin dependent Hematologic History: Reports: Anemia, B12 Deficiency, Blood Transfusion(s), Iron Deficiency Other Hematologic History: Prior surgeries. Oncologic (Cancer) History: Reports: Colon, Uterine, Other (See Below) Other Oncologic History: Endometrial CA Dermatologic History: Reports: Other (See Below) Other Dermatologic History: RASH UNDERNEATH SERA. BREASTS AND BELLY FOLDS AT TIMES. - Infectious Disease History Infectious Disease History: Reports: Chicken Pox, Influenza, Measles - Past Surgical History HEENT Surgical History: Reports: Adenoidectomy, Cataract Surgery, Tonsillectomy Other HEENT Surgeries/Procedures: Bilat cataract surgery. Cardiovascular Surgical History: Reports: Pacer GI Surgical History: Reports: Cholecystectomy, Colon, Colonoscopy, EGD, Hernia Repair/Other Female Surgical History: Reports: Hysterectomy, Salpingo-Oophorectomy Other Female Surgeries/Procedures: total hyst Musculoskeletal Surgical History: Reports: Hip Replacement, ORIF, Other (See Below) Other Musculoskeletal Surgeries/Procedures:: bilat knee replacement, R hip replacement Dermatological Surgical History: Reports: None Social & Family History - Family History Family Medical History: Noncontributory Cardiac: Reports: CAD, Other (See Below) Other Cardiac Family History: father and mother Respiratory: Reports: Asthma Other Respiratory Family Hisory: sister : Reports: Renal Disease/Insufficiency Other Family History: Nephew at age 5 Neurological: Reports: Dementia, Other (See Below) Other Neurological Family History: mother Immunologic: Reports: None Oncologic: Reports: Breast, Skin Other Oncologic Family History: mother-breast. 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 Denies: Pleuritic Chest Pain, Hemoptysis Cardiovascular: Reports: Dyspnea on Exertion, Edema, Lightheadedness, Orthopnea. Denies: Chest Pain, Palpitations Endocrine: Reports: Fatigue GI/Abdominal: Reports: No Symptoms Musculoskeletal: Reports: No Symptoms Skin: Reports: No Symptoms Neurological: Reports: No Symptoms Psychiatric: Reports: No Symptoms Hematologic/Lymphatic: Reports: No Symptoms ED EXAM, GENERAL - Physical Exam Exam: See Below Free Text/Narrative:: pt was able to talk though in 2-3 word sentences on arrival, Mild respiratory distress noted , improved with oxygen and neb administration Exam Limited By: No Limitations General Appearance: Alert, WD/WN, Mild Distress, Obese Eye Exam: Bilateral Eye: EOMI Ears: Normal External Exam Nose: Normal Inspection Throat/Mouth: Normal Oropharynx Head: Atraumatic Neck: Supple, Non-Tender, Full Range of Motion Respiratory/Chest: Respiratory Distress, Decreased Breath Sounds, Crackles ( inlung bases), Rales, Wheezing Cardiovascular: Regular Rate, Rhythm Peripheral Pulses: 2+: Dorsalis Pedis (L) (difficult to palpate due to swelling) , Dorsalis Pedis (R) GI/Abdominal: Soft, Non-Tender Extremities: Pedal Edema (to the mid leg) Neurological: Alert, Oriented, CN II-XII Intact, Normal Cognition EKG INTERPRETATION EKG Date: 03/30/19 Rhythm: NSR [place]: Normal P-Wave: Enlarged QRS: Normal ST-T: Normal Course - Vital Signs Last Recorded V/S: Last Vital Signs Temp 36.3 C 03/31/19 05:42 Pulse 92 03/31/19 05:42 Resp 21 H 03/31/19 05:42 BP 121/83 03/31/19 05:42 Pulse Ox 90 L 03/31/19 05:42 - Orders/Labs/Meds Orders: Active Orders 24 hr Category Date Time Status Patient Status [ADT] Routine ADT 03/31/19 01:42 Active Bedrest Bathroom Privileges [RC] ASDIRECTED Care 03/31/19 01:42 Active Blood Glucose Check, Bedside [RC] QIDACANDBED Care 03/31/19 01:42 Active Cardiac Monitoring [RC] .As Directed Care 03/31/19 01:45 Active Cardiac Monitoring [RC] INTERMITTENT Care 03/31/19 01:45 Active Height and Weight [RC] 06 Care 03/31/19 01:42 Active Intake and Output [RC] QSHIFT Care 03/31/19 01:45 Active Oxygen Therapy [RC] PRN Care 03/31/19 01:42 Active Pulse Oximetry [RC] PRN Care 03/31/19 01:46 Active RT Aerosol Therapy [RC] ASDIRECTED Care 03/30/19 23:14 Active Urinary Catheter Assessment [RC] QSHIFT Care 03/31/19 01:42 Active VTE/DVT Education [RC] Per Unit Routine Care 03/31/19 01:42 Active Vital Signs [RC] Q4H Care 03/31/19 01:42 Active Consistent Carbohydrate Diet [DIET] Diet 03/31/19 Breakfast Ordered Chest 1V Frontal [CR] Stat Exams 03/30/19 23:16 Taken BASIC METABOLIC PANEL,BMP [CHEM] AM Lab 04/01/19 05:11 Ordered BLOOD GAS ARTERIAL [BG] Timed Lab 04/01/19 06:00 Ordered CBC WITH AUTO DIFF [HEME] AM Lab 04/02/19 05:11 Ordered INR,PT,PROTHROMBIN TIME [COAG] AM Lab 04/01/19 05:11 Ordered INR,PT,PROTHROMBIN TIME [COAG] AM Lab 04/02/19 05:11 Ordered INR,PT,PROTHROMBIN TIME [COAG] AM Lab 04/03/19 05:11 Ordered MAGNESIUM [CHEM] AM Lab 04/01/19 05:11 Ordered TROPONIN I [CHEM] AM Lab 04/01/19 05:11 Ordered Azithromycin [Zithromax] Med 03/31/19 18:00 Active 250 mg PO DAILY@1800 Insulin Lispro [HumaLOG] Med 03/31/19 08:00 Active 5 - 7 unit SUBCUT TIDMEALS Morphine Med 04/01/19 09:00 Active 15 mg PO BID Ondansetron [Zofran ODT] Med 03/31/19 01:42 Active 8 mg PO Q6H PRN Sodium Chloride 0.9% [Saline Flush] Med 03/31/19 01:42 Active 10 ml FLUSH ASDIRECTED PRN Warfarin [Coumadin] Med 04/01/19 16:00 Active 5 mg PO 1600 allopurinoL [Zyloprim] Med 04/01/19 09:00 Active 300 mg PO DAILY lisinopriL [Prinivil] Med 04/01/19 09:00 Active 5 mg PO DAILY metFORMIN [Glucophage] Med 04/01/19 08:00 Active 500 mg PO BIDMEALS metOLazone [Zaroxolyn] Med 04/01/19 08:00 Active 2.5 mg PO BIDDIURETIC Saline Lock Insert [OM.PC] Routine Oth 03/31/19 01:42 Ordered Resuscitation Status Routine Resus Stat 03/31/19 01:42 Ordered Medication Orders Acetaminophen (Tylenol) 325 mg PO Q4H PRN PRN Reason: Pain/Fever Allopurinol (Zyloprim) 300 mg PO DAILY [facility] Azithromycin (Zithromax) 250 mg PO DAILY@1800 [facility] Diclofenac Sodium (Voltaren 1% Gel) 1 gm TOP BID [facility] Docusate Sodium (Colace) 100 mg PO DAILY [facility] Furosemide (Lasix) 80 mg IVPUSH Q8H [facility] Last Admin: 03/31/19 08:05 Dose: 80 mg Hydroxyzine Pamoate (Vistaril) 50 mg PO Q6H PRN PRN Reason: Nausea/Vomiting Insulin Glargine (Lantus Solostar) 44 units SUBCUT BEDTIME [facility] Insulin Human Lispro (Humalog) 5 - 7 unit SUBCUT TIDMEALS [facility] Lisinopril (Prinivil) 5 mg PO DAILY [facility] Metformin HCl (Glucophage) 500 mg PO BIDMEALS [facility] Metolazone (Zaroxolyn) 2.5 mg PO BIDDIURETIC [facility] Mometasone Furoate/Formoterol Fumar (Dulera 200-5 Mcg) 2 puff IH BID [facility] Morphine Sulfate (Morphine) 15 mg PO BID [facility] Ondansetron HCl (Zofran Odt) 8 mg PO Q6H PRN PRN Reason: nausea, able to take PO Pantoprazole Sodium (Protonix) 40 mg PO DAILY@0600 [facility] Potassium Chloride (Klor-Con 10) 10 meq PO DAILY [facility] Prochlorperazine Maleate (Compazine) 10 mg PO Q6H PRN PRN Reason: Nausea/Vomiting Sodium Chloride (Saline Flush) 10 ml FLUSH ASDIRECTED PRN PRN Reason: Keep Vein Open Last Admin: 03/31/19 08:11 Dose: 10 ml Tramadol HCl (Ultram) 50 mg PO QID PRN PRN Reason: Pain Warfarin Sodium (Coumadin) 5 mg PO 1600 [facility] Labs: Laboratory Tests 03/30/19 03/30/19 03/30/19 Range/Units 23:30 23:30 23:30 WBC 8.4 (4.5-12.0) X10-3/uL RBC 4.22 (3.23-5.20) x10(6)uL Hgb 11.4 L (11.5-15.5) g/dL Hct 36.1 (30.0-51.3) % MCV 85.6 (80-96) fL MCH 27.1 L (27.7-33.6) pg MCHC 31.7 L (32.2-35.4) g/dL RDW 17.4 H (11.5-15.5) % Plt Count 259 (125-369) X10(3)uL MPV 6.8 L (7.4-10.4) fL Neut % (Auto) 82.2 H (46-82) % Lymph % (Auto) 8.6 L (13-37) % [place] % (Auto) 7.0 (4-12) % Eos % (Auto) 1 (1.0-5.0) % Baso % (Auto) 2 (0-2) % Neut # (Auto) 6.9 (1.6-8.3) # Lymph # (Auto) 0.7 (0.6-5.0) # [place] # (Auto) 0.6 (0.0-1.3) # Eos # (Auto) 0.1 (0.0-0.8) # Baso # (Auto) 0.1 (0.0-0.2) # ABG pH (7.35-7.45) ABG pCO2 (35-45) mmHg ABG pO2 (83-108) mmHg ABG HCO3 (22-26) mmol/L ABG O2 Saturation (96-97) % ABG Base Excess (-2-2) Oliver Test O2 Delivery Device Sodium 138 (135-145) mmol/L Potassium 4.6 (3.5-5.3) mmol/L Chloride 95 L (100-110) mmol/L Carbon Dioxide 43 H* (21-32) mmol/L BUN 54 H D (7-18) mg/dL Creatinine 1.2 H (0.55-1.02) mg/dL Est Cr Clr Drug Dosing TNP Estimated GFR (MDRD) 43 L (>60) BUN/Creatinine Ratio 45.0 H (9-20) Glucose 113 (80-116) mg/dL Lactic Acid (0.4-2.0) mmol/L Calcium 8.9 (8.6-10.2) mg/dL Magnesium 1.6 L (1.8-2.5) mg/dL Troponin I (4.0-60.3) pg/mL NT-Pro-B Natriuret Pep 615 H (<=450) pg/mL 03/31/19 03/31/19 03/31/19 Range/Units 00:01 00:01 01:25 WBC (4.5-12.0) X10-3/uL RBC (3.23-5.20) x10(6)uL Hgb (11.5-15.5) g/dL Hct (30.0-51.3) % MCV (80-96) fL MCH (27.7-33.6) pg MCHC (32.2-35.4) g/dL RDW (11.5-15.5) % Plt Count (125-369) X10(3)uL MPV (7.4-10.4) fL Neut % (Auto) (46-82) % Lymph % (Auto) (13-37) % [place] % (Auto) (4-12) % Eos % (Auto) (1.0-5.0) % Baso % (Auto) (0-2) % Neut # (Auto) (1.6-8.3) # Lymph # (Auto) (0.6-5.0) # [place] # (Auto) (0.0-1.3) # Eos # (Auto) (0.0-0.8) # Baso # (Auto) (0.0-0.2) # ABG pH 7.38 (7.35-7.45) ABG pCO2 71 H* (35-45) mmHg ABG pO2 65 L (83-108) mmHg ABG HCO3 41 H (22-26) mmol/L ABG O2 Saturation 91 L (96-97) % ABG Base Excess 13.4 H (-2-2) Oliver Test Performed O2 Delivery Device Hi flow nasal cannu Sodium (135-145) mmol/L Potassium (3.5-5.3) mmol/L Chloride (100-110) mmol/L Carbon Dioxide (21-32) mmol/L BUN (7-18) mg/dL Creatinine (0.55-1.02) mg/dL Est Cr Clr Drug Dosing Estimated GFR (MDRD) (>60) BUN/Creatinine Ratio (9-20) Glucose (80-116) mg/dL Lactic Acid 1.1 (0.4-2.0) mmol/L Calcium (8.6-10.2) mg/dL Magnesium (1.8-2.5) mg/dL Troponin I 20.7 (4.0-60.3) pg/mL NT-Pro-B Natriuret Pep (<=450) pg/mL Meds: Medications Generic Name Dose Route Start Last Admin Trade Name Freq PRN Reason Stop Dose Admin Acetaminophen 325 mg 03/31/19 04:20 Tylenol PO Q4H PRN Pain/Fever Allopurinol 300 mg 04/01/19 09:00 Zyloprim PO DAILY [facility] Azithromycin 250 mg 03/31/19 18:00 Zithromax PO DAILY@1800 [facility] Diclofenac Sodium 1 gm 03/31/19 09:00 Voltaren 1% Gel TOP BID [facility] Docusate Sodium 100 mg 03/31/19 09:00 Colace PO DAILY [facility] Furosemide 80 mg 03/31/19 08:00 03/31/19 08:05 Lasix IVPUSH 80 mg Q8H [facility] Administration Hydroxyzine Pamoate 50 mg 03/31/19 04:17 Vistaril PO Q6H PRN Nausea/Vomiting Insulin Glargine 44 units 03/31/19 21:00 Lantus Solostar SUBCUT BEDTIME [facility] Insulin Human Lispro 5 - 7 unit 03/31/19 08:00 Humalog SUBCUT TIDMEALS [facility] Lisinopril 5 mg 04/01/19 09:00 Prinivil PO DAILY [facility] Metformin HCl 500 mg 04/01/19 08:00 Glucophage PO BIDMEALS [facility] Metolazone 2.5 mg 04/01/19 08:00 Zaroxolyn PO BIDDIURETIC [facility] Mometasone Furoate/Formoterol Fumar 2 puff 03/31/19 21:00 Dulera 200-5 Mcg IH BID [facility] Morphine Sulfate 15 mg 04/01/19 09:00 Morphine PO BID [facility] Ondansetron HCl 8 mg 03/31/19 01:42 Zofran Odt PO Q6H PRN nausea, able to take PO Pantoprazole Sodium 40 mg 04/01/19 06:00 Protonix PO DAILY@0600 [facility] Potassium Chloride 10 meq 03/31/19 09:00 Klor-Con 10 PO DAILY [facility] Prochlorperazine Maleate 10 mg 03/31/19 04:08 Compazine PO Q6H PRN Nausea/Vomiting Sodium Chloride 10 ml 03/31/19 01:42 03/31/19 08:11 Saline Flush FLUSH 10 ml ASDIRECTED PRN Administration Keep Vein Open Tramadol HCl 50 mg 03/31/19 04:22 Ultram PO QID PRN Pain Warfarin Sodium 5 mg 04/01/19 16:00 Coumadin PO 1600 [facility] Discontinued Medications Generic Name Dose Route Start Last Admin Trade Name Freq PRN Reason Stop Dose Admin Albuterol 2.5 mg 03/31/19 01:42 03/31/19 07:10 Proventil Neb Soln NEB 2.5 mg Q2H PRN Administration Shortness Of Breath/wheezing Albuterol 2.5 mg 03/31/19 07:10 03/31/19 07:10 Proventil Neb Soln NEB 03/31/19 07:11 2.5 mg ONETIME ONE Administration Albuterol/Ipratropium 3 ml 03/30/19 23:14 03/30/19 23:10 Duoneb 3.0-0.5 Mg/3 Ml NEB 03/30/19 23:15 3 ml ONETIME ONE Administration Albuterol/Ipratropium 3 ml 03/31/19 00:12 03/31/19 00:19 Duoneb 3.0-0.5 Mg/3 Ml NEB 03/31/19 00:13 3 ml ONETIME ONE Administration Furosemide 40 mg 03/30/19 23:16 03/30/19 23:25 Lasix IVPUSH 03/30/19 23:17 40 mg NOW ONE Administration Furosemide 80 mg 04/01/19 09:00 Lasix PO DAILY [facility] Guaifenesin 200 mg 03/31/19 01:10 03/31/19 02:38 Robitussin PO 03/31/19 01:11 200 mg ONETIME ONE Administration Hydroxyzine Pamoate 50 mg 03/31/19 02:00 03/31/19 02:40 Vistaril PO 50 mg Q6H [facility] Administration Magnesium Oxide 800 mg 03/31/19 00:50 03/31/19 01:31 Magnesium Oxide PO 03/31/19 00:51 800 mg ONETIME ONE Administration Methylprednisolone Sodium Succinate 125 mg 03/31/19 00:26 03/31/19 01:33 Solu-Medrol IVPUSH 03/31/19 00:27 125 mg ONETIME ONE Administration Mometasone Furoate/Formoterol Fumar 2 puff 03/31/19 07:00 03/31/19 06:33 Dulera 200-5 Mcg IH 2 puff BIDRT [facility] Administration Non-Formulary Medication 2 puff 04/01/19 09:00 Budesonide/Formoterol [Symbicort 160-4.5 Mcg] INH BID [facility] Non-Formulary Medication 100 mg 04/01/19 09:00 Docusate Sodium [Colace] PO DAILY [facility] Non-Formulary Medication 44 units 03/31/19 21:00 Insulin Detemir [Levemir] SUBCUT BEDTIME [facility] Non-Formulary Medication 40 mg 04/01/19 09:00 Omeprazole [Omeprazole] PO DAILY [facility] Non-Formulary Medication 10 meq 04/01/19 09:00 Potassium Chloride [Potassium Chloride] PO DAILY [facility] Pantoprazole Sodium 40 mg 03/31/19 07:30 03/31/19 06:34 Protonix PO 40 mg ACBREAKFAST [facility] Administration Prochlorperazine Maleate 10 mg 03/31/19 02:00 03/31/19 02:40 Compazine PO 10 mg Q6H [facility] Administration Sodium Chloride 10 ml 03/30/19 23:30 03/31/19 01:34 Saline Flush FLUSH 10 ml ASDIRECTED PRN Administration Keep Vein Open - Re-Assessments/Exams Free Text/Narrative Re-Assessment/Exam: 03/31/19 09:17 pt was given albuterol by EMS. On arrival had Duoneb and maintained oxygen saturation at 95-97% with 2 liters Pt was also [id number] of lasix and had 800cc of fluid , gradualy respiration improved , had a second duoneb and oxygen sat was manitained at 94-96% Despite CO2 retention pt did well decision was made to admit and continue with steroids, Neb and diuresis Departure - Departure Time of Disposition: 01:40 Disposition: Admitted As Inpatient 66 Condition: Fair Clinical Impression: SOB (shortness of breath), Hypoxemia, COPD (chronic obstructive pulmonary disease), DNR (do not resuscitate), Congestive heart failure - Discharge Information *PRESCRIPTION DRUG MONITORING PROGRAM REVIEWED*: Not Applicable *COPY OF PRESCRIPTION DRUG MONITORING REPORT IN PATIENT [place]CHITA: Not Applicable Sepsis Event Note - Focused Exam Vital Signs: Vital Signs Temp Pulse Pulse Resp BP BP Pulse Ox 03/31/19 01:50 36.3 C 90 20 110/62 90 L 03/31/19 01:40 36.4 C 80 20 106/72 97 03/31/19 01:20 97 03/31/19 00:50 94 L 03/31/19 00:30 94 L 03/31/19 00:00 98 03/30/19 23:40 96 03/30/19 23:30 94 L 03/30/19 23:10 36.3 C 95 24 H 115/71 91 L Date Exam was Performed: 03/31/19 Time Exam was Performed: 09:20 - My Orders Last 24 Hours: My Active Orders 03/30/19 23:14 RT Aerosol Therapy [RC] ASDIRECTED 03/30/19 23:16 Chest 1V Frontal [CR] Stat 03/31/19 01:42 Patient Status [ADT] Routine Bedrest Bathroom Privileges [RC] ASDIRECTED Blood Glucose Check, Bedside [RC] QIDACANDBED Height and Weight [RC] 06 Oxygen Therapy [RC] PRN Urinary Catheter Assessment [RC] QSHIFT VTE/DVT Education [RC] Per Unit Routine Vital Signs [RC] Q4H Ondansetron [Zofran ODT] 8 mg PO Q6H PRN Sodium Chloride 0.9% [Saline Flush] 10 ml FLUSH ASDIRECTED PRN Saline Lock Insert [OM.PC] Routine Resuscitation Status Routine 03/31/19 01:45 Cardiac Monitoring [RC] .As Directed Cardiac Monitoring [RC] INTERMITTENT Intake and Output [RC] QSHIFT 03/31/19 01:46 Pulse Oximetry [RC] PRN 03/31/19 08:00 Insulin Lispro [HumaLOG] 5 - 7 unit SUBCUT TIDMEALS 03/31/19 18:00 Azithromycin [Zithromax] 250 mg PO DAILY@1800 03/31/19 Breakfast Consistent Carbohydrate Diet [DIET] 04/01/19 05:11 BASIC METABOLIC PANEL,BMP [CHEM] AM INR,PT,PROTHROMBIN TIME [COAG] AM MAGNESIUM [CHEM] AM TROPONIN I [CHEM] AM 04/01/19 06:00 BLOOD GAS ARTERIAL [BG] Timed 04/01/19 08:00 metFORMIN [Glucophage] 500 mg PO BIDMEALS metOLazone [Zaroxolyn] 2.5 mg PO BIDDIURETIC 04/01/19 09:00 Morphine 15 mg PO BID allopurinoL [Zyloprim] 300 mg PO DAILY lisinopriL [Prinivil] 5 mg PO DAILY 04/01/19 16:00 Warfarin [Coumadin] 5 mg PO 1600 04/02/19 05:11 CBC WITH AUTO DIFF [HEME] AM INR,PT,PROTHROMBIN TIME [COAG] AM 04/03/19 05:11 INR,PT,PROTHROMBIN TIME [COAG] AM - Assessment/Plan Last 24 Hours: My Active Orders 03/30/19 23:14 RT Aerosol Therapy [RC] ASDIRECTED 03/30/19 23:16 Chest 1V Frontal [CR] Stat 03/31/19 01:42 Patient Status [ADT] Routine Bedrest Bathroom Privileges [RC] ASDIRECTED Blood Glucose Check, Bedside [RC] QIDACANDBED Height and Weight [RC] 06 Oxygen Therapy [RC] PRN Urinary Catheter Assessment [RC] QSHIFT VTE/DVT Education [RC] Per Unit Routine Vital Signs [RC] Q4H Ondansetron [Zofran ODT] 8 mg PO Q6H PRN Sodium Chloride 0.9% [Saline Flush] 10 ml FLUSH ASDIRECTED PRN Saline Lock Insert [OM.PC] Routine Resuscitation Status Routine 03/31/19 01:45 Cardiac Monitoring [RC] .As Directed Cardiac Monitoring [RC] INTERMITTENT Intake and Output [RC] QSHIFT 03/31/19 01:46 Pulse Oximetry [RC] PRN 03/31/19 08:00 Insulin Lispro [HumaLOG] 5 - 7 unit SUBCUT TIDMEALS 03/31/19 18:00 Azithromycin [Zithromax] 250 mg PO DAILY@1800 03/31/19 Breakfast Consistent Carbohydrate Diet [DIET] 04/01/19 05:11 BASIC METABOLIC PANEL,BMP [CHEM] AM INR,PT,PROTHROMBIN TIME [COAG] AM MAGNESIUM [CHEM] AM TROPONIN I [CHEM] AM 04/01/19 06:00 BLOOD GAS ARTERIAL [BG] Timed 04/01/19 08:00 metFORMIN [Glucophage] 500 mg PO BIDMEALS metOLazone [Zaroxolyn] 2.5 mg PO BIDDIURETIC 04/01/19 09:00 Morphine 15 mg PO BID allopurinoL [Zyloprim] 300 mg PO DAILY lisinopriL [Prinivil] 5 mg PO DAILY 04/01/19 16:00 Warfarin [Coumadin] 5 mg PO 1600 04/02/19 05:11 CBC WITH AUTO DIFF [HEME] AM INR,PT,PROTHROMBIN TIME [COAG] AM 04/03/19 05:11 INR,PT,PROTHROMBIN TIME [COAG] AM
[2019-03-31] MEDS ORDERED: Magnesium Oxide 400 MG Tab PO ONE (00:50)
[2019-03-31] MEDS ORDERED: guaiFENesin 100 MG/5 ML Soln 5 ML UD Cup PO ONE (01:10)
[2019-03-31] MEDS: Sodium Chloride 0.9% 10 ML Syringe FLUSH PRN ×3 (01:34→11:09)
[2019-03-31] MEDS ORDERED: Ondansetron 8 MG Tab.DIS PO PRN (01:42)
[2019-03-31] MEDS ORDERED: Non-Formulary Medication 1 Each (Diclofenac Sodium [Voltaren 1% Gel] 1 APPLIC) TOP PRN (01:54)
[2019-03-31] MEDS ORDERED: Prochlorperazine 10 MG Tab PO SCH (02:00)
[2019-03-31] MEDS ORDERED: Acetaminophen 325 MG Tab PO SCH (02:00)
[2019-03-31] MEDS ORDERED: Prochlorperazine 10 MG Tab PO PRN (04:08)
[2019-03-31] MEDS ORDERED: Acetaminophen 325 MG Tab PO PRN (04:20)
[2019-03-31] MEDS ORDERED: traMADol 50 MG Tab PO PRN (04:22)
[2019-03-31] MEDS: Albuterol 0.083% 2.5 MG/3 ML Neb Soln NEB PRN ×2 (06:35→07:10)
[2019-03-31] MEDS ORDERED: Formoterol/Mometasone 200-5 MCG 8.8 GM Inhaler IH SCH ×2 (07:00→21:00)
[2019-03-31] MEDS ORDERED: Albuterol 0.083% 2.5 MG/3 ML Neb Soln NEB ONE (07:10)
[2019-03-31] MEDS ORDERED: Pantoprazole 40 MG Tab.CR PO SCH (07:30)
[2019-03-31] MEDS ORDERED: Insulin Lispro 100 Unit/ML 3 ML KwikPen SUBCUT SCH (08:00)
[2019-03-31] MEDS: Furosemide 100 MG/10 ML SDV IVPUSH SCH ×2 (08:05→17:13)
[2019-03-31] MEDS ORDERED: Potassium Chloride 10 MEQ Tab.ER PO SCH (09:00)
[2019-03-31] MEDS ORDERED: Non-Formulary Medication 1 Each (Tramadol [Ultram] 50 MG) PO SCH (09:00)
[2019-03-31] MEDS ORDERED: Diclofenac Sodium 1% Gel 100 GM Tube TOP SCH (09:00)
[2019-03-31] MEDS ORDERED: Docusate Sodium 100 MG Cap PO SCH (09:00)
[2019-03-31] MEDS ORDERED: cefTRIAXone 2 GM in Sodium Chloride 0.9% 50 ML IV SCH (10:30)
[2019-03-31] MEDS ORDERED: Piperacillin/Tazobactam 3.375 GM in Sodium Chloride 0.9% 50 ML IV SCH (10:30)
--- NOTE | 2019-03-31 11:04 | CR ---
INDICATION: Short of breath. CHEST, ONE VIEW: AP upright view of the chest 03/30/2019 was compared with 01/2019 and 09/26/2017. The heart is enlarged. The aorta is tortuous with calcification in the arch. Bipolar pacemaker leads are again noted and appear unchanged in position. There is an appearance compatible with CHF and interstitial lung edema with prominence of upper lung for pulmonary vasculature. This appears less severe than on the last examination, however. Very poor inspiration emphasizes markings making it difficult to exclude areas of pneumonia in the lung bases where markings are particularly heavy. There also appears to be blunting of the right costophrenic angle raising question of a small pleural effusion - possible pleuritis. IMPRESSION: 1. Findings are compatible with ASHD, cardiomegaly with CHF, and mild interstitial lung edema. 2. Cannot exclude areas of pneumonia at both lung bases with possible pleuritis on the right. 3. Bipolar pacemaker leads appear unchanged in position. MTDD
[2019-03-31] MEDS: cefTRIAXone 2 GM Vial IVPUSH SCH (11:06)
[2019-03-31] MEDS: Sodium Chloride 0.9% 1,000 ML IV SCH (11:31)
[2019-03-31] MEDS: Enoxaparin 30 MG/0.3 ML Syringe SUBCUT SCH (11:31)
--- NOTE | 2019-03-31 13:11 | HP ---
ADMISSION DATE: 03/31/2019 REASON FOR VISIT: Severe respiratory distress. 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 Presented with complicated shortness of breath, increasing respiratory difficulty, troublesome cough of 3 days' duration, in the hospital for treatment. Supplemental O2 in place at home. MEDICATIONS: Reviewed and appropriate, significant in number. PAST SURGICAL HISTORY: Significant for previous adenoidectomy, cataract surgery, tonsillectomy, cholecystectomy, colon resection, hernia repair, remote hysterectomy, salpingo-oophorectomy, bilateral knee replacements, right hip replacement. CHRONIC DISEASES: Congestive heart failure, arrhythmia, complicated hypertension. 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 PHYSICAL EXAMINATION: GENERAL: Appears acutely ill. Limited speech. HEENT: Fundoscopic benign. Bright TMs. Clear nasal discharge. Mouth and oropharynx clear. NECK: Benign. Thyroid small. CHEST: Coarse rhonchi. Limited air exchange through all lung lr. HEART: Distant heart sounds. Soft murmur appreciated. ABDOMEN. Rotund. No hepatosplenomegaly. EXTREMITIES: Well perfused. IMAGING DATA: Chest x-ray, profound congestive heart failure. LABORATORY STUDIES: White count 8,400, hemoglobin 11.4, microcytic indices. PO2 of 65, pCO2 of 71, pH 7.38. Electrolytes satisfactory, carbon dioxide 43. Lactic acid 1.1. BNP 615. ASSESSMENT: Complicated congestive heart failure. PLAN: Medications, care, and treatment appropriate. Supportive measures. Supplemental O2, adjustments accordingly. /[id number] JOSE/VINOD
[2019-03-31] MEDS ORDERED: Nitroglycerin 0.4 MG/HR Transdermal Patch TRDERM SCH (17:30)
[2019-03-31] MEDS ORDERED: Azithromycin 250 MG Tab PO SCH (18:00)
[2019-03-31] MEDS: Nitroglycerin 0.4 MG/HR Transdermal Patch TRDERM SCH (20:59)
[2019-03-31] MEDS ORDERED: INSULIN DETEMIR 44 UNIT SUBCUT SCH (21:00)
[2019-03-31] MEDS ORDERED: Insulin Glargine,Human Rec. Analog 100 Units/ML 3 ML Pen SUBCUT SCH (21:00)
[2019-04-01] MEDS: Furosemide 100 MG/10 ML SDV IVPUSH SCH ×2 (00:50→10:57)
[2019-04-01] MEDS ORDERED: Pantoprazole 40 MG Tab.CR PO SCH (06:00)
[2019-04-01] MEDS: Sodium Chloride 0.9% 1,000 ML IV SCH (06:45)
[2019-04-01] MEDS ORDERED: Metolazone 2.5 MG Tab PO SCH (08:00)
[2019-04-01] MEDS ORDERED: metFORMIN 500 MG Tab PO SCH (08:00)
[2019-04-01] MEDS ORDERED: methylPREDNISolone Sodium Succinate 40 MG/1 ML SDV IVPUSH SCH (08:45)
[2019-04-01] MEDS: [UNRECOGNIZED DRUG - REMARK] TRDERM SCH (09:00)
[2019-04-01] MEDS ORDERED: Allopurinol 300 MG Tab PO SCH (09:00)
[2019-04-01] MEDS ORDERED: Morphine 15 MG Tab PO SCH (09:00)
[2019-04-01] MEDS ORDERED: Furosemide 80 MG Tab PO SCH (09:00)
[2019-04-01] MEDS ORDERED: Non-Formulary Medication 1 Each (Docusate Sodium [Colace] 100 MG) PO SCH (09:00)
[2019-04-01] MEDS ORDERED: Non-Formulary Medication 1 Each (Omeprazole [Omeprazole] 40 MG) PO SCH (09:00)
[2019-04-01] MEDS ORDERED: Non-Formulary Medication 1 Each (Budesonide/Formoterol [Symbicort 160-4.5 Mcg] 2 PUFF) INH SCH (09:00)
[2019-04-01] MEDS ORDERED: Lisinopril 5 MG Tab PO SCH (09:00)
[2019-04-01] MEDS ORDERED: Non-Formulary Medication 1 Each (Potassium Chloride [Potassium Chloride] 10 MEQ) PO SCH (09:00)
--- NOTE | 2019-04-01 09:28 | PN ---
DATE SEEN: 04/01/2019 SUBJECTIVE: Daly Turpin is a delightful 83-year-old female, admitted with an acute complicated congestive heart failure. Diuresis appears to be occurring. She is down about 6 pounds. Output has been satisfactory. Little more wakeful, little more alert, little more desirous of interventions and care. LABORATORY STUDIES: INR 4.63, Pro-Time 49.9. Arterial blood gases; 7.35, pCO2 of 86, PO2 of 53. Electrolytes were satisfactory. Carbon dioxide 45. O2 in place. Not tolerant of masks and intervention. PHYSICAL EXAMINATION: VITAL SIGNS: 36.3, 113.568 kg, 110/78, 93% on 4 L. GENERAL: More wakeful, speech was soft spoken but present. NECK: No JVD. CHEST: Diffuse coarse rhonchi lower 1/3rd of both lung lr anteriorly. HEART: Distant heart sounds. Soft murmur. ABDOMEN: Benign. ASSESSMENT: Congestive heart failure, improving. PLAN: We will reduce furosemide to 40 q.8 hours, nitroglycerin patch in place. We will add diet and intervention, echocardiogram, plan chest x-ray, followup. /[id number] JOSE/VINOD
[2019-04-01] MEDS: Furosemide 40 MG/4 ML VIAL IVPUSH SCH ×4 (10:00→18:24)
[2019-04-01] MEDS: methylPREDNISolone Sodium Succinate 40 MG/1 ML SDV IVPUSH SCH ×2 (10:45→18:24)
[2019-04-01] MEDS: cefTRIAXone 2 GM Vial IVPUSH SCH (11:04)
[2019-04-01] MEDS: Albuterol/Ipratropium 3.0-0.5 MG/3 ML Neb Soln NEB SCH ×3 (13:49→20:16)
[2019-04-01] MEDS ORDERED: Warfarin 5 MG Tab PO SCH (16:00)
--- NOTE | 2019-04-01 19:01 | CR ---
INDICATION: CHF. Dyspnea. CHEST ONE VIEW: Portable AP upright view of the chest x2 images was obtained and compared with 03/30/19 and 11/28/18 again revealing a very poor inspiration, cardiomegaly, prominent pulmonary vasculature and interstitial changes compatible with CHF and interstitial lung edema. In addition, there is now noted a moderately large pleural effusion on the right. The possibility of superimposed pneumonia - even aspiration-type pneumonia, cannot be excluded. Bipolar pacemaker leads are unchanged. Overlying EKG leads are noted. MTDD
[2019-04-01] MEDS: Nitroglycerin 0.4 MG/HR Transdermal Patch TRDERM SCH (20:04)
[2019-04-01] MEDS: Insulin Glargine,Human Rec. Analog 100 Units/ML 3 ML Pen SUBCUT SCH (21:42)
[2019-04-01] MEDS: Morphine 2 MG/ML Syringe IVPUSH PRN (22:11)
[2019-04-02] MEDS: Albuterol/Ipratropium 3.0-0.5 MG/3 ML Neb Soln NEB SCH ×6 (00:42→20:21)
[2019-04-02] MEDS: Sodium Chloride 0.9% 10 ML Syringe FLUSH PRN ×5 (00:49→23:49)
[2019-04-02] MEDS: Furosemide 40 MG/4 ML VIAL IVPUSH SCH ×3 (01:02→18:16)
[2019-04-02] MEDS: methylPREDNISolone Sodium Succinate 40 MG/1 ML SDV IVPUSH SCH ×3 (01:14→20:17)
[2019-04-02] MEDS: [UNRECOGNIZED DRUG - REMARK] TRDERM SCH (07:38)
--- NOTE | 2019-04-02 09:10 | PCM.PN ---
- General Info Date of Service: 04/02/19 Subjective Update: Patient states that she feels a little better. She still has difficulty breathing, cough, and is unable to finish complete sentences. She is at 4 L of oxygen supplementation by nasal cannula, from a baseline of 2 L. No chest pain and no fever has been reported. Functional Status: Reports: Pain Controlled, Tolerating Diet - Review of Systems HEENT: Denies: Post Nasal Drip, Sore Throat Pulmonary: Reports: Shortness of Breath, Cough Cardiovascular: Reports: Dyspnea on Exertion, Orthopnea, Edema Gastrointestinal: Reports: No Symptoms Genitourinary: Reports: No Symptoms Musculoskeletal: Reports: No Symptoms - Patient Data Vitals - Most Recent: Last Vital Signs Temp 97.4 F 04/02/19 07:32 Pulse 95 04/02/19 07:32 Resp 22 H 04/02/19 07:32 BP 116/80 04/02/19 07:32 Pulse Ox 96 04/02/19 07:32 Weight - Most Recent: 114.94 kg I&O - Last 24 Hours: Intake & Output 04/01/19 04/02/19 04/02/19 22:59 06:59 14:59 Intake Total 625 100 Output Total 550 400 Balance 75 -300 Lab Results Last 24 Hours: Laboratory Results - last 24 hr 04/01/19 04/01/19 04/01/19 Range/Units 05:20 11:49 20:01 WBC (4.5-12.0) X10-3/uL RBC (3.23-5.20) x10(6)uL Hgb (11.5-15.5) g/dL Hct (30.0-51.3) % MCV (80-96) fL MCH (27.7-33.6) pg MCHC (32.2-35.4) g/dL RDW (11.5-15.5) % Plt Count (125-369) X10(3)uL MPV (7.4-10.4) fL Add Manual Diff Neutrophils % (Manual) (46-82) % Lymphocytes % (Manual) (13-37) % Monocytes % (Manual) (4-12) % Anisocytosis PT (8.7-11.1) INR (0.89-1.13) Sodium (135-145) mmol/L Potassium (3.5-5.3) mmol/L Chloride (100-110) mmol/L Carbon Dioxide (21-32) mmol/L BUN (7-18) mg/dL Creatinine (0.55-1.02) mg/dL Est Cr Clr Drug Dosing mL/min Estimated GFR (MDRD) (>60) BUN/Creatinine Ratio (9-20) Glucose (80-116) mg/dL POC Glucose 153 H 203 H 336 H D (80-116) mg/dL Calcium (8.6-10.2) mg/dL Total Bilirubin (0.1-1.3) mg/dL AST (5-25) IU/L ALT (12-36) U/L Alkaline Phosphatase (56-112) IU/L Total Protein (6.0-8.0) g/dL Albumin (3.2-4.6) g/dL Globulin g/dL Albumin/Globulin Ratio 04/01/19 04/01/19 04/02/19 Range/Units 22:35 22:55 03:32 WBC (4.5-12.0) X10-3/uL RBC (3.23-5.20) x10(6)uL Hgb (11.5-15.5) g/dL Hct (30.0-51.3) % MCV (80-96) fL MCH (27.7-33.6) pg MCHC (32.2-35.4) g/dL RDW (11.5-15.5) % Plt Count (125-369) X10(3)uL MPV (7.4-10.4) fL Add Manual Diff Neutrophils % (Manual) (46-82) % Lymphocytes % (Manual) (13-37) % Monocytes % (Manual) (4-12) % Anisocytosis PT (8.7-11.1) INR (0.89-1.13) Sodium (135-145) mmol/L Potassium (3.5-5.3) mmol/L Chloride (100-110) mmol/L Carbon Dioxide (21-32) mmol/L BUN (7-18) mg/dL Creatinine (0.55-1.02) mg/dL Est Cr Clr Drug Dosing mL/min Estimated GFR (MDRD) (>60) BUN/Creatinine Ratio (9-20) Glucose 348 H D (80-116) mg/dL POC Glucose 410 H* 310 H D (80-116) mg/dL Calcium (8.6-10.2) mg/dL Total Bilirubin (0.1-1.3) mg/dL AST (5-25) IU/L ALT (12-36) U/L Alkaline Phosphatase (56-112) IU/L Total Protein (6.0-8.0) g/dL Albumin (3.2-4.6) g/dL Globulin g/dL Albumin/Globulin Ratio 04/02/19 04/02/19 04/02/19 Range/Units 05:39 06:10 06:10 WBC 6.9 (4.5-12.0) X10-3/uL RBC 4.40 (3.23-5.20) x10(6)uL Hgb 11.5 (11.5-15.5) g/dL Hct 38.3 (30.0-51.3) % MCV 87.1 (80-96) fL MCH 26.2 L (27.7-33.6) pg MCHC 30.1 L (32.2-35.4) g/dL RDW 17.4 H (11.5-15.5) % Plt Count 260 (125-369) X10(3)uL MPV 7.1 L (7.4-10.4) fL Add Manual Diff Yes Neutrophils % (Manual) 89 H (46-82) % Lymphocytes % (Manual) 8 L (13-37) % Monocytes % (Manual) 3 L (4-12) % Anisocytosis Few PT 24.5 H (8.7-11.1) INR 2.55 H (0.89-1.13) Sodium (135-145) mmol/L Potassium (3.5-5.3) mmol/L Chloride (100-110) mmol/L Carbon Dioxide (21-32) mmol/L BUN (7-18) mg/dL Creatinine (0.55-1.02) mg/dL Est Cr Clr Drug Dosing mL/min Estimated GFR (MDRD) (>60) BUN/Creatinine Ratio (9-20) Glucose (80-116) mg/dL POC Glucose 290 H (80-116) mg/dL Calcium (8.6-10.2) mg/dL Total Bilirubin (0.1-1.3) mg/dL AST (5-25) IU/L ALT (12-36) U/L Alkaline Phosphatase (56-112) IU/L Total Protein (6.0-8.0) g/dL Albumin (3.2-4.6) g/dL Globulin g/dL Albumin/Globulin Ratio 04/02/ Range/Units 06:10 WBC (4.5-12.0) X10-3/uL RBC (3.23-5.20) x10(6)uL Hgb (11.5-15.5) g/dL Hct (30.0-51.3) % MCV (80-96) fL MCH (27.7-33.6) pg MCHC (32.2-35.4) g/dL RDW (11.5-15.5) % Plt Count (125-369) X10(3)uL MPV (7.4-10.4) fL Add Manual Diff Neutrophils % (Manual) (46-82) % Lymphocytes % (Manual) (13-37) % Monocytes % (Manual) (4-12) % Anisocytosis PT (8.7-11.1) INR (0.89-1.13) Sodium 140 (135-145) mmol/L Potassium 4.4 (3.5-5.3) mmol/L Chloride 95 L (100-110) mmol/L Carbon Dioxide 46 H* (21-32) mmol/L BUN 60 H (7-18) mg/dL Creatinine 1.1 H (0.55-1.02) mg/dL Est Cr Clr Drug Dosing 34.87 mL/min Estimated GFR (MDRD) 47 L (>60) BUN/Creatinine Ratio 54.5 H (9-20) Glucose 269 H (80-116) mg/dL POC Glucose (80-116) mg/dL Calcium 8.5 L (8.6-10.2) mg/dL Total Bilirubin 0.4 (0.1-1.3) mg/dL AST 27 H D (5-25) IU/L ALT 44 H D (12-36) U/L Alkaline Phosphatase 129 H (56-112) IU/L Total Protein 6.6 (6.0-8.0) g/dL Albumin 3.0 L (3.2-4.6) g/dL Globulin 3.6 g/dL Albumin/Globulin Ratio 0.8 Med Orders - Current: Current Medications Acetaminophen (Tylenol) 325 mg PO Q4H PRN PRN Reason: Pain/Fever Albuterol/Ipratropium (Duoneb 3.0-0.5 Mg/3 Ml) 3 ml NEB QID [facility] Ceftriaxone Sodium (Rocephin) 2 gm IVPUSH Q24H [facility] Last Admin: 04/01/19 11:04 Dose: 2 gm Enoxaparin Sodium (Lovenox) 30 mg SUBCUT Q24H [facility] Last Admin: 03/31/19 11:31 Dose: 30 mg Furosemide (Lasix) 40 mg IVPUSH Q8H [facility] Last Admin: 04/02/19 01:02 Dose: 40 mg Insulin Glargine (Lantus Solostar) 40 units SUBCUT BEDTIME [facility] Last Admin: 04/01/19 21:42 Dose: 40 unit Methylprednisolone Sodium Succinate (Solu-Medrol) 40 mg IVPUSH Q8H [facility] Last Admin: 04/02/19 01:14 Dose: 40 mg Miscellaneous Information (Remove Patch) 1 ea TRDERM Q24H [facility] Last Admin: 04/02/19 07:38 Dose: 1 ea Morphine Sulfate (Morphine) 1 mg IVPUSH Q1H PRN PRN Reason: Dyspnea Last Admin: 04/01/19 22:11 Dose: 1 mg Nitroglycerin (Nitro-Dur 0.4 Mg/Hr) 0.4 mg TRDERM Q24H [facility] Last Admin: 04/01/19 20:04 Dose: 0.4 mg Sodium Chloride (Saline Flush) 10 ml FLUSH ASDIRECTED PRN PRN Reason: Keep Vein Open Last Admin: 04/02/19 00:49 Dose: 10 ml Discontinued Medications Albuterol (Proventil Neb Soln) 2.5 mg NEB Q2H PRN PRN Reason: Shortness Of Breath/wheezing Last Admin: 03/31/19 07:10 Dose: 2.5 mg Albuterol (Proventil Neb Soln) 2.5 mg NEB ONETIME ONE Stop: 03/31/19 07:11 Last Admin: 03/31/19 07:10 Dose: 2.5 mg Albuterol/Ipratropium (Duoneb 3.0-0.5 Mg/3 Ml) 3 ml NEB ONETIME ONE Stop: 03/30/19 23:15 Last Admin: 03/30/19 23:10 Dose: 3 ml Albuterol/Ipratropium (Duoneb 3.0-0.5 Mg/3 Ml) 3 ml NEB ONETIME ONE Stop: 03/31/19 00:13 Last Admin: 03/31/19 00:19 Dose: 3 ml Albuterol/Ipratropium (Duoneb 3.0-0.5 Mg/3 Ml) 3 ml NEB Q4H [facility] Last Admin: 04/02/19 05:33 Dose: 3 ml Allopurinol (Zyloprim) 300 mg PO DAILY [facility] Azithromycin (Zithromax) 250 mg PO DAILY@1800 [facility] Docusate Sodium (Colace) 100 mg PO DAILY [facility] Last Admin: 03/31/19 10:08 Dose: Not Given Furosemide (Lasix) 40 mg IVPUSH NOW ONE Stop: 03/30/19 23:17 Last Admin: 03/30/19 23:25 Dose: 40 mg Furosemide (Lasix) 80 mg PO DAILY [facility] Furosemide (Lasix) 80 mg IVPUSH Q8H [facility] Last Admin: 04/01/19 10:57 Dose: Not Given Furosemide (Lasix) 40 mg IVPUSH Q8H [facility] Last Admin: 04/01/19 10:57 Dose: Not Given Guaifenesin (Robitussin) 200 mg PO ONETIME ONE Stop: 03/31/19 01:11 Last Admin: 03/31/19 02:38 Dose: 200 mg Hydroxyzine Pamoate (Vistaril) 50 mg PO Q6H [facility] Last Admin: 03/31/19 02:40 Dose: 50 mg Hydroxyzine Pamoate (Vistaril) 50 mg PO Q6H PRN PRN Reason: Nausea/Vomiting Sodium Chloride (Normal Saline) 1,000 mls @ 50 mls/hr IV ASDIRECTED [facility] Last Admin: 04/01/19 06:45 Dose: 50 mls/hr Insulin Glargine (Lantus Solostar) 44 units SUBCUT BEDTIME [facility] Insulin Human Lispro (Humalog) 5 - 7 unit SUBCUT TIDMEALS [facility] Last Admin: 03/31/19 10:07 Dose: Not Given Lisinopril (Prinivil) 5 mg PO DAILY [facility] Magnesium Oxide (Magnesium Oxide) 800 mg PO ONETIME ONE Stop: 03/31/19 00:51 Last Admin: 03/31/19 01:31 Dose: 800 mg Metformin HCl (Glucophage) 500 mg PO BIDMEALS [facility] Methylprednisolone Sodium Succinate (Solu-Medrol) 125 mg IVPUSH ONETIME ONE Stop: 03/31/19 00:27 Last Admin: 03/31/19 01:33 Dose: 125 mg Methylprednisolone Sodium Succinate (Solu-Medrol) 40 mg IVPUSH Q8H [facility] Last Admin: 04/01/19 11:03 Dose: Not Given Metolazone (Zaroxolyn) 2.5 mg PO BIDDIURETIC [facility] Mometasone Furoate/Formoterol Fumar (Dulera 200-5 Mcg) 2 puff IH BIDRT [facility] Last Admin: 03/31/19 06:33 Dose: 2 puff Mometasone Furoate/Formoterol Fumar (Dulera 200-5 Mcg) 2 puff IH BID [facility] Morphine Sulfate (Morphine) 15 mg PO BID [facility] Nitroglycerin (Nitro-Dur 0.4 Mg/Hr) 0.4 mg TRDERM DAILY [facility] Last Admin: 04/01/19 20:18 Dose: Not Given Non-Formulary Medication (Budesonide/Formoterol [Symbicort 160-4.5 Mcg]) 2 puff INH BID [facility] Non-Formulary Medication (Docusate Sodium [Colace]) 100 mg PO DAILY [facility] Non-Formulary Medication (Insulin Detemir [Levemir]) 44 units SUBCUT BEDTIME [facility] Non-Formulary Medication (Omeprazole [Omeprazole]) 40 mg PO DAILY [facility] Non-Formulary Medication (Potassium Chloride [Potassium Chloride]) 10 meq PO DAILY [facility] Ondansetron HCl (Zofran Odt) 8 mg PO Q6H PRN PRN Reason: nausea, able to take PO Pantoprazole Sodium (Protonix) 40 mg PO ACBREAKFAST [facility] Last Admin: 03/31/19 06:34 Dose: 40 mg Pantoprazole Sodium (Protonix) 40 mg PO DAILY@0600 [facility] Potassium Chloride (Klor-Con 10) 10 meq PO DAILY [facility] Last Admin: 03/31/19 10:08 Dose: Not Given Prochlorperazine Maleate (Compazine) 10 mg PO Q6H [facility] Last Admin: 03/31/19 02:40 Dose: 10 mg Prochlorperazine Maleate (Compazine) 10 mg PO Q6H PRN PRN Reason: Nausea/Vomiting Sodium Chloride (Saline Flush) 10 ml FLUSH ASDIRECTED PRN PRN Reason: Keep Vein Open Last Admin: 03/31/19 01:34 Dose: 10 ml Tramadol HCl (Ultram) 50 mg PO QID PRN PRN Reason: Pain Warfarin Sodium (Coumadin) 5 mg PO 1600 RUBEN - Exam Quality Assessment: Supplemental Oxygen General: Oriented, Mild Distress HEENT: Pupils Equal Neck: Supple, No JVD Lungs: Crackles, Rales Cardiovascular: Murmurs. No: No Murmurs Extremities: Pedal Edema Skin: Warm Neurological: No New Focal Deficit Psy/Mental Status: Alert, Normal Affect Sepsis Event Note - Evaluation Sepsis Screening Result: No Definite Risk - Focused Exam Vital Signs: Vital Signs Temp Pulse Resp BP BP Pulse Ox Pulse Ox 04/02/19 07:32 97.4 F 95 22 H 116/80 96 04/02/19 05:34 93 04/02/19 03:10 88 24 H 129/72 95 04/02/19 03:00 04/02/19 01:00 96 04/02/19 00:51 92 92 L 04/02/19 00:00 96.6 F L 97 24 H 126/76 96 04/01/19 22:00 90 24 H 122/48 L 99 Pulse Ox 04/02/19 07:32 04/02/19 05:34 91 L 04/02/19 03:10 04/02/19 03:00 95 04/02/19 01:00 04/02/19 00:51 04/02/19 00:00 04/01/19 22:00 Date Exam was Performed: 04/02/19 Time Exam was Performed: 09:06 - Problem List & Annotations (1) Congestive heart failure SNOMED Code(s): 53006986 Code(s): I50.9 - HEART FAILURE, UNSPECIFIED Status: Acute Current Visit: Yes Qualifiers: Heart failure type: combined systolic and diastolic (2) Atrial fibrillation SNOMED Code(s): 92936783 Code(s): I48.91 - UNSPECIFIED ATRIAL FIBRILLATION Status: Chronic Current Visit: No Qualifiers: Atrial fibrillation type: longstanding persistent Qualified Code(s): I48.11 - Longstanding persistent atrial fibrillation (3) Pleural effusion SNOMED Code(s): 13611565 Code(s): J90 - PLEURAL EFFUSION, NOT ELSEWHERE CLASSIFIED Status: Acute Current Visit: No (4) Asthma SNOMED Code(s): 620528740 Code(s): J45.909 - UNSPECIFIED ASTHMA, UNCOMPLICATED Status: Chronic Current Visit: No Qualifiers: Asthma severity: moderate Asthma complication type: with acute exacerbation (5) CAD (coronary artery disease) SNOMED Code(s): 24890210 Code(s): I25.10 - ATHSCL HEART DISEASE OF [place] CORONARY ARTERY W/O ANG PCTRS Status: Chronic Current Visit: No Qualifiers: Associated angina: without angina (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 SNOMED Code(s): 294195322 Code(s): Z79.01 - SKILLED NURSING (CURRENT) USE OF ANTICOAGULANTS Status: Chronic Current Visit: No (7) Obesity (BMI 30-39.9) SNOMED Code(s): 980929022, 800134914 Code(s): E66.9 - OBESITY, UNSPECIFIED Status: Chronic Current Visit: No (8) Type 2 diabetes mellitus SNOMED Code(s): 94054288 Code(s): E11.9 - TYPE 2 DIABETES MELLITUS WITHOUT COMPLICATIONS Status: Chronic Current Visit: No - Problem List Review Problem List Initiated/Reviewed/Updated: Yes - My Orders Last 24 Hours: My Active Orders 04/03/19 05:11 BASIC METABOLIC PANEL,BMP [CHEM] AM CBC WITH AUTO DIFF [HEME] AM PRO B-TYPE NATRIUR PEPT,BNPPRO [CHEM] DAILY 04/03/19 08:00 CXR [Chest 2V] [CR] Routine 04/04/19 05:11 PRO B-TYPE NATRIUR PEPT,BNPPRO [CHEM] DAILY 04/05/19 05:11 PRO B-TYPE NATRIUR PEPT,BNPPRO [CHEM] DAILY - Plan Plan:: I reviewed the chest x-ray from yesterday that showed bilateral pleural effusions. She is on 40mg of Lasix 3 times a day. She'll also continue on DuoNeb's, and methylprednisolone. I will c with a plan to repeat labs the morning including a BNP. I will also repeat a chest x-ray also,and if the pleural effusion large enough CONSIDER thoracentesis.
[2019-04-02] MEDS ORDERED: Perflutren Lipid Microspheres 2.2 MG/2 ML SDV IVPUSH ONE (10:06)
[2019-04-02] MEDS: cefTRIAXone 2 GM Vial IVPUSH SCH (10:27)
[2019-04-02] MEDS: Nitroglycerin 0.4 MG/HR Transdermal Patch TRDERM SCH (20:20)
[2019-04-02] MEDS: Insulin Glargine,Human Rec. Analog 100 Units/ML 3 ML Pen SUBCUT SCH (20:36)
[2019-04-02] MEDS: Morphine 2 MG/ML Syringe IVPUSH PRN (23:49)
[2019-04-03] MEDS: Furosemide 40 MG/4 ML VIAL IVPUSH SCH ×3 (01:29→18:15)
[2019-04-03] MEDS: methylPREDNISolone Sodium Succinate 40 MG/1 ML SDV IVPUSH SCH ×2 (01:29→09:20)
[2019-04-03] MEDS: Sodium Chloride 0.9% 10 ML Syringe FLUSH PRN ×5 (01:29→18:15)
[2019-04-03] MEDS: Albuterol/Ipratropium 3.0-0.5 MG/3 ML Neb Soln NEB SCH ×4 (07:50→20:24)
[2019-04-03] MEDS: [UNRECOGNIZED DRUG - REMARK] TRDERM SCH (09:13)
[2019-04-03] MEDS ORDERED: Metolazone 5 MG Tab PO ONE (09:52)
--- NOTE | 2019-04-03 09:58 | PCM.PN ---
- General Info Date of Service: 04/03/19 Subjective Update: Patient is having difficulty breathing, is unable to lay down,and is in respiratory distress. - Review of Systems General: Reports: Weakness, Fatigue HEENT: Reports: No Symptoms Pulmonary: Reports: Shortness of Breath, Cough, Wheezing Gastrointestinal: Reports: No Symptoms Musculoskeletal: Reports: No Symptoms - Patient Data Vitals - Most Recent: Last Vital Signs Temp 97.4 F 04/03/19 03:57 Pulse 99 04/03/19 03:57 Resp 18 04/03/19 03:57 BP 131/86 04/03/19 03:57 Pulse Ox 96 04/03/19 03:57 Weight - Most Recent: 111.538 kg I&O - Last 24 Hours: Intake & Output 04/02/19 04/03/19 04/03/19 22:59 06:59 14:59 Intake Total 300 250 Output Total 800 750 Balance -500 -500 Lab Results Last 24 Hours: Laboratory Results - last 24 hr 04/02/19 04/02/19 04/02/19 Range/Units 11:47 18:00 20:33 WBC (4.5-12.0) X10-3/uL RBC (3.23-5.20) x10(6)uL Hgb (11.5-15.5) g/dL Hct (30.0-51.3) % MCV (80-96) fL MCH (27.7-33.6) pg MCHC (32.2-35.4) g/dL RDW (11.5-15.5) % Plt Count (125-369) X10(3)uL MPV (7.4-10.4) fL Neut % (Auto) (46-82) % Lymph % (Auto) (13-37) % Thomas % (Auto) (4-12) % Eos % (Auto) (1.0-5.0) % Baso % (Auto) (0-2) % Neut # (Auto) (1.6-8.3) # Lymph # (Auto) (0.6-5.0) # Thomas # (Auto) (0.0-1.3) # Eos # (Auto) (0.0-0.8) # Baso # (Auto) (0.0-0.2) # PT (8.7-11.1) INR (0.89-1.13) Sodium (135-145) mmol/L Potassium (3.5-5.3) mmol/L Chloride (100-110) mmol/L Carbon Dioxide (21-32) mmol/L BUN (7-18) mg/dL Creatinine (0.55-1.02) mg/dL Est Cr Clr Drug Dosing mL/min Estimated GFR (MDRD) (>60) BUN/Creatinine Ratio (9-20) Glucose (80-116) mg/dL POC Glucose 298 H 339 H 353 H (80-116) mg/dL Calcium (8.6-10.2) mg/dL NT-Pro-B Natriuret Pep (<=450) pg/mL 04/03/19 04/03/19 04/03/19 Range/Units 06:00 06:00 06:00 WBC 6.9 (4.5-12.0) X10-3/uL RBC 4.30 (3.23-5.20) x10(6)uL Hgb 11.5 (11.5-15.5) g/dL Hct 37.3 (30.0-51.3) % MCV 86.7 (80-96) fL MCH 26.8 L (27.7-33.6) pg MCHC 30.9 L (32.2-35.4) g/dL RDW 17.4 H (11.5-15.5) % Plt Count 227 (125-369) X10(3)uL MPV 7.2 L (7.4-10.4) fL Neut % (Auto) 94.4 H (46-82) % Lymph % (Auto) 2.5 L (13-37) % Thomas % (Auto) 2.0 L (4-12) % Eos % (Auto) 0 L (1.0-5.0) % Baso % (Auto) 1 (0-2) % Neut # (Auto) 6.5 (1.6-8.3) # Lymph # (Auto) 0.2 L (0.6-5.0) # Thomas # (Auto) 0.1 (0.0-1.3) # Eos # (Auto) 0.0 (0.0-0.8) # Baso # (Auto) 0.1 (0.0-0.2) # PT 17.8 H (8.7-11.1) INR 1.85 H (0.89-1.13) Sodium 140 (135-145) mmol/L Potassium 4.3 (3.5-5.3) mmol/L Chloride 96 L (100-110) mmol/L Carbon Dioxide 47 H* (21-32) mmol/L BUN 66 H (7-18) mg/dL Creatinine 1.0 (0.55-1.02) mg/dL Est Cr Clr Drug Dosing 38.36 mL/min Estimated GFR (MDRD) 53 L (>60) BUN/Creatinine Ratio 66.0 H (9-20) Glucose 278 H (80-116) mg/dL POC Glucose (80-116) mg/dL Calcium 9.0 (8.6-10.2) mg/dL NT-Pro-B Natriuret Pep (<=450) pg/mL 04/03/19 04/03/19 Range/Units 06:00 06:07 WBC (4.5-12.0) X10-3/uL RBC (3.23-5.20) x10(6)uL Hgb (11.5-15.5) g/dL Hct (30.0-51.3) % MCV (80-96) fL MCH (27.7-33.6) pg MCHC (32.2-35.4) g/dL RDW (11.5-15.5) % Plt Count (125-369) X10(3)uL MPV (7.4-10.4) fL Neut % (Auto) (46-82) % Lymph % (Auto) (13-37) % Thomas % (Auto) (4-12) % Eos % (Auto) (1.0-5.0) % Baso % (Auto) (0-2) % Neut # (Auto) (1.6-8.3) # Lymph # (Auto) (0.6-5.0) # Thomas # (Auto) (0.0-1.3) # Eos # (Auto) (0.0-0.8) # Baso # (Auto) (0.0-0.2) # PT (8.7-11.1) INR (0.89-1.13) Sodium (135-145) mmol/L Potassium (3.5-5.3) mmol/L Chloride (100-110) mmol/L Carbon Dioxide (21-32) mmol/L BUN (7-18) mg/dL Creatinine (0.55-1.02) mg/dL Est Cr Clr Drug Dosing mL/min Estimated GFR (MDRD) (>60) BUN/Creatinine Ratio (9-20) Glucose (80-116) mg/dL POC Glucose 267 H D (80-116) mg/dL Calcium (8.6-10.2) mg/dL NT-Pro-B Natriuret Pep 1749 H* (<=450) pg/mL Med Orders - Current: Current Medications Acetaminophen (Tylenol) 325 mg PO Q4H PRN PRN Reason: Pain/Fever Albuterol/Ipratropium (Duoneb 3.0-0.5 Mg/3 Ml) 3 ml NEB QID [facility] Last Admin: 04/03/19 07:50 Dose: 3 ml Ceftriaxone Sodium (Rocephin) 2 gm IVPUSH Q24H [facility] Last Admin: 04/02/19 10:27 Dose: 2 gm Enoxaparin Sodium (Lovenox) 30 mg SUBCUT Q24H [facility] Last Admin: 03/31/19 11:31 Dose: 30 mg Furosemide (Lasix) 40 mg IVPUSH Q8H [facility] Last Admin: 04/03/19 09:15 Dose: 40 mg Azithromycin 500 mg/ Sodium (Chloride) 250 mls @ 250 mls/hr IV Q24H [facility] Insulin Glargine (Lantus Solostar) 40 units SUBCUT BEDTIME [facility] Last Admin: 04/02/19 20:36 Dose: 40 unit Methylprednisolone Sodium Succinate (Solu-Medrol) 125 mg IVPUSH Q8H [facility] Metolazone (Zaroxolyn) 5 mg PO ONETIME ONE Stop: 04/03/19 09:53 Miscellaneous Information (Remove Patch) 1 ea TRDERM Q24H [facility] Last Admin: 04/03/19 09:13 Dose: 1 ea Morphine Sulfate (Morphine) 1 mg IVPUSH Q1H PRN PRN Reason: Dyspnea Last Admin: 04/02/19 23:49 Dose: 1 mg Nitroglycerin (Nitro-Dur 0.4 Mg/Hr) 0.4 mg TRDERM Q24H [facility] Last Admin: 04/02/19 20:20 Dose: 0.4 mg Sodium Chloride (Saline Flush) 10 ml FLUSH ASDIRECTED PRN PRN Reason: Keep Vein Open Last Admin: 04/03/19 09:15 Dose: 10 ml Discontinued Medications Albuterol (Proventil Neb Soln) 2.5 mg NEB Q2H PRN PRN Reason: Shortness Of Breath/wheezing Last Admin: 03/31/19 07:10 Dose: 2.5 mg Albuterol (Proventil Neb Soln) 2.5 mg NEB ONETIME ONE Stop: 03/31/19 07:11 Last Admin: 03/31/19 07:10 Dose: 2.5 mg Albuterol/Ipratropium (Duoneb 3.0-0.5 Mg/3 Ml) 3 ml NEB ONETIME ONE Stop: 03/30/19 23:15 Last Admin: 03/30/19 23:10 Dose: 3 ml Albuterol/Ipratropium (Duoneb 3.0-0.5 Mg/3 Ml) 3 ml NEB ONETIME ONE Stop: 03/31/19 00:13 Last Admin: 03/31/19 00:19 Dose: 3 ml Albuterol/Ipratropium (Duoneb 3.0-0.5 Mg/3 Ml) 3 ml NEB Q4H [facility] Last Admin: 04/02/19 05:33 Dose: 3 ml Allopurinol (Zyloprim) 300 mg PO DAILY [facility] Azithromycin (Zithromax) 250 mg PO DAILY@1800 [facility] Docusate Sodium (Colace) 100 mg PO DAILY [facility] Last Admin: 03/31/19 10:08 Dose: Not Given Furosemide (Lasix) 40 mg IVPUSH NOW ONE Stop: 03/30/19 23:17 Last Admin: 03/30/19 23:25 Dose: 40 mg Furosemide (Lasix) 80 mg PO DAILY [facility] Furosemide (Lasix) 80 mg IVPUSH Q8H [facility] Last Admin: 04/01/19 10:57 Dose: Not Given Furosemide (Lasix) 40 mg IVPUSH Q8H [facility] Last Admin: 04/01/19 10:57 Dose: Not Given Guaifenesin (Robitussin) 200 mg PO ONETIME ONE Stop: 03/31/19 01:11 Last Admin: 03/31/19 02:38 Dose: 200 mg Hydroxyzine Pamoate (Vistaril) 50 mg PO Q6H [facility] Last Admin: 03/31/19 02:40 Dose: 50 mg Hydroxyzine Pamoate (Vistaril) 50 mg PO Q6H PRN PRN Reason: Nausea/Vomiting Sodium Chloride (Normal Saline) 1,000 mls @ 50 mls/hr IV ASDIRECTED [facility] Last Admin: 04/01/19 06:45 Dose: 50 mls/hr Insulin Glargine (Lantus Solostar) 44 units SUBCUT BEDTIME [facility] Insulin Human Lispro (Humalog) 5 - 7 unit SUBCUT TIDMEALS [facility] Last Admin: 03/31/19 10:07 Dose: Not Given Lisinopril (Prinivil) 5 mg PO DAILY [facility] Magnesium Oxide (Magnesium Oxide) 800 mg PO ONETIME ONE Stop: 03/31/19 00:51 Last Admin: 03/31/19 01:31 Dose: 800 mg Metformin HCl (Glucophage) 500 mg PO BIDMEALS [facility] Methylprednisolone Sodium Succinate (Solu-Medrol) 125 mg IVPUSH ONETIME ONE Stop: 03/31/19 00:27 Last Admin: 03/31/19 01:33 Dose: 125 mg Methylprednisolone Sodium Succinate (Solu-Medrol) 40 mg IVPUSH Q8H [facility] Last Admin: 04/01/19 11:03 Dose: Not Given Methylprednisolone Sodium Succinate (Solu-Medrol) 40 mg IVPUSH Q8H [facility] Last Admin: 04/03/19 09:20 Dose: 40 mg Metolazone (Zaroxolyn) 2.5 mg PO BIDDIURETIC [facility] Mometasone Furoate/Formoterol Fumar (Dulera 200-5 Mcg) 2 puff IH BIDRT [facility] Last Admin: 03/31/19 06:33 Dose: 2 puff Mometasone Furoate/Formoterol Fumar (Dulera 200-5 Mcg) 2 puff IH BID [facility] Morphine Sulfate (Morphine) 15 mg PO BID [facility] Nitroglycerin (Nitro-Dur 0.4 Mg/Hr) 0.4 mg TRDERM DAILY [facility] Last Admin: 04/01/19 20:18 Dose: Not Given Non-Formulary Medication (Budesonide/Formoterol [Symbicort 160-4.5 Mcg]) 2 puff INH BID [facility] Non-Formulary Medication (Docusate Sodium [Colace]) 100 mg PO DAILY [facility] Non-Formulary Medication (Insulin Detemir [Levemir]) 44 units SUBCUT BEDTIME [facility] Non-Formulary Medication (Omeprazole [Omeprazole]) 40 mg PO DAILY [facility] Non-Formulary Medication (Potassium Chloride [Potassium Chloride]) 10 meq PO DAILY [facility] Ondansetron HCl (Zofran Odt) 8 mg PO Q6H PRN PRN Reason: nausea, able to take PO Pantoprazole Sodium (Protonix) 40 mg PO ACBREAKFAST [facility] Last Admin: 03/31/19 06:34 Dose: 40 mg Pantoprazole Sodium (Protonix) 40 mg PO DAILY@0600 [facility] Perflutren Lipid Microsphere (Definity) 2.2 mg IVPUSH PREPRO ONE Stop: 04/02/19 10:07 Last Admin: 04/02/19 10:45 Dose: 2.2 mg Potassium Chloride (Klor-Con 10) 10 meq PO DAILY [facility] Last Admin: 03/31/19 10:08 Dose: Not Given Prochlorperazine Maleate (Compazine) 10 mg PO Q6H [facility] Last Admin: 03/31/19 02:40 Dose: 10 mg Prochlorperazine Maleate (Compazine) 10 mg PO Q6H PRN PRN Reason: Nausea/Vomiting Sodium Chloride (Saline Flush) 10 ml FLUSH ASDIRECTED PRN PRN Reason: Keep Vein Open Last Admin: 03/31/19 01:34 Dose: 10 ml Tramadol HCl (Ultram) 50 mg PO QID PRN PRN Reason: Pain Warfarin Sodium (Coumadin) 5 mg PO 1600 [facility] - Exam Quality Assessment: Supplemental Oxygen General: Moderate Distress HEENT: Pupils Equal Lungs: Crackles Cardiovascular: Regular Rate GI/Abdominal Exam: Normal Bowel Sounds, Soft Extremities: Pedal Edema Sepsis Event Note - Evaluation Sepsis Screening Result: No Definite Risk - Focused Exam Vital Signs: Vital Signs Temp Pulse Resp BP Pulse Ox Pulse Ox 04/03/19 03:57 97.4 F 99 18 131/86 96 04/03/19 03:00 96 04/03/19 00:46 94 L 04/02/19 23:35 97.0 F 92 18 138/81 94 L Date Exam was Performed: 04/03/19 Time Exam was Performed: 09:55 - Problem List & Annotations (1) Congestive heart failure SNOMED Code(s): 96158814 Code(s): I50.9 - HEART FAILURE, UNSPECIFIED Status: Acute Current Visit: Yes Qualifiers: Heart failure type: combined systolic and diastolic (2) Atrial fibrillation SNOMED Code(s): 44471819 Code(s): I48.91 - UNSPECIFIED ATRIAL FIBRILLATION Status: Chronic Current Visit: No Qualifiers: Atrial fibrillation type: longstanding persistent Qualified Code(s): I48.11 - Longstanding persistent atrial fibrillation (3) Pleural effusion SNOMED Code(s): 54127285 Code(s): J90 - PLEURAL EFFUSION, NOT ELSEWHERE CLASSIFIED Status: Acute Current Visit: No (4) Asthma SNOMED Code(s): 642188062 Code(s): J45.909 - UNSPECIFIED ASTHMA, UNCOMPLICATED Status: Chronic Current Visit: No Qualifiers: Asthma severity: moderate Asthma complication type: with acute exacerbation (5) CAD (coronary artery disease) SNOMED Code(s): 95036905 Code(s): I25.10 - ATHSCL HEART DISEASE OF [place] CORONARY ARTERY W/O ANG PCTRS Status: Chronic Current Visit: No Qualifiers: Associated angina: without angina (6) [employer] current use of anticoagulant SNOMED Code(s): 823022063 Code(s): Z79.01 - RRT (CURRENT) USE OF ANTICOAGULANTS Status: Chronic Current Visit: No (7) Obesity (BMI 30-39.9) SNOMED Code(s): 062121831, 346635126 Code(s): E66.9 - OBESITY, UNSPECIFIED Status: Chronic Current Visit: No (8) Type 2 diabetes mellitus SNOMED Code(s): 93239118 Code(s): E11.9 - TYPE 2 DIABETES MELLITUS WITHOUT COMPLICATIONS Status: Chronic Current Visit: No - Problem List Review Problem List Initiated/Reviewed/Updated: Yes - My Orders Last 24 Hours: My Active Orders 04/03/19 08:31 Chest 1V Frontal [CR] Routine 04/03/19 09:29 Discontinue Telemetry Monitoring [Cardiac Monitoring Discontinue] [RC] Click to Edit 04/03/19 09:52 metOLazone [Zaroxolyn] 5 mg PO ONETIME ONE 04/03/19 09:54 Consult to Physician [CONS] Stat 04/03/19 09:55 Notify Provider Consults [RC] ASDIRECTED 04/03/19 10:00 Azithromycin [Zithromax] 500 mg Sodium Chloride 0.9% [Normal Saline (AdvBag)] 250 ml IV Q24H methylPREDNISolone Sod Succ [Solu-MEDROL] 125 mg IVPUSH Q8H 04/04/19 05:11 BASIC METABOLIC PANEL,BMP [CHEM] AM CBC WITH AUTO DIFF [HEME] AM PRO B-TYPE NATRIUR PEPT,BNPPRO [CHEM] DAILY 04/05/19 05:11 PRO B-TYPE NATRIUR PEPT,BNPPRO [CHEM] DAILY - Plan Plan:: I reviewed the chest x-ray from today that showed bilateral pleural effusions. I have increased Solumedrol dose,and started Azithromycin. Will consult Dr Winslow for consideration of thoracentesis
[2019-04-03] MEDS ORDERED: Azithromycin 500 MG in Sodium Chloride 0.9% 250 ML IV SCH (10:00)
--- NOTE | 2019-04-03 11:00 | PCM.OPNOTE ---
- General Post-Op/Procedure Note Date of Surgery/Procedure: 04/03/19 Operative Procedure(s): Right Thoracentesis Findings: 800cc thin yellow fluid aspirated from right pleural space Pre Op Diagnosis: CHF with pleural effusion Post-Op Diagnosis: Same Anesthesia Technique: Local Primary Surgeon: Stephane Winslow EBL in mLs: 2 Complications: None Condition: Good Free Text/Narrative:: Intake & Output 04/02/19 04/03/19 04/03/19 22:59 06:59 14:59 Intake Total 300 250 Output Total 800 750 Balance -500 -500
[2019-04-03] MEDS: cefTRIAXone 2 GM Vial IVPUSH SCH (11:26)
[2019-04-03 14:20] LABS: COMMENTS: COMMENTS
[2019-04-03] MEDS: methylPREDNISolone Sodium Succinate 125 MG/2 ML SDV IVPUSH SCH (18:20)
[2019-04-03] MEDS: Nitroglycerin 0.4 MG/HR Transdermal Patch TRDERM SCH (20:24)
[2019-04-03] MEDS: Insulin Glargine,Human Rec. Analog 100 Units/ML 3 ML Pen SUBCUT SCH (20:26)
[2019-04-04] MEDS: Furosemide 40 MG/4 ML VIAL IVPUSH SCH ×3 (01:33→20:51)
[2019-04-04] MEDS: Sodium Chloride 0.9% 10 ML Syringe FLUSH PRN ×8 (01:33→20:51)
[2019-04-04] MEDS: methylPREDNISolone Sodium Succinate 125 MG/2 ML SDV IVPUSH SCH ×3 (01:33→17:47)
[2019-04-04] MEDS: Morphine 2 MG/ML Syringe IVPUSH PRN ×3 (02:20→17:25)
[2019-04-04] MEDS: Albuterol/Ipratropium 3.0-0.5 MG/3 ML Neb Soln NEB SCH ×4 (08:10→20:29)
[2019-04-04] MEDS: [UNRECOGNIZED DRUG - REMARK] TRDERM SCH (08:25)
--- NOTE | 2019-04-04 09:10 | PCM.PN ---
- General Info Date of Service: 04/04/19 Subjective Update: Daly still having problems with breathing. She seated up this morning on chair having breakfast. Dr. Kong saw her yesterday and drained 800 mL of fluid from the right lung. There has been no fever or chills. Functional Status: Reports: Pain Controlled - Review of Systems General: Reports: No Symptoms HEENT: Reports: No Symptoms Pulmonary: Reports: Shortness of Breath, Cough Cardiovascular: Reports: Dyspnea on Exertion Gastrointestinal: Reports: No Symptoms - Patient Data Vitals - Most Recent: Last Vital Signs Temp 97.2 F 04/04/19 04:00 Pulse 91 04/04/19 04:00 Resp 20 04/04/19 04:00 BP 130/80 04/04/19 04:00 Pulse Ox 91 L 04/04/19 04:00 Weight - Most Recent: 109.089 kg I&O - Last 24 Hours: Intake & Output 04/03/19 04/04/19 04/04/19 22:59 06:59 14:59 Intake Total 325 350 Output Total 1200 2250 Balance -875 -1900 Lab Results Last 24 Hours: Laboratory Results - last 24 hr 04/03/19 04/03/19 04/03/19 Range/Units 11:00 11:23 18:28 WBC (4.5-12.0) X10-3/uL RBC (3.23-5.20) x10(6)uL Hgb (11.5-15.5) g/dL Hct (30.0-51.3) % MCV (80-96) fL MCH (27.7-33.6) pg MCHC (32.2-35.4) g/dL RDW (11.5-15.5) % Plt Count (125-369) X10(3)uL MPV (7.4-10.4) fL Add Manual Diff Neutrophils % (Manual) (46-82) % Lymphocytes % (Manual) (13-37) % Monocytes % (Manual) (4-12) % Hypersegmented Neuts Anisocytosis Sodium (135-145) mmol/L Potassium (3.5-5.3) mmol/L Chloride (100-110) mmol/L Carbon Dioxide (21-32) mmol/L BUN (7-18) mg/dL Creatinine (0.55-1.02) mg/dL Est Cr Clr Drug Dosing mL/min Estimated GFR (MDRD) (>60) BUN/Creatinine Ratio (9-20) Glucose (80-116) mg/dL POC Glucose 325 H 299 H (80-116) mg/dL Calcium (8.6-10.2) mg/dL NT-Pro-B Natriuret Pep (<=450) pg/mL Fluid Color Straw Fluid Clarity Clear Fluid RBC TNP Fluid Nucleated Cells TNP Fluid Neutrophils % 23.6 Fluid Lymphocytes 76.4 Fluid Eosinophils TNP Fluid Macrophages TNP Fluid Lining Cell TNP Fluid Comment Comments 04/03/19 04/04/19 04/04/19 Range/Units 20:22 06:04 06:15 WBC (4.5-12.0) X10-3/uL RBC (3.23-5.20) x10(6)uL Hgb (11.5-15.5) g/dL Hct (30.0-51.3) % MCV (80-96) fL MCH (27.7-33.6) pg MCHC (32.2-35.4) g/dL RDW (11.5-15.5) % Plt Count (125-369) X10(3)uL MPV (7.4-10.4) fL Add Manual Diff Neutrophils % (Manual) (46-82) % Lymphocytes % (Manual) (13-37) % Monocytes % (Manual) (4-12) % Hypersegmented Neuts Anisocytosis Sodium (135-145) mmol/L Potassium (3.5-5.3) mmol/L Chloride (100-110) mmol/L Carbon Dioxide (21-32) mmol/L BUN (7-18) mg/dL Creatinine (0.55-1.02) mg/dL Est Cr Clr Drug Dosing mL/min Estimated GFR (MDRD) (>60) BUN/Creatinine Ratio (9-20) Glucose (80-116) mg/dL POC Glucose 343 H 318 H (80-116) mg/dL Calcium (8.6-10.2) mg/dL NT-Pro-B Natriuret Pep 2804 H* (<=450) pg/mL Fluid Color Fluid Clarity Fluid RBC Fluid Nucleated Cells Fluid Neutrophils % Fluid Lymphocytes Fluid Eosinophils Fluid Macrophages Fluid Lining Cell Fluid Comment 04/04/19 04/04/19 Range/Units 06:15 06:15 WBC 6.3 (4.5-12.0) X10-3/uL RBC 4.40 (3.23-5.20) x10(6)uL Hgb 11.9 (11.5-15.5) g/dL Hct 37.9 (30.0-51.3) % MCV 86.1 (80-96) fL MCH 27.0 L (27.7-33.6) pg MCHC 31.4 L (32.2-35.4) g/dL RDW 17.1 H (11.5-15.5) % Plt Count 192 (125-369) X10(3)uL MPV 7.4 (7.4-10.4) fL Add Manual Diff Yes Neutrophils % (Manual) 90 H (46-82) % Lymphocytes % (Manual) 4 L (13-37) % Monocytes % (Manual) 6 (4-12) % Hypersegmented Neuts Moderate Anisocytosis Few Sodium 140 (135-145) mmol/L Potassium 3.9 (3.5-5.3) mmol/L Chloride 92 L (100-110) mmol/L Carbon Dioxide 49 H* (21-32) mmol/L BUN 64 H (7-18) mg/dL Creatinine 1.0 (0.55-1.02) mg/dL Est Cr Clr Drug Dosing 38.36 mL/min Estimated GFR (MDRD) 53 L (>60) BUN/Creatinine Ratio 64.0 H (9-20) Glucose 288 H (80-116) mg/dL POC Glucose (80-116) mg/dL Calcium 9.2 (8.6-10.2) mg/dL NT-Pro-B Natriuret Pep (<=450) pg/mL Fluid Color Fluid Clarity Fluid RBC Fluid Nucleated Cells Fluid Neutrophils % Fluid Lymphocytes Fluid Eosinophils Fluid Macrophages Fluid Lining Cell Fluid Comment Chava Results Last 24 Hours: Microbiology 04/03/19 11:00 Gram Stain - Final Pleural Fluid Body Fluid Culture - Preliminary No Growth Med Orders - Current: Current Medications Acetaminophen (Tylenol) 325 mg PO Q4H PRN PRN Reason: Pain/Fever Albuterol/Ipratropium (Duoneb 3.0-0.5 Mg/3 Ml) 3 ml NEB QID RUBEN Last Admin: 04/04/19 08:10 Dose: 3 ml Ceftriaxone Sodium (Rocephin) 2 gm IVPUSH Q24H [facility] Last Admin: 04/03/19 11:26 Dose: 2 gm Enoxaparin Sodium (Lovenox) 30 mg SUBCUT Q24H [facility] Last Admin: 03/31/19 11:31 Dose: 30 mg Furosemide (Lasix) 40 mg IVPUSH Q8H [facility] Last Admin: 04/04/19 01:33 Dose: 40 mg Azithromycin 500 mg/ Sodium (Chloride) 250 mls @ 250 mls/hr IV Q24H [facility] Insulin Glargine (Lantus Solostar) 50 units SUBCUT BEDTIME [facility] Last Admin: 04/03/19 20:26 Dose: 50 units Methylprednisolone Sodium Succinate (Solu-Medrol) 125 mg IVPUSH Q8H [facility] Last Admin: 04/04/19 08:35 Dose: 125 mg Miscellaneous Information (Remove Patch) 1 ea TRDERM Q24H [facility] Last Admin: 04/04/19 08:25 Dose: 1 ea Morphine Sulfate (Morphine) 1 mg IVPUSH Q1H PRN PRN Reason: Dyspnea Last Admin: 04/04/19 08:31 Dose: 1 mg Nitroglycerin (Nitro-Dur 0.4 Mg/Hr) 0.4 mg TRDERM Q24H [facility] Last Admin: 04/03/19 20:24 Dose: 0.4 mg Sodium Chloride (Saline Flush) 10 ml FLUSH ASDIRECTED PRN PRN Reason: Keep Vein Open Last Admin: 04/04/19 08:31 Dose: 10 ml Discontinued Medications Albuterol (Proventil Neb Soln) 2.5 mg NEB Q2H PRN PRN Reason: Shortness Of Breath/wheezing Last Admin: 03/31/19 07:10 Dose: 2.5 mg Albuterol (Proventil Neb Soln) 2.5 mg NEB ONETIME ONE Stop: 03/31/19 07:11 Last Admin: 03/31/19 07:10 Dose: 2.5 mg Albuterol/Ipratropium (Duoneb 3.0-0.5 Mg/3 Ml) 3 ml NEB ONETIME ONE Stop: 03/30/19 23:15 Last Admin: 03/30/19 23:10 Dose: 3 ml Albuterol/Ipratropium (Duoneb 3.0-0.5 Mg/3 Ml) 3 ml NEB ONETIME ONE Stop: 03/31/19 00:13 Last Admin: 03/31/19 00:19 Dose: 3 ml Albuterol/Ipratropium (Duoneb 3.0-0.5 Mg/3 Ml) 3 ml NEB Q4H [facility] Last Admin: 04/02/19 05:33 Dose: 3 ml Allopurinol (Zyloprim) 300 mg PO DAILY [facility] Azithromycin (Zithromax) 250 mg PO DAILY@1800 [facility] Docusate Sodium (Colace) 100 mg PO DAILY [facility] Last Admin: 03/31/19 10:08 Dose: Not Given Furosemide (Lasix) 40 mg IVPUSH NOW ONE Stop: 03/30/19 23:17 Last Admin: 03/30/19 23:25 Dose: 40 mg Furosemide (Lasix) 80 mg PO DAILY [facility] Furosemide (Lasix) 80 mg IVPUSH Q8H [facility] Last Admin: 04/01/19 10:57 Dose: Not Given Furosemide (Lasix) 40 mg IVPUSH Q8H [facility] Last Admin: 04/01/19 10:57 Dose: Not Given Guaifenesin (Robitussin) 200 mg PO ONETIME ONE Stop: 03/31/19 01:11 Last Admin: 03/31/19 02:38 Dose: 200 mg Hydroxyzine Pamoate (Vistaril) 50 mg PO Q6H [facility] Last Admin: 03/31/19 02:40 Dose: 50 mg Hydroxyzine Pamoate (Vistaril) 50 mg PO Q6H PRN PRN Reason: Nausea/Vomiting Sodium Chloride (Normal Saline) 1,000 mls @ 50 mls/hr IV ASDIRECTED [facility] Last Admin: 04/01/19 06:45 Dose: 50 mls/hr Azithromycin 500 mg/ Sodium (Chloride) 250 mls @ 250 mls/hr IV Q24H [facility] Last Admin: 04/03/19 11:40 Dose: 250 mls/hr Insulin Glargine (Lantus Solostar) 44 units SUBCUT BEDTIME [facility] Insulin Glargine (Lantus Solostar) 40 units SUBCUT BEDTIME [facility] Last Admin: 04/02/19 20:36 Dose: 40 unit Insulin Human Lispro (Humalog) 5 - 7 unit SUBCUT TIDMEALS [facility] Last Admin: 03/31/19 10:07 Dose: Not Given Lisinopril (Prinivil) 5 mg PO DAILY [facility] Magnesium Oxide (Magnesium Oxide) 800 mg PO ONETIME ONE Stop: 03/31/19 00:51 Last Admin: 03/31/19 01:31 Dose: 800 mg Metformin HCl (Glucophage) 500 mg PO BIDMEALS [facility] Methylprednisolone Sodium Succinate (Solu-Medrol) 125 mg IVPUSH ONETIME ONE Stop: 03/31/19 00:27 Last Admin: 03/31/19 01:33 Dose: 125 mg Methylprednisolone Sodium Succinate (Solu-Medrol) 40 mg IVPUSH Q8H [facility] Last Admin: 04/01/19 11:03 Dose: Not Given Methylprednisolone Sodium Succinate (Solu-Medrol) 40 mg IVPUSH Q8H [facility] Last Admin: 04/03/19 09:20 Dose: 40 mg Metolazone (Zaroxolyn) 2.5 mg PO BIDDIURETIC [facility] Metolazone (Zaroxolyn) 5 mg PO ONETIME ONE Stop: 04/03/19 09:53 Last Admin: 04/03/19 11:54 Dose: 5 mg Mometasone Furoate/Formoterol Fumar (Dulera 200-5 Mcg) 2 puff IH BIDRT [facility] Last Admin: 03/31/19 06:33 Dose: 2 puff Mometasone Furoate/Formoterol Fumar (Dulera 200-5 Mcg) 2 puff IH BID [facility] Morphine Sulfate (Morphine) 15 mg PO BID [facility] Nitroglycerin (Nitro-Dur 0.4 Mg/Hr) 0.4 mg TRDERM DAILY [facility] Last Admin: 04/01/19 20:18 Dose: Not Given Non-Formulary Medication (Budesonide/Formoterol [Symbicort 160-4.5 Mcg]) 2 puff INH BID [facility] Non-Formulary Medication (Docusate Sodium [Colace]) 100 mg PO DAILY [facility] Non-Formulary Medication (Insulin Detemir [Levemir]) 44 units SUBCUT BEDTIME [facility] Non-Formulary Medication (Omeprazole [Omeprazole]) 40 mg PO DAILY [facility] Non-Formulary Medication (Potassium Chloride [Potassium Chloride]) 10 meq PO DAILY [facility] Ondansetron HCl (Zofran Odt) 8 mg PO Q6H PRN PRN Reason: nausea, able to take PO Pantoprazole Sodium (Protonix) 40 mg PO ACBREAKFAST [facility] Last Admin: 03/31/19 06:34 Dose: 40 mg Pantoprazole Sodium (Protonix) 40 mg PO DAILY@0600 [facility] Perflutren Lipid Microsphere (Definity) 2.2 mg IVPUSH PREPRO ONE Stop: 04/02/19 10:07 Last Admin: 04/02/19 10:45 Dose: 2.2 mg Potassium Chloride (Klor-Con 10) 10 meq PO DAILY [facility] Last Admin: 03/31/19 10:08 Dose: Not Given Prochlorperazine Maleate (Compazine) 10 mg PO Q6H [facility] Last Admin: 03/31/19 02:40 Dose: 10 mg Prochlorperazine Maleate (Compazine) 10 mg PO Q6H PRN PRN Reason: Nausea/Vomiting Sodium Chloride (Saline Flush) 10 ml FLUSH ASDIRECTED PRN PRN Reason: Keep Vein Open Last Admin: 03/31/19 01:34 Dose: 10 ml Tramadol HCl (Ultram) 50 mg PO QID PRN PRN Reason: Pain Warfarin Sodium (Coumadin) 5 mg PO 1600 [facility] - Exam Quality Assessment: Supplemental Oxygen General: Alert, Mild Distress HEENT: Pupils Equal Lungs: Crackles, Rales Cardiovascular: Regular Rate Sepsis Event Note - Evaluation Sepsis Screening Result: No Definite Risk - Focused Exam Vital Signs: Vital Signs Temp Pulse Resp BP Pulse Ox Pulse Ox 04/04/19 04:00 97.2 F 91 20 130/80 91 L 04/04/19 01:00 96 96 04/04/19 00:00 97.1 F 98 20 129/76 95 Date Exam was Performed: 04/04/19 Time Exam was Performed: 09:08 - Problem List & Annotations (1) Congestive heart failure SNOMED Code(s): 54961365 Code(s): I50.9 - HEART FAILURE, UNSPECIFIED Status: Acute Current Visit: Yes Qualifiers: Heart failure type: combined systolic and diastolic (2) Atrial fibrillation SNOMED Code(s): 76058047 Code(s): I48.91 - UNSPECIFIED ATRIAL FIBRILLATION Status: Chronic Current Visit: No Qualifiers: Atrial fibrillation type: longstanding persistent Qualified Code(s): I48.11 - Longstanding persistent atrial fibrillation (3) Pleural effusion SNOMED Code(s): 07510720 Code(s): J90 - PLEURAL EFFUSION, NOT ELSEWHERE CLASSIFIED Status: Acute Current Visit: No (4) Asthma SNOMED Code(s): 233422151 Code(s): J45.909 - UNSPECIFIED ASTHMA, UNCOMPLICATED Status: Chronic Current Visit: No Qualifiers: Asthma severity: moderate Asthma complication type: with acute exacerbation (5) CAD (coronary artery disease) SNOMED Code(s): 39960423 Code(s): I25.10 - ATHSCL HEART DISEASE OF [place] CORONARY ARTERY W/O ANG PCTRS Status: Chronic Current Visit: No Qualifiers: Associated angina: without angina (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 SNOMED Code(s): 717159062 Code(s): 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 Status: Chronic Current Visit: No (7) Obesity (BMI 30-39.9) SNOMED Code(s): 827879636, 501824154 Code(s): E66.9 - OBESITY, UNSPECIFIED Status: Chronic Current Visit: No (8) Type 2 diabetes mellitus SNOMED Code(s): 99019686 Code(s): E11.9 - TYPE 2 DIABETES MELLITUS WITHOUT COMPLICATIONS Status: Chronic Current Visit: No - Problem List Review Problem List Initiated/Reviewed/Updated: Yes - My Orders Last 24 Hours: My Active Orders 04/03/19 08:31 Chest 1V Frontal [CR] Routine 04/03/19 09:54 Consult to Physician [CONS] Stat 04/03/19 11:00 CULTURE BODY FLUID + SMEAR [RM] Routine 04/03/19 17:00 methylPREDNISolone Sod Succ [Solu-MEDROL] 125 mg IVPUSH Q8H 04/03/19 21:00 Insulin Glarg,Human.Rec.Analog [LantUS Solostar] 50 units SUBCUT BEDTIME 04/04/19 12:00 Azithromycin [Zithromax] 500 mg Sodium Chloride 0.9% [Normal Saline (AdvBag)] 250 ml IV Q24H 04/05/19 05:11 BASIC METABOLIC PANEL,BMP [CHEM] AM CBC WITH AUTO DIFF [HEME] AM PRO B-TYPE NATRIUR PEPT,BNPPRO [CHEM] DAILY - Plan Plan:: Continue current therapy.Repeat Labs in AM
[2019-04-04] MEDS: cefTRIAXone 2 GM Vial IVPUSH SCH (10:13)
[2019-04-04] MEDS ORDERED: Azithromycin 500 MG in Sodium Chloride 0.9% 250 ML IV SCH (12:00)
[2019-04-04] MEDS: Nitroglycerin 0.4 MG/HR Transdermal Patch TRDERM SCH (20:15)
[2019-04-04] MEDS: Insulin Glargine,Human Rec. Analog 100 Units/ML 3 ML Pen SUBCUT SCH (20:31)
[2019-04-04] MEDS ORDERED: Insulin Lispro 100 Unit/ML 3 ML KwikPen SUBCUT ONE (21:23)
[2019-04-05] MEDS: methylPREDNISolone Sodium Succinate 125 MG/2 ML SDV IVPUSH SCH ×3 (01:48→17:31)
[2019-04-05] MEDS: Furosemide 40 MG/4 ML VIAL IVPUSH SCH ×3 (01:49→18:15)
[2019-04-05] MEDS: Sodium Chloride 0.9% 10 ML Syringe FLUSH PRN ×10 (01:49→22:31)
[2019-04-05] MEDS: Morphine 2 MG/ML Syringe IVPUSH PRN ×5 (05:27→22:30)
--- NOTE | 2019-04-05 08:31 | PCM.PN ---
- General Info Date of Service: 04/05/19 Subjective Update: Daly slept better. She is still short of breath, wheezing and needing 9 L of oxygen supplementation by nasal cannula. She still has edema but has good urine Output. She is more alert than she was yesterday. No fever or chest pain. - Review of Systems HEENT: Reports: No Symptoms Pulmonary: Reports: Shortness of Breath, Cough Cardiovascular: Reports: Dyspnea on Exertion, Orthopnea, PND, Edema Gastrointestinal: Reports: No Symptoms Genitourinary: Reports: No Symptoms Musculoskeletal: Reports: No Symptoms - Patient Data Vitals - Most Recent: Last Vital Signs Temp 97.8 F 04/05/19 04:00 Pulse 92 04/05/19 04:00 Resp 18 04/05/19 04:00 BP 121/76 04/05/19 04:00 Pulse Ox 93 L 04/05/19 04:00 Weight - Most Recent: 107.365 kg I&O - Last 24 Hours: Intake & Output 04/04/19 04/05/19 04/05/19 22:59 06:59 14:59 Intake Total 450 325 Output Total 1750 2150 Balance -1300 -1825 Lab Results Last 24 Hours: Laboratory Results - last 24 hr 04/04/19 04/04/19 04/04/19 Range/Units 11:12 17:57 20:13 WBC (4.5-12.0) X10-3/uL RBC (3.23-5.20) x10(6)uL Hgb (11.5-15.5) g/dL Hct (30.0-51.3) % MCV (80-96) fL MCH (27.7-33.6) pg MCHC (32.2-35.4) g/dL RDW (11.5-15.5) % Plt Count (125-369) X10(3)uL MPV (7.4-10.4) fL Add Manual Diff Neutrophils % (Manual) (46-82) % Lymphocytes % (Manual) (13-37) % Monocytes % (Manual) (4-12) % Hypersegmented Neuts Anisocytosis Sodium (135-145) mmol/L Potassium (3.5-5.3) mmol/L Chloride (100-110) mmol/L Carbon Dioxide (21-32) mmol/L BUN (7-18) mg/dL Creatinine (0.55-1.02) mg/dL Est Cr Clr Drug Dosing mL/min Estimated GFR (MDRD) (>60) BUN/Creatinine Ratio (9-20) Glucose 450 H* D (80-116) mg/dL POC Glucose 323 H 373 H (80-116) mg/dL Calcium (8.6-10.2) mg/dL NT-Pro-B Natriuret Pep (<=450) pg/mL 04/04/19 04/05/19 04/05/19 Range/Units 20:13 01:45 06:02 WBC (4.5-12.0) X10-3/uL RBC (3.23-5.20) x10(6)uL Hgb (11.5-15.5) g/dL Hct (30.0-51.3) % MCV (80-96) fL MCH (27.7-33.6) pg MCHC (32.2-35.4) g/dL RDW (11.5-15.5) % Plt Count (125-369) X10(3)uL MPV (7.4-10.4) fL Add Manual Diff Neutrophils % (Manual) (46-82) % Lymphocytes % (Manual) (13-37) % Monocytes % (Manual) (4-12) % Hypersegmented Neuts Anisocytosis Sodium (135-145) mmol/L Potassium (3.5-5.3) mmol/L Chloride (100-110) mmol/L Carbon Dioxide (21-32) mmol/L BUN (7-18) mg/dL Creatinine (0.55-1.02) mg/dL Est Cr Clr Drug Dosing mL/min Estimated GFR (MDRD) (>60) BUN/Creatinine Ratio (9-20) Glucose (80-116) mg/dL POC Glucose 471 H* D 369 H D 277 H D (80-116) mg/dL Calcium (8.6-10.2) mg/dL NT-Pro-B Natriuret Pep (<=450) pg/mL 04/05/19 04/05/19 04/05/19 Range/Units 06:55 06:55 06:55 WBC 6.7 (4.5-12.0) X10-3/uL RBC 4.45 (3.23-5.20) x10(6)uL Hgb 11.8 (11.5-15.5) g/dL Hct 38.6 (30.0-51.3) % MCV 86.7 (80-96) fL MCH 26.4 L (27.7-33.6) pg MCHC 30.5 L (32.2-35.4) g/dL RDW 17.1 H (11.5-15.5) % Plt Count 195 (125-369) X10(3)uL MPV 7.4 (7.4-10.4) fL Add Manual Diff Yes Neutrophils % (Manual) 92 H (46-82) % Lymphocytes % (Manual) 5 L (13-37) % Monocytes % (Manual) 3 L (4-12) % Hypersegmented Neuts Many Anisocytosis Few Sodium 143 (135-145) mmol/L Potassium 3.7 (3.5-5.3) mmol/L Chloride 93 L (100-110) mmol/L Carbon Dioxide 54 H* (21-32) mmol/L BUN 68 H (7-18) mg/dL Creatinine 1.0 (0.55-1.02) mg/dL Est Cr Clr Drug Dosing 38.36 mL/min Estimated GFR (MDRD) 53 L (>60) BUN/Creatinine Ratio 68.0 H (9-20) Glucose 245 H D (80-116) mg/dL POC Glucose (80-116) mg/dL Calcium 9.8 (8.6-10.2) mg/dL NT-Pro-B Natriuret Pep 3303 H* (<=450) pg/mL Chava Results Last 24 Hours: Microbiology 04/03/19 11:00 Gram Stain - Final Pleural Fluid Body Fluid Culture - Preliminary NO GROWTH AFTER 2 DAYS Med Orders - Current: Current Medications Acetaminophen (Tylenol) 325 mg PO Q4H PRN PRN Reason: Pain/Fever Last Admin: 04/04/19 17:24 Dose: 325 mg Albuterol/Ipratropium (Duoneb 3.0-0.5 Mg/3 Ml) 3 ml NEB QID [facility] Last Admin: 04/04/19 20:29 Dose: 3 ml Enoxaparin Sodium (Lovenox) 30 mg SUBCUT Q24H [facility] Last Admin: 03/31/19 11:31 Dose: 30 mg Furosemide (Lasix) 40 mg IVPUSH Q8H [facility] Last Admin: 04/05/19 01:49 Dose: 40 mg Insulin Glargine (Lantus Solostar) 50 units SUBCUT BEDTIME [facility] Last Admin: 04/04/19 20:31 Dose: 50 units Methylprednisolone Sodium Succinate (Solu-Medrol) 125 mg IVPUSH Q8H [facility] Last Admin: 04/05/19 01:48 Dose: 125 mg Metolazone (Zaroxolyn) 5 mg PO DAILY [facility] Miscellaneous Information (Remove Patch) 1 ea TRDERM Q24H [facility] Last Admin: 04/04/19 08:25 Dose: 1 ea Morphine Sulfate (Morphine) 1 mg IVPUSH Q1H PRN PRN Reason: Dyspnea Last Admin: 04/05/19 05:27 Dose: 1 mg Nitroglycerin (Nitro-Dur 0.4 Mg/Hr) 0.4 mg TRDERM Q24H [facility] Last Admin: 04/04/19 20:15 Dose: 0.4 mg Sodium Chloride (Saline Flush) 10 ml FLUSH ASDIRECTED PRN PRN Reason: Keep Vein Open Last Admin: 04/05/19 05:28 Dose: 10 ml Discontinued Medications Albuterol (Proventil Neb Soln) 2.5 mg NEB Q2H PRN PRN Reason: Shortness Of Breath/wheezing Last Admin: 03/31/19 07:10 Dose: 2.5 mg Albuterol (Proventil Neb Soln) 2.5 mg NEB ONETIME ONE Stop: 03/31/19 07:11 Last Admin: 03/31/19 07:10 Dose: 2.5 mg Albuterol/Ipratropium (Duoneb 3.0-0.5 Mg/3 Ml) 3 ml NEB ONETIME ONE Stop: 03/30/19 23:15 Last Admin: 03/30/19 23:10 Dose: 3 ml Albuterol/Ipratropium (Duoneb 3.0-0.5 Mg/3 Ml) 3 ml NEB ONETIME ONE Stop: 03/31/19 00:13 Last Admin: 03/31/19 00:19 Dose: 3 ml Albuterol/Ipratropium (Duoneb 3.0-0.5 Mg/3 Ml) 3 ml NEB Q4H [facility] Last Admin: 04/02/19 05:33 Dose: 3 ml Allopurinol (Zyloprim) 300 mg PO DAILY [facility] Azithromycin (Zithromax) 250 mg PO DAILY@1800 [facility] Ceftriaxone Sodium (Rocephin) 2 gm IVPUSH Q24H [facility] Last Admin: 04/04/19 10:13 Dose: 2 gm Docusate Sodium (Colace) 100 mg PO DAILY [facility] Last Admin: 03/31/19 10:08 Dose: Not Given Furosemide (Lasix) 40 mg IVPUSH NOW ONE Stop: 03/30/19 23:17 Last Admin: 03/30/19 23:25 Dose: 40 mg Furosemide (Lasix) 80 mg PO DAILY [facility] Furosemide (Lasix) 80 mg IVPUSH Q8H [facility] Last Admin: 04/01/19 10:57 Dose: Not Given Furosemide (Lasix) 40 mg IVPUSH Q8H [facility] Last Admin: 04/01/19 10:57 Dose: Not Given Guaifenesin (Robitussin) 200 mg PO ONETIME ONE Stop: 03/31/19 01:11 Last Admin: 03/31/19 02:38 Dose: 200 mg Hydroxyzine Pamoate (Vistaril) 50 mg PO Q6H [facility] Last Admin: 03/31/19 02:40 Dose: 50 mg Hydroxyzine Pamoate (Vistaril) 50 mg PO Q6H PRN PRN Reason: Nausea/Vomiting Sodium Chloride (Normal Saline) 1,000 mls @ 50 mls/hr IV ASDIRECTED [facility] Last Admin: 04/01/19 06:45 Dose: 50 mls/hr Azithromycin 500 mg/ Sodium (Chloride) 250 mls @ 250 mls/hr IV Q24H [facility] Last Admin: 04/03/19 11:40 Dose: 250 mls/hr Azithromycin 500 mg/ Sodium (Chloride) 250 mls @ 250 mls/hr IV Q24H [facility] Last Admin: 04/04/19 13:09 Dose: 250 mls/hr Insulin Glargine (Lantus Solostar) 44 units SUBCUT BEDTIME [facility] Insulin Glargine (Lantus Solostar) 40 units SUBCUT BEDTIME [facility] Last Admin: 04/02/19 20:36 Dose: 40 unit Insulin Human Lispro (Humalog) 5 - 7 unit SUBCUT TIDMEALS [facility] Last Admin: 03/31/19 10:07 Dose: Not Given Insulin Human Lispro (Humalog) 0 unit SUBCUT ONETIME ONE Stop: 04/04/19 21:24 Last Admin: 04/04/19 21:52 Dose: 8 units Lisinopril (Prinivil) 5 mg PO DAILY [facility] Magnesium Oxide (Magnesium Oxide) 800 mg PO ONETIME ONE Stop: 03/31/19 00:51 Last Admin: 03/31/19 01:31 Dose: 800 mg Metformin HCl (Glucophage) 500 mg PO BIDMEALS [facility] Methylprednisolone Sodium Succinate (Solu-Medrol) 125 mg IVPUSH ONETIME ONE Stop: 03/31/19 00:27 Last Admin: 03/31/19 01:33 Dose: 125 mg Methylprednisolone Sodium Succinate (Solu-Medrol) 40 mg IVPUSH Q8H [facility] Last Admin: 04/01/19 11:03 Dose: Not Given Methylprednisolone Sodium Succinate (Solu-Medrol) 40 mg IVPUSH Q8H [facility] Last Admin: 04/03/19 09:20 Dose: 40 mg Metolazone (Zaroxolyn) 2.5 mg PO BIDDIURETIC [facility] Metolazone (Zaroxolyn) 5 mg PO ONETIME ONE Stop: 04/03/19 09:53 Last Admin: 04/03/19 11:54 Dose: 5 mg Mometasone Furoate/Formoterol Fumar (Dulera 200-5 Mcg) 2 puff IH BIDRT [facility] Last Admin: 03/31/19 06:33 Dose: 2 puff Mometasone Furoate/Formoterol Fumar (Dulera 200-5 Mcg) 2 puff IH BID [facility] Morphine Sulfate (Morphine) 15 mg PO BID [facility] Nitroglycerin (Nitro-Dur 0.4 Mg/Hr) 0.4 mg TRDERM DAILY [facility] Last Admin: 04/01/19 20:18 Dose: Not Given Non-Formulary Medication (Budesonide/Formoterol [Symbicort 160-4.5 Mcg]) 2 puff INH BID [facility] Non-Formulary Medication (Docusate Sodium [Colace]) 100 mg PO DAILY [facility] Non-Formulary Medication (Insulin Detemir [Levemir]) 44 units SUBCUT BEDTIME [facility] Non-Formulary Medication (Omeprazole [Omeprazole]) 40 mg PO DAILY [facility] Non-Formulary Medication (Potassium Chloride [Potassium Chloride]) 10 meq PO DAILY [facility] Ondansetron HCl (Zofran Odt) 8 mg PO Q6H PRN PRN Reason: nausea, able to take PO Pantoprazole Sodium (Protonix) 40 mg PO ACBREAKFAST [facility] Last Admin: 03/31/19 06:34 Dose: 40 mg Pantoprazole Sodium (Protonix) 40 mg PO DAILY@0600 [facility] Perflutren Lipid Microsphere (Definity) 2.2 mg IVPUSH PREPRO ONE Stop: 04/02/19 10:07 Last Admin: 04/02/19 10:45 Dose: 2.2 mg Potassium Chloride (Klor-Con 10) 10 meq PO DAILY [facility] Last Admin: 03/31/19 10:08 Dose: Not Given Prochlorperazine Maleate (Compazine) 10 mg PO Q6H [facility] Last Admin: 03/31/19 02:40 Dose: 10 mg Prochlorperazine Maleate (Compazine) 10 mg PO Q6H PRN PRN Reason: Nausea/Vomiting Sodium Chloride (Saline Flush) 10 ml FLUSH ASDIRECTED PRN PRN Reason: Keep Vein Open Last Admin: 03/31/19 01:34 Dose: 10 ml Tramadol HCl (Ultram) 50 mg PO QID PRN PRN Reason: Pain Warfarin Sodium (Coumadin) 5 mg PO 1600 [facility] - Exam Quality Assessment: Supplemental Oxygen General: Lethargic HEENT: Pupils Equal Neck: Supple Lungs: Rales, Rhonchi Cardiovascular: Regular Rate Extremities: Pedal Edema Sepsis Event Note - Evaluation Sepsis Screening Result: No Definite Risk - Focused Exam Vital Signs: Vital Signs Temp Pulse Resp BP Pulse Ox Pulse Ox 04/05/19 04:00 97.8 F 92 18 121/76 93 L 04/05/19 01:00 97 97 04/04/19 23:40 97.6 F 92 19 139/72 97 Date Exam was Performed: 04/05/19 Time Exam was Performed: 08:28 - Problem List & Annotations (1) Congestive heart failure SNOMED Code(s): 50298988 Code(s): I50.9 - HEART FAILURE, UNSPECIFIED Status: Acute Current Visit: Yes Qualifiers: Heart failure type: combined systolic and diastolic (2) Atrial fibrillation SNOMED Code(s): 04060523 Code(s): I48.91 - UNSPECIFIED ATRIAL FIBRILLATION Status: Chronic Current Visit: No Qualifiers: Atrial fibrillation type: longstanding persistent Qualified Code(s): I48.11 - Longstanding persistent atrial fibrillation (3) Pleural effusion SNOMED Code(s): 26430053 Code(s): J90 - PLEURAL EFFUSION, NOT ELSEWHERE CLASSIFIED Status: Acute Current Visit: No (4) Asthma SNOMED Code(s): 063375981 Code(s): J45.909 - UNSPECIFIED ASTHMA, UNCOMPLICATED Status: Chronic Current Visit: No Qualifiers: Asthma severity: moderate Asthma complication type: with acute exacerbation (5) CAD (coronary artery disease) SNOMED Code(s): 63359241 Code(s): I25.10 - ATHSCL HEART DISEASE OF [place] CORONARY ARTERY W/O ANG PCTRS Status: Chronic Current Visit: No Qualifiers: Associated angina: without angina (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 SNOMED Code(s): 984344828 Code(s): Z79.01 - 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 Status: Chronic Current Visit: No (7) Obesity (BMI 30-39.9) SNOMED Code(s): 363752438, 120146613 Code(s): E66.9 - OBESITY, UNSPECIFIED Status: Chronic Current Visit: No (8) Type 2 diabetes mellitus SNOMED Code(s): 22779358 Code(s): E11.9 - TYPE 2 DIABETES MELLITUS WITHOUT COMPLICATIONS Status: Chronic Current Visit: No - Problem List Review Problem List Initiated/Reviewed/Updated: Yes - My Orders Last 24 Hours: My Active Orders 04/05/19 08:27 CXR [Chest 1V Frontal] [CR] Urgent 04/05/19 09:00 metOLazone [Zaroxolyn] 5 mg PO DAILY 04/06/19 05:11 BASIC METABOLIC PANEL,BMP [CHEM] AM CBC WITH AUTO DIFF [HEME] AM PRO B-TYPE NATRIUR PEPT,BNPPRO [CHEM] DAILY 04/07/19 05:11 PRO B-TYPE NATRIUR PEPT,BNPPRO [CHEM] DAILY 04/08/19 05:11 PRO B-TYPE NATRIUR PEPT,BNPPRO [CHEM] DAILY - Plan Plan:: I will increase digresses by adding Zaroxolyn. Repeat labs the morning. Do a chest x-ray today. Continue current therapy including Lasix 40 mg 3 times a day. Discontinue antibiotics as I see no convincing sign of infection
[2019-04-05] MEDS: [UNRECOGNIZED DRUG - REMARK] TRDERM SCH (08:33)
[2019-04-05] MEDS: Albuterol/Ipratropium 3.0-0.5 MG/3 ML Neb Soln NEB SCH ×4 (08:36→21:37)
[2019-04-05] MEDS: Metolazone 5 MG Tab PO SCH (08:57)
[2019-04-05] MEDS: Clotrimazole 1% Crm 15 GM Tube TOP SCH ×2 (08:58→21:36)
[2019-04-05] MEDS: Enoxaparin 30 MG/0.3 ML Syringe SUBCUT SCH (10:58)
--- NOTE | 2019-04-05 12:51 | PROC ---
DATE OF PROCEDURE: 04/03/2019 PROCEDURE: RIGHT THORACENTESIS. This 83-year-old female has been admitted with shortness of breath. Chest x- rays have shown progressive worsening of her bilateral infiltrates and pleural effusion, especially on the right. She is having increasing difficulty with breathing, and a thoracentesis was requested. Her past medical history includes diagnoses of COPD, congestive heart failure, and she is anticoagulated on warfarin. This morning, her INR has come down to a level of 1.85. Examination shows an elderly female demonstrating shortness of breath and some lethargy. She is able to respond appropriately, and the proposed thoracentesis is discussed with her, including indications and risks, which she agrees to accept and consents to right thoracentesis. Examination of her lungs does show significant decreased breath sounds on both sides, but no significant air exchange is noted in the lower part of the right lung field. The right side of the patient's back was sterilely prepped, draped, and a point in the midportion of the back is chosen. It is difficult, from review of her x- rays, to identify the exact location of her diaphragm. An ultrasound is not available at this time, so reasonable estimate of the location to access the lower pleural space is chosen. The skin and subcutaneous tissue are infiltrated with Marcaine. A small incision is made, and a thoracentesis catheter was carefully advanced to the area of the rib, which is easily palpable. Then, the catheter was moved up over the top of the rib and gently advanced into the pleural space. Aspiration yielded thin yellow fluid, and aspiration is continued until approximately 800 mL of this fluid is aspirated from the right pleural space. No blood is noted during the aspiration. The patient did have some coughing near the close of the procedure. Once the flow of fluid stopped, the catheter was removed and no significant bleeding was noted from the site. A post procedure chest x-ray was obtained, showing significant improvement in the fluid on the right side of the patient's chest and no evidence of complication. The patient tolerated the procedure well. Findings are relayed to Dr. Bartlett, and orders are submitted by him for analysis of the pleural fluid. /[id number] CHRISTIANO/VINOD FLOYD
[2019-04-05] MEDS: Nitroglycerin 0.4 MG/HR Transdermal Patch TRDERM SCH (21:36)
[2019-04-05] MEDS: Insulin Glargine,Human Rec. Analog 100 Units/ML 3 ML Pen SUBCUT SCH (21:39)
[2019-04-06] MEDS: Morphine 2 MG/ML Syringe IVPUSH PRN ×6 (00:32→23:07)
[2019-04-06] MEDS: methylPREDNISolone Sodium Succinate 125 MG/2 ML SDV IVPUSH SCH ×3 (00:40→17:32)
[2019-04-06] MEDS: Sodium Chloride 0.9% 10 ML Syringe FLUSH PRN ×10 (00:41→23:08)
[2019-04-06] MEDS: Furosemide 40 MG/4 ML VIAL IVPUSH SCH ×3 (01:23→17:27)
[2019-04-06] MEDS: [UNRECOGNIZED DRUG - REMARK] TRDERM SCH (08:18)
[2019-04-06] MEDS: Clotrimazole 1% Crm 15 GM Tube TOP SCH ×2 (08:33→20:12)
[2019-04-06] MEDS: Metolazone 5 MG Tab PO SCH (08:33)
[2019-04-06] MEDS: Albuterol/Ipratropium 3.0-0.5 MG/3 ML Neb Soln NEB SCH ×4 (08:34→20:15)
[2019-04-06] MEDS: Enoxaparin 30 MG/0.3 ML Syringe SUBCUT SCH (09:53)
--- NOTE | 2019-04-06 10:03 | PCM.PN ---
- General Info Date of Service: 04/06/19 Subjective Update: Overnight Daly had difficulty breathing. We did try the BiPAP last evening but she did not tolerate. She continues emesis seemed more confused this morning and still struggling to breathe, needing up to 14 L of oxygen supplementation by nasal cannula. She is a DNR. Functional Status: Reports: Pain Controlled. Denies: Ambulating - Review of Systems General: Reports: Weakness, Fatigue HEENT: Reports: No Symptoms Pulmonary: Reports: Shortness of Breath, Cough Cardiovascular: Reports: Dyspnea on Exertion, PND, Edema - Patient Data Vitals - Most Recent: Last Vital Signs Temp 97.4 F 04/06/19 00:00 Pulse 58 L 04/06/19 03:35 Resp 18 04/06/19 03:35 BP 112/65 04/06/19 03:35 Pulse Ox 95 04/06/19 03:35 Weight - Most Recent: 106.141 kg I&O - Last 24 Hours: Intake & Output 04/05/19 04/06/19 04/06/19 22:59 06:59 14:59 Intake Total 400 200 Output Total 450 1600 Balance -50 -1400 Lab Results Last 24 Hours: Laboratory Results - last 24 hr 04/05/19 04/05/19 04/05/19 Range/Units 11:37 17:27 20:03 WBC (4.5-12.0) X10-3/uL RBC (3.23-5.20) x10(6)uL Hgb (11.5-15.5) g/dL Hct (30.0-51.3) % MCV (80-96) fL MCH (27.7-33.6) pg MCHC (32.2-35.4) g/dL RDW (11.5-15.5) % Plt Count (125-369) X10(3)uL MPV (7.4-10.4) fL Add Manual Diff Neutrophils % (Manual) (46-82) % Lymphocytes % (Manual) (13-37) % Monocytes % (Manual) (4-12) % Hypersegmented Neuts Anisocytosis Sodium (135-145) mmol/L Potassium (3.5-5.3) mmol/L Chloride (100-110) mmol/L Carbon Dioxide (21-32) mmol/L BUN (7-18) mg/dL Creatinine (0.55-1.02) mg/dL Est Cr Clr Drug Dosing mL/min Estimated GFR (MDRD) (>60) BUN/Creatinine Ratio (9-20) Glucose (80-116) mg/dL POC Glucose 297 H 259 H 312 H (80-116) mg/dL Calcium (8.6-10.2) mg/dL NT-Pro-B Natriuret Pep (<=450) pg/mL 04/06/19 04/06/19 04/06/19 Range/Units 06:10 06:10 06:10 WBC 7.8 (4.5-12.0) X10-3/uL RBC 4.77 (3.23-5.20) x10(6)uL Hgb 12.3 (11.5-15.5) g/dL Hct 41.5 (30.0-51.3) % MCV 87.0 (80-96) fL MCH 25.9 L (27.7-33.6) pg MCHC 29.7 L (32.2-35.4) g/dL RDW 17.4 H (11.5-15.5) % Plt Count 187 (125-369) X10(3)uL MPV 7.3 L (7.4-10.4) fL Add Manual Diff Yes Neutrophils % (Manual) 98 H (46-82) % Lymphocytes % (Manual) 1 L (13-37) % Monocytes % (Manual) 1 L (4-12) % Hypersegmented Neuts Moderate Anisocytosis Few Sodium 144 (135-145) mmol/L Potassium 3.3 L (3.5-5.3) mmol/L Chloride 91 L (100-110) mmol/L Carbon Dioxide 56 H* (21-32) mmol/L BUN 70 H (7-18) mg/dL Creatinine 1.1 H (0.55-1.02) mg/dL Est Cr Clr Drug Dosing 34.87 mL/min Estimated GFR (MDRD) 47 L (>60) BUN/Creatinine Ratio 63.6 H (9-20) Glucose 314 H (80-116) mg/dL POC Glucose (80-116) mg/dL Calcium 9.5 (8.6-10.2) mg/dL NT-Pro-B Natriuret Pep 3587 H* (<=450) pg/mL Chava Results Last 24 Hours: Microbiology 04/03/19 11:00 Gram Stain - Final Pleural Fluid Body Fluid Culture - Final NO GROWTH AFTER 3 DAYS Med Orders - Current: Current Medications Acetaminophen (Tylenol) 325 mg PO Q4H PRN PRN Reason: Pain/Fever Last Admin: 04/04/19 17:24 Dose: 325 mg Albuterol/Ipratropium (Duoneb 3.0-0.5 Mg/3 Ml) 3 ml NEB QID [facility] Last Admin: 04/06/19 08:34 Dose: 3 ml Clotrimazole (Clotrimazole 1%) 1 gm TOP BID [facility] Last Admin: 04/06/19 08:33 Dose: 1 applic Enoxaparin Sodium (Lovenox) 30 mg SUBCUT Q24H [facility] Last Admin: 04/06/19 09:53 Dose: 30 mg Furosemide (Lasix) 40 mg IVPUSH Q8H [facility] Last Admin: 04/06/19 09:53 Dose: 40 mg Insulin Glargine (Lantus Solostar) 50 units SUBCUT BEDTIME [facility] Last Admin: 04/05/19 21:39 Dose: 50 units Methylprednisolone Sodium Succinate (Solu-Medrol) 125 mg IVPUSH Q8H [facility] Last Admin: 04/06/19 08:34 Dose: 125 mg Metolazone (Zaroxolyn) 5 mg PO DAILY [facility] Last Admin: 04/06/19 08:33 Dose: 5 mg Miscellaneous Information (Remove Patch) 1 ea TRDERM Q24H [facility] Last Admin: 04/06/19 08:18 Dose: 1 ea Morphine Sulfate (Morphine) 1 mg IVPUSH Q1H PRN PRN Reason: Dyspnea Last Admin: 04/06/19 06:18 Dose: 1 mg Nitroglycerin (Nitro-Dur 0.4 Mg/Hr) 0.4 mg TRDERM Q24H [facility] Last Admin: 04/05/19 21:36 Dose: 0.4 mg Sodium Chloride (Saline Flush) 10 ml FLUSH ASDIRECTED PRN PRN Reason: Keep Vein Open Last Admin: 04/06/19 10:00 Dose: 10 ml Discontinued Medications Albuterol (Proventil Neb Soln) 2.5 mg NEB Q2H PRN PRN Reason: Shortness Of Breath/wheezing Last Admin: 03/31/19 07:10 Dose: 2.5 mg Albuterol (Proventil Neb Soln) 2.5 mg NEB ONETIME ONE Stop: 03/31/19 07:11 Last Admin: 03/31/19 07:10 Dose: 2.5 mg Albuterol/Ipratropium (Duoneb 3.0-0.5 Mg/3 Ml) 3 ml NEB ONETIME ONE Stop: 03/30/19 23:15 Last Admin: 03/30/19 23:10 Dose: 3 ml Albuterol/Ipratropium (Duoneb 3.0-0.5 Mg/3 Ml) 3 ml NEB ONETIME ONE Stop: 03/31/19 00:13 Last Admin: 03/31/19 00:19 Dose: 3 ml Albuterol/Ipratropium (Duoneb 3.0-0.5 Mg/3 Ml) 3 ml NEB Q4H [facility] Last Admin: 04/02/19 05:33 Dose: 3 ml Allopurinol (Zyloprim) 300 mg PO DAILY [facility] Azithromycin (Zithromax) 250 mg PO DAILY@1800 [facility] Ceftriaxone Sodium (Rocephin) 2 gm IVPUSH Q24H [facility] Last Admin: 04/04/19 10:13 Dose: 2 gm Docusate Sodium (Colace) 100 mg PO DAILY [facility] Last Admin: 03/31/19 10:08 Dose: Not Given Furosemide (Lasix) 40 mg IVPUSH NOW ONE Stop: 03/30/19 23:17 Last Admin: 03/30/19 23:25 Dose: 40 mg Furosemide (Lasix) 80 mg PO DAILY [facility] Furosemide (Lasix) 80 mg IVPUSH Q8H [facility] Last Admin: 04/01/19 10:57 Dose: Not Given Furosemide (Lasix) 40 mg IVPUSH Q8H [facility] Last Admin: 04/01/19 10:57 Dose: Not Given Guaifenesin (Robitussin) 200 mg PO ONETIME ONE Stop: 03/31/19 01:11 Last Admin: 03/31/19 02:38 Dose: 200 mg Hydroxyzine Pamoate (Vistaril) 50 mg PO Q6H [facility] Last Admin: 03/31/19 02:40 Dose: 50 mg Hydroxyzine Pamoate (Vistaril) 50 mg PO Q6H PRN PRN Reason: Nausea/Vomiting Sodium Chloride (Normal Saline) 1,000 mls @ 50 mls/hr IV ASDIRECTED [facility] Last Admin: 04/01/19 06:45 Dose: 50 mls/hr Azithromycin 500 mg/ Sodium (Chloride) 250 mls @ 250 mls/hr IV Q24H [facility] Last Admin: 04/03/19 11:40 Dose: 250 mls/hr Azithromycin 500 mg/ Sodium (Chloride) 250 mls @ 250 mls/hr IV Q24H [facility] Last Admin: 04/04/19 13:09 Dose: 250 mls/hr Insulin Glargine (Lantus Solostar) 44 units SUBCUT BEDTIME [facility] Insulin Glargine (Lantus Solostar) 40 units SUBCUT BEDTIME [facility] Last Admin: 04/02/19 20:36 Dose: 40 unit Insulin Human Lispro (Humalog) 5 - 7 unit SUBCUT TIDMEALS [facility] Last Admin: 03/31/19 10:07 Dose: Not Given Insulin Human Lispro (Humalog) 0 unit SUBCUT ONETIME ONE Stop: 04/04/19 21:24 Last Admin: 04/04/19 21:52 Dose: 8 units Lisinopril (Prinivil) 5 mg PO DAILY [facility] Magnesium Oxide (Magnesium Oxide) 800 mg PO ONETIME ONE Stop: 03/31/19 00:51 Last Admin: 03/31/19 01:31 Dose: 800 mg Metformin HCl (Glucophage) 500 mg PO BIDMEALS [facility] Methylprednisolone Sodium Succinate (Solu-Medrol) 125 mg IVPUSH ONETIME ONE Stop: 03/31/19 00:27 Last Admin: 03/31/19 01:33 Dose: 125 mg Methylprednisolone Sodium Succinate (Solu-Medrol) 40 mg IVPUSH Q8H [facility] Last Admin: 04/01/19 11:03 Dose: Not Given Methylprednisolone Sodium Succinate (Solu-Medrol) 40 mg IVPUSH Q8H [facility] Last Admin: 04/03/19 09:20 Dose: 40 mg Metolazone (Zaroxolyn) 2.5 mg PO BIDDIURETIC [facility] Metolazone (Zaroxolyn) 5 mg PO ONETIME ONE Stop: 04/03/19 09:53 Last Admin: 04/03/19 11:54 Dose: 5 mg Mometasone Furoate/Formoterol Fumar (Dulera 200-5 Mcg) 2 puff IH BIDRT [facility] Last Admin: 03/31/19 06:33 Dose: 2 puff Mometasone Furoate/Formoterol Fumar (Dulera 200-5 Mcg) 2 puff IH BID [facility] Morphine Sulfate (Morphine) 15 mg PO BID [facility] Nitroglycerin (Nitro-Dur 0.4 Mg/Hr) 0.4 mg TRDERM DAILY [facility] Last Admin: 04/01/19 20:18 Dose: Not Given Non-Formulary Medication (Budesonide/Formoterol [Symbicort 160-4.5 Mcg]) 2 puff INH BID [facility] Non-Formulary Medication (Docusate Sodium [Colace]) 100 mg PO DAILY [facility] Non-Formulary Medication (Insulin Detemir [Levemir]) 44 units SUBCUT BEDTIME [facility] Non-Formulary Medication (Omeprazole [Omeprazole]) 40 mg PO DAILY [facility] Non-Formulary Medication (Potassium Chloride [Potassium Chloride]) 10 meq PO DAILY [facility] Ondansetron HCl (Zofran Odt) 8 mg PO Q6H PRN PRN Reason: nausea, able to take PO Pantoprazole Sodium (Protonix) 40 mg PO ACBREAKFAST [facility] Last Admin: 03/31/19 06:34 Dose: 40 mg Pantoprazole Sodium (Protonix) 40 mg PO DAILY@0600 [facility] Perflutren Lipid Microsphere (Definity) 2.2 mg IVPUSH PREPRO ONE Stop: 04/02/19 10:07 Last Admin: 04/02/19 10:45 Dose: 2.2 mg Potassium Chloride (Klor-Con 10) 10 meq PO DAILY [facility] Last Admin: 03/31/19 10:08 Dose: Not Given Prochlorperazine Maleate (Compazine) 10 mg PO Q6H [facility] Last Admin: 03/31/19 02:40 Dose: 10 mg Prochlorperazine Maleate (Compazine) 10 mg PO Q6H PRN PRN Reason: Nausea/Vomiting Sodium Chloride (Saline Flush) 10 ml FLUSH ASDIRECTED PRN PRN Reason: Keep Vein Open Last Admin: 03/31/19 01:34 Dose: 10 ml Tramadol HCl (Ultram) 50 mg PO QID PRN PRN Reason: Pain Warfarin Sodium (Coumadin) 5 mg PO 1600 RUBEN - Exam Quality Assessment: Supplemental Oxygen General: Alert, Mild Distress. No: Oriented HEENT: Pupils Equal Lungs: Decreased Breath Sounds, Crackles, Rales Cardiovascular: Irregular Rhythm, Tachycardia Sepsis Event Note - Evaluation Sepsis Screening Result: No Definite Risk - Focused Exam Vital Signs: Vital Signs Temp Pulse Resp BP Pulse Ox 04/06/19 03:35 58 L 18 112/65 95 04/06/19 01:00 96 04/06/19 00:00 97.4 F 89 22 H 131/68 92 L Date Exam was Performed: 04/06/19 Time Exam was Performed: 10:01 - Problem List & Annotations (1) Congestive heart failure SNOMED Code(s): 96365782 Code(s): I50.9 - HEART FAILURE, UNSPECIFIED Status: Acute Current Visit: Yes Qualifiers: Heart failure type: combined systolic and diastolic (2) Atrial fibrillation SNOMED Code(s): 31346455 Code(s): I48.91 - UNSPECIFIED ATRIAL FIBRILLATION Status: Chronic Current Visit: No Qualifiers: Atrial fibrillation type: longstanding persistent Qualified Code(s): I48.11 - Longstanding persistent atrial fibrillation (3) Pleural effusion SNOMED Code(s): 81145087 Code(s): J90 - PLEURAL EFFUSION, NOT ELSEWHERE CLASSIFIED Status: Acute Current Visit: No (4) Asthma SNOMED Code(s): 852909662 Code(s): J45.909 - UNSPECIFIED ASTHMA, UNCOMPLICATED Status: Chronic Current Visit: No Qualifiers: Asthma severity: moderate Asthma complication type: with acute exacerbation (5) CAD (coronary artery disease) SNOMED Code(s): 64709620 Code(s): I25.10 - ATHSCL HEART DISEASE OF [place] CORONARY ARTERY W/O ANG PCTRS Status: Chronic Current Visit: No Qualifiers: Associated angina: without angina (6) [place] current use of anticoagulant SNOMED Code(s): 723825090 Code(s): Z79.01 - MANAGER WATER (CURRENT) USE OF ANTICOAGULANTS Status: Chronic Current Visit: No (7) Obesity (BMI 30-39.9) SNOMED Code(s): 096803398, 627260466 Code(s): E66.9 - OBESITY, UNSPECIFIED Status: Chronic Current Visit: No (8) Type 2 diabetes mellitus SNOMED Code(s): 34682817 Code(s): E11.9 - TYPE 2 DIABETES MELLITUS WITHOUT COMPLICATIONS Status: Chronic Current Visit: No - Problem List Review Problem List Initiated/Reviewed/Updated: Yes - My Orders Last 24 Hours: My Active Orders 04/07/19 05:11 PRO B-TYPE NATRIUR PEPT,BNPPRO [CHEM] DAILY 04/08/19 05:11 PRO B-TYPE NATRIUR PEPT,BNPPRO [CHEM] DAILY - Plan Plan:: Despite Zaroxolyn, Lasix a chest x-ray showed worsening pulmonary edema. She has CO2 narcosis and symptoms be confused today. I had a discussion with current , the POA, and they would like consultation with hospice possibly switch her to comfort measures by tomorrow.
[2019-04-06] MEDS: Nitroglycerin 0.4 MG/HR Transdermal Patch TRDERM SCH (20:11)
[2019-04-06] MEDS: Insulin Glargine,Human Rec. Analog 100 Units/ML 3 ML Pen SUBCUT SCH (20:16)
[2019-04-07] MEDS: methylPREDNISolone Sodium Succinate 125 MG/2 ML SDV IVPUSH SCH ×2 (01:25→08:32)
[2019-04-07] MEDS: Furosemide 40 MG/4 ML VIAL IVPUSH SCH ×2 (01:25→10:02)
[2019-04-07] MEDS: Sodium Chloride 0.9% 10 ML Syringe FLUSH PRN ×4 (01:25→10:03)
[2019-04-07] MEDS: [UNRECOGNIZED DRUG - REMARK] TRDERM SCH (08:15)
[2019-04-07] MEDS: Clotrimazole 1% Crm 15 GM Tube TOP SCH (08:31)
[2019-04-07] MEDS: Metolazone 5 MG Tab PO SCH (08:32)
[2019-04-07] MEDS: Albuterol/Ipratropium 3.0-0.5 MG/3 ML Neb Soln NEB SCH (08:32)
[2019-04-07] MEDS ORDERED: Magnesium Hydroxide 400 MG/5 ML Susp 30 ML Cup PO ONE (09:29)
[2019-04-07] MEDS ORDERED: Tuberculin, PPD 5 Units/0.1 ML 1 ML MDV IDERM ONE (09:37)
[2019-04-07] MEDS: Enoxaparin 30 MG/0.3 ML Syringe SUBCUT SCH (10:03)
--- NOTE | 2019-04-07 10:42 | DISCH ---
DISCHARGE DATE: 04/07/2019 REASON FOR ADMISSION: Acute respiratory failure secondary to COPD, CHF, and possible pneumonia. OTHER POSSIBLE DIAGNOSES: 1. Type 2 diabetes. 2. Obesity. 3. Obstructive sleep apnea. 4. Hypertension. DISCHARGE DIAGNOSES: 1. Chronic respiratory failure due to congestive heart failure and pulmonary edema. 2. Chronic obstructive pulmonary disease exacerbation. 3. CO2 narcosis. CONSULTATION: 1. Stephane Winslow MD. 2. Hospice care. PROCEDURES: Thoracentesis. BRIEF HISTORY AND HOSPITAL COURSE: An 83-year-old, who came to the ER with upper respiratory symptoms along with shortness of breath, hypoxia, and was found to have pleural effusions which were thought initially to be parapneumonic and later found to be CHF related. She was treated with IV antibiotics, Solu- Medrol, and Lasix. Improvement was minimal. On Friday, I did consult Dr. Winslow, who did a thoracentesis and 800 mL was removed from the right lung; however, respiratory status continued to get worse with worsening pleural effusion despite aggressive diuresis. We tried a BiPAP, but she was not able to tolerate it. Family was consulted, and I spoke with [facility] several times and they would like to withdraw care, and as such, the [facility] and hospice consultation. I spent more than 35 minutes in the discharge of the patient. /[id number] MELISSA/VINOD
[2019-04-07 11:48] VITALS: BP 110/73; PULSE 94
== END 2019-04-07 13:15 | DRG 291 ==
LOC: FB.ED 23:08 → FB.MS 03-31 01:55
PROVIDERS: ADMIT Family Medicine; ATTEND Family Medicine
PROC: 0W993ZZ Drainage of Right Pleural Cavity, Percutaneous Approach (ICD-10-PCS; principal; 2019-04-03)
DX: R06.02 Shortness of breath (principal); R09.02 Hypoxemia; J44.9 Chronic obstructive pulmonary disease, unspecified; I11.0 Hypertensive heart disease with heart failure; J96.21 Acute and chronic respiratory failure with hypoxia; Z86.718 Personal history of other venous thrombosis and embolism; J44.1 Chronic obstructive pulmonary disease with (acute) exacerbation; I48.11 Longstanding persistent atrial fibrillation; R32 Unspecified urinary incontinence; Z87.442 Personal history of urinary calculi; J90 Pleural effusion, not elsewhere classified; I50.43 Acute on chronic combined systolic (congestive) and diastolic (congestive) heart failure; Z96.653 Presence of artificial knee joint, bilateral; Z96.641 Presence of right artificial hip joint; Z66 Do not resuscitate; G47.33 Obstructive sleep apnea (adult) (pediatric); I25.10 Atherosclerotic heart disease of native coronary artery without angina pectoris; H91.90 Unspecified hearing loss, unspecified ear; K21.9 Gastro-esophageal reflux disease without esophagitis; E53.0 Riboflavin deficiency; Z85.89 Personal history of malignant neoplasm of other organs and systems; M54.9 Dorsalgia, unspecified; G89.29 Other chronic pain; M10.9 Gout, unspecified; M19.90 Unspecified osteoarthritis, unspecified site; E11.51 Type 2 diabetes mellitus with diabetic peripheral angiopathy without gangrene; E11.40 Type 2 diabetes mellitus with diabetic neuropathy, unspecified; F41.9 Anxiety disorder, unspecified; F32.9 Major depressive disorder, single episode, unspecified; E66.9 Obesity, unspecified; E53.8 Deficiency of other specified B group vitamins; Z85.42 Personal history of malignant neoplasm of other parts of uterus; Z85.038 Personal history of other malignant neoplasm of large intestine; Z88.0 Allergy status to penicillin; Z88.2 Allergy status to sulfonamides; Z91.048 Other nonmedicinal substance allergy status; Z90.89 Acquired absence of other organs; Z90.49 Acquired absence of other specified parts of digestive tract; Z90.710 Acquired absence of both cervix and uterus; Z90.721 Acquired absence of ovaries, unilateral; Z90.79 Acquired absence of other genital organ(s); Z79.51 Long term (current) use of inhaled steroids; Z79.4 Long term (current) use of insulin; Z79.2 Long term (current) use of antibiotics; Z79.899 Other long term (current) drug therapy; Z79.01 Long term (current) use of anticoagulants; Z98.42 Cataract extraction status, left eye; Z98.41 Cataract extraction status, right eye; Z95.0 Presence of cardiac pacemaker
CPT/HCPCS: 36415; 36600; 51702; 71045; 80048; 80053; 82803; 82947; 82962; 83605; 83735; 83880; 84484; 85025; 85027; 85610; 86580; 87070; 87205; 89051; 94640; 94660; 94760; 96374; 99285; 99285-25; A9270-GY; C8929; J0456; J0696; J1650; J1815; J1815-GY; J1940; J2270; J2920; J2930; J7030; J7050; J7620-GY; Q0164; Q9957